=== PATIENT | male | born 1945 | race Caucasian/White ===

== ENCOUNTER → 2017-12-06 10:01 | Outpatient (CLI) | payer MEDICARE, OTHER, SELFPAY ==
[2017-12-06 12:25] LABS: Microalbumin,Random Urine 32.2 mg/L (NO RANGE EST.); Microalbumin:Creatinine Ratio 11.2 mg/g CRE (<30 mg/g CRE)
[2017-12-06 12:27] LABS: ALB/GLOB Ratio 0.8 RATIO (0.9-2.4); AST(SGOT) 49 U/L (15-37); Alanine Aminotransfer ALT/SGPT 61 U/L (16-61); Albumin, Serum 3.6 g/dL (3.2-5.0); Alkaline Phosphatase 72 U/L (45-117); Anion Gap 9 (5-15); BUN 18 mg/dL (7-18); BUN/Creat Ratio 15.9 RATIO (10-20); Calcium,Total 8.7 mg/dL (8.5-10.1); Chloride 103 mmol/L (98-107); Cholesterol 128 mg/dL (200); Creatinine, Serum 1.13 mg/dL (0.70-1.30); EST Glomerular Filtration Rate 68 mL/min (>60); Est Glom Filt Rate - Afr Amer 82 mL/min (>60); Globulin 4.3 g/dL (2.2-4.2); Glucose 126 mg/dL (74-106); High Density Lipoprotein 35 mg/dL; PSA,Total - Annual Screen 4.28 ng/mL (0.00-4.00); Potassium 3.1 mmol/L (3.5-5.1); Protein, Total 7.9 g/dL (6.4-8.2); Sodium Level 140 mmol/L (136-145); Triglycerides 198 mg/dL; Very Low Density Lipoprotein 40 mg/dL (5-40)
== END ==
PROVIDERS: Family Provider Preventive Medicine Occupational Medicine; PCP Preventive Medicine Occupational Medicine; Visit Provider Preventive Medicine Occupational Medicine
DX: I10 Essential (primary) hypertension (principal); E78.5 Hyperlipidemia, unspecified; Z12.5 Encounter for screening for malignant neoplasm of prostate
CPT/HCPCS: 36415; 80053; 80061; 82043; 82570; 84153; G0103

== ENCOUNTER → 2018-03-01 11:26 | Outpatient (CLI) | payer MEDICARE, OTHER, SELFPAY ==
--- NOTE | 2018-03-01 11:35 | RAD_ITS ---
STUDY: X-RAY - UNILATERAL RIBS ( LEFT ) WITH CHEST REASON FOR EXAM: Male, 72 years old. Left anterior rib pain after coughing. TECHNIQUE - RIBS: 4 view(s) of the ribs. TECHNIQUE - CHEST: Single frontal view of the chest. COMPARISON: None. FINDINGS - RIBS: There is a mildly displaced fracture of the lateral left ninth rib FINDINGS - CHEST: There is minor subsegmental atelectasis in the inferior left lung base. The right lung base is clear, but there is pleural thickening along the lateral right base extending into the pleural fissure Normal size heart. Normal mediastinum and kristy. Normal visualized pulmonary arteries. There is atherosclerotic calcification of the aortic arch. There are multilevel osteophytic degenerative changes of the visualized spine. 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 There is no demonstrated abnormality of the visualized soft tissue structures of the upper abdomen. RAD/Ribs Uni Min 3V w/PA Chest IMPRESSION: RIBS: Minimally displaced fracture of the lateral left ninth rib. CHEST: 1. No pneumothorax. Minor left base subsegmental atelectasis. 2. Pleural thickening in the lateral right base, tracking into the pleural fissure. Electronically Signed: Geovanny Ng MD at 19:39 EDT , Service support ,
== END ==
PROVIDERS: Family Provider Preventive Medicine Occupational Medicine; PCP Preventive Medicine Occupational Medicine; Visit Provider Preventive Medicine Occupational Medicine
DX: R07.81 Pleurodynia (principal)
CPT/HCPCS: 71101

== ENCOUNTER → 2018-06-14 12:27 | Outpatient (CLI) | payer MEDICARE, OTHER, SELFPAY ==
--- NOTE | 2018-06-14 12:31 | RAD_ITS ---
STUDY: X-RAY - THORACIC SPINE REASON FOR EXAM: Male, 72 years old. broken left 9th rib over the summer, sometimes feels numbness in that rib TECHNIQUE: 2 view(s) of the thoracic spine were obtained. COMPARISON: None. FINDINGS: Normal kyphosis of the thoracic spine. There is multi-level endplate spondylosis. There is multi-level degenerative disc disease with multilevel disc space narrowing. The soft tissue structures are unremarkable. RAD/Thoracic Spine 3 Views IMPRESSION: No demonstrated fractures. Moderate degenerative changes. Electronically Signed: Orlando Charels MD at 9:49 EDT Tel , Service support ,
== END ==
PROVIDERS: Family Provider Preventive Medicine Occupational Medicine; PCP Preventive Medicine Occupational Medicine; Referring Provider Preventive Medicine Occupational Medicine; Visit Provider Preventive Medicine Occupational Medicine
DX: M54.14 Radiculopathy, thoracic region (principal)
CPT/HCPCS: 72072

== ENCOUNTER → 2018-09-02 09:29 | Outpatient (CLI) | payer MEDICARE, OTHER, SELFPAY ==
[2018-06-07 14:08] VITALS: BMI 33.5
[2018-09-02 11:59] LABS: Absolute Lymphocyte Count 1.95 X10^3/ul (0.83-4.51); Absolute Neutrophil Count 4.2 X10^3/uL (2.0-7.7); Basophil# 0.02 X10^3/uL; Basophil% 0.3 % (0-1); Eosinophil# 0.16 X10^3/uL; Eosinophils% 2.3 % (0-5); Hematocrit 45.6 % (40-54); Hemoglobin 15.6 g/dl (13.0-16.5); Lymphocyte # 1.95 X10^3/ul (4.0); Lymphocyte % 28.2 % (19-41); Mean Corp Hgb Conc 34.2 g/gl (32-36); Mean Corpuscular Hgb 29.4 pg (27.0-32.0); Mean Corpuscular Volume 85.9 fL (80-94); Mean Platelet Vol. 10.6 fl (6.2-12.0); Monocyte# 0.58 X10^3/uL; Monocyte% 8.4 % (0-10); Neutrophil # 4.19 X10^3/uL (2.7-7.7); Neutrophil % 60.5 % (47-70); Platelet Count 162 K/mm3 (150-450); RBC Distribution Width SD 40.6 fl (35.1-43.9); Red Blood Count 5.31 M/mm3 (4.6-6.2); White Blood Count 6.9 K/mm3 (4.4-11.0)
[2018-09-02 12:02] LABS: POSITIVE COUNT NO; POSITIVE DIFFERENTIAL NO; POSITIVE MORPHOLOGY NO
[2018-09-02 12:17] LABS: Anion Gap 11 (5-15); BUN 17 mg/dL (7-18); BUN/Creat Ratio 14.4 RATIO (10-20); Calcium,Total 8.6 mg/dL (8.5-10.1); Chloride 104 mmol/L (98-107); Creatinine, Serum 1.18 mg/dL (0.70-1.30); EST Glomerular Filtration Rate 64 mL/min (>60); Est Glom Filt Rate - Afr Amer 78 mL/min (>60); Glucose 204 mg/dL (74-106); Sodium Level 141 mmol/L (136-145); T4 Total, Thyroxin 9.6 ug/dL (4.5-12.1); Thyroid Stim Hormone (TSH) 3.75 uIU/mL (0.358-3.74)
== END ==
PROVIDERS: Family Provider Preventive Medicine Occupational Medicine; PCP Preventive Medicine Occupational Medicine; Referring Provider Physician Assistant Medical; Visit Provider Physician Assistant Medical
DX: I10 Essential (primary) hypertension (principal); E78.5 Hyperlipidemia, unspecified; I42.0 Dilated cardiomyopathy; I48.92 Unspecified atrial flutter; R53.83 Other fatigue
CPT/HCPCS: 36415; 80048; 84436; 84443; 85025

== ENCOUNTER → 2018-09-15 11:35 | Outpatient (CLI) | payer MEDICARE, OTHER, SELFPAY ==
[2018-09-02 13:29] VITALS: BMI 33.7
--- NOTE | 2018-09-15 11:37 | US_ITS ---
STUDY: RENAL ULTRASOUND - COMPLETE REASON FOR EXAM: Male, 72 years old. Flank pain TECHNIQUE: Ultrasound evaluation of the kidneys was performed with real-time and static barnard-scale imaging. COMPARISON: None. FINDINGS: RIGHT KIDNEY: Normal location of the right kidney, which is normal in size. The right kidney measures 11.7 x 5.1 x 4.9 cm. There is a normal cortex of the right kidney. The renal cortex measures 1.4 cm. There is no right renal mass or cyst. There are no right renal calculi. There is dilatation of the renal pelvis and proximal ureter. There is NO dilatation of the calyxes. DISTAL RIGHT URETER: There is non-visualization of the distal right ureter. There is no demonstrated right ureterovesical junction calculus. There is a visualized right ureteral jet. LEFT KIDNEY: Normal location of the left kidney, which is normal in size. The left kidney measures 11.1 x 4.6 x 4.8 cm. There is a normal cortex of the left kidney. The renal cortex measures 1.7 cm. There are 2 cysts measuring 2.3 cm and 1 cm. There are no left renal calculi. There is no left hydronephrosis. DISTAL LEFT URETER: There is non-visualization of the distal left ureter. There is no demonstrated left ureterovesical junction calculus. There is a visualized left ureteral jet. BLADDER: The distended urinary bladder has a volume of 230 ml. The empty urinary bladder has a volume of 98 ml. There is a normal wall thickness of the distended urinary bladder. There is no demonstrated mass within the urinary bladder. There are no demonstrated bladder calculi. US/Kidney and Bladder IMPRESSION: There are LEFT kidney cysts. There are NO kidney stones. There is NO mass. RIGHT renal pelvis and ureter are dilated. Electronically Signed: Greg Dewitt MD at 3:26 EST , Service support ,
--- OUTSIDE RECORDS SUMMARY | 2018-11-20 03:10 | XMS RPT_ITS ---
:1945 Author Organization [place] Support Name Relationship Address Phone R Unavailable Unavailable Unavailable CHRISTA, ILYA Unavailable [phone] [place] [address] R Unavailable Unavailable Unavailable CHRISTA, ILYA Unavailable [phone] [place] [address] R Unavailable Unavailable Unavailable CHRISTA, ILYA Unavailable [phone] [place] [address] R Unavailable Unavailable Unavailable CHRISTA, ILYA Unavailable [phone] [place] [address] R Unavailable Unavailable Unavailable CHRISTA, ILYA Unavailable [phone] [place] [address] R Unavailable Unavailable Unavailable CHRISTA, ILYA Unavailable [phone] [place] [address] R Unavailable Unavailable Unavailable CHRISTA, ILYA Unavailable Samanta [phone] [place] [address] R Unavailable Unavailable Unavailable CHRISTA, ILYA Unavailable Samanta [phone] [place] [address] R Unavailable Unavailable Unavailable CHRISTA, ILYA Unavailable Samanta [phone] [place] [address] R Unavailable Unavailable Unavailable CHRISTA, ILYA Unavailable Samanta [phone] [place] [address] Care Team Providers Name Role Phone DEZ TELLO Attending Unavailable DEZ TELLO Primary Care Unavailable Libra Ruelas Attending Unavailable Libra Ruelas Referring Unavailable Dez Tello Primary Care Unavailable Libra Ruelas Attending Unavailable Dez Tello Referring Unavailable Libra Ruelas Attending Unavailable Dez Tello Referring Unavailable Dez Tello Primary Care Unavailable Dez Tello Attending Unavailable ElishaDez malone Referring Unavailable ElishaDez Primary Care Unavailable Dez Tello Attending Unavailable ElishaDez malone Referring Unavailable Elisha, Dez Primary Care Unavailable Libra Ruelas Attending Unavailable Libra Ruelas Steve Referring Unavailable Dez Tello Primary Care Unavailable Elisha, Dez Attending Unavailable Dez Tello Primary Care Unavailable Courtney Wright Attending Unavailable Gonzalez Haque Attending Unavailable Dez Tello Referring Unavailable Dez Tello Attending Unavailable Elisha, Dez Referring Unavailable ElishaDez Primary Care Unavailable PROBLEMS PROBLEMS DATE TYPE CONDITION / CODE ATTENDING STATUS SOURCE 09/05/2018 Unknown I10 - Essential Ruelas, Active [place] (primary) Libra Wilson [facility] hypertension / Hospital I10(ICD-10) Repository 09/05/2018 Unknown R53.83 - Other Ruelas, Active [place] fatigue / Libra [facility] R53.83(ICD-10) Hospital Repository 09/05/2018 Unknown I48.0 - Paroxysmal Ruelas, Active [place] atrial Libra [facility] fibrillation / Hospital I48.0(ICD-10) Repository 09/05/2018 Unknown E78.00 - Pure Ruelas, Active [place] hypercholesterolem Libra [facility] ia, unspecified / Hospital E78.00(ICD-10) Repository 06/14/2018 Unknown M54.14 - Dez Tello Active [place] Radiculopathy, [facility] thoracic region / Hospital M54.14(ICD-10) Repository 06/07/2018 Unknown E78.5 - Garland, Gonzalez Active [place] Hyperlipidemia, Community unspecified / Hospital E78.5(ICD-10) Repository 06/07/2018 Unknown I48.92 - Garland, Gonzalez Active [place] Unspecified atrial Community flutter / Hospital I48.92(ICD-10) Repository 03/01/2018 Unknown R07.81 - Dez Tello Active [place] Pleurodynia / Community R07.81(ICD-10) Hospital Repository 12/06/2017 Unknown Z12.5 - Encounter Dez Tello Active [place] for screening for [facility] malignant neoplasm [facility] prostate / Repository Z12.5(ICD-10) PROCEDURES PROCEDURES No Procedure Records FoundRESULTS RESULTS BASIC METABOLIC Collected: 09/22/2018 Status: F Source: [place] PROFILE (BMP) 3:[address] [facility] REPOSITORY TYPE CODE TESTS RESULT OUT OF RANGE REFERENCE UNITS LAB L501.0100 74-106 mg/dL High GLU 162 Result Comment: Fasting Glucose result greater than or equal to 126 mg/dL suggests DIABETES MELLITUS per A.D.A. criteria. Please note revised GLUCOSE reference range effective 2017. LAB L501.1000 7-18 mg/dL Normal BUN 12 LAB L501.1100 0.70-1.30 mg/dL Normal CREAT,SERUM 1.10 Result Comment: The validity of the calculated GFR AND GFRAA in patients over 70 years has not been determined. Clinical correlation is essential. LAB L501.1110 >60 mL/min Normal EST GFR 70 Result Comment: Non- GFR Calc LAB L501.1115 >60 mL/min Normal EST GFR - AA 85 Result Comment: GFR Calc LAB L501.1300 10-20 RATIO Normal BUN/CRE 10.9 LAB L501.2200 8.5-10.1 mg/dL CA Normal 8.5 LAB L501.5300 136-145 mmol/L NA Normal 144 LAB L501.5600 3.5-5.1 mmol/L K Normal 3.7 LAB L501.5900 98-107 mmol/L CL Normal 107 LAB L501.6100 21.0-32.0 mmol/L Normal CO2 25.0 LAB L501.6200 5-15 Normal GAP 12 Performed By: #### L500.2500 #### [facility] [address] [facility] [place], [address] KIDNEY AND BLADDER Observed: 09/15/2018 Status: F Source: [place] 11:[address] [facility] REPOSITORY [facility] Imaging Services [address] [place] [address] Kidney and Bladder MR#: [id number] Acct: [id number] Name: DENICE GOODWIN Rep #: [id number] : 1945 M 72 From: Greg Dewitt PCP: Dez Tello DO Status: REG CLI Study: Kidney and Bladder Date of Exam: 09/15/18 Exam# [id number] Ordering Dr: Dez Tello DO STUDY: RENAL ULTRASOUND - COMPLETE REASON FOR EXAM: Male, 72 years old. Flank pain TECHNIQUE: Ultrasound evaluation of the kidneys was performed with real-time and static barnard-scale imaging. COMPARISON: None. FINDINGS: RIGHT KIDNEY: Normal location of the right kidney, which is normal in size. The right kidney measures 11.7 x 5.1 x 4.9 cm. There is a normal cortex of the right kidney. The renal cortex measures 1.4 cm. There is no right renal mass or cyst. There are no right renal calculi. There is dilatation of the renal pelvis and proximal ureter. There is NO dilatation of the calyxes. DISTAL RIGHT URETER: There is non-visualization of the distal right ureter. There is no demonstrated right ureterovesical junction calculus. There is a visualized right ureteral jet. LEFT KIDNEY: Normal location of the left kidney, which is normal in size. The left kidney measures 11.1 x 4.6 x 4.8 cm. There is a normal cortex of the left kidney. The renal cortex measures 1.7 cm. There are 2 cysts measuring 2.3 cm and 1 cm. There are no left renal calculi. There is no left hydronephrosis. DISTAL LEFT URETER: There is non-visualization of the distal left ureter. There is no demonstrated left ureterovesical junction calculus. There is a visualized left ureteral jet. BLADDER: The distended urinary bladder has a volume of 230 ml. The empty urinary bladder has a volume of 98 ml. There is a normal wall thickness of the distended urinary bladder. There is no demonstrated mass within the urinary bladder. There are no demonstrated bladder calculi. US/Kidney and Bladder IMPRESSION: There are LEFT kidney cysts. There are NO kidney stones. There is NO mass. RIGHT renal pelvis and ureter are dilated. Electronically Signed: Greg Dewitt MD at 3:26 EST , Service support , CC: Dez Tello DO Steamfitter Supervisor: Signed CARDIOLOGY VISIT Observed: 09/05/2018 Status: F Source: [place] REPORT 6:[address] [facility] REPOSITORY [facility] [address] [place] [address] OFFICE VISIT Date of Service: 09/02/18 MR#: [id number] Acct: [id number] Name: DENICE GOODWIN Rep #: [id number] : 1945 Provider: Libra Ruelas Age/Sex: 72/M Location: [facility] Status: Signed HPI HPI Chief Complaint: Follow up vist Details: DENICE GOODWIN, is a 72 M who presents to the office today for an urgent appt for concerns over fatigue. He has a history of atrial fibrillation, hypertension, hyperlipidemia. is concerned about husbands fatigue. She sts that he can nap, sleeps greater than 10 hours and still complains of fatigue. Over the last year we have decreased his medications. Pt sts that he has been fatigued since prior to his last OV with us in May. He does not sleep well. He has never had a sleep study. He does not have any chest pain/heaviness. He does not have any worsening SOB. He does not have any palpitations. He does not have any lightheadedness/dizziness. He does have some edema but feels this improved since decreasing his norvasc. Intake Vital Signs09/02/18 Height 5 ft 10 in 09/02/18 Weight: 235 lb 09/02/18 Body Mass Index (BMI) 33.7 09/02/18 Blood Pressure 144/82 H Intake Visit Reasons: Fatigue, Top Ironer Required: No Accompanied by: Is patient in pain?: No Allergies No Known Allergies Allergy (Verified 09/02/18 13:28) Medications Cholecalciferol (VIT D3) [Vitamin D] 2,000 unit PO DAILY 10/16/15 [History Confirmed 09/02/18] Multivitamin [Daily Multiple Vitamin] 1 ea PO DAILY 10/16/15 [History Confirmed 09/02/18] Sidon-3 Fatty Acids/Fish Oil [Sidon 3 1,000 mg Softgel] 1 ea PO DAILY 10/16/15 [History Confirmed 09/02/18] Simvastatin [Zocor] 20 mg PO QHS 10/16/15 [History Confirmed 09/02/18] Ubidecarenone [Co Q-10] 200 mg PO DAILY 10/16/15 [History Confirmed 09/02/18] Vitamin B Complex/Folic Acid [Super B Maxi Complex Caplet] 0.4 mg PO DAILY 10/16/15 [History Confirmed 09/02/18] Warfarin [Coumadin (PBKC)] 4 mg PO DAILY 10/16/15 [History Confirmed 09/02/18] losartan 100 mg tablet 100 mg PO DAILY #90 tab 10/05/17 [Rx Confirmed 09/02/18] metoprolol tartrate 50 mg tablet 25 mg PO BID tab 11/15/17 [History Confirmed 09/02/18] amlodipine 5 mg tablet 5 mg PO DAILY #90 tab 06/07/18 [Rx Confirmed 09/02/18] potassium chloride ER 20 mEq tablet,extended release(part/cryst) 20 meq PO DAILY #30 tab 09/02/18 [Rx Confirmed 09/02/18] PFSH Medical History Essential (primary) hypertension (Chronic) Hyperlipidemia (Chronic) Dilated cardiomyopathy (Chronic) Atrial flutter (Chronic) Surgical History History of left heart catheterization (Resolved 10/17/15) Family History Other CVA (cerebral vascular accident) Hypertension Social History Smoking Status: Never smoker ROS Const Const: Positive for weakness, fatigue and daytime sleepiness; negative for fever(s) or headache(s) Eyes Eyes: Negative for blind spots, loss of peripheral vision or transient loss of vision ENT ENT: Negative for headache(s), dizziness, tinnitus or Nosebleed/epistaxis Cardio Chest Pain: No Palpitations: No Edema: None Muscle aches with walking: None Resp Respiratory: Negative for SOB with activity, SOB at rest, SOB orthopnea\SOB lying down or Cough GI GI: Negative nausea, vomiting, heartburn or vomiting blood/hematemesis : Negative for hematuria Musc Musc: Negative for muscle aches/ myalgia Neuro Neuro: Positive for weakness; negative for headache(s), dizziness, near syncope, syncope, lightheadedness or orthostatic symptoms Abbe Hematologic/Lymphatic: Negative for easy bleeding Endo Endo: Positive for fatigue Cardiology Exam Const Appearance: cooperative, healthy appearing, well developed, well groomed and no acute distress Nutritional Appearance: well nourished and average body habitus Orientation: alert, awake and oriented x3 Head Head: normal to inspection, normocephalic and atraumatic Ears: hearing grossly normal bilaterally and external ears normal Nose: external nose normal, nasal mucous membranes and turbinates normal, nares normal, septum normal, no nasal discharge Face and Sinus: face symmetric Mouth: oral mucosae normal, tongue normal, oropharynx normal and moist mucous membranes Teeth and gingiva: dentition normal Throat: posterior oropharynx normal, tonsils normal and uvula midline Eyes General: appearance normal, both eyes and all related structures Eyelids: eyelids normal Conjunctivae: conjunctivae normal Pupils: PERRL, normal by confrontation and accommodation normal EOM: EOM intact bilaterally Neck Neck: normal visual inspection, trachea midline and no JVD JVD: +5 Carotids: normal carotid upstroke and bounding pulses Chest Chest inspection: normal inspection of the chest, symmetric chest movement and normal respiratory effort Auscultation: Bilateral: Clear to Auscultation Cardio Palpation: normal PMI Rate: regular rate Rhythm: regular rhythm Heart sounds: S1 normal, S2 normal and normal, physiologic split S2; negative rub, gallop or murmur GI GI: normal to inspection, soft, no hepatosplenomegaly and bowel sounds present Neuro General: alert, awake, oriented x3, no focal sensory deficit, gait normal and moves all extremities Skin Skin: no rashes or lesions noted Extremities Pulses: Normal: Right Femoral Pulse, Left Femoral Pulse, Right Dorsalis Pedis Pulse, Left Dorsalis Pedis Pulse, Right Posterior Tibial Pulse, Left Posterior Tibial Pulse, Right Radial Pulse, Left Radial Pulse Lower Extremity Edema: None: Bilateral Musculoskel Musculoskeletal: No joint tenderness Psych Psychological: normal affect Assessment AND Plan 1. Fatigue, unspecified type R53.83 Plan - LUIS CARLOS Lamas Pt is hypokalemic. Will have him stop his HCTZ and start a K+ supplement for a few days. Will repeat his BMP in 2 weeks. Since we are stopping his HCTZ we will monitor his BP closely. Discussed obtaining a sleep study, pt declines at this time. 2. Essential hypertension I10 Plan - LUIS CARLOS Lam[place] Bp on higher side of normal today, with adjusting medications will continue to monitor closely. Will have f/u next month. Patient Instructions - LUIS CARLOS Lam[place] Stop your hydrochlorothiazide and start your potassium for 5 days, then repeat your blood work in 2 weeks. Orders Orders: 3. Paroxysmal atrial fibrillation I48.0 Plan - LUIS CARLOS [place] He will continue with his current low dose BB. Pt has not had any symptoms. They will continue with her anticoagulation with a therapeutic INR goal of 2-3. 4. Pure hypercholesterolemia E78.00 Plan - LUIS CARLOS Lam[place] Recent lipid profile has been reviewed. Patient will continue with his current dose of low intensity statin. Plan Detail Other Medications New: Discontinued: hydrochlorothiazide Discontinued Reason: Discontinued by PCP/other phy25 mg PO DAILY sicians Additional Comments - LUIS CARLOS Lamas The above patient was discussed with Dr. Haque, he agrees with plan of care. Thank you for allowing us to participate in patient's plan of care, if you have any questions please do not hesitate to call. This note was generated using a voice recognition system and there may be incorrect words, spelling or punctuation errors that were not noted when reviewing the office note prior to saving. Follow Up 1 Month (MMM) Coding Level of Care Code Off vis,est,level 4 Diagnoses Fatigue, unspecified type R53.83 Fatigue type: unspecified Essential hypertension I10 Paroxysmal atrial fibrillation I48.0 Atrial fibrillation type: paroxysmal Pure hypercholesterolemia E78.00 Hyperlipidemia type: pure hypercholesterolemia Coding Level of Care Code Off vis,est,level 4 Diagnoses Fatigue, unspecified type R53.83 Fatigue type: unspecified Essential hypertension I10 Paroxysmal atrial fibrillation I48.0 Atrial fibrillation type: paroxysmal Pure hypercholesterolemia E78.00 Hyperlipidemia type: pure hypercholesterolemia Supplemental Info Supplemental Information Echocardiogram in 2016 demonstrated: Hypermobile atrial septum. Normal LV size. Left ventricular systolic function is lower limits of normal. The estimated ejection fraction is 50 %. Mild (1+) tricuspid valve insufficiency. Contrast injection was performed. Stress test in 2016 demonstrated: Exercise myocardial perfusion stress test with no evidence of ischemia at a low workload. Marked reduced exercise capacity. Premature ventricular complexes noted. Preserved ejection fraction. Heart cath from 2016 demonstrated: LEFT MAIN: The left main coronary artery was noted to be angiographically normal. It bifurcated into left anterior descending artery and left circumflex artery. No significant stenosis was noted in this vessel. LEFT ANTERIOR DESCENDING ARTERY: The left anterior descending artery was a medium-sized vessel. Left anterior descending artery continued, gave off a large septal sprinkler tender, which had an ostial stenosis. A large diagonal branch was also noted with no significant disease. The left anterior descending artery continued, wrapped around the apex of the left ventricle. Minimal disease only was noted. LEFT CIRCUMFLEX ARTERY: The left circumflex artery was a nondominant vessel. It gave off a prominent first obtuse marginal branch with no high-grade stenosis. There was an eccentric 30% stenosis noted. The AV groove branch was also noted, which did not demonstrate any high-grade stenosis. RIGHT CORONARY ARTERY: The right coronary artery was a dominant vessel, but small vessel. It gave off a conus branch, an acute marginal branch, and sinoatrial branch. The vessel continued distally and gave off a posterior descending artery and a posterolateral bifurcating branch. No high-grade stenosis was noted in this vessel. Left ventriculogram was not performed. The previous echocardiogram had demonstrated ejection fraction of approximately 50%. Labs LDL Cholesterol 53 mg/dL (0-130) 12/06/17 HDL Cholesterol 35 mg/dL (40-) L 12/06/17 Triglycerides 198 mg/dL (-199) 12/06/17 VLDL Cholesterol 40 mg/dL (5-40) 12/06/17 Diagnostics Echocardiogram 10/07/15 Stress Test Nuclear Medicine 10/07/15 Cardiac Catheterization 10/17/15 Chest X-Ray 10/07/15 09/02/18 1627 <Electronically signed by Libra ALRDIDGE> Date Libra ALDRIDGE 09/05/18 0643<Electronically signed by Gonzalez Haque MD> Cosigner Signature: Date (if applicable) Gonzalez Haque MD CC: Dez GAMBLE W/DIFF, AUTOMATED Collected: 09/02/2018 Status: F Source: [place] 9:[address] [facility] REPOSITORY TYPE CODE TESTS RESULT OUT OF RANGE REFERENCE UNITS LAB L100.1000 4.4-11.0 K/mm3 Normal WBC 6.9 LAB L100.1200 4.6-6.2 M/mm3 Normal RBC 5.31 LAB L100.1300 13.0-16.5 g/dl Normal HGB 15.6 LAB L100.1400 40-54 % Normal HCT 45.6 LAB L100.1500 80-94 fL Normal MCV 85.9 LAB L100.1600 27.0-32.0 pg Normal MCH 29.4 LAB L100.1700 32-36 g/gl Normal MCHC 34.2 LAB L100.1810 11.6-14.6 % Normal RDW CV 13.0 LAB L100.1820 35.1-43.9 fl Normal RDW SD 40.6 LAB L100.1900 150-450 K/mm3 Normal PLT 162 LAB L100.2000 6.2-12.0 fl Normal MPV 10.6 LAB L100.2100 47-70 % Normal NEUT% 60.5 LAB L100.2200 19-41 % Normal LY% 28.2 LAB L100.2300 0-10 % Normal MONO% 8.4 LAB L100.2400 0-5 % Normal EO% 2.3 LAB L100.2500 0-1 % Normal BASO% 0.3 LAB L100.2550 0.0-0.9 % Normal IM GRAN % 0.300 Result Comment: IG% - Immature Granulocytes (promyelocytes, myelocytes and metamyelocytes) > 1% indicates that a LEFT SHIFT is Present. LAB L100.2620 2.0-7.7 X10 3/uL Normal Absolute Neut 4.2 LAB L100.2720 0.83-4.51 X10 3/ul Normal Absolute Lymph 1.95 Performed By: #### L100.0100 #### [facility] [address] [place], [place], [id number] BASIC METABOLIC Collected: 09/02/2018 Status: F Source: [place] PROFILE ([facility]) 9:[address] [facility] REPOSITORY TYPE CODE TESTS RESULT OUT OF RANGE REFERENCE UNITS LAB L501.0100 74-106 mg/dL High GLU 204 Result Comment: Glucose result greater than or equal to 200 mg/dL suggests DIABETES MELLITUS per A.D.A. criteria. Please note revised GLUCOSE reference range effective 2017. LAB L501.1000 7-18 mg/dL Normal BUN 17 LAB L501.1100 0.70-1.30 mg/dL Normal CREAT,SERUM 1.18 Result Comment: The validity of the calculated GFR AND GFRAA in patients over 70 years has not been determined. Clinical correlation is essential. LAB L501.1110 >60 mL/min Normal EST GFR 64 Result Comment: Non- GFR Calc LAB L501.1115 >60 mL/min Normal EST GFR - AA 78 Result Comment: GFR Calc LAB L501.1300 10-20 RATIO Normal BUN/CRE 14.4 LAB L501.2200 8.5-10.1 mg/dL CA Normal 8.6 LAB L501.5300 136-145 mmol/L NA Normal 141 LAB L501.5600 3.5-5.1 mmol/L Low K 3.0 LAB L501.5900 98-107 mmol/L CL Normal 104 LAB L501.6100 21.0-32.0 mmol/L Normal CO2 26.0 LAB L501.6200 5-15 Normal GAP 11 Performed By: #### L500.2500, L501.9310, L501.9520 #### [facility] [address] [facility] [place], [place], [id number] T4 TOTAL, THYROXIN Collected: 09/02/2018 Status: F Source: [place] 9:[address] [facility] REPOSITORY TYPE CODE TESTS RESULT OUT OF RANGE REFERENCE UNITS LAB L501.9310 4.5-12.1 ug/dL T4 Normal THYROXIN 9.6 Performed By: #### L500.2500, L501.9310, L501.9520 #### [facility] [address] [place], [place], [address] THYROID STIM HORMONE Collected: 09/02/2018 Status: F Source: [place] ([facility]) 9:[address] [facility] REPOSITORY TYPE CODE TESTS RESULT OUT OF RANGE REFERENCE UNITS LAB L501.9520 0.358-3.74 uIU/mL High TSH 3.75 Performed By: #### L500.2500, L501.9310, L501.9520 #### [facility] [address] [place], [address] THORACIC SPINE 3 Observed: 06/14/2018 Status: F Source: [place] VIEWS 12:31 PM [facility] REPOSITORY [facility] Imaging Services [address] [place] [address] Thoracic Spine 3 Views MR#: [id number] Acct: [id number] Name: DENICE GOODWIN Marcy Rep #: [id number] : 1945 M 72 From: Orlando Charles PCP: Dez Tello DO Status: REG CLI Study: Thoracic Spine 3 Views Date of Exam: 06/14/18 Exam# [id number] Ordering Dr: Dez Tello DO STUDY: X-RAY - THORACIC SPINE REASON FOR EXAM: Male, 72 years old. broken left 9th rib over the summer, sometimes feels numbness in that rib TECHNIQUE: 2 view(s) of the thoracic spine were obtained. COMPARISON: None. FINDINGS: Normal kyphosis of the thoracic spine. There is multi-level endplate spondylosis. There is multi-level degenerative disc disease with multilevel disc space narrowing. The soft tissue structures are unremarkable. RAD/Thoracic Spine 3 Views IMPRESSION: No demonstrated fractures. Moderate degenerative changes. Electronically Signed: Orlando Charles MD at 9:49 EDT Tel , Service support , CC: Dez Tello DO Steamfitter Supervisor: Signed CARDIOLOGY VISIT Observed: 06/07/2018 Status: F Source: [place] REPORT 2:[address] [facility] REPOSITORY [facility] [address] [place] [address] OFFICE VISIT Date of Service: 06/07/18 MR#: [id number] Acct: [id number] Name: DENICE GOODWIN Rep #: [id number] : 1945 Provider: Gonzalez Haque MD Age/Sex: 72/M [place] [facility] Status: Signed [facility] Chief Complaint: Follow up vist Details: DENICE GOODWIN, is a 72 M who presents to the office today for for follow-up visit. He is a gentleman with a history of previous atrial fibrillation hypertension hyperlipidemia. He returns for routine follow-up visit he denies any chest pain or shortness breath or paroxysmal nocturnal dyspnea, but mild pedal edema he has had no neck arm or jaw discomfort suggest angina. He has been compliant with all his medications. You do remember he underwent a cardiac catheterization in 2016 which demonstrated left main coronary artery with no significant stenosis left anterior descending artery with minimal disease circumflex artery with 30% stenosis in the right coronary artery with no significant stenosis. He has not had any neck arm or jaw discomfort suggest angina. Intake Vital Signs06/07/18 Height 5 ft 10 in 06/07/18 Weight: 234 lb 06/07/18 Body Mass Index (BMI) 33.5 06/07/18 Blood Pressure 110/72 Intake Visit Reasons: 6 M FU Top Ironer Required: No Is patient in pain?: No Allergies No Known Allergies Allergy (Verified 06/07/18 14:09) Medications Cholecalciferol (VIT D3) [Vitamin D] 2,000 unit PO DAILY 10/16/15 [History Confirmed 06/07/18] Hydrochlorothiazide [Hctz] 25 mg PO DAILY 10/16/15 [History Confirmed 06/07/18] Multivitamin [Daily Multiple Vitamin] 1 ea PO DAILY 10/16/15 [History Confirmed 06/07/18] Sidon-3 Fatty Acids/Fish Oil [Sidon 3 1,000 mg Softgel] 1 ea PO DAILY 10/16/15 [History Confirmed 06/07/18] Simvastatin [Zocor] 20 mg PO QHS 10/16/15 [History Confirmed 06/07/18] Ubidecarenone [Co Q-10] 200 mg PO DAILY 10/16/15 [History Confirmed 06/07/18] Vitamin B Complex/Folic Acid [Super B Maxi Complex Caplet] 0.4 mg PO DAILY 10/16/15 [History Confirmed 06/07/18] Warfarin [Coumadin (PBKC)] 4 mg PO DAILY 10/16/15 [History Confirmed 06/07/18] losartan 100 mg tablet 100 mg PO DAILY #90 tab 10/05/17 [Rx Confirmed 06/07/18] metoprolol tartrate 50 mg tablet 25 mg PO BID tab 11/15/17 [History Confirmed 06/07/18] amlodipine 5 mg tablet 5 mg PO DAILY #90 tab 06/07/18 [Rx Confirmed 06/07/18] [facility] Medical History Essential (primary) hypertension (Chronic) Hyperlipidemia (Chronic) Dilated cardiomyopathy (Chronic) Atrial flutter (Chronic) Surgical History History of left heart catheterization (Resolved 10/17/15) Family History Other CVA (cerebral vascular accident) Hypertension Social History Smoking Status: Never smoker ROS Const Const: Negative for fatigue, weakness, body ache, fever(s), chills, frequent falls, night sweats, daytime sleepiness, difficulty sleeping, excessive sweating, weight gain, weight loss, increased appetite, poor appetite, anorexia or other Cardio Chest Pain: No Edema: Left Resp Respiratory: Positive for SOB with activity Neuro Neuro: Negative for weakness or frequent falls Endo Endo: Negative for fatigue or excessive sweating Cardiology Exam Const Appearance: cooperative, healthy appearing, well developed, well groomed and no acute distress Nutritional Appearance: well nourished and average body habitus Orientation: alert, awake and oriented x3 Head Head: normal to inspection, normocephalic and atraumatic Ears: hearing grossly normal bilaterally and external ears normal Nose: external nose normal, nasal mucous membranes and turbinates normal, nares normal, septum normal, no nasal discharge Face and Sinus: face symmetric Mouth: oral mucosae normal, tongue normal, oropharynx normal and moist mucous membranes Teeth and gingiva: dentition normal Throat: posterior oropharynx normal, tonsils normal and uvula midline Eyes General: appearance normal, both eyes and all related structures Eyelids: eyelids normal Conjunctivae: conjunctivae normal Pupils: PERRL, normal by confrontation and accommodation normal EOM: EOM intact bilaterally Neck Neck: normal visual inspection, trachea midline and no JVD JVD: +5 Carotids: normal carotid upstroke and bounding pulses Chest Chest inspection: normal inspection of the chest, symmetric chest movement and normal respiratory effort Auscultation: Bilateral: Clear to Auscultation Cardio Palpation: normal PMI Rate: regular rate Rhythm: regular rhythm Heart sounds: S1 normal, S2 normal and normal, physiologic split S2; negative rub, gallop or murmur GI GI: normal to inspection, soft, no hepatosplenomegaly and bowel sounds present Neuro General: alert, awake, oriented x3, no focal sensory deficit, gait normal and moves all extremities Skin Skin: no rashes or lesions noted Extremities Pulses: Normal: Right Femoral Pulse, Left Femoral Pulse, Right Dorsalis Pedis Pulse, Left Dorsalis Pedis Pulse, Right Posterior Tibial Pulse, Left Posterior Tibial Pulse, Right Radial Pulse, Left Radial Pulse Lower Extremity Edema: None: Bilateral Musculoskel Musculoskeletal: No joint tenderness Psych Psychological: normal affect Assessment AND Plan 1. Essential (primary) hypertension I10 Plan He does have a history of hypertension which appears to well controlled at this time my recommendation is that because of his pedal edema I would recommend that we reduce his amlodipine to 5 mg a day and for him to keep records of his blood pressure. 2. Hyperlipidemia E78.5 Plan He does have a history of hyperlipidemia for which she remains on medium intensity statin with the simvastatin. His most recent lipid profile demonstrated total cholesterol 128, LDL of 53 and HDL of 35. No changes will be made with respect to the above. 3. Atrial flutter I48.92 Plan He does have a history of previous atrial fibrillation flutter for which he has been maintaining sinus rhythm. He remains anticoagulated and is on the metoprolol which has been keeping him in regular rhythm for now. No other changes will be made. He will remain anticoagulated with an INR goal of 2-3. Plan Detail Other Medications New: Discontinued: Follow Up 6 Months (mmm) Coding Level of Care Code Off vis,est,level 4 Diagnoses Essential (primary) hypertension I10 Hyperlipidemia E78.5 Atrial flutter I48.92 Coding Level of Care Code Off vis,est,level 4 Diagnoses Essential (primary) hypertension I10 Hyperlipidemia E78.5 Atrial flutter I48.92 06/07/18 1421 <Electronically signed by Gonzalez Haque MD> Date Gonzalez White Signature: Date (if applicable) CC: Dez Tello DO RIBS UNI MIN 3V Observed: 03/01/2018 Status: F Source: [facility]AB W/PA CHEST 11:[address] [facility] REPOSITORY [facility] Imaging Services [address] [place] [address] Ribs Uni Min 3V w/PA Chest MR#: [id number] Acct: [id number] Name: DENICE GOODWIN Rep #: [id number] : 1945 M 72 From: Allen Ng MD PCP: Dez Tello DO Status: REG CLI Study: Ribs Uni Min 3V w/PA Chest Date of Exam: 03/01/18 Exam# [id number] Ordering Dr: Dez Tello DO STUDY: X-RAY - UNILATERAL RIBS ( LEFT ) WITH CHEST REASON FOR EXAM: Male, 72 years old. Left anterior rib pain after coughing. TECHNIQUE - RIBS: 4 view(s) of the ribs. TECHNIQUE - CHEST: Single frontal view of the chest. COMPARISON: None. FINDINGS - RIBS: There is a mildly displaced fracture of the lateral left ninth rib FINDINGS - CHEST: There is minor subsegmental atelectasis in the inferior left lung base. The right lung base is clear, but there is pleural thickening along the lateral right base extending into the pleural fissure Normal size heart. Normal mediastinum and kristy. Normal visualized pulmonary arteries. There is atherosclerotic calcification of the aortic arch. There are multilevel osteophytic degenerative changes of the visualized spine. 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 There is no demonstrated abnormality of the visualized soft tissue structures of the upper abdomen. RAD/Ribs Uni Min 3V w/PA Chest IMPRESSION: RIBS: Minimally displaced fracture of the lateral left ninth rib. CHEST: 1. No pneumothorax. Minor left base subsegmental atelectasis. 2. Pleural thickening in the lateral right base, tracking into the pleural fissure. Electronically Signed: Geovanny Ng MD at 19:39 EDT , Service support , CC: Dez Tello DO Steamfitter Supervisor: Signed MICROALB:CREAT Collected: 12/06/2017 Status: F Source: [facility] 10:[address] [facility] REPOSITORY TYPE CODE TESTS RESULT OUT OF RANGE REFERENCE UNITS LAB L501.1200 NO RANGE EST. mg/dL Normal UR CREAT 287.00 LAB L502.0500 NO RANGE EST. mg/L Normal 32.2 MICROALBUMIN ,UR LAB L502.0600 <30 mg/g CRE mg/g CRE Normal 11.2 MALB:CREAT Performed By: #### L502.0250 #### [facility] [address] [place], [address] COMPREHENSIVE METABOLIC Collected: 12/06/2017 Status: F Source: [facility] 10:[address] [facility] REPOSITORY TYPE CODE TESTS RESULT OUT OF RANGE REFERENCE UNITS LAB L501.0100 74-106 mg/dL High GLU 126 Result Comment: Fasting Glucose result greater than or equal to 126 mg/dL suggests DIABETES MELLITUS per A.D.A. criteria. Please note revised GLUCOSE reference range effective 2017. LAB L501.1000 7-18 mg/dL Normal BUN 18 LAB L501.1100 0.70-1.30 mg/dL Normal CREAT,SERUM 1.13 Result Comment: The validity of the calculated GFR AND GFRAA in patients over 70 years has not been determined. Clinical correlation is essential. LAB L501.1110 >60 mL/min Normal EST GFR 68 Result Comment: Non- GFR Calc LAB L501.1115 >60 mL/min Normal EST GFR - AA 82 Result Comment: GFR Calc LAB L501.1300 10-20 RATIO Normal BUN/CRE 15.9 LAB L501.1500 6.4-8.2 g/dL T Normal PROT 7.9 LAB L501.1800 3.2-5.0 g/dL Normal ALB 3.6 LAB L501.1950 2.2-4.2 g/dL High GLOB 4.3 LAB L501.2000 0.9-2.4 RATIO Low A/G 0.8 LAB L501.2200 8.5-10.1 mg/dL CA Normal 8.7 LAB L501.4100 15-37 U/L High AST 49 LAB L501.4305 45-117 U/L Normal ALK P 72 LAB L501.4405 16-61 U/L Normal ALT 61 Result Comment: Please note revised ALT reference range effective 2017. LAB L501.4600 0.20-1.00 mg/dL High T BILI 1.20 LAB L501.5300 136-145 mmol/L Normal NA 140 LAB L501.5600 3.5-5.1 mmol/L Low K 3.1 LAB L501.5900 98-107 mmol/L Normal CL 103 LAB L501.6100 21.0-32.0 mmol/L Normal CO2 28.0 LAB L501.6200 5-15 Normal GAP 9 Performed By: #### L500.4050, L500.4100, L501.9910 #### [facility] [address] [place], [place], [id number] LIPID PROFILE Collected: 12/06/2017 Status: F Source: [place] 10:[address] [facility] REPOSITORY TYPE CODE TESTS RESULT OUT OF RANGE REFERENCE UNITS LAB L501.4900 200 mg/dL Normal CHOL 128 Result Comment: <200 mg/dL Desirable 200-240 mg/dL Borderline >240 mg/dL High Risk LAB L501.5000 mg/dL Normal TRIG 198 Result Comment: The drugs N-Acetylcysteine and Metamizole may falsely depress this assay. Serum Triglycerides Reference Interval Normal <150 mg/dL Borderline high 150 - 199 mg/dL High 200 - 499 mg/dL Very High > or = 500 mg/dL LAB L501.6400 mg/dL Low HDL 35 Result Comment: The drugs N-Acetylcysteine and Metamizole may falsely depress this assay. Reference Range HDL <40 mg/dL Low HDL Cholesterol HDL >or= 60 mg/dL High HDL Cholesterol LAB L501.6500 0-130 mg/dL Normal LDL 53 LAB L501.6600 5-40 mg/dL Normal VLDL 40 Performed By: #### L500.4050, L500.4100, L501.9910 #### [facility] [address] [place], [address] PSA,TOTAL - ANNUAL Collected: 12/06/2017 Status: F Source: [facility] SCREEN 10:[address] [facility] REPOSITORY TYPE CODE TESTS RESULT OUT OF REFERENCE UNITS RANGE LAB L501.9910 0.00-4.00 ng/mL High PSA,TOT 4.28 SCREEN Result Comment: This test was performed using the TPSA assay method for the Optoro chemistry system. Values obtained with different assay methods cannot be used interchangably. When changing PSA assays in the course of monitoring a patient, additional sequential testing should be carried out to confirm baseline values. Performed By: #### L500.4050, L500.4100, L501.9910 #### [facility] [address] [place], [address] CARDIOLOGY VISIT Observed: 11/20/2017 Status: F Source: FAB REPORT 12:[address] [facility] REPOSITORY [facility] [address] [place] [address] OFFICE VISIT Date of Service: 11/15/17 MR#: [id number] Acct: [id number] Name: DENICE GOODWIN Rep #: [id number] : 1945 Provider: Libra Ruelas Age/Sex: 71/M Location: [facility] Status: Signed HPI HPI Details: DENICE GOODWIN, is a 71 M who presents to the office today for cardiovascular follow-up. He has a history of atrial fibrillation, hypertension, hyperlipidemia. He is recovering from a viral illness. From a cardiac standpoint, patient is doing well. He is concerned about depression. He does not have any chest discomfort/heaviness/tightness. His exercise tolerance is stable for his age. He does not have any worsening symptoms of shortness of breath. He does have SOB with exertion but this is not new. He denies any PND. He does not have any orthopnea. He does not have any symptoms of congestive heart failure. He does not have any palpitations that he is aware of. He does not have any lightheadedness or dizziness. He does not have any near-syncope or syncope. He does not have any lower extremity edema. He does not have any symptoms of claudication. Intake Vital Signs11/15/17 Height 5 ft 10 in 11/15/17 Weight: 233 lb 11/15/17 Body Mass Index (BMI) 33.4 11/15/17 Blood Pressure 110/70 11/15/17 Pulse Rate 68 Intake Visit Reasons: 6 M FU Allergies No Known Allergies Allergy (Verified 11/15/17 14:19) Medications Cholecalciferol (VIT D3) [Vitamin D] 2,000 unit PO DAILY 10/16/15 [History Confirmed 11/15/17] Hydrochlorothiazide [Hctz] 25 mg PO DAILY 10/16/15 [History Confirmed 11/15/17] Multivitamin [Daily Multiple Vitamin] 1 ea PO DAILY 10/16/15 [History Confirmed 11/15/17] Sidon-3 Fatty Acids/Fish Oil [Sidon 3 1,000 mg Softgel] 1 ea PO DAILY 10/16/15 [History Confirmed 11/15/17] Simvastatin [Zocor] 20 mg PO QHS 10/16/15 [History Confirmed 11/15/17] Ubidecarenone [Co Q-10] 200 mg PO DAILY 10/16/15 [History Confirmed 11/15/17] Vitamin B Complex/Folic Acid [Super B Maxi Complex Caplet] 0.4 mg PO DAILY 10/16/15 [History Confirmed 11/15/17] Warfarin [Coumadin (PBKC)] 4 mg PO DAILY 10/16/15 [History Confirmed 11/15/17] amlodipine 10 mg tablet 10 mg PO DAILY #90 tab 09/09/17 [Rx Confirmed 11/15/17] losartan 100 mg tablet 100 mg PO DAILY #90 tab 10/05/17 [Rx Confirmed 11/15/17] metoprolol tartrate 50 mg tablet 25 mg PO BID tab 11/15/17 [History Confirmed 11/15/17] Ejection fraction %: 50 to 54 [facility] Medical History Hyperlipidemia (Chronic) Hypertension (Chronic) Dilated cardiomyopathy (Chronic) Atrial flutter (Chronic) Atherosclerotic heart disease of [place] coronary artery without angina pectoris (Chronic) Family History Other CVA (cerebral vascular accident) Hypertension Social History Smoking Status: Never smoker ROS Const Const: Negative for weakness, fatigue, fever(s) or headache(s) Eyes Eyes: Negative for blind spots, loss of peripheral vision or transient loss of vision ENT ENT: Negative for headache(s), dizziness, tinnitus or Nosebleed/epistaxis Cardio Chest Pain: No Palpitations: No Edema: None Muscle aches with walking: None Resp Respiratory: Negative for SOB with activity, SOB at rest, SOB orthopnea\SOB lying down or Cough GI GI: Negative nausea, vomiting, heartburn or vomiting blood/hematemesis : Negative for hematuria Musc Musc: Negative for muscle aches/ myalgia Neuro Neuro: Negative for weakness, headache(s), dizziness, near syncope, syncope, lightheadedness or orthostatic symptoms Abbe Hematologic/Lymphatic: Negative for easy bleeding Endo Endo: Negative for fatigue Cardiology Exam Const Appearance: cooperative, no acute distress and well developed Orientation: alert, awake and oriented x3 Head Head: normocephalic and atraumatic Mouth: moist mucous membranes Eyes General: appearance normal, both eyes and all related structures Conjunctivae: conjunctivae normal Pupils: PERRL EOM: EOM intact bilaterally Neck Neck: normal visual inspection, no lymphadenopathy and no JVD Carotids: Negative bruit Neck Mass: Negative Neck mass Chest Chest inspection: normal inspection of the chest and symmetric chest movement Auscultation: Bilateral: Clear to Auscultation Cardio Palpation: normal PMI Rate: regular rate Rhythm: regular rhythm Heart sounds: S1 normal and S2 normal; negative rub, gallop or murmur GI GI: normal to inspection, soft, no hepatosplenomegaly and bowel sounds present; negative tender Neuro General: alert, awake, oriented x3, CN's II-XI intact bilaterally and moves all extremities Extremities Pulses: Normal: Right Posterior Tibial Pulse, Left Posterior Tibial Pulse, Right Radial Pulse, Left Radial Pulse Lower Extremity Edema: None: Bilateral Psych Psychological: normal affect Supplemental Info Heart catheterization in 2016 demonstrated left main angiographically normal, LAD minimal disease noted. Circumflex 30% stenosis, RCA small vessel no high-grade stenosis, ejection fraction was 50%. Assessment AND Plan 1. Atherosclerosis of [place] coronary artery of [place] heart without angina pectoris I25.10 Plan - LUIS CARLOS Lamas Stable, from a cardiac standpoint patient does not have any symptoms of angina. We recommend that they continue with current aggressive medical management and risk factor modification. 2. Essential hypertension I10 Plan - LUIS CARLOS Lamas Patient's heart rate and blood pressure has been on the low side. Will decrease his metoprolol to 25 mg twice a day. 3. Pure hypercholesterolemia E78.00; E78.0 Plan - LUIS CARLOS Lamas Recent lipid profile demonstrates total cholesterol 125, HDL 37, LDL 50. Will not make any adjustments. 4. Typical atrial flutter I48.3 Plan - LUIS CARLOS Lamas Patient's heart rate is controlled. Is on the low side. We are decreasing his metoprolol to 25 mg daily. He is anticoagulated with a therapeutic INR goal of 2-3. Patient Instructions - LUIS CARLOS Lamas Decrease your metoprolol to 25 mg twice a day Plan Detail Other Medications Changed: Discontinued: hydrocodone-acetaminophen 5-325 mg Discontinued Reason:1 - 2 tabs PO Q4H PRN PRN Pain Pt no longer taking Additional Comments - LUIS CARLOS Lamas The above patient was discussed with Dr. Haque, he agrees with plan of care. Thank you for allowing us to participate in patient's plan of care, if you have any questions please do not hesitate to call. This note was generated using a voice recognition system and there may be incorrect words, spelling or punctuation errors that were not noted when reviewing the office note prior to saving. Follow Up 6 Months (PROGRAM HOST) Coding Level of Care Code Off vis,est,level 3 Diagnoses Atherosclerosis of [place] coronary artery of [place] heart without angina pectoris I25.10 [place] vs. transplanted heart: [place] heart Essential hypertension I10 Hypertension type: essential hypertension Pure hypercholesterolemia E78.00; E78.0 Hyperlipidemia type: pure hypercholesterolemia Typical atrial flutter I48.3 Atrial flutter type: typical Coding Level of Care Code Off vis,est,level 3 Diagnoses Atherosclerosis of [place] coronary artery of [place] heart without angina pectoris I25.10 [place] vs. transplanted heart: [place] heart Essential hypertension I10 Hypertension type: essential hypertension Pure hypercholesterolemia E78.00; E78.0 Hyperlipidemia type: pure hypercholesterolemia Typical atrial flutter I48.3 Atrial flutter type: typical 11/19/17 1719 <Electronically signed by Libra ALDRIDGE> Date Libra ALDRIDGE 11/20/17 1202<Electronically signed by Gonzalez Haque MD> Cosigner Signature: Date (if applicable) Gonzalez Haque MD CC: Dez Tello DO ALLERGIES ALLERGIES DATE TYPE / CODE NAME / CODE REACTION SEVERITY SOURCE 09/02/2018 Drug No Known Unknown [facility] Allergy/4160 Allergies/F00 Hospital 36814(SNOMED 7126743(RXNOR Repository CT) M) ENCOUNTERS ENCOUNTERS ADMIT/DISCHARGE ACCOUNT NUMBER ADMITTING ENCOUNTER LOCATION SOURCE CLASS 09/22/2018 [id number] Ambulatory [facility] ding:MTLAB Repository 09/15/2018 [id number] Ambulatory [facility] ding: Repository 09/02/2018/09/02/19 [id number] Ambulatory B[place]: [place] [facility] Repository 09/02/2018 [id number] Ambulatory [facility] ding:MTLAB Repository 06/14/2018 [id number] Ambulatory [facility] ding:MTRAD Repository 06/13/2018/06/13/20 [id number] Ambulatory [address] [facility] Repository 06/07/2018/06/07/20 [id number] Ambulatory BMSBuilding: [place] [facility] Repository 06/03/2018 [id number] Ambulatory BMSBuilding: [place] [facility] Repository 03/01/2018 [id number] Ambulatory [facility] ding:MTRAD Repository 12/06/2017 [id number] Ambulatory [place] [facility] ding:MTLAB Repository 11/15/2017/11/16/19 [id number] Ambulatory BMSBuilding: [place] [facility] Repository PAYERS PAYERS ENCOUNTER GUARANTOR PAYER SUBSCRIBER SOURCE 09/22/2018 EDWARD L Primary EDWARD L [place] [id number] Insurance:MEDICARE ROBISONDOB: [facility] KEARA CHAUDHRYSTER, PART A olic [id number] [address]Eav: Number: Repository [id number] () Date:2018-09-22 09/22/2018 Secondary EDWARD L Fab Insurance:AARPPolicy ROBISONDOB: Community Number: [id number] Hospital [id number] Repository Date:2301-62-24KC [facility] [id number], [place] [address]QN: 09/22/2018 Tertiary NOT GIVENUNK [place] Insurance:SELF PAY [facility] Number: Effective Repository Date:2018-09-22 09/15/2018 EDWARD L Primary EDWARD L Fab [id number] Insurance:MEDICARE ROBISONDOB: [facility] KEARA CHAUDHRYSTER, PART A olic [id number] Indian Medical Center [address]Bbd: Number: Repository [id number] () Date:2018-09-13 09/15/2018 Secondary EDWARD L [place] Insurance:AARPPolicy ROBISONDOB: Community Number: [id number] Hospital [id number] Repository Date:4636-15-94AC [address]F, [place] [address]TE: 09/15/2018 Tertiary NOT GIVENUNK [place] Insurance:SELF PAY [facility] Number: Effective Repository Date:2018-09-13 09/02/2018 EDWARD L Primary EDWARD L [place] [id number] Insurance:MEDICARE ROBISONDOB: [facility] KEARA CHAUDHRYSTER, PART A [facility] [id number] Indian Medical Center [address]Gtg: Number: Repository [id number] (HP) Date:2018-09-01 09/02/2018 Secondary EDWARD L Fab Insurance:AARPPolicy ROBISONDOB: Community Number: [id number] Hospital [id number] Repository Date:4060-48-58EI [address]WLDHS, [place] [address]GM: 09/02/2018 Tertiary NOT GIVENUNK [place] Insurance:SELF PAY [facility] Number: Effective Repository Date:2018-09-02 09/02/2018 EDWARD L Primary EDWARD L [place] [id number] Insurance:MEDICARE ROBISONDOB: [facility] KEARA DOLAN, PART A olic [id number] Indian Medical Center [address]Pcb: Number: Repository [id number] (HP) Date:2018-09-02 09/02/2018 Secondary EDWARD L [place] Insurance:AARPPolicy ROBISONDOB: Community Number: [id number] Hospital [id number] Repository Date:5436-40-59AB [address]QIVNXJM, [place] [address]YP: 09/02/2018 Tertiary NOT GIVENUNK Fab Insurance:SELF PAY [facility] Number: Effective Repository Date:2018-09-02 06/14/2018 EDWARD L Primary EDWARD L Fab [id number] Insurance:MEDICARE ROBISONDOB: [facility] KEARA DOLAN, PART A [facility] [id number] Indian Medical Center [address]Cmk: Number: Repository [id number] (HP) Date:2018-06-14 06/14/2018 Secondary EDWARD L [place] Insurance:AARPPolicy ROBISONDOB: Community Number: [id number] Hospital [id number] Repository Date:2259-95-23TT [address]BGBRFKQ, [place] [address]BE: 06/14/2018 Tertiary NOT GIVENUNK [place] Insurance:SELF PAY [facility] Number: Effective Repository Date:2018-06-14 06/13/2018 EDWARD L Primary DENICE [facility] ROBISONDOB: Insurance:MEDICARE ROBISONDOB: [facility] [id number] PART BPolicy Number: [id number] Repository KEARA DOLAN [id number] [address] [place] [address]Ilv: Date:2018-06-13 - AMARILYSSCOTT [place] [id number] 514[address]Yyl: ([phone] () Name:[facility] [id number] Administrators LLCPO ()Tel: 000) [address], 000-0000 () [place] [address]VG: 06/13/2018 Secondary OMAR [facility] Insurance:AARP AGUA DULCE ROBISONDOB: [facility] [id number] Repository ONLYPolicy Number: Miriam SARAH [id number] [place] Date:2018-06-13 01120Bvc: [id number] [phone] Name:RACE STEWARD Box ()Tel: (000) 244[address]Lmlghzs, [place] 000-0000 () [address]JM: 06/07/2018 EDWARD L Primary EDWARD L [place] [id number] Insurance:MEDICARE ROBISONDOB: Community KEARA ABREUDARRONSCOTT, PART A [facility] [id number] Indian Medical Center [address]Nbp: Number: Repository [id number] () Date:2017-11-15 06/07/2018 Secondary EDWARD L [place] Insurance:AARPPolicy ROBISONDOB: Community Number: [id number] Hospital [id number] Repository Date:2073-58-36JJ [address]UMN[address], [place] [address]RU: 06/07/2018 Tertiary NOT GIVENUNK [place] Insurance:SELF PAY [facility] Number: Effective Repository Date:2018-06-07 06/03/2018 EDWARD L Primary EDWARD L Fab [id number] Insurance:MEDICARE ROBISONDOB: [facility] MAGDALENO, PART A [place] [id number] [address]Msv: Number: Repository [id number] (HP) Date:2018-06-03 06/03/2018 Secondary EDWARD L Fab Insurance:AARPPolicy ROBISONDOB: Community Number: [id number] [facility] [id number] Repository Date:[id number], [place] [address]BE: 06/03/2018 Tertiary NOT GIVENUNK Fab Insurance:SELF PAY [facility] Number: Effective Repository Date:2018-06-03 03/01/2018 EDWARD L Primary EDWARD L Fab [id number] Insurance:MEDICARE ROBISONDOB: [facility] AMARILYS, PART A [facility] [id number] Indian Medical Center [address]Ntm: Number: Repository [id number] (HP) Date:2018-03-01 03/01/2018 Secondary EDWARD L Fab Insurance:AARPPolicy ROBISONDOB: Community Number: [id number] Hospital [id number] Repository Date:[id number], [place] [address]NB: 03/01/2018 Tertiary NOT GIVENUNK [place] Insurance:SELF PAY [facility] Number: Effective Repository Date:2018-03-01 12/06/2017 EDWARD L Primary EDWARD L Fab [id number] Insurance:MEDICARE ROBISONDOB: [facility] AMARILYS, PART A [facility] [id number] [facility] Medical Center [address]Ayq: Number: Repository [id number] (HP) Date:2017-12-06 12/06/2017 Secondary EDWARD L [place] Insurance:AARPPolicy ROBISONDOB: Community Number: [id number] Hospital [id number] Repository Date:5401-95-71[address], [place] [address]XR: 12/06/2017 Tertiary NOT GIVENUNK [place] Insurance:SELF PAY [facility] Number: Effective Repository Date:2017-12-06 11/15/2017 EDWARD L Primary EDWARD L Fab [id number] Insurance:MEDICARE ROBISONDOB: Community [facility]AN [facility] [id number] [address]Vnl: Number: Repository [id number] (HP) Date:2017-08-09 11/15/2017 Secondary EDWARD L Fab Insurance:AARPPolicy ROBISONDOB: [facility] Number: [id number] Hospital [id number] Repository Date:[id number] [facility] [place], [place] [address]VW: 11/15/2017 Tertiary NOT GIVENUNK Fab Insurance:SELF PAY [facility] Number: Effective Repository Date:2017-08-09
== END ==
PROVIDERS: Family Provider Preventive Medicine Occupational Medicine; PCP Preventive Medicine Occupational Medicine; Referring Provider Preventive Medicine Occupational Medicine; Visit Provider Preventive Medicine Occupational Medicine
DX: R10.9 Unspecified abdominal pain (principal)
CPT/HCPCS: 76770

== ENCOUNTER → 2018-09-22 15:45 | Outpatient (CLI) | payer MEDICARE, OTHER, SELFPAY ==
[2018-09-02 13:29] VITALS: BMI 33.7
[2018-09-22 17:47] LABS: Anion Gap 12 (5-15); BUN 12 mg/dL (7-18); BUN/Creat Ratio 10.9 RATIO (10-20); Calcium,Total 8.5 mg/dL (8.5-10.1); Chloride 107 mmol/L (98-107); EST Glomerular Filtration Rate 70 mL/min (>60); Est Glom Filt Rate - Afr Amer 85 mL/min (>60); Glucose 162 mg/dL (74-106); Potassium 3.7 mmol/L (3.5-5.1); Sodium Level 144 mmol/L (136-145)
== END ==
PROVIDERS: Family Provider Preventive Medicine Occupational Medicine; PCP Preventive Medicine Occupational Medicine; Referring Provider Physician Assistant Medical; Visit Provider Physician Assistant Medical
DX: I10 Essential (primary) hypertension (principal)
CPT/HCPCS: 36415; 80048

== ENCOUNTER → 2018-12-14 08:54 | Outpatient (CLI) | payer MEDICARE, OTHER, SELFPAY ==
[2018-12-06 13:01] VITALS: BMI 32.8
[2018-12-14 10:36] LABS: Hemoglobin A1c 7.2 % (4.2-6.3)
[2018-12-14 10:44] LABS: AST(SGOT) 35 U/L (15-37); Alanine Aminotransfer ALT/SGPT 47 U/L (16-61); Albumin, Serum 3.6 g/dL (3.2-5.0); Alkaline Phosphatase 90 U/L (45-117); Anion Gap 9 (5-15); BUN 11 mg/dL (7-18); BUN/Creat Ratio 9.8 RATIO (10-20); Calcium,Total 8.7 mg/dL (8.5-10.1); Chloride 106 mmol/L (98-107); Cholesterol 121 mg/dL (200); Creatinine, Serum 1.12 mg/dL (0.70-1.30); EST Glomerular Filtration Rate 68 mL/min (>60); Est Glom Filt Rate - Afr Amer 83 mL/min (>60); Globulin 3.6 g/dL (2.2-4.2); Glucose 152 mg/dL (74-106); High Density Lipoprotein 39 mg/dL; Potassium 3.6 mmol/L (3.5-5.1); Protein, Total 7.2 g/dL (6.4-8.2); Sodium Level 140 mmol/L (136-145); Triglycerides 151 mg/dL; Very Low Density Lipoprotein 30 mg/dL (5-40)
[2018-12-15 16:35] LABS: PSA, Free 0.66 ng/mL; PSA, Free % 22.8 % (.); PSA, Total Ultrasensitive 2.9 ng/mL (0.0-4.0)
== END ==
PROVIDERS: Family Provider Preventive Medicine Occupational Medicine; PCP Preventive Medicine Occupational Medicine; Referring Provider Preventive Medicine Occupational Medicine; Visit Provider Preventive Medicine Occupational Medicine
DX: R97.20 Elevated prostate specific antigen [PSA] (principal); R73.03 Prediabetes; E78.5 Hyperlipidemia, unspecified; I10 Essential (primary) hypertension
CPT/HCPCS: 36415; 80053; 80061; 83036; 84153; 84154

== ENCOUNTER → 2019-05-18 14:15 | Outpatient (CLI) | payer MEDICARE, OTHER, SELFPAY ==
[2018-12-06 13:01] VITALS: BMI 32.8
[2019-05-18 15:28] LABS: PSA,Total - Annual Screen 3.63 ng/mL (0.00-4.00)
== END ==
PROVIDERS: Family Provider Preventive Medicine Occupational Medicine; PCP Preventive Medicine Occupational Medicine; Referring Provider Urology; Visit Provider Urology
DX: Z12.5 Encounter for screening for malignant neoplasm of prostate (principal)
CPT/HCPCS: 36415; 84153; G0103

== ENCOUNTER → 2019-12-26 11:20 | Outpatient (CLI) | payer MEDICARE, OTHER, SELFPAY ==
[2019-08-15 10:42] VITALS: BMI 33.1
--- NOTE | 2019-12-26 11:24 | CT_ITS ---
STUDY: CT ABDOMEN AND PELVIS WITHOUT CONTRAST REASON FOR EXAM: Male, 73 years old. Right flank pain x 2 weeks, hematuria (takes coumadin). Prior hernia repair, appendectomy, lumbar discectomy, hypertension. RADIATION DOSAGE (If Supplied By Facility): CTDIvol = ( 20.60 ) mGy, DLP = ( 1147.95 ) mGycm TECHNIQUE: Transaxial images were obtained from the dome of the diaphragm to the symphysis pubis without oral contrast, and without intravenous contrast. Sagittal and coronal images were reconstructed. Individualized dose optimization techniques were used for this CT. COMPARISON: None. FINDINGS: The visualized lung bases are unremarkable. Coronary artery calcification. There is decreased attenuation of the liver consistent with steatosis. Low-level densities are seen in the gallbladder lumen suggestive of either small gallstones or sludge. Normal spleen. Normal pancreas. Normal bilateral adrenal glands. Normal right kidney. Normal left kidney. Normal visualized stomach. Normal small intestine. Normal colon. The patient is status post appendectomy. There is diffuse atherosclerotic calcification of the abdominal aorta, without a demonstrated aneurysm. Normal inferior vena cava. Normal retroperitoneum. The urinary bladder is empty. There is diffuse wall thickening of the urinary bladder. There are prostatic calcifications. The prostate measures 5.5 cm x 4.1 cm. Phleboliths are seen in the left hemipelvis. Small bilateral inguinal hernias containing fat. There are diffuse degenerative changes of the visualized lumbar spine. CT/Abdomen/Pelvis without Cont IMPRESSION: Prostatic enlargement with prostatic calcification. Diffuse thickening of the urinary bladder wall. Fatty infiltration of the liver. Electronically Signed: Benson Quinn, at 11:57 EDT , Service support ,
== END ==
PROVIDERS: PCP Preventive Medicine Occupational Medicine; Referring Provider Urology; Visit Provider Urology
DX: R10.84 Generalized abdominal pain (principal)
CPT/HCPCS: 74176

== ENCOUNTER → 2020-04-08 12:47 | Outpatient (CLI) | payer MEDICARE, OTHER, SELFPAY ==
[2020-03-26 13:48] VITALS: BMI 32.7
--- NOTE | 2020-04-08 12:47 | ECHOCS_ITS ---
Reason For Study: A. fib Procedure This was a 2D Doppler, Color Flow transthoracic echocardiogram. The study was technically difficult. Exam performed in department. Left Ventricle Normal LV size. The estimated ejection fraction is 40 %. There is mild to moderate global hypokinesis of the left ventricle. Right Ventricle Normal RV size. Normal systolic function. Atria The left atrium is moderately enlarged. Normal right atrium. Tricuspid Valve Normal tricuspid valve. Mild (1+) tricuspid valve insufficiency. Aortic Valve Trisinus/trileaflet aortic valve. Mild focal aortic valve calcification. Pulmonic Valve The pulmonic valve is not well visualized. Great Vessels Normal aortic root. The pulmonary artery is normal size. Normal inferior vena cava. Pericardium/Pleural No pericardial effusion. Medication 22 gauge I.V. with prn adaptor inserted into right arm. Diluted definity 3ml given slow IV push to enhance endocardial definition. MMode/2D Measurements & Calculations LVIDd: 4.8 cm IVSd: 1.2 cm Ao root diam: 3.5 cm LVIDs: 3.7 cm LVPWd: 0.92 cm RVDd: 3.4 cm FS: 22.0 % LAV(MOD-bp): 85.8 ml LA A4 area: 25.1 cm2 LA dimension(2D): 3.4 cm LAV(MOD-bp) Indexed: 40.7 ml/m2 LAV(MOD-sp2): 71.6 ml LAV(MOD-sp4): 96.7 ml RA A4 area: 14.1 cm2 Doppler Measurements & Calculations MV E max jaime: 60.9 cm/sec Lat Peak E' Jaime: 6.6 cm/sec Med Peak E' Jaime: 3.2 cm/sec MV A max jaime: 88.4 cm/sec E/E' lat: 9.2 E/E' med: 19.2 MV E/A: 0.69 Ao V2 max: 117.0 cm/sec LV V1 max: 88.5 cm/sec PA V2 max: 113.2 cm/sec Ao max P.5 mmHg LV V1 max P.1 mmHg TR max jaime: 235.5 cm/sec TR max P.2 mmHg Interpretation Summary Normal LV size. The estimated ejection fraction is 40 %. The left atrium is moderately enlarged. Contrast injection was performed. Compared to previous study, the left ventricular systolic function has worsened.. Ordering Physician: Gonzalez Haque Referring Physician: MD Elisha José Miguel Performed By: Genesis Mendoza RDCS
== END ==
PROVIDERS: PCP Preventive Medicine Occupational Medicine; Referring Provider Internal Medicine Cardiovascular Disease; Visit Provider Internal Medicine Cardiovascular Disease
DX: I48.19 Other persistent atrial fibrillation (principal)
CPT/HCPCS: 93306; Q9957; A4216; C8929

== ENCOUNTER → 2020-09-03 09:19 | Outpatient (CLI) | payer MEDICARE, OTHER, SELFPAY ==
[2020-03-26 13:48] VITALS: BMI 32.7
--- NOTE | 2020-09-03 09:30 | RAD_ITS ---
STUDY: X-RAY CHEST REASON FOR EXAM: Male, 74 years old. persistent cough, sob TECHNIQUE: PA and lateral views of the chest. COMPARISON: 03/01/2018 FINDINGS: The lungs are clear and expanded. No change in right-sided pleural thickening. There is moderate cardiac enlargement. Normal mediastinum and kristy. Normal visualized pulmonary arteries. Normal visualized aortic arch and descending thoracic aorta. Normal visualized thoracic spine. Normal visualized ribs, clavicles, and shoulders. There is no demonstrated abnormality of the visualized soft tissue structures of the upper abdomen. RAD/Chest PA and Lateral IMPRESSION: Normal x-ray examination of the chest. Electronically Signed: Ángel Reeves MD at 9:59 EST Tel , Service support ,
== END ==
PROVIDERS: PCP Preventive Medicine Occupational Medicine; Referring Provider Preventive Medicine Occupational Medicine; Visit Provider Preventive Medicine Occupational Medicine
DX: J20.9 Acute bronchitis, unspecified (principal); R05 Cough
CPT/HCPCS: 71046

== ENCOUNTER → 2020-09-10 13:51 | Outpatient (CLI) | payer MEDICARE, OTHER, SELFPAY ==
[2020-09-10 13:07] VITALS: BMI 32.8
[2020-09-10 14:45] LABS: Absolute Lymphocyte Count 2.07 X10^3/uL (0.83-4.51); Absolute Neutrophil Count 6.7 X10^3/uL (2.0-7.7); Basophil# 0.05 X10^3/uL; Basophil% 0.5 % (0-1); Eosinophil# 0.11 X10^3/uL; Eosinophils% 1.1 % (0-5); Hematocrit 52.9 % (40-54); Hemoglobin 17.4 g/dL (13.0-16.5); Lymphocyte # 2.07 X10^3/ul (4.0); Lymphocyte % 20.7 % (19-41); Mean Corp Hgb Conc 32.9 g/dL (32-36); Mean Corpuscular Hgb 28.5 pg (27.0-32.0); Mean Corpuscular Volume 86.7 fL (80-94); Mean Platelet Vol. 10.9 fl (6.2-12.0); Monocyte# 1.07 X10^3/uL; Monocyte% 10.7 % (0-10); NRBC Flagged by Analyzer 0 % (0-5); Neutrophil # 6.65 X10^3/uL (2.7-7.7); Neutrophil % 66.5 % (47-70); Platelet Count 180 K/mm3 (150-450); RBC Distribution Width CV 13.2 % (11.6-14.6); RBC Distribution Width SD 42.2 fl (35.1-43.9)
[2020-09-10 15:11] LABS: ALB/GLOB Ratio 0.9 RATIO (0.9-2.4); AST(SGOT) 24 U/L (15-37); Alanine Aminotransfer ALT/SGPT 35 U/L (16-61); Albumin, Serum 3.6 g/dL (3.2-5.0); Alkaline Phosphatase 79 U/L (45-117); Anion Gap 9 (5-15); BUN 16 mg/dL (7-18); Calcium,Total 9.1 mg/dL (8.5-10.1); Chloride 109 mmol/L (98-107); Creatinine, Serum 1.14 mg/dL (0.70-1.30); EST Glomerular Filtration Rate 67 mL/min (>60); Est Glom Filt Rate - Afr Amer 81 mL/min (>60); Globulin 3.9 g/dL (2.2-4.2); Glucose 128 mg/dL (74-106); Potassium 3.8 mmol/L (3.5-5.1); Protein, Total 7.5 g/dL (6.4-8.2); Sodium Level 140 mmol/L (136-145)
[2020-09-10 15:12] LABS: BNP,B-Type NATRIURETIC PEPTIDE 306.9 pg/mL (0-100)
== END ==
PROVIDERS: PCP Preventive Medicine Occupational Medicine; Referring Provider Nurse Practitioner Family; Visit Provider Nurse Practitioner Family
DX: I42.8 Other cardiomyopathies (principal); R06.00 Dyspnea, unspecified; I48.0 Paroxysmal atrial fibrillation; I10 Essential (primary) hypertension; E78.5 Hyperlipidemia, unspecified
CPT/HCPCS: 36415; 80053; 83880; 85025

== ENCOUNTER → 2020-10-10 06:36 | Outpatient (CLI) | payer MEDICARE, OTHER, SELFPAY ==
[2020-09-10 13:07] VITALS: BMI 32.8
--- NOTE | 2020-10-10 10:14 | STRESSREP ---
Stress Test Report Pharmacologic myocardial perfusion stress test. 74-year-old man with a history of hypertension and atrial fibrillation. Stress protocol: Resting KG demonstrates atrial fibrillation with a rate of 129 bpm and left bundle branch block pattern. Resting blood pressure is 148/90 mmHg. 0.4 mg of regadenoson was infused per usual protocol followed by rapid intravenous saline flush injection continuous EKG monitoring was performed. The maximum heart rate attained was 148 bpm which was 101% of max impacted heart rate the maximum workload was 1 metabolic equivalent. At rest there were no ST or T wave changes noted to suggest abnormal flow reserve the left bundle branch block pattern was noted throughout. At peak infusion nonspecific ST changes were noted. The final blood pressure was 148/90 mmHg. Myocardial perfusion protocol. 14.8 mCi of technetium 99m sestamibi was injected at rest. 0.4 mg of regadenoson was infused per usual protocol peak infusion 44.1 mCi of technetium 99m sestamibi was injected stress images were obtained stress and rest images were reconstructed and compared in the short axis vertical long horizontal long axis. Gated images were also obtained. Perfusion SPECT analysis: Review of the images demonstrate normal perfusion in all areas of the myocardium except for small portion of the apex. This is present on the stress and rest images to a similar extent. The rest of the mejia appear to be well perfused. No areas of reversibility are noted suggest ischemia. Previous apical infarct cannot be complete excluded. Gated SPECT analysis: The gated ejection fraction is 19%. Conclusion: Pharmacologic myocardial perfusion stress test with no evidence of ischemia. Global cardiomyopathy present. Atrial fibrillation with uncontrolled ventricular response rate present. Left bundle branch block.
== END ==
PROVIDERS: PCP Preventive Medicine Occupational Medicine; Visit Provider Nurse Practitioner Family
DX: R06.02 Shortness of breath (principal); R06.00 Dyspnea, unspecified; I48.0 Paroxysmal atrial fibrillation; I48.92 Unspecified atrial flutter; I44.7 Left bundle-branch block, unspecified; I42.8 Other cardiomyopathies; I10 Essential (primary) hypertension; E78.5 Hyperlipidemia, unspecified
CPT/HCPCS: 78452; 93017; A9500; A4216; J2785

== ENCOUNTER 2020-11-06 10:17 | Day surgery (SDC) | payer MEDICARE, OTHER, SELFPAY ==
[2020-10-30 14:09] VITALS: BMI 31.8
[2020-11-04 10:30] LABS: International Normalized Ratio 2.6; Prothrombin Time (Protime)PT. 27.7 SECONDS (11.7-14.9)
[2020-11-04 10:31] LABS: Anion Gap 11 (5-15); BUN 16 mg/dL (7-18); BUN/Creat Ratio 13.8 RATIO (10-20); Calcium,Total 8.9 mg/dL (8.5-10.1); Chloride 106 mmol/L (98-107); Creatinine, Serum 1.16 mg/dL (0.70-1.30); EST Glomerular Filtration Rate 65 mL/min (>60); Est Glom Filt Rate - Afr Amer 79 mL/min (>60); Glucose 160 mg/dL (74-106); Potassium 3.3 mmol/L (3.5-5.1); Sodium Level 141 mmol/L (136-145)
[2020-11-05 09:32] VITALS: BMI 31.8
--- NOTE | 2020-11-06 08:19 | HP_ITS ---
[facility] History of Present Illness Details: DENICE GOODWIN, is a 74 M who presents to the office today for a cardiovascular follow-up. He has a history of atrial fibrillation, hypertension, and hyperlipidemia. He has previously no documented atrial fibrillation. He says that he continues to be short of breath with activity and also at rest he has been quite fatigued. At his last visit he was noted to be in persistent atrial fibrillation and his EKG was noted to be tachycardic. He did have his metoprolol changed to carvedilol and he underwent a pharmacologic stress test for did not demonstrate any evidence of ischemia. His ejection fraction was however noted to be low and his [employer] was also noted to be elevated. He presents today for a follow-up visit. His physical exam demonstrates clear lung davidson irregular rate and rhythm and no pedal edema. Intake Vital Signs 10/30/20 Height 5 ft 10 in 10/30/20 Weight: 222 lb 10/30/20 BMI 31.8 10/30/20 BP 129/84 H 10/30/20 Respiration 18 10/30/20 Pulse 98 10/30/20 Pulse Oximetry (%) 94 Intake Visit Reasons: CHF per [employer] Allergies No Known Allergies Allergy (Verified 10/30/20 14:10) Medications Cholecalciferol (VIT D3) [Vitamin D] 2,000 unit PO DAILY 10/16/15 [History Confirmed 10/30/20] Multivitamin [Daily Multiple Vitamin] 1 ea PO DAILY 10/16/15 [History Confirmed 10/30/20] Waterford-3 Fatty Acids/Fish Oil [Waterford 3 1,000 mg Softgel] 1 ea PO DAILY 10/16/15 [History Confirmed 10/30/20] Simvastatin [Zocor] 20 mg PO QHS 10/16/15 [History Confirmed 10/30/20] Ubidecarenone [Co Q-10] 200 mg PO DAILY 10/16/15 [History Confirmed 10/30/20] Vitamin B Complex/Folic Acid [Super B Maxi Complex Caplet] 0.4 mg PO DAILY 10/16/15 [History Confirmed 10/30/20] warfarin 4 mg tablet 4 mg PO DAILY 12/06/18 [History Confirmed 10/30/20] carvedilol 25 mg tablet 25 mg PO BID #60 tab 10/30/20 [Rx Confirmed 10/30/20] furosemide 40 mg tablet 40 mg PO BID #90 tab 10/30/20 [Rx Confirmed 10/30/20] losartan 100 mg tablet 50 mg PO DAILY tab 10/30/20 [History Confirmed 10/30/20] Ejection fraction %: 40 to 44 [facility] Medical History Shortness of breath (Acute) Non-ischemic cardiomyopathy (Acute) Paroxysmal atrial flutter (Chronic) Paroxysmal atrial fibrillation (Chronic) Left bundle branch block (LBBB) (Chronic) Essential (primary) hypertension (Chronic) Hyperlipidemia (Chronic) Obesity (Chronic) Dilated cardiomyopathy (Resolved) Surgical History History of appendectomy (Resolved) History of back surgery (Resolved 1981) History of knee surgery (Resolved 1983) History of left heart catheterization (Resolved 10/17/15) History of umbilical hernia repair (Resolved) Family History Mother CVA (cerebral vascular accident) Father Cancer Sister Cancer breast Social History (Updated 10/30/20 @ 17:[address] Gonzalez Haque MD) Smoking Status: Never smoker alcohol intake: current alcohol intake frequency: holidays/special occasions only substance use type: does not use caffeine: Yes Type: carbonated beverages, coffee, tea ROS Const Const: Positive for fatigue; negative for weakness, headache(s), frequent falls, difficulty sleeping or excessive sweating Eyes Eyes: Negative for loss of peripheral vision, transient loss of vision, blurry vision, double vision or tunnel vision ENT ENT: Negative for headache(s), dizziness, Nosebleed/epistaxis or balance problems Cardio Chest Pain: No Palpitations: No Edema: Bilateral (BLE ankle edema L>R pitting w/ chronic vascular changes) Muscle aches with walking: None Resp Respiratory: Positive for SOB with activity; negative for SOB at rest, SOB orthopnea\SOB lying down, Cough or paroxysmal nocturnal dyspnea Additional Details: Increase SOB when out of rhythm GI GI: Negative nausea, vomiting, heartburn or black,tarry stools : Negative for hematuria Musc Musc: Negative for muscle aches/ myalgia, muscle weakness, joint pain or balance problems Skin Skin: Negative non-healing lesions, rash or unusual bruising Neuro Neuro: Negative for dizziness, lightheadedness, near syncope, syncope, orthostatic symptoms, frequent falls, headache(s), weakness, blurry vision, double vision or lack of coordination Abbe Hematologic/Lymphatic: Negative for easy bleeding or easy bruising Endo Endo: Positive for fatigue; negative for excessive sweating or increased thirst/drinking Psych Psych: Negative for anxiety or depression Allergy Allergy/Immunology: Negative for hives, Negative for rash Cardiology Exam Const Appearance: cooperative, healthy appearing, no acute distress, well developed and well groomed Nutritional Appearance: average body habitus and well nourished Orientation: alert, awake and oriented x3 Head Head: normal to inspection, normocephalic and atraumatic Ears: hearing grossly normal bilaterally and external ears normal Nose: external nose normal, nares normal, nasal mucous membranes and turbinates normal, septum normal, no nasal discharge Face and Sinus: face symmetric Mouth: oral mucosae normal, tongue normal, oropharynx normal and moist mucous membranes Teeth and gingiva: dentition normal Throat: posterior oropharynx normal, tonsils normal and uvula midline Eyes General: appearance normal, both eyes and all related structures Eyelids: eyelids normal Conjunctivae: conjunctivae normal Pupils: PERRL, normal by confrontation and accommodation normal EOM: EOM intact bilaterally Neck Neck: normal visual inspection, trachea midline and no JVD JVD: +5 Carotids: normal carotid upstroke and bounding pulses Chest Chest inspection: normal inspection of the chest, symmetric chest movement and normal respiratory effort Auscultation: Bilateral: Clear to Auscultation Cardio Palpation: normal PMI Rate: regular rate Rhythm: irregular rhythm Heart sounds: S1 normal, S2 normal and normal, physiologic split S2; negative rub, gallop or murmur GI GI: normal to inspection, soft, no hepatosplenomegaly and bowel sounds present Neuro General: alert, awake, oriented x3, gait normal, moves all extremities and no focal sensory deficit Skin Skin: no rashes or lesions noted Extremities Pulses: Normal: Right Femoral Pulse, Left Femoral Pulse, Right Dorsalis Pedis Pulse, Left Dorsalis Pedis Pulse, Right Posterior Tibial Pulse, Left Posterior Tibial Pulse, Right Radial Pulse, Left Radial Pulse Lower Extremity Edema: None: Bilateral Musculoskel Musculoskeletal: No joint tenderness Psych Psychological: normal affect Assessment & Plan 1. CHF (congestive heart failure), NYHA class III I50.9 Plan He does have evidence of congestive heart failure which is largely systolic. His ejection fraction was noted to be reduced by his last echocardiogram in March with an ejection fraction of 40% with global hypokinesis. He did have evidence of left atrial enlargement. My recommendation at this time will be to increase his Lasix to 40 mg twice a day, continue the carvedilol but increase that dose to 25 mg twice a day, continue the losartan at 50 mg a day. He may be a candidate for sacubitril/valsartan later. Orders Orders: Prothrombin Time w/INR 1 Week 2. Paroxysmal atrial fibrillation I48.0 Plan He is in persistent atrial fibrillation he has been anticoagulated and has had at least 3 weeks of therapeutic anticoagulation. His rate needs to be better controlled and we should give him an attempt at DC cardioversion. I have discussed the above with him he understands and agrees to proceed. We should consider after the cardioversion placing him on amiodarone to see whether he would maintain sinus rhythm. Orders Orders: Cardioversion Today Basic Metabolic Profile (BMP) 1 Week 3. Non-ischemic cardiomyopathy I42.8 Plan He does have evidence of nonischemic cardiomyopathy his last catheterization in 2015 did not demonstrate any evidence of coronary obstruction. His most recent stress test did not demonstrate any evidence of ischemia. 4. Essential (primary) hypertension I10 Plan He does have a history of hypertension his blood pressure is under good control we will make some optimization to his medications as noted above. His amlodipine will be discontinued and he will be continued on the ARB, beta- fermin, and diuretic. He may be a candidate for sacubitril/valsartan. 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) Coding Level of Care Code Off vis,est,level 4 Diagnoses CHF (congestive heart failure), NYHA class III I50.9 Paroxysmal atrial fibrillation I48.0 Non-ischemic cardiomyopathy I42.8 Essential (primary) hypertension I10 Coding Level of Care Code Off vis,est,level 4 Diagnoses CHF (congestive heart failure), NYHA class III I50.9 Paroxysmal atrial fibrillation I48.0 Non-ischemic cardiomyopathy I42.8 Essential (primary) hypertension I10 Supplemental Info Supplemental Information Labs LDL Cholesterol 52 mg/dL (0-130) 12/14/18 HDL Cholesterol 39 mg/dL (40-) L 12/14/18 Triglycerides 151 mg/dL (-199) 12/14/18 VLDL Cholesterol 30 mg/dL (5-40) 12/14/18 Diagnostics Electrocardiogram 10/11/20 Echocardiogram 04/08/20 Stress Test Nuclear Medicine 10/10/20 Stress Test 10/10/20 Chest X-Ray 09/03/20
[2020-11-06 10:35] LABS: Potassium 3.7 mmol/L (3.5-5.1)
[2020-11-06 10:37] LABS: International Normalized Ratio 2.5; Prothrombin Time (Protime)PT. 26.5 SECONDS (11.7-14.9)
--- NOTE | 2020-11-06 12:20 | PRO.PCM_ITS ---
Procedure Report Date of Procedure: 11/06/20 CONSCIOUS SEDATION REPORT DATE OF SERVICE: November 06, 2020 BRIEF HISTORY OF PRESENT ILLNESS: The patient is a 74-year-old male who presented to [facility] for an elective outpatient cardioversion due to underlying atrial fibrillation. The patient's last surface echocardiogram revealed an ejection fraction of approximately 40%. He is systemically anticoagulated on Coumadin with an INR of 2.5. He has never previously undergone a cardioversion. He denies any known prior anesthetic complications. He denies a history of obstructive sleep apnea, COPD or asthma. PHYSICAL EXAMINATION: VITAL SIGNS: Reviewed and were acceptable. GENERAL: The patient is a male, in no apparent distress, speaking in full sentences. HEENT: Normocephalic, atraumatic. Mucous membranes are moist and pink. Good mouth opening noted. Trachea is midline. Good neck mobility. CHEST: S1, S2 irregularly irregular. No murmurs, rubs or gallops were noted. LUNGS: Clear to auscultation bilaterally without appreciable wheezes, rales or rhonchi. ABDOMEN: Soft, nontender, nondistended. Positive bowel sounds. EXTREMITIES: There is no clubbing, cyanosis or edema. ASA Class: II DESCRIPTION OF PROCEDURE: After confirmation of informed consent, the patient's anesthesia plan was reviewed in detail. Etomidate was chosen. Risks and benefits were reviewed and the patient agreed to proceed. At 1206, the patient was given 6 mg of etomidate. The patient achieved an appropriate level of sedation and was given a 200 joule synchronized cardioversion by Dr. Haque at the bedside. This was successful in achieving normal sinus rhythm. The patient was monitored until 1217, at which time he reached his baseline mental status and function. The patient tolerated the procedure well. COMPLICATIONS: None ESTIMATED BLOOD LOSS: None RECOMMENDATIONS: Okay to recover in usual fashion. 9xxxx: Other Procedure See Report - [id number]
--- NOTE | 2020-11-06 13:24 | CARDIOVERS ---
Cardioversion Cardioversion: DC cardioversion. 74-year-old man with persistent symptomatic atrial fibrillation. The patient has been on anticoagulation for at least 3 weeks with therapeutic INRs. The patient was brought to cardiac catheterization lab in the postabsorptive nonsedated state. The patient was seen by Dr. Hooper of the critical care division. Informed consent was obtained. 1. Anterior posterior pads were applied. The patient was then administered 6 mg of intravenous etomidate. 200 J of biphasic DC cardioversion energy were applied with prompt reversal to sinus rhythm. Patient tolerated the procedure well. Conclusion: Successful DC cardioversion from atrial fibrillation to sinus rhythm. Continue current medications. Obtain echocardiogram in 3 months. Follow office protocol.
== END 2020-11-06 13:25 | disposition home or self-care (01) ==
LOC: CLSP 10:18
PROVIDERS: PCP Preventive Medicine Occupational Medicine; Referring Provider Internal Medicine Cardiovascular Disease; Visit Provider Internal Medicine Cardiovascular Disease
DX: I48.19 Other persistent atrial fibrillation (principal); I48.0 Paroxysmal atrial fibrillation; I11.0 Hypertensive heart disease with heart failure; I50.20 Unspecified systolic (congestive) heart failure; I42.8 Other cardiomyopathies; E78.5 Hyperlipidemia, unspecified; E66.9 Obesity, unspecified; Z79.01 Long term (current) use of anticoagulants; Z79.899 Other long term (current) drug therapy
CPT/HCPCS: 36415; 80048; 84132; 85610; 92960; 93005; J7040

== ENCOUNTER 2020-11-27 12:49 | Outpatient (RCR) | payer MEDICARE, OTHER, SELFPAY ==
[2020-11-05 09:32] VITALS: BMI 31.8
[2020-11-13 10:55] LABS: International Normalized Ratio 2.3; Prothrombin Time (Protime)PT. 25.2 SECONDS (11.7-14.9)
[2020-11-13 11:27] LABS: Anion Gap 7 (5-15); BUN 15 mg/dL (7-18); BUN/Creat Ratio 11.4 RATIO (10-20); Calcium,Total 9.3 mg/dL (8.5-10.1); Chloride 104 mmol/L (98-107); Creatinine, Serum 1.32 mg/dL (0.70-1.30); EST Glomerular Filtration Rate 56 mL/min (>60); Est Glom Filt Rate - Afr Amer 68 mL/min (>60); Glucose 214 mg/dL (74-106); Potassium 3.3 mmol/L (3.5-5.1); Sodium Level 141 mmol/L (136-145)
[2020-11-20 10:28] LABS: International Normalized Ratio 2.7; Prothrombin Time (Protime)PT. 28.3 SECONDS (11.7-14.9)
[2020-11-27 15:51] LABS: International Normalized Ratio 2.9; Prothrombin Time (Protime)PT. 29.7 SECONDS (11.7-14.9)
== END 2020-11-27 18:00 | disposition home or self-care (01) ==
LOC: MTLAB 12:49
PROVIDERS: PCP Preventive Medicine Occupational Medicine; Referring Provider Internal Medicine Cardiovascular Disease; Visit Provider Internal Medicine Cardiovascular Disease
DX: I48.0 Paroxysmal atrial fibrillation (principal); I48.92 Unspecified atrial flutter; I48.19 Other persistent atrial fibrillation; Z79.01 Long term (current) use of anticoagulants
CPT/HCPCS: 36415; 80048; 85610

== ENCOUNTER 2020-12-25 08:04 | Outpatient (RCR) | payer MEDICARE, OTHER, SELFPAY ==
[2020-12-11 10:37] LABS: International Normalized Ratio 3.6; Prothrombin Time (Protime)PT. 35.2 SECONDS (11.7-14.9)
[2020-12-18 10:15] LABS: International Normalized Ratio 3.4; Prothrombin Time (Protime)PT. 33.6 SECONDS (11.7-14.9)
[2020-12-18 10:45] LABS: Anion Gap 6 (5-15); BUN 15 mg/dL (7-18); Calcium,Total 8.6 mg/dL (8.5-10.1); Chloride 104 mmol/L (98-107); Creatinine, Serum 1.25 mg/dL (0.70-1.30); EST Glomerular Filtration Rate 60 mL/min (>60); Est Glom Filt Rate - Afr Amer 72 mL/min (>60); Glucose 191 mg/dL (74-106); Sodium Level 139 mmol/L (136-145)
[2020-12-25 10:34] LABS: Anion Gap 5 (5-15); BUN 17 mg/dL (7-18); BUN/Creat Ratio 14.5 RATIO (10-20); Calcium,Total 8.5 mg/dL (8.5-10.1); Chloride 109 mmol/L (98-107); Creatinine, Serum 1.17 mg/dL (0.70-1.30); EST Glomerular Filtration Rate 65 mL/min (>60); Est Glom Filt Rate - Afr Amer 78 mL/min (>60); Glucose 169 mg/dL (74-106); Potassium 3.3 mmol/L (3.5-5.1); Sodium Level 141 mmol/L (136-145)
[2020-12-25 10:34] LABS: International Normalized Ratio 2.7
== END 2020-12-25 18:00 | disposition home or self-care (01) ==
LOC: MTLAB 08:04
PROVIDERS: PCP Preventive Medicine Occupational Medicine; Referring Provider Internal Medicine Cardiovascular Disease; Visit Provider Internal Medicine Cardiovascular Disease
DX: I48.0 Paroxysmal atrial fibrillation (principal); I48.92 Unspecified atrial flutter; I48.19 Other persistent atrial fibrillation; Z79.01 Long term (current) use of anticoagulants
CPT/HCPCS: 36415; 80048; 85610

== ENCOUNTER 2020-12-30 10:23 | Day surgery (SDC) | payer MEDICARE, OTHER, SELFPAY ==
[2020-12-11 13:27] VITALS: BMI 32.0
[2020-12-27 12:08] VITALS: BMI 32.0
--- NOTE | 2020-12-30 12:14 | PCM.OP.PRO ---
Assessment & Plan Assessment/Plan (1) Persistent atrial fibrillation: Status: Chronic Code(s): I48.19 - Other persistent atrial fibrillation (2) Non-ischemic cardiomyopathy: Status: Chronic Code(s): I42.8 - Other cardiomyopathies Procedure Report Date of Procedure: 12/30/20 DC cardioversion. 75-year-old man with a history of nonischemic cardiomyopathy. Patient also has chronic persistent symptomatic atrial fibrillation with a left bundle branch block. The patient was seen by Dr. Hooper of the critical care division after the patient presented to the noninvasive lab. Informed consent was obtained. An EKG was done which confirmed that the patient was in atrial fibrillation with a rapid ventricular response rate and left bundle branch block. Anterior posterior pads were applied. The patient was then administered 6 mg of intravenous etomidate. 200 J of synchronized biphasic DC cardioversion energy were applied with prompt reversal to sinus rhythm. Patient tolerated the procedure well. Conclusion: Successful DC cardioversion from atrial fibrillation to sinus rhythm. Continue current medications with amiodarone and beta-fermin. Follow-up as per office protocol.
--- NOTE | 2020-12-30 12:59 | PRO.PCM_ITS ---
Procedure Report Date of Procedure: 12/30/20 CONSCIOUS SEDATION REPORT DATE OF SERVICE: December 30, 2020 BRIEF HISTORY OF PRESENT ILLNESS: The patient is a 75-year-old male who presented to [facility] for an elective outpatient cardioversion due to underlying atrial fibrillation. The patient did previously undergo a cardioversion in October 2020. The patient's last surface echocardiogram revealed an ejection fraction of approximately 40%. He is systemically anticoagulated on Coumadin with an INR of 2.6 today. He kaity es any history of obstructive sleep apnea COPD or asthma. PHYSICAL EXAMINATION: VITAL SIGNS: Reviewed and were acceptable. GENERAL: The patient is a male, in no apparent distress, speaking in full sentences. HEENT: Normocephalic, atraumatic. Mucous membranes are moist and pink. Good mouth opening noted. Trachea is midline. CHEST: S1, S2 irregularly irregular. No murmurs, rubs or gallops were noted. LUNGS: Clear to auscultation bilaterally without appreciable wheezes, rales or rhonchi. ABDOMEN: Soft, nontender, nondistended. Positive bowel sounds. EXTREMITIES: There is no clubbing, cyanosis or edema. ASA Class: II DESCRIPTION OF PROCEDURE: After confirmation of informed consent, the patient's anesthesia plan was reviewed in detail. Etomidate was chosen. Risks and benefits were reviewed and the patient agreed to proceed. At 1207, the patient was given 6 mg of etomidate. The patient achieved an appropriate level of sedation and was given a 200 joule synchronized cardioversion by Dr. Haque at the bedside. This was successful in achieving normal sinus rhythm. The patient was monitored until 1218, at which time he reached his baseline mental status and function. The patient tolerated the procedure well. COMPLICATIONS: None ESTIMATED BLOOD LOSS: None RECOMMENDATIONS: Okay to recover in usual fashion. Procedures Pulmonary CF Procedures [id number]: Other Procedure See Report ([id number])
[2020-12-31 11:15] LABS: INR Fingerstick 2.6; Prothrombin Time Fingerstick 29.2 SEC (11.9-14.4)
== END 2020-12-30 13:20 | disposition home or self-care (01) ==
LOC: CLSP 10:25
PROVIDERS: PCP Preventive Medicine Occupational Medicine; Referring Provider Internal Medicine Cardiovascular Disease; Visit Provider Internal Medicine Cardiovascular Disease
DX: I48.19 Other persistent atrial fibrillation (principal); I48.0 Paroxysmal atrial fibrillation; I42.8 Other cardiomyopathies; I44.7 Left bundle-branch block, unspecified; I10 Essential (primary) hypertension; E78.5 Hyperlipidemia, unspecified; E66.9 Obesity, unspecified; Z79.01 Long term (current) use of anticoagulants; Z79.899 Other long term (current) drug therapy
CPT/HCPCS: 36416; 85610; 92960; 93005; J7040

== ENCOUNTER → 2021-01-22 08:40 | Outpatient (CLI) | payer MEDICARE, OTHER, SELFPAY ==
[2021-01-06 11:11] VITALS: BMI 32.0
[2021-01-22 10:07] LABS: Potassium 3.3 mmol/L (3.5-5.1)
== END ==
PROVIDERS: PCP Preventive Medicine Occupational Medicine; Referring Provider Preventive Medicine Occupational Medicine; Visit Provider Preventive Medicine Occupational Medicine
DX: I48.91 Unspecified atrial fibrillation (principal)
CPT/HCPCS: 36415; 84132

== ENCOUNTER → 2021-01-29 12:50 | Outpatient (CLI) | payer MEDICARE, OTHER, SELFPAY ==
[2021-01-02 06:28] VITALS: BMI 32.0
[2021-01-24 13:29] VITALS: BMI 32.0
--- NOTE | 2021-01-30 07:07 | PFT ---
INTRODUCTION: The patient is a 75-year-old male that presents for pulmonary function studies secondary to a diagnosis of dyspnea. Respiratory therapy reports good patient effort. Bronchodilators were used during testing. INTERPRETATION: Forced expiration spirometry demonstrates no evidence of a large airways obstructive ventilatory defect. There was no significant response to aerosolized bronchodilators. Spirograms are of good quality and plateau normally. Body plethysmography was performed and reveals a decreased TLC to 4.99 L, 81% of predicted, indicative of a mild restrictive ventilatory impairment. Diffusing capacity by single breath CO is within normal limits. IMPRESSION: Isolated mild restrictive ventilatory impairment with preserved diffusing capacity.
== END ==
PROVIDERS: PCP Preventive Medicine Occupational Medicine; Referring Provider Internal Medicine Critical Care Medicine; Visit Provider Internal Medicine Critical Care Medicine
DX: R06.00 Dyspnea, unspecified (principal)
CPT/HCPCS: 94060; 94726; 94729

== ENCOUNTER → 2021-02-04 12:18 | Outpatient (CLI) | payer MEDICARE, OTHER, SELFPAY ==
[2021-01-02 06:28] VITALS: BMI 32.0
[2021-01-24 13:29] VITALS: BMI 32.0
[2021-02-04 12:46] VITALS: PULSE 104; PULSE 80; PULSE 84; PULSE 91; PULSE 94; PULSE 95; PULSE 96; O2SAT 95; O2SAT 96
--- NOTE | 2021-02-04 14:33 | PCM.PSN.6M ---
PSN 6 Minute Walk Test 6 Minute Walk Test 6 Minute Walk Test: 6 Minute Walk Test PSN:6-Minute Walk Test Start: 02/04/21 12:45 Freq: Status: Active Protocol: [id number].6MINW Document 02/04/21 12:46 ALBERTO (Rec: 02/04/21 12:48 ALBERTO [id number]) 6 Minute Walk Test Date Performed 02/04/21 Time Performed 12:30 Height 5 ft 9 in Weight: 97.522 kg Weight in Pounds 215.[address]: Pieter House Assistive device used: None Pre-test Oxygen Delivery Method Room Air Pulse Ox (%) 96 Pulse Rate (60-100 beats/min) 80 Dyspnea Nemesio Scale (0-10) 0 Exertion Nemesio Scale (6-20) 6 1st minute Oxygen Delivery Method Room Air Pulse Ox (%) 96 Pulse Rate (60-100 beats/min) 94 2nd minute Oxygen Delivery Method Room Air Pulse Ox (%) 96 Pulse Rate (60-100 beats/min) 91 3rd minute Oxygen Delivery Method Room Air Pulse Ox (%) 95 Pulse Rate (60-100 beats/min) 96 4th minute Oxygen Delivery Method Room Air Pulse Ox (%) 96 Pulse Rate (60-100 beats/min) 96 5th minute Oxygen Delivery Method Room Air Pulse Ox (%) 96 Pulse Rate (60-100 beats/min) 95 6th minute Oxygen Delivery Method Room Air Pulse Ox (%) 95 Pulse Rate (60-100 beats/min) 104 H Dyspnea Nemesio Scale (0-10) 2 Exertion Nemesio Scale (6-20) 12 Post-test Oxygen Delivery Method Room Air Pulse Ox (%) 95 Pulse Rate (60-100 beats/min) 84 Full Laps Walked 15 Partial Lap, Number of Tiles Walked 10 Total Distance Walked (ft) 895 Interpretation Interpretation: The patient was able to ambulate 895 feet over the course of 6 minutes on room air with no assistive devices or breaks. The patient experienced no significant desaturation, but did have an increase in heart rate to a peak of 104 bpm. These findings are consistent with deconditioning. Recommendations Recommendations: No supplemental oxygen is indicated at this time.
== END ==
PROVIDERS: PCP Preventive Medicine Occupational Medicine; Referring Provider Internal Medicine Critical Care Medicine; Visit Provider Internal Medicine Critical Care Medicine
DX: R06.00 Dyspnea, unspecified (principal)
CPT/HCPCS: 94618

== ENCOUNTER 2021-02-21 21:02 | Inpatient (IN) | payer MEDICARE, OTHER, SELFPAY ==
[2021-02-17 08:06] VITALS: BMI 31.8
[2021-02-21] VITALS (11 sets, daily range): BP systolic 127–152; BP diastolic 79–114; PULSE 56–94; RESP 16–26; TEMP 36–36.9; O2SAT 81–96; BMI 31.8; BMI 34.3
--- NOTE | 2021-02-21 21:21 | EKG12_ITS ---
Test Reason : NEURO Blood Pressure : / mmHG Vent. Rate : 085 BPM Atrial Rate : 075 BPM P-R Int : 000 ms QRS Dur : 158 ms QT Int : 462 ms P-R-T Axes : 000 010 105 degrees QTc Int : 549 ms Atrial fibrillation Left bundle branch block Abnormal ECG Confirmed by YOHANNES DAMIAN, MARICARMEN ([id number]), videotape editor TRELL SO ([id number]) on 02/25/2021 8:38:31 AM Referred By: [facility] Confirmed By:MARICARMEN SHEFFIELD MD
--- NOTE | 2021-02-21 21:21 | CT_ITS ---
We are attempting to reach an attending provider to discuss findings. An addendum with communication details will be sent when the communication is complete. STUDY: CT HEAD STROKE PROTOCOL W/O CONTRAST INJECTION REASON FOR EXAM: Male, 75 years old. Neuro deficit, acute, stroke suspected TECHNIQUE: Transaxial CT imaging of the brain was performed without administration of intravenous contrast material. Individualized dose optimization techniques were used for this CT. COMPARISON: No relevant priors. FINDINGS: Normal soft tissue structures. Normal calvarium. There is mild cerebral atrophy with widening of the extra-axial spaces and ventricular dilatation. There are areas of decreased attenuation within the white matter tracts of the supratentorial brain, consistent with microvascular disease changes. Normal basal ganglia and thalami. Normal brainstem. Normal cerebellum. There is no intracranial hemorrhage. There are no findings of an acute ischemic infarction. Normal visualized paranasal sinuses. CT/STROKE Brain/Head without Cont IMPRESSION: No acute intracranial findings. Negative for hemorrhage, hematoma or demarcation of a new nonhemorrhagic infarct zone. Mild involutional changes. Electronically Signed: Molly Mancuso MD at 21:33 EDT , Service support ,
--- NOTE | 2021-02-21 21:21 | RAD_ITS ---
STUDY: X-RAY CHEST REASON FOR EXAM: Male, 75 years old. Neuro deficit, acute, stroke suspected TECHNIQUE: 1 view COMPARISON: Prior chest radiograph of 09/03/2020 FINDINGS: Bibasilar atelectatic changes. Pleural thickening on the right is actually a subpleural fat as demonstrated on other examinations. Stable cardiac size. Normal mediastinum and kristy. Normal visualized pulmonary arteries. There is atherosclerotic calcification of the aortic arch with tortuosity. There are diffuse degenerative changes of the visualized thoracic spine. There is degenerative osteoarthritis of the bilateral shoulders. There is no demonstrated abnormality of the visualized soft tissue structures of the upper abdomen. RAD/Chest 1 View IMPRESSION: Mild bibasilar atelectatic changes. Stable cardiac size. Negative for pleural effusion. Electronically Signed: Molly Mancuso MD at 23:38 EDT , Service support ,
--- NOTE | 2021-02-21 21:22 | CT_ITS ---
We are attempting to reach an attending provider to discuss findings. An addendum with communication details will be sent when the communication is complete. EXAM: CT ANGIOGRAPHY HEAD AND NECK WITH INTRAVENOUS CONTRAST : 1945 CLINICAL INDICATION: Neuro deficit, acute, stroke suspected TECHNIQUE: [place]/head and neck CT angiography protocol performed with intravenous contrast. This CT exam was performed using one or more of the following dose reduction techniques: automated exposure control, adjustment of the mA and/or kV according to patient size, and/or use of iterative reconstruction technique. This report was created using [employer] report [email or web address] technology. MIP reconstructed images were created and reviewed. COMPARISON: None. FINDINGS: HEAD: RIGHT ANTERIOR CEREBRAL ARTERY: Unremarkable. No significant stenosis at the visualized segments. Anterior communicating artery is present. No aneurysm. RIGHT MIDDLE CEREBRAL ARTERY: Unremarkable. No significant stenosis at the visualized segments. No aneurysm. RIGHT POSTERIOR CEREBRAL ARTERY: Unremarkable. No occlusion or significant stenosis. No aneurysm. LEFT ANTERIOR CEREBRAL ARTERY: Unremarkable. No significant stenosis at the visualized segments. No aneurysm. LEFT MIDDLE CEREBRAL ARTERY: Unremarkable. No significant stenosis at the visualized segments. No aneurysm. LEFT POSTERIOR CEREBRAL ARTERY: Unremarkable. No occlusion or significant stenosis. No aneurysm. BASILAR ARTERY: Unremarkable. No significant stenosis. No aneurysm. GREAT VESSELS OF AORTIC ARCH: Unremarkable. Normal anatomy, patent. OTHER VASCULATURE: No vascular malformation. NECK: RIGHT COMMON CAROTID ARTERY: Unremarkable. No significant stenosis. No dissection or occlusion. RIGHT INTERNAL CAROTID ARTERY: Unremarkable. No significant stenosis. No dissection or occlusion. RIGHT EXTERNAL CAROTID ARTERY: Unremarkable. No occlusion. RIGHT VERTEBRAL ARTERY: Unremarkable. No significant stenosis. No dissection or occlusion. LEFT COMMON CAROTID ARTERY: Unremarkable. No significant stenosis. No dissection or occlusion. LEFT INTERNAL CAROTID ARTERY: Unremarkable. No significant stenosis. No dissection or occlusion. LEFT EXTERNAL CAROTID ARTERY: Unremarkable. No occlusion. LEFT VERTEBRAL ARTERY: Unremarkable. No significant stenosis. No dissection or occlusion. LUNG APICES: Unremarkable as visualized. SOFT TISSUES: Unremarkable. CAROTID STENOSIS REFERENCE USING NASCET CRITERIA: % ICA stenosis = (1 - narrowest ICA diameter/diameter of distal cervical ICA) x 100. Moderate - 50-69% stenosis. Severe - 70-94% stenosis. Near occlusion - 95-99% stenosis. Occluded - 100% stenosis. CT/STROKE CTA Head AND Neck W/Con IMPRESSION: Negative CTA carotid and CTA brain. Individualized dose optimization techniques were used for this CT. at 2149 Reported and signed by: Erwin Amaya MD Electronically Signed: Erwin Amaya MD at 21:48 EDT Tel , Service support ,
--- NOTE | 2021-02-21 21:23 | ED.VIS.STROK ---
HPI History of Present Illness Chief Complaint: Neuro S/Sx Narrative Narrative: 75-year-old male presents with intermittent inability to move his right hand. He describes it is weaker than usual. This started at 2039. It has been intermittent since then. He still states it feels weak. He denies sensation change. Patient is on Coumadin for atrial fibrillation. Patient denies any facial droop, slurred speech, weakness of any other extremity. He does not have any paresthesia currently. [facility] Medical History Dilated cardiomyopathy Essential (primary) hypertension Hyperlipidemia Left bundle branch block (LBBB) Non-ischemic cardiomyopathy Obesity Paroxysmal atrial fibrillation Paroxysmal atrial flutter Persistent atrial fibrillation Home Medications simvastatin 20 mg PO QHS 10/16/15 [History Last Taken Unknown] carvedilol 25 mg tablet 25 mg PO BID #60 tab 10/30/20 [Rx Last Taken 12/30/20] furosemide 40 mg tablet 40 mg PO BID #90 tab 10/30/20 [Rx Last Taken Unknown] losartan 100 mg tablet 50 mg PO DAILY tab 10/30/20 [History Last Taken 12/30/20] amiodarone 200 mg tablet 200 mg PO DAILY tablet 12/11/20 [History Last Taken 12/30/20] warfarin 3 mg tablet 3 mg PO DAILY #90 tab 01/08/21 [Rx Last Taken Unknown] potassium chloride 20 meq PO BID 02/21/21 [History Last Taken Unknown] Allergy/AdvReac Type Severity Reaction Status Date / Time baclofen Allergy Intermediate rash Verified 02/21/21 21:06 Family History Mother CVA (cerebral vascular accident) Father Cancer Sister Cancer breast Surgical History History of appendectomy History of back surgery (1981) History of cardioversion (12/30/20) History of knee surgery (1983) History of left heart catheterization (10/17/15) History of umbilical hernia repair Social History Smoking Status: Never smoker alcohol intake: current alcohol intake frequency: holidays/special occasions only substance use type: does not use caffeine: Yes Type: carbonated beverages, coffee and tea ROS ROS ED Constitutional Constitutional ED: Denies chills, fever(s) or subjective Eyes Eyes: Denies blurry vision or change in vision ENT ENT ED: Denies ear pain or rhinorrhea Cardiovascular Cardiovascular: Denies chest pain, palpitations or racing heartbeat Respiratory/Chest Respiratory/Chest: Denies cough or dyspnea Gastrointestinal Gastrointestinal: Denies abdominal pain, nausea or vomiting Genitourinary Genitourinary ED: Denies dysuria Musculoskeletal Musculoskeletal: Denies arthralgias or myalgias Integumentary Denies rash Neurologic Neurologic: Reports weakness and other Details: Weakness of right hand Psychiatric Psychiatric: Denies anxiety or depression EXAM Physical Exam Const Vital Signs: 02/21/21 21:04 02/21/21 21:21 02/21/21 21:39 Temperature 96.8 F L 97.8 F Temperature Source Temporal Temporal Pulse Rate 56 L 94 Respiratory Rate 16 26 H Blood Pressure 139/92 H 127/112 H Blood Pressure Mean 107 117 Pulse Ox 95 96 96 Oxygen Delivery Method Room Air Room Air Room Air Oxygen Flow Rate (L/min) 02/21/21 21:48 02/21/21 21:51 02/21/21 22:21 Temperature 98.1 F 98.4 F Temperature Source Temporal Temporal Pulse Rate 79 75 88 Respiratory Rate 16 17 Blood Pressure 144/98 H 138/114 H 145/90 H Blood Pressure Mean 113 122 108 Pulse Ox 93 92 Oxygen Delivery Method Room Air Room Air Oxygen Flow Rate (L/min) 02/21/21 22:30 02/21/21 22:32 02/21/21 22:48 Temperature 98.1 F Temperature Source Temporal Pulse Rate 86 80 Respiratory Rate 16 Blood Pressure 152/98 H Blood Pressure Mean 116 Pulse Ox 92 95 Oxygen Delivery Method Room Air Nasal Cannula Oxygen Flow Rate (L/min) 2 02/21/21 23:00 02/21/21 23:30 02/22/21 00:00 Temperature 97.7 F L 98.4 F 98.0 F Temperature Source Temporal Temporal Temporal Pulse Rate 80 84 82 Respiratory Rate 16 19 H 17 Blood Pressure 132/102 H 143/79 H 122/83 H Blood Pressure Mean 112 100 96 Pulse Ox 94 94 95 Oxygen Delivery Method Nasal Cannula Nasal Cannula Nasal Cannula Oxygen Flow Rate (L/min) 2 2 2 02/22/21 00:19 02/22/21 00:29 Temperature 98.2 F Temperature Source Temporal Pulse Rate 84 Respiratory Rate 19 H 19 H Blood Pressure 136/85 H Blood Pressure Mean 102 Pulse Ox 92 Oxygen Delivery Method Room Air Oxygen Flow Rate (L/min) 2 Positive obese General Appearance ED: NAD Nutritional Appearance: obese HEENT Reports moist mucous membranes atraumatic Eyes PERRL and EOMs intact bilaterally Chest Wall inspection of chest normal and palpation of chest normal Resp normal respiratory effort and clear to auscultation bilaterally Cardio Rate: regular rate Rhythm: abnormal rhythm irregularly irregular Neuro oriented x3 and CN's II-XII intact bilaterally Neuro Narrative: 4/5 handgrip right hand. Sensation is intact in the right hand. Sensorium / Orientation: alert Psych mental status grossly normal Skin Lesions: no lesions Rashes: no rashes STROKE Vital Signs/Narrative: Vital Signs Temp Pulse Resp BP Pulse Ox 02/22/21 00:29 98.2 F 84 19 H 136/85 H 92 02/22/21 00:19 19 H 02/22/21 00:00 98.0 F 82 17 122/83 H 95 02/21/21 23:30 98.4 F 84 19 H 143/79 H 94 02/21/21 23:00 97.7 F L 80 16 132/102 H 94 02/21/21 22:48 95 02/21/21 22:32 80 02/21/21 22:30 98.1 F 86 16 152/98 H 92 02/21/21 22:21 98.4 F 88 17 145/90 H 92 02/21/21 21:51 98.1 F 75 16 138/114 H 93 02/21/21 21:48 79 144/98 H 02/21/21 21:39 96 02/21/21 21:21 97.8 F 94 26 H 127/112 H 96 02/21/21 21:04 96.8 F L 56 L 16 139/92 H 95 MDM MDM MDM Narrative Medical decision making narrative: Patient presents with intermittent hand weakness. He did not initially say he was having any numbness. On my initial neurologic exam he had 4 or 5 strength in the right hand but stated that his sensation was the same as the contralateral hand. Patient had CT and CTA of the brain which showed no acute intracranial process. [facility] beamed in and on their exam he was complaining of numbness in the index finger of the right hand. He was given an NIH of 1. Patient CBC shows a white count of 9.4, hemoglobin 17.6, hematocrit 51.9, platelets 188. INR therapeutic at 2.1 for atrial fibrillation. Patient has a slight increase in his creatinine at 1.51 and is potassium is 3.2. I will hold off on giving him oral potassium for now given that he is now complaining of nausea and vomiting with mid abdominal pain. LFTs are normal with exception of his bilirubin at 1.10 which is actually lower than his previous bilirubin. Troponin is 12.5. Patient's EKG interpreted by myself as atrial fibrillation 85 bpm and he states he is usually in A. fib. He denies any chest pain. Patient had CT of the abdomen pelvis which shows some dependent groundglass opacities versus infiltrates in the lower lobes. After ambulating to the bathroom the nurse checked his pulse ox he was 89%. He was placed on O2 for comfort this was all discussed with the hospitalist on admission. Admitting physician wants to check a Covid swab. Patient is admitted to PCU. Impression: 1. TIA 2. Abdominal pain 3. Nausea/vomiting Lab Data Attestation: I reviewed the patient's lab results. Labs: Laboratory Results - last 24 hr 02/21/21 02/21/21 02/21/21 21:11 21:15 21:15 WBC 9.4 RBC 5.83 Hgb 17.6 H Hct 51.9 MCV 89.0 MCH 30.2 MCHC 33.9 RDW Std Deviation 44.1 H RDW Coeff of [place] 13.7 Plt Count 188 MPV 10.8 Immature Gran % (Auto) 0.500 Neut % (Auto) 54.4 Lymph % (Auto) 30.2 [place] % (Auto) 12.1 H Eos % (Auto) 2.3 Baso % (Auto) 0.5 Absolute Neuts (auto) 5.1 Absolute Lymphs (auto) 2.84 Nucleated RBC % 0 PT 22.9 H INR 2.1 APTT 32.6 Sodium Potassium Chloride Carbon Dioxide Anion Gap BUN Creatinine Estim Creat Clear Calc Est GFR (MDRD) Af Amer Est GFR (MDRD) Non-Af BUN/Creatinine Ratio Glucose Calcium Total Bilirubin Direct Bilirubin AST ALT Alkaline Phosphatase Troponin I High Sens Total Protein Albumin Globulin Lipase POC Glucose 111 H 02/21/21 02/21/21 02/21/21 21:15 21:48 21:48 WBC RBC Hgb Hct MCV MCH MCHC RDW Std Deviation RDW Coeff of [place] Plt Count MPV Immature Gran % (Auto) Neut % (Auto) Lymph % (Auto) [place] % (Auto) Eos % (Auto) Baso % (Auto) Absolute Neuts (auto) Absolute Lymphs (auto) Nucleated RBC % PT INR APTT Sodium 142 Potassium 3.2 L Chloride 107 Carbon Dioxide 29.0 Anion Gap 6 BUN 14 Creatinine 1.51 H Estim Creat Clear Calc 42.27 Est GFR (MDRD) Af Amer 58 L Est GFR (MDRD) Non-Af 48 L BUN/Creatinine Ratio 9.3 L Glucose 102 Calcium 8.6 Total Bilirubin 1.10 H Direct Bilirubin 0.25 AST 23 ALT 24 Alkaline Phosphatase 88 Troponin I High Sens 12.5 Total Protein 7.1 Albumin 3.4 Globulin 3.7 Lipase 98 POC Glucose Radiography Diagnostic Testing: Radiology Impression Brain CT 02/21/21 21:21 IMPRESSION: No acute intracranial findings. Negative for hemorrhage, hematoma or demarcation of a new nonhemorrhagic infarct zone. Mild involutional changes. Electronically Signed: Molly Mancuso MD at 21:33 EDT , Service support , ADDENDUM: 02/21/21 2140 IMPRESSION: No acute intracranial findings. Negative for hemorrhage, hematoma or demarcation of a new nonhemorrhagic infarct zone. Mild involutional changes. N.B. : The above Results were Read Back by Molly Mancuso MD to Jorge Ellis DO, DO, and understanding confirmed on 02/21/2021 21:33:23 (ET). Electronically Signed: Molly Mancuso MD at 21:33 EDT , Service support , Chest X-Ray 02/21/21 21:21 IMPRESSION: Mild bibasilar atelectatic changes. Stable cardiac size. Negative for pleural effusion. Electronically Signed: Molly Mancuso MD at 23:38 EDT , Service support , Head/Neck CTA 02/21/21 21:22 IMPRESSION: Negative CTA carotid and CTA brain. Individualized dose optimization techniques were used for this CT. at 2149 Reported and signed by: Erwin Amaya MD Electronically Signed: Erwin Amaya MD at 21:48 EDT Tel , Service support , ADDENDUM: 02/21/212157 IMPRESSION: Negative CTA carotid and CTA brain. Individualized dose optimization techniques were used for this CT. at 2149 Reported and signed by: Erwin Amaya MD N.B. : The above Results were Read Back by Erwin Amaya MD to Jorge Gramajo, , and understanding confirmed on 02/21/2021 21:51:40 (ET). Electronically Signed: Erwin Amaya MD at 21:48 EDT Tel , Service support , Abdomen/Pelvis CT 02/21/21 22:16 IMPRESSION: There are fairly substantial posterior dependent groundglass changes of the lower lobes, essential pneumonic infiltrates. Negative for cardiomegaly or pleural effusion. 2 subcentimeter hepatic cysts. No additional imaging recommendations. Otherwise unremarkable liver. Normal partly contracted gallbladder. Normal spleen. 3.4 x 1.2 cm mass of the distal pancreatic body stable from prior exam of 12/26/2019. ACR recommends every 6 months for 4 years. Yearly or every other year for 10 years. Simple renal cysts bilaterally. No additional imaging recommendations. Negative for hydronephrosis. Small volume thick walled urinary bladder elevated by prostate enlargement. Negative for acute bowel findings. Negative for obstruction, perforation or inflammatory bowel changes. Atherosclerotic changes of the aorta and iliac vessels without aneurysm. Minimal fatty umbilical hernia. Small fatty left inguinal hernia. Electronically Signed: Molly Mancuso MD at 23:58 EDT , Service support , Discharge Plan Triage Chief Complaint: Neuro S/Sx ED Provider: Jorge Ellis Dx/Rx/DC Orders Prescriptions: No Action losartan 100 mg tablet 50 mg PO DAILY RF: 0 carvedilol 25 mg tablet 25 mg PO BID Qty: 60 RF: 11 furosemide [Lasix] 40 mg tablet 40 mg PO BID Qty: 90 RF: 3 amiodarone 200 mg tablet 200 mg PO DAILY RF: 0 simvastatin 20 MG tablet 20 mg PO QHS RF: 0 potassium chloride 20 mEq tablet extended release 20 meq PO BID RF: 0 warfarin 3 mg tablet 3 mg PO DAILY Qty: 90 RF: 3 Primary Care Provider: José Miguel Tello
[2021-02-21 21:45] LABS: Absolute Lymphocyte Count 2.84 X10^3/uL (0.83-4.51); Absolute Neutrophil Count 5.1 X10^3/uL (2.0-7.7); Basophil# 0.05 X10^3/uL; Basophil% 0.5 % (0-1); Eosinophil# 0.22 X10^3/uL; Eosinophils% 2.3 % (0-5); Hematocrit 51.9 % (40-54); Hemoglobin 17.6 g/dL (13.0-16.5); Lymphocyte # 2.84 X10^3/ul (0.83-4.51); Lymphocyte % 30.2 % (19-41); Mean Corp Hgb Conc 33.9 g/dL (32-36); Mean Corpuscular Hgb 30.2 pg (27.0-32.0); Mean Platelet Vol. 10.8 fl (6.2-12.0); Monocyte# 1.14 X10^3/uL; Monocyte% 12.1 % (0-10); NRBC Flagged by Analyzer 0 % (0-5); Neutrophil % 54.4 % (47-70); Platelet Count 188 K/mm3 (150-450); RBC Distribution Width CV 13.7 % (11.6-14.6); RBC Distribution Width SD 44.1 fl (35.1-43.9); Red Blood Count 5.83 M/mm3 (4.6-6.2); White Blood Count 9.4 K/mm3 (4.4-11.0)
[2021-02-21 21:50] LABS: International Normalized Ratio 2.1; Partial Thromboplast Time 32.6 Seconds (24.1-36.2); Prothrombin Time (Protime)PT. 22.9 SECONDS (11.7-14.9)
[2021-02-21 22:13] LABS: Anion Gap 6 (5-15); BUN 14 mg/dL (7-18); BUN/Creat Ratio 9.3 RATIO (10-20); Calcium,Total 8.6 mg/dL (8.5-10.1); Chloride 107 mmol/L (98-107); Creatinine, Serum 1.51 mg/dL (0.70-1.30); EST Glomerular Filtration Rate 48 mL/min (>60); Est Glom Filt Rate - Afr Amer 58 mL/min (>60); Estimated Creatinine Clearance 42.27 ml/min; Glucose 102 mg/dL (74-106); Potassium 3.2 mmol/L (3.5-5.1); Sodium Level 142 mmol/L (136-145); Troponin-I HS 12.5 pg/mL (3.0-78.5)
[2021-02-21] MEDS: Ondansetron 4 MG/2 ML Vial IV (22:16)
--- NOTE | 2021-02-21 22:16 | CT_ITS ---
STUDY: CT ABDOMEN AND PELVIS WITHOUT CONTRAST REASON FOR EXAM: Male, 75 years old. abdominal pain RADIATION DOSAGE (If Supplied By Facility): CTDIvol = ( 21.83 ) mGy, DLP = ( 1287.39 ) mGycm TECHNIQUE: Transaxial images were obtained from the dome of the diaphragm to the symphysis pubis without oral contrast, and without intravenous contrast. Sagittal and coronal images were reconstructed. Individualized dose optimization techniques were used for this CT. COMPARISON: Prior abdomen and pelvic CT exam of 12/26/2019 FINDINGS: There are bilateral dependent lower lobe groundglass changes more substantial on the right than the left. Chronic increased subpleural fat on the right. 2 subcentimeter cysts of the left liver with an otherwise unremarkable liver. Normal partially contracted gallbladder. Normal spleen. There are small low density masses in the pancreatic tail that are juxtaposed or continuous. The abnormal region measures approximately 3.4 cm in length with a maximum width on axial imaging of 1.2 cm and does not appear to be substantially changed from the prior exam. Normal bilateral adrenal glands. Contrast is present in the collecting system secondary to prior CTA of head and neck which could obscure nonobstructing renal stones. Negative for hydronephrosis or ureteral tones. Multiple subcentimeter simple right renal cysts. 2 cm hypodensity of the left kidney consistent with simple cyst. Partly food filled stomach. Normal small intestine. Normal colon. There is non-visualization of the appendix. There is diffuse atherosclerotic calcification of the abdominal aorta, without a demonstrated aneurysm. Normal inferior vena cava. Normal retroperitoneum. Contrast filled urinary bladder. Small thick walled urinary bladder with elevation of the bladder base by prostate enlargement. Minimal fatty umbilical hernia. Small left fatty inguinal hernia. There are diffuse degenerative changes of the visualized lumbar spine. CT/Abdomen/Pelvis without Cont IMPRESSION: There are fairly substantial posterior dependent groundglass changes of the lower lobes, essential pneumonic infiltrates. Negative for cardiomegaly or pleural effusion. 2 subcentimeter hepatic cysts. No additional imaging recommendations. Otherwise unremarkable liver. Normal partly contracted gallbladder. Normal spleen. 3.4 x 1.2 cm mass of the distal pancreatic body stable from prior exam of 12/26/2019. ACR recommends every 6 months for 4 years. Yearly or every other year for 10 years. Simple renal cysts bilaterally. No additional imaging recommendations. Negative for hydronephrosis. Small volume thick walled urinary bladder elevated by prostate enlargement. Negative for acute bowel findings. Negative for obstruction, perforation or inflammatory bowel changes. Atherosclerotic changes of the aorta and iliac vessels without aneurysm. Minimal fatty umbilical hernia. Small fatty left inguinal hernia. Electronically Signed: Molly Mancuso MD at 23:58 EDT , Service support ,
[2021-02-21 22:23] LABS: Lipase 98 U/L (73-393)
[2021-02-21 22:28] LABS: AST(SGOT) 23 U/L (15-37); Alanine Aminotransfer ALT/SGPT 24 U/L (16-61); Albumin, Serum 3.4 g/dL (3.2-5.0); Alkaline Phosphatase 88 U/L (45-117); Bilirubin, Direct 0.25 mg/dL (0.00-0.30); Globulin 3.7 g/dL (2.2-4.2); Protein, Total 7.1 g/dL (6.4-8.2)
[2021-02-21 22:41] LABS: Bedside Glucose 111 mg/dL (70-110)
[2021-02-22] VITALS (19 sets, daily range): BP systolic 122–154; BP diastolic 64–137; PULSE 70–88; RESP 16–24; TEMP 36.4–36.8; O2SAT 90–95; BMI 32.5
[2021-02-22] MEDS: Morphine 4 MG/ML Syringe IV (00:40)
--- NOTE | 2021-02-22 00:55 | PCM.HP.STD ---
Documented by User: PRANEETH Chavarria 02/22/21 01:22 HPI - General General Date of Admission: 02/22/21 HPI Narrative DENICE GOODWIN, is a 75 M who presents with intermittent right hand weakness that started at approximately 2030. Patient currently states that his arm and hand do not feel weak. Patient denies facial droop, slurred speech, weakness of any other extremity, paresthesias, numbness and tingling. Patient is currently on Coumadin for atrial fibrillation and is following with Dr. Haque for this. Patient denies any previous instance of the symptoms. [facility] Medical History Dilated cardiomyopathy Essential (primary) hypertension Hyperlipidemia Left bundle branch block (LBBB) Non-ischemic cardiomyopathy Obesity Paroxysmal atrial fibrillation Paroxysmal atrial flutter Persistent atrial fibrillation Home Medications simvastatin 20 mg PO QHS 10/16/15 [History Last Taken Unknown] carvedilol 25 mg tablet 25 mg PO BID #60 tab 10/30/20 [Rx Last Taken 12/30/20] furosemide 40 mg tablet 40 mg PO BID #90 tab 10/30/20 [Rx Last Taken Unknown] losartan 100 mg tablet 50 mg PO DAILY tab 10/30/20 [History Last Taken 12/30/20] amiodarone 200 mg tablet 200 mg PO DAILY tablet 12/11/20 [History Last Taken 12/30/20] warfarin 3 mg tablet 3 mg PO DAILY #90 tab 01/08/21 [Rx Last Taken Unknown] potassium chloride 20 meq PO BID 02/21/21 [History Last Taken Unknown] Allergy/AdvReac Type Severity Reaction Status Date / Time baclofen Allergy Intermediate rash Verified 02/21/21 21:06 Family History Mother CVA (cerebral vascular accident) Father Cancer Sister Cancer breast Surgical History History of appendectomy History of back surgery (1981) History of cardioversion (12/30/20) History of knee surgery (1983) History of left heart catheterization (10/17/15) History of umbilical hernia repair Social History Smoking Status: Never smoker alcohol intake: current alcohol intake frequency: holidays/special occasions only substance use type: does not use caffeine: Yes Type: carbonated beverages, coffee and tea ROS Constitutional Constitutional: Denies anorexia, chills, fatigue, fever(s) or malaise Cardiovascular Cardiovascular: Denies chest pain, edema or palpitations Respiratory/Chest Respiratory/Chest: Denies cough, hemoptysis or wheezing Gastrointestinal Gastrointestinal: Reports abdominal pain; Denies constipation, diarrhea, nausea or vomiting Genitourinary Genitourinary: Denies dysuria Musculoskeletal Musculoskeletal: Denies back pain, extremity pain, joint pain or joint stiffness Integumentary Integumentary: Denies dry skin Neurologic Neurologic: Reports focal weakness; Denies abnormal gait, abnormal speech, numbness or sensory deficit Psychiatric Psychiatric: Denies anxiety or depression Endocrine Endocrinology: Denies change in body appearance Hematologic/Lymphatic Hematologic/Lymphatic: Denies easy bleeding or easy bruising Vital Signs Vital Signs Vital Signs: 02/21/21 21:04 02/21/21 21:21 02/21/21 21:39 Temperature 96.8 F L 97.8 F Temperature Source Temporal Temporal Pulse Rate 56 L 94 Respiratory Rate 16 26 H Blood Pressure 139/92 H 127/112 H Blood Pressure Mean 107 117 Pulse Ox 95 96 96 Oxygen Delivery Method Room Air Room Air Room Air Oxygen Flow Rate (L/min) 02/21/21 21:48 02/21/21 21:51 02/21/21 22:21 Temperature 98.1 F 98.4 F Temperature Source Temporal Temporal Pulse Rate 79 75 88 Respiratory Rate 16 17 Blood Pressure 144/98 H 138/114 H 145/90 H Blood Pressure Mean 113 122 108 Pulse Ox 93 92 Oxygen Delivery Method Room Air Room Air Oxygen Flow Rate (L/min) 02/21/21 22:30 02/21/21 22:32 02/21/21 22:48 Temperature 98.1 F Temperature Source Temporal Pulse Rate 86 80 Respiratory Rate 16 Blood Pressure 152/98 H Blood Pressure Mean 116 Pulse Ox 92 95 Oxygen Delivery Method Room Air Nasal Cannula Oxygen Flow Rate (L/min) 2 02/21/21 23:00 02/21/21 23:30 02/22/21 00:00 Temperature 97.7 F L 98.4 F 98.0 F Temperature Source Temporal Temporal Temporal Pulse Rate 80 84 82 Respiratory Rate 16 19 H 17 Blood Pressure 132/102 H 143/79 H 122/83 H Blood Pressure Mean 112 100 96 Pulse Ox 94 94 95 Oxygen Delivery Method Nasal Cannula Nasal Cannula Nasal Cannula Oxygen Flow Rate (L/min) 2 2 2 02/22/21 00:19 02/22/21 00:29 02/22/21 00:50 Temperature 98.2 F 97.7 F L Temperature Source Temporal Temporal Pulse Rate 84 84 Respiratory Rate 19 H 19 H 24 H Blood Pressure 136/85 H 141/102 H Blood Pressure Mean 102 115 Pulse Ox 92 93 Oxygen Delivery Method Room Air Nasal Cannula Oxygen Flow Rate (L/min) 2 2 Weight Weight: 232 lb 12.93 oz Body Mass Index (BMI) 34.3 Physical Exam Const alert and oriented x3 General Appearance: cooperative HEENT normocephalic and head/scalp atraumatic Eyes conjunctivae normal and no scleral icterus Neck supple and no JVD General: trachea midline Resp normal respiratory effort, normal air movement and clear to auscultation bilaterally Cardio regular rate, S1 normal heart sound and S2 normal heart sound Rhythm: abnormal rhythm irregularly irregular (Chronic A. fib) GI normal to inspection, nondistended, normoactive bowel sounds, soft to palpation and non-tender Extremity normal capillary refill and no clubbing, cyanosis or edema General Extremity: no tenderness to palpation of joints or extremities Skin General Skin Exam: no breakdown and turgor normal Lesions: no lesions Rashes: no rashes Neuro oriented x3, moves all extremities, no focal motor deficits and no sensory deficits noted Psych thought process normal, cooperative and affect normal Appearance: appropriate Results Lab / Micro Data Result Diagrams: 02/21/21 21:15 02/21/21 21:15 Labs: Laboratory Results - last 24 hr 02/21/21 02/21/21 02/21/21 21:11 21:15 21:15 WBC 9.4 RBC 5.83 Hgb 17.6 H Hct 51.9 MCV 89.0 MCH 30.2 MCHC 33.9 RDW Std Deviation 44.1 H RDW Coeff of [place] 13.7 Plt Count 188 MPV 10.8 Immature Gran % (Auto) 0.500 Neut % (Auto) 54.4 Lymph % (Auto) 30.2 [place] % (Auto) 12.1 H Eos % (Auto) 2.3 Baso % (Auto) 0.5 Absolute Neuts (auto) 5.1 Absolute Lymphs (auto) 2.84 Nucleated RBC % 0 PT 22.9 H INR 2.1 APTT 32.6 Sodium Potassium Chloride Carbon Dioxide Anion Gap BUN Creatinine Estim Creat Clear Calc Est GFR (MDRD) Af Amer Est GFR (MDRD) Non-Af BUN/Creatinine Ratio Glucose Calcium Total Bilirubin Direct Bilirubin AST ALT Alkaline Phosphatase Troponin I High Sens Total Protein Albumin Globulin Lipase POC Glucose 111 H 02/21/21 02/21/21 02/21/21 21:15 21:48 21:48 WBC RBC Hgb Hct MCV MCH MCHC RDW Std Deviation RDW Coeff of [place] Plt Count MPV Immature Gran % (Auto) Neut % (Auto) Lymph % (Auto) [place] % (Auto) Eos % (Auto) Baso % (Auto) Absolute Neuts (auto) Absolute Lymphs (auto) Nucleated RBC % PT INR APTT Sodium 142 Potassium 3.2 L Chloride 107 Carbon Dioxide 29.0 Anion Gap 6 BUN 14 Creatinine 1.51 H Estim Creat Clear Calc 42.27 Est GFR (MDRD) Af Amer 58 L Est GFR (MDRD) Non-Af 48 L BUN/Creatinine Ratio 9.3 L Glucose 102 Calcium 8.6 Total Bilirubin 1.10 H Direct Bilirubin 0.25 AST 23 ALT 24 Alkaline Phosphatase 88 Troponin I High Sens 12.5 Total Protein 7.1 Albumin 3.4 Globulin 3.7 Lipase 98 POC Glucose Radiology Impression Brain CT 02/21/21 21:21 IMPRESSION: No acute intracranial findings. Negative for hemorrhage, hematoma or demarcation of a new nonhemorrhagic infarct zone. Mild involutional changes. Electronically Signed: Molly Mancuso MD at 21:33 EDT , Service support , ADDENDUM: 02/21/212139 IMPRESSION: No acute intracranial findings. Negative for hemorrhage, hematoma or demarcation of a new nonhemorrhagic infarct zone. Mild involutional changes. N.B. : The above Results were Read Back by Molly Mancuso MD to Jorge Ellis DO, DO, and understanding confirmed on 02/21/2021 21:33:23 (ET). Electronically Signed: Molly Mancuso MD at 21:33 EDT , Service support , Chest X-Ray 02/21/21 21:21 IMPRESSION: Mild bibasilar atelectatic changes. Stable cardiac size. Negative for pleural effusion. Electronically Signed: Molly Mancuso MD at 23:38 EDT , Service support , Head/Neck CTA 02/21/21 21:22 IMPRESSION: Negative CTA carotid and CTA brain. Individualized dose optimization techniques were used for this CT. at 2149 Reported and signed by: Erwin Amaya MD Electronically Signed: Erwin Amaya MD at 21:48 EDT Tel , Service support , ADDENDUM: 02/21/21 2158 IMPRESSION: Negative CTA carotid and CTA brain. Individualized dose optimization techniques were used for this CT. at 2149 Reported and signed by: Erwin Amaya MD N.B. : The above Results were Read Back by Erwin Amaya MD to Jorge Gramajo, , and understanding confirmed on 02/21/2021 21:51:40 (ET). Electronically Signed: Erwin Amaya MD at 21:48 EDT Tel , Service support , Abdomen/Pelvis CT 02/21/21 22:16 IMPRESSION: There are fairly substantial posterior dependent groundglass changes of the lower lobes, essential pneumonic infiltrates. Negative for cardiomegaly or pleural effusion. 2 subcentimeter hepatic cysts. No additional imaging recommendations. Otherwise unremarkable liver. Normal partly contracted gallbladder. Normal spleen. 3.4 x 1.2 cm mass of the distal pancreatic body stable from prior exam of 12/26/2019. ACR recommends every 6 months for 4 years. Yearly or every other year for 10 years. Simple renal cysts bilaterally. No additional imaging recommendations. Negative for hydronephrosis. Small volume thick walled urinary bladder elevated by prostate enlargement. Negative for acute bowel findings. Negative for obstruction, perforation or inflammatory bowel changes. Atherosclerotic changes of the aorta and iliac vessels without aneurysm. Minimal fatty umbilical hernia. Small fatty left inguinal hernia. Electronically Signed: Molly Mancuso MD at 23:58 EDT , Service support , Assessment & Plan Assessment/Plan (1) TIA (transient ischemic attack): PLAN: 1. TIA -Admit to [facility] care for cardiac monitoring and NIHSS evaluation -Brain CT and head neck CTA negative for acute findings -PT and OT to eval and treat -MRI brain ordered for a.m. -Echo in a.m. -NIHSS every 4 hours per protocol with vital signs -BMP, lipid panel, magnesium, PT with INR ordered for a.m. -Initial troponin negative, second pending -Continue warfarin for anticoagulation. -We will continue daily losartan in addition as needed hydralazine and labetalol for blood pressure control -Bedside dysphagia screen ordered per protocol 2. Paroxysmal atrial fibrillation -Continue home regimen of amiodarone and warfarin -Continuous cardiac monitoring 3. Shortness of breath -Patient states this is has been ongoing and he has been undergoing outpatient evaluation by pulmonology and cardiology to determine cause. Per pulmonology note shortness of breath likely due to his atrial fibrillation and possible tachycardia as pulmonary etiology ruled out. -Oxygen ordered per protocol 4. Hypertension -Continue losartan, carvedilol, Lasix. -Vital signs per protocol, trend BP and heart rate 5. Hyperlipidemia -Will continue current dose of simvastatin pending completion of TIA work-up. DVT prophylaxis-not indicated, patient chronically anticoagulated with warfarin INR 2.1 This patient was seen by PRANEETH Chavarria under the supervision of Dr. Stanford. Documented by User: Dr. Pasquale Stanford DO 02/22/21 01:36 HPI - General General Date of Admission: 02/22/21 [facility] Medical History Dilated cardiomyopathy Essential (primary) hypertension Hyperlipidemia Left bundle branch block (LBBB) Non-ischemic cardiomyopathy Obesity Paroxysmal atrial fibrillation Paroxysmal atrial flutter Persistent atrial fibrillation Home Medications simvastatin 20 mg PO QHS 10/16/15 [History Last Taken Unknown] carvedilol 25 mg tablet 25 mg PO BID #60 tab 10/30/20 [Rx Last Taken 12/30/20] furosemide 40 mg tablet 40 mg PO BID #90 tab 10/30/20 [Rx Last Taken Unknown] losartan 100 mg tablet 50 mg PO DAILY tab 10/30/20 [History Last Taken 12/30/20] amiodarone 200 mg tablet 200 mg PO DAILY tablet 12/11/20 [History Last Taken 12/30/20] warfarin 3 mg tablet 3 mg PO DAILY #90 tab 01/08/21 [Rx Last Taken Unknown] potassium chloride 20 meq PO BID 02/21/21 [History Last Taken Unknown] Allergy/AdvReac Type Severity Reaction Status Date / Time baclofen Allergy Intermediate rash Verified 02/21/21 21:06 Family History Mother CVA (cerebral vascular accident) Father Cancer Sister Cancer breast Surgical History History of appendectomy History of back surgery (1981) History of cardioversion (12/30/20) History of knee surgery (1983) History of left heart catheterization (10/17/15) History of umbilical hernia repair Social History Smoking Status: Never smoker alcohol intake: current alcohol intake frequency: holidays/special occasions only substance use type: does not use caffeine: Yes Type: carbonated beverages, coffee and tea Results Lab / Micro Data Result Diagrams: 02/21/21 21:15 02/21/21 21:15
--- NOTE | 2021-02-22 01:27 | MRI_ITS ---
ACR Level 3 findings have been noted. An addendum which confirms receipt of the report will follow. STUDY: MRI BRAIN WITHOUT CONTRAST REASON FOR EXAM: Male, 75 years old. Right hand weakness currently resolved TECHNIQUE: Standardized multiplanar fat and water weighted pulse sequences were obtained. COMPARISON: 21 February 2021 FINDINGS: There is a small acute cortical infarct in the lateral aspect of the left prefrontal gyrus. This is below the resolution of CT and not clearly seen on prior imaging. There is no mass effect, midline shift, acute territorial infarction, hydrocephalus or herniation. There is moderate chronic multifocal deep and subcortical white matter ischemic change. MRI/Brain without Contrast IMPRESSION: 1. Small acute left posterior frontal lobe, precentral gyrus, cortical infarct. 2. Moderate chronic white matter ischemic disease. Electronically Signed: Vitor López MD at 16:14 EDT Tel , Service support ,
--- NOTE | 2021-02-22 01:27 | ECHOCS_ITS ---
Reason For Study: TIA/CVA Procedure This was a 2D Doppler, Color Flow transthoracic echocardiogram. Contrast injection was performed. Exam performed portable in patient room. Left Ventricle Severely dilated left ventricle. The estimated ejection fraction is EF 15-20 %. Right Ventricle Normal right ventricle. Normal systolic function. Atria The left atrium is moderately enlarged. Mitral Valve The mitral valve is structurally normal. No prolapse or stenosis seen. Trivial mitral valve insufficiency. Tricuspid Valve Normal tricuspid valve. Aortic Valve Normal aortic valve. Pulmonic Valve The pulmonic valve is not well visualized. Great Vessels Normal aortic root. Pericardium/Pleural No pericardial effusion. Medication Diluted definity 2ml given slow IV push to enhance endocardial definition. MMode/2D Measurements & Calculations LVIDd: 5.5 cm IVSd: 0.97 cm Ao root diam: 3.3 cm LVIDs: 4.6 cm LVPWd: 1.1 cm RVDd: 4.0 cm FS: 15.9 % LAV(MOD-bp): 68.2 ml LVAd ap4: 37.0 cm2 SV(MOD-sp4): 32.2 ml LAV(MOD-bp) Indexed: 30.9 ml/m2 LVLd ap4: 7.6 cm LAV(MOD-sp2): 74.8 ml EDV(MOD-sp4): 146.1 ml LAV(MOD-sp4): 55.7 ml EDV(sp4-el): 152.6 ml LVAs ap4: 32.7 cm2 LVLs ap4: 7.7 cm ESV(MOD-sp4): 113.9 ml ESV(sp4-el): 118.5 ml EF(MOD-sp4): 22.0 % EF(sp4-el): 22.3 % SV(sp4-el): 34.0 ml LA A4 area: 18.6 cm2 LA dimension(2D): 4.1 cm RA A4 area: 16.4 cm2 Doppler Measurements & Calculations MV E max jamarcus: 96.2 cm/sec Ao V2 max: 95.5 cm/sec LV V1 max: 84.5 cm/sec Ao max P.6 mmHg LV V1 max P.9 mmHg Ao V2 mean: 74.3 cm/sec Ao mean P.4 mmHg Ao V2 VTI: 16.9 cm PA V2 max: 77.6 cm/sec PI end-d jamarcus: 128.4 cm/sec TR max jamarcus: 231.5 cm/sec TR max P.4 mmHg ECHO/Echo Complete W/ Contrast Interpretation Summary The estimated ejection fraction is EF 15-20 %. Severe LV systolic Dysfunction Worsening LV systolic function in comparison with echo 03/2020 Ordering Physician: Pasquale Stanford Performed By: Erma Valdes, LEO, RVT
--- NOTE | 2021-02-22 01:28 | HP.PCM.HOS_ITS ---
HPI - General General Date of Admission: 02/22/21 Date of Service: 02/22/21 Chief Complaint: right hand numbness HPI Narrative DENICE GOODWIN, is a 75 M who presents presents with right hand numbness. This occurred around 2039. Patient also did have some abdominal pain. He presented to the emergency room. Patient underwent CAT scan of his abdomen pelvis and head. Also had a head CTA and neck CTA. Head CT and CTAs were negative. Abdominal CT was negative for any acute intra-abdominal process. Patient was noted to be hypoxic with ambulation and did have noted on the CAT scan reports some groundglass opacities in the lower lobes. [facility] Medical History Dilated cardiomyopathy Essential (primary) hypertension Hyperlipidemia Left bundle branch block (LBBB) Non-ischemic cardiomyopathy Obesity Paroxysmal atrial fibrillation Paroxysmal atrial flutter Persistent atrial fibrillation Home Medications simvastatin 20 mg PO QHS 10/16/15 [History Last Taken Unknown] carvedilol 25 mg tablet 25 mg PO BID #60 tab 10/30/20 [Rx Last Taken 12/30/20] furosemide 40 mg tablet 40 mg PO BID #90 tab 10/30/20 [Rx Last Taken Unknown] losartan 100 mg tablet 50 mg PO DAILY tab 10/30/20 [History Last Taken 12/30/20] amiodarone 200 mg tablet 200 mg PO DAILY tablet 12/11/20 [History Last Taken 12/30/20] warfarin 3 mg tablet 3 mg PO DAILY #90 tab 01/08/21 [Rx Last Taken Unknown] potassium chloride 20 meq PO BID 02/21/21 [History Last Taken Unknown] Allergy/AdvReac Type Severity Reaction Status Date / Time baclofen Allergy Intermediate rash Verified 02/21/21 21:06 Family History Mother CVA (cerebral vascular accident) Father Cancer Sister Cancer breast Surgical History History of appendectomy History of back surgery (1981) History of cardioversion (12/30/20) History of knee surgery (1983) History of left heart catheterization (10/17/15) History of umbilical hernia repair Social History Smoking Status: Never smoker alcohol intake: current alcohol intake frequency: holidays/special occasions only substance use type: does not use caffeine: Yes Type: carbonated beverages, coffee and tea ROS ROS Narrative No fever or chills. All review of systems were negative except as mentioned above in the history of present illness and the other review of systems. Vital Signs Vital Signs Vital Signs: 02/21/21 21:04 02/21/21 21:21 02/21/21 21:39 Temperature 36.0 C L 36.6 C Temperature Source Temporal Temporal Pulse Rate 56 L 94 Respiratory Rate 16 26 H Blood Pressure 139/92 H 127/112 H Blood Pressure Mean 107 117 Pulse Ox 95 96 96 Oxygen Delivery Method Room Air Room Air Room Air Oxygen Flow Rate (L/min) 02/21/21 21:48 02/21/21 21:51 02/21/21 22:21 Temperature 36.7 C 36.9 C Temperature Source Temporal Temporal Pulse Rate 79 75 88 Respiratory Rate 16 17 Blood Pressure 144/98 H 138/114 H 145/90 H Blood Pressure Mean 113 122 108 Pulse Ox 93 92 Oxygen Delivery Method Room Air Room Air Oxygen Flow Rate (L/min) 02/21/21 22:30 02/21/21 22:32 02/21/21 22:48 Temperature 36.7 C Temperature Source Temporal Pulse Rate 86 80 Respiratory Rate 16 Blood Pressure 152/98 H Blood Pressure Mean 116 Pulse Ox 92 95 Oxygen Delivery Method Room Air Nasal Cannula Oxygen Flow Rate (L/min) 2 02/21/21 23:00 02/21/21 23:30 02/22/21 00:00 Temperature 36.5 C L 36.9 C 36.7 C Temperature Source Temporal Temporal Temporal Pulse Rate 80 84 82 Respiratory Rate 16 19 H 17 Blood Pressure 132/102 H 143/79 H 122/83 H Blood Pressure Mean 112 100 96 Pulse Ox 94 94 95 Oxygen Delivery Method Nasal Cannula Nasal Cannula Nasal Cannula Oxygen Flow Rate (L/min) 2 2 2 02/22/21 00:19 02/22/21 00:29 02/22/21 00:50 Temperature 36.8 C 36.5 C L Temperature Source Temporal Temporal Pulse Rate 84 84 Respiratory Rate 19 H 19 H 24 H Blood Pressure 136/85 H 141/102 H Blood Pressure Mean 102 115 Pulse Ox 92 93 Oxygen Delivery Method Room Air Nasal Cannula Oxygen Flow Rate (L/min) 2 2 02/22/21 00:59 02/22/21 01:00 Temperature Temperature Source Pulse Rate 77 Respiratory Rate 16 Blood Pressure 154/137 H Blood Pressure Mean 142 Pulse Ox 94 94 Oxygen Delivery Method Room Air Room Air Oxygen Flow Rate (L/min) Weight Weight: 105.6 kg Body Mass Index (BMI) 34.3 Physical Exam Const alert, oriented x3 and no apparent distress General Appearance: cooperative HEENT normocephalic and moist oral mucous membranes Eyes PERRL and EOMs intact bilaterally Resp normal respiratory effort Resp Narrative: Bibasilar crackles Cardio regular rate, regular rhythm, S1 normal heart sound and S2 normal heart sound GI normal to inspection, nondistended, normoactive bowel sounds, non-tender and non-distended Extremity normal to inspection Neuro CN's II-XII intact bilaterally, moves all extremities and no focal motor deficits Sensorium / Orientation: awake and alert Motor Exam: strength 5/5 throughout Results Lab / Micro Data Result Diagrams: 02/21/21 21:15 02/21/21 21:15 Labs: Laboratory Results - last 24 hr 02/21/21 02/21/21 02/21/21 21:11 21:15 21:15 WBC 9.4 RBC 5.83 Hgb 17.6 H Hct 51.9 MCV 89.0 MCH 30.2 MCHC 33.9 RDW Std Deviation 44.1 H RDW Coeff of [place] 13.7 Plt Count 188 MPV 10.8 Immature Gran % (Auto) 0.500 Neut % (Auto) 54.4 Lymph % (Auto) 30.2 [place] % (Auto) 12.1 H Eos % (Auto) 2.3 Baso % (Auto) 0.5 Absolute Neuts (auto) 5.1 Absolute Lymphs (auto) 2.84 Nucleated RBC % 0 PT 22.9 H INR 2.1 APTT 32.6 Sodium Potassium Chloride Carbon Dioxide Anion Gap BUN Creatinine Estim Creat Clear Calc Est GFR (MDRD) Af Amer Est GFR (MDRD) Non-Af BUN/Creatinine Ratio Glucose Calcium Total Bilirubin Direct Bilirubin AST ALT Alkaline Phosphatase Troponin I High Sens Total Protein Albumin Globulin Lipase POC Glucose 111 H 02/21/21 02/21/21 02/21/21 21:15 21:48 21:48 WBC RBC Hgb Hct MCV MCH MCHC RDW Std Deviation RDW Coeff of [place] Plt Count MPV Immature Gran % (Auto) Neut % (Auto) Lymph % (Auto) [place] % (Auto) Eos % (Auto) Baso % (Auto) Absolute Neuts (auto) Absolute Lymphs (auto) Nucleated RBC % PT INR APTT Sodium 142 Potassium 3.2 L Chloride 107 Carbon Dioxide 29.0 Anion Gap 6 BUN 14 Creatinine 1.51 H Estim Creat Clear Calc 42.27 Est GFR (MDRD) Af Amer 58 L Est GFR (MDRD) Non-Af 48 L BUN/Creatinine Ratio 9.3 L Glucose 102 Calcium 8.6 Total Bilirubin 1.10 H Direct Bilirubin 0.25 AST 23 ALT 24 Alkaline Phosphatase 88 Troponin I High Sens 12.5 Total Protein 7.1 Albumin 3.4 Globulin 3.7 Lipase 98 POC Glucose Micro: Microbiology 02/22/21 00:53 SARS-CoV-2 Antigen (Rapid) - Final Mucosa - Nose Radiology Impression Brain CT 02/21/21 21:21 IMPRESSION: No acute intracranial findings. Negative for hemorrhage, hematoma or demarcation of a new nonhemorrhagic infarct zone. Mild involutional changes. Electronically Signed: Molly Mancuso MD at 21:33 EDT , Service support , ADDENDUM: 02/21/21 2140 IMPRESSION: No acute intracranial findings. Negative for hemorrhage, hematoma or demarcation of a new nonhemorrhagic infarct zone. Mild involutional changes. N.B. : The above Results were Read Back by Molly Mancuso MD to Jorge Ellis DO, DO, and understanding confirmed on 02/21/2021 21:33:23 (ET). Electronically Signed: Molly Mancuso MD at 21:33 EDT , Service support , Chest X-Ray 02/21/21 21:21 IMPRESSION: Mild bibasilar atelectatic changes. Stable cardiac size. Negative for pleural effusion. Electronically Signed: Molly Manucso MD at 23:38 EDT , Service support , Head/Neck CTA 02/21/21 21:22 IMPRESSION: Negative CTA carotid and CTA brain. Individualized dose optimization techniques were used for this CT. at 2149 Reported and signed by: Erwin Amaya MD Electronically Signed: Erwin Amaya MD at 21:48 EDT Tel , Service support , ADDENDUM: 02/21/218 IMPRESSION: Negative CTA carotid and CTA brain. Individualized dose optimization techniques were used for this CT. at 2149 Reported and signed by: Erwin Amaya MD N.B. : The above Results were Read Back by Erwin Amaya MD to Jorge Gramajo, , and understanding confirmed on 02/21/2021 21:51:40 (ET). Electronically Signed: Erwin Amaya MD at 21:48 EDT Tel , Service support , Abdomen/Pelvis CT 02/21/21 22:16 IMPRESSION: There are fairly substantial posterior dependent groundglass changes of the lower lobes, essential pneumonic infiltrates. Negative for cardiomegaly or pleural effusion. 2 subcentimeter hepatic cysts. No additional imaging recommendations. Otherwise unremarkable liver. Normal partly contracted gallbladder. Normal spleen. 3.4 x 1.2 cm mass of the distal pancreatic body stable from prior exam of 12/26/2019. ACR recommends every 6 months for 4 years. Yearly or every other year for 10 years. Simple renal cysts bilaterally. No additional imaging recommendations. Negative for hydronephrosis. Small volume thick walled urinary bladder elevated by prostate enlargement. Negative for acute bowel findings. Negative for obstruction, perforation or inflammatory bowel changes. Atherosclerotic changes of the aorta and iliac vessels without aneurysm. Minimal fatty umbilical hernia. Small fatty left inguinal hernia. Electronically Signed: Molly Manucso MD at 23:58 EDT , Service support , Assessment & Plan Assessment/Plan (1) TIA (transient ischemic attack): PLAN: 1. Possible TIA * Symptoms really is only the right hand weakness which is improving * Patient at risk given his known atrial fibrillation but is probably anticoagulated at this time. * Seen by [facility] teleneurology who recommend MRI of the brain. * Additionally, will have PT, OT evaluate. Check 2D echocardiogram. 2. Transient hypoxia * Patient has chronic dyspnea at which she has seen pulmonary in the past. * PFTs performed on 01/30/2021 showed isolated mild restrictive ventilatory impairment with preserved diffusion capacity * Pulmonary is favoring this being cardiac in nature. Patient will be following up with Dr. House in April. * Unclear what this is at this time. Possibilities may include pulmonary vascular congestion versus pulmonary fibrosis (patient is on amiodarone) versus other processes. Patient has been vaccinated against COVID-19 but will check a rapid COVID-19 test. * Check an amatory pulse ox 3. Atrial fibrillation * Continue with amiodarone, anticoagulation with warfarin, carvedilol 4. VTE prophylaxis not indicated as patient is already anticoagulated 5. Advanced directives: Patient wishes to be full CODE STATUS. Charges/Coding Visit Charges OBSV E&M: 22478 Initial observation care L3
[2021-02-22 01:38] LABS: Troponin-I HS 17.6 pg/mL (3.0-78.5)
[2021-02-22] MEDS: Acetaminophen 325 MG Tablet 650 MG PO (02:08)
[2021-02-22 06:28] LABS: International Normalized Ratio 2.1; Prothrombin Time (Protime)PT. 23.1 SECONDS (11.7-14.9)
[2021-02-22 07:01] LABS: Anion Gap 9 (5-15); BUN 15 mg/dL (7-18); BUN/Creat Ratio 10.6 RATIO (10-20); Calcium,Total 8.4 mg/dL (8.5-10.1); Chloride 104 mmol/L (98-107); Cholesterol 143 mg/dL (200); Creatinine, Serum 1.42 mg/dL (0.70-1.30); EST Glomerular Filtration Rate 52 mL/min (>60); Est Glom Filt Rate - Afr Amer 63 mL/min (>60); Estimated Creatinine Clearance 44.95 ml/min; Glucose 238 mg/dL (74-106); High Density Lipoprotein 40 mg/dL; Potassium 3.8 mmol/L (3.5-5.1); Sodium Level 140 mmol/L (136-145); Triglycerides 142 mg/dL; Very Low Density Lipoprotein 28 mg/dL (5-40)
[2021-02-22] MEDS: Carvedilol 25 MG Tablet PO ×2 (09:31→21:39)
[2021-02-22] MEDS: Potassium Chloride Oral Tablet 20 MEQ PO ×2 (09:31→17:34)
[2021-02-22] MEDS: Amiodarone 200 MG Tablet PO (09:32)
[2021-02-22] MEDS: LORazepam 0.5 MG Tablet PO (10:06)
[2021-02-22] MEDS: 0.9% Normal Saline 1,000 ML 75 ML IV (12:08)
--- NOTE | 2021-02-22 13:05 | PCM.HOSP.N ---
Documented by User: Sascha ALDRIDGE 02/22/21 13:10 Hospitalist Note Patient is a 75-year-old male who was admitted to [facility] on 02/22/2021 at 0100 for right upper extremity weakness. Patient reports subjective improvement of his right upper extremity weakness. MRI ordered/results pending, SOC consult pending, NIH stroke scale 0. Echocardiogram obtained today demonstrates worsening LV systolic function and ejection fraction of 15 to 20%. This is worsened compared to last echocardiogram obtained and March 2020 where ejection fraction was 40%. Cardiology consult ordered. Patient seen by Sascha Harry PA-C, under the supervision of Dr. Christian.
--- NOTE | 2021-02-22 14:03 | CON.PCM.CA_ITS ---
HPI Consult Data Date of Consult: 02/22/21 HPI Narrative Reason for Consultation: Worsening LV systolic function with ejection fraction/EF 15-20% HPI Narrative: DENICE GOODWIN, is a 75 M who presents [facility] Medical History (Updated 02/22/21 @ 01:53 by Deepika Flores) Atrial fibrillation Dilated cardiomyopathy Essential (primary) hypertension Hyperlipidemia Left bundle branch block (LBBB) Non-ischemic cardiomyopathy Non-smoker Obesity Paroxysmal atrial fibrillation Paroxysmal atrial flutter Persistent atrial fibrillation TIA (transient ischemic attack) (~2003) Home Medications simvastatin 20 mg PO QHS 10/16/15 [History Last Taken Unknown] carvedilol 25 mg tablet 25 mg PO BID #60 tab 10/30/20 [Rx Last Taken 12/30/20] furosemide 40 mg tablet 40 mg PO BID #90 tab 10/30/20 [Rx Last Taken Unknown] losartan 100 mg tablet 50 mg PO DAILY tab 10/30/20 [History Last Taken 12/30/20] amiodarone 200 mg tablet 200 mg PO DAILY tablet 12/11/20 [History Last Taken 12/30/20] warfarin 3 mg tablet 3 mg PO DAILY #90 tab 01/08/21 [Rx Last Taken Unknown] potassium chloride 20 meq PO BID 02/21/21 [History Last Taken Unknown] Allergy/AdvReac Type Severity Reaction Status Date / Time baclofen Allergy Intermediate rash Verified 02/22/21 01:41 Family History Mother CVA (cerebral vascular accident) Father Cancer Sister Cancer breast Surgical History History of appendectomy History of back surgery (1981) History of cardioversion (12/30/20) History of knee surgery (1983) History of left heart catheterization (10/17/15) History of umbilical hernia repair Social History Smoking Status: Never smoker alcohol intake: current alcohol intake frequency: holidays/special occasions only substance use type: does not use caffeine: Yes Type: carbonated beverages, coffee and tea Physical Exam Narrative Patient seen and evaluated at bedside Cardiac evaluation has been reviewed including the cardiac telemetry showed underlying A. fib with controlled ventricular rate Electrocardiogram revealed evidence of her bundle branch block A repeat echocardiogram showed severely reduced LV systolic function in comparison to prior His EF now is 15-20% This presentation is with right-sided weakness he does not have any symptoms of chest pain no symptoms shortness of breath. And patient has been on an ticoagulation using warfarin with a therapeutic INR Plan and recommendations; 1. To continue anticoagulation and to keep a target INR 2?3 2. To continue current cardiac medication/I reviewed the current medication and discussed with the medical team 3. Follow-up with the primary optical dispenser Dr. Haque for further cardiac care plan and recommendation. Objective Data Vital Signs: Vital Signs Temp Pulse Resp BP Pulse Ox 97.9 F 82 16 130/77 H 92 02/22/21 13:15 02/22/21 13:15 02/22/21 13:15 02/22/21 13:15 02/22/21 13:15 Oxygen Flow Rate (L/min) 2 Oxygen Delivery Method Room Air Weight: 220 lb 10.923 oz Body Mass Index (BMI) 32.5 Intake & Output: Intake and Output for Last 24 Hours 02/20/21 02/21/21 02/22/21 23:59 23:59 23:59 Intake Total 240 / 240 Balance 240 / 240 Lab / Micro Data Result Diagrams: 02/21/21 21:15 02/22/21 06:00 Labs: Laboratory Results - last 24 hr 02/21/21 02/21/21 02/21/21 21:11 21:15 21:15 WBC 9.4 RBC 5.83 Hgb 17.6 H Hct 51.9 MCV 89.0 MCH 30.2 MCHC 33.9 RDW Std Deviation 44.1 H RDW Coeff of [place] 13.7 Plt Count 188 MPV 10.8 Immature Gran % (Auto) 0.500 Neut % (Auto) 54.4 Lymph % (Auto) 30.2 [place] % (Auto) 12.1 H Eos % (Auto) 2.3 Baso % (Auto) 0.5 Absolute Neuts (auto) 5.1 Absolute Lymphs (auto) 2.84 Nucleated RBC % 0 PT 22.9 H INR 2.1 APTT 32.6 Sodium Potassium Chloride Carbon Dioxide Anion Gap BUN Creatinine Estim Creat Clear Calc Est GFR (MDRD) Af Amer Est GFR (MDRD) Non-Af BUN/Creatinine Ratio Glucose Calcium Magnesium Total Bilirubin Direct Bilirubin AST ALT Alkaline Phosphatase Troponin I High Sens Total Protein Albumin Globulin Triglycerides Cholesterol LDL Cholesterol VLDL Cholesterol HDL Cholesterol Lipase POC Glucose 111 H 02/21/21 02/21/21 02/21/21 21:15 21:48 21:48 WBC RBC Hgb Hct MCV MCH MCHC RDW Std Deviation RDW Coeff of [place] Plt Count MPV Immature Gran % (Auto) Neut % (Auto) Lymph % (Auto) [place] % (Auto) Eos % (Auto) Baso % (Auto) Absolute Neuts (auto) Absolute Lymphs (auto) Nucleated RBC % PT INR APTT Sodium 142 Potassium 3.2 L Chloride 107 Carbon Dioxide 29.0 Anion Gap 6 BUN 14 Creatinine 1.51 H Estim Creat Clear Calc 42.27 Est GFR (MDRD) Af Amer 58 L Est GFR (MDRD) Non-Af 48 L BUN/Creatinine Ratio 9.3 L Glucose 102 Calcium 8.6 Magnesium Total Bilirubin 1.10 H Direct Bilirubin 0.25 AST 23 ALT 24 Alkaline Phosphatase 88 Troponin I High Sens 12.5 Total Protein 7.1 Albumin 3.4 Globulin 3.7 Triglycerides Cholesterol LDL Cholesterol VLDL Cholesterol HDL Cholesterol Lipase 98 POC Glucose 02/22/21 02/22/21 02/22/21 00:54 06:00 06:00 WBC RBC Hgb Hct MCV MCH MCHC RDW Std Deviation RDW Coeff of [place] Plt Count MPV Immature Gran % (Auto) Neut % (Auto) Lymph % (Auto) [place] % (Auto) Eos % (Auto) Baso % (Auto) Absolute Neuts (auto) Absolute Lymphs (auto) Nucleated RBC % PT 23.1 H INR 2.1 APTT Sodium 140 Potassium 3.8 Chloride 104 Carbon Dioxide 27.0 Anion Gap 9 BUN 15 Creatinine 1.42 H Estim Creat Clear Calc 44.95 Est GFR (MDRD) Af Amer 63 Est GFR (MDRD) Non-Af 52 L BUN/Creatinine Ratio 10.6 Glucose 238 H Calcium 8.4 L Magnesium 2.0 Total Bilirubin Direct Bilirubin AST ALT Alkaline Phosphatase Troponin I High Sens 17.6 Total Protein Albumin Globulin Triglycerides 142 Cholesterol 143 LDL Cholesterol 75 VLDL Cholesterol 28 HDL Cholesterol 40 Lipase POC Glucose Micro: Microbiology 02/22/21 00:53 Mucosa - Nose SARS-CoV-2 Antigen (Rapid) - Final Cardiology Labs/Tests 02/21/21 21:15: WBC 9.4, RBC 5.83, Hgb 17.6 H, Hct 51.9, MCV 89.0, MCH 30.2, MCHC 33.9, Plt Count 188, MPV 10.8, Immature Gran % (Auto) 0.500, Neut % (Auto) 54.4, Lymph % (Auto) 30.2, [place] % (Auto) 12.1 H, Eos % (Auto) 2.3, Baso % (Auto) 0.5, Absolute Neuts (auto) 5.1, Nucleated RBC % 0 02/21/21 21:15: PT 22.9 H, INR 2.1, APTT 32.6 02/21/21 21:15: Sodium 142, Potassium 3.2 L, Chloride 107, Carbon Dioxide 29.0, Anion Gap 6, BUN 14, Creatinine 1.51 H, Est GFR (MDRD) Af Amer 58 L, Est GFR (MDRD) Non-Af 48 L, BUN/Creatinine Ratio 9.3 L, Glucose 102, Calcium 8.6 02/21/21 21:48: Total Bilirubin 1.10 H, Direct Bilirubin 0.25 02/22/21 06:00: PT 23.1 H, INR 2.1 02/22/21 06:00: Sodium 140, Potassium 3.8, Chloride 104, Carbon Dioxide 27.0, Anion Gap 9, BUN 15, Creatinine 1.42 H, Est GFR (MDRD) Af Amer 63, Est GFR (MDRD) Non-Af 52 L, BUN/Creatinine Ratio 10.6, Glucose 238 H, Calcium 8.4 L, Magnesium 2.0, Triglycerides 142, Cholesterol 143, LDL Cholesterol 75, VLDL Cholesterol 28, HDL Cholesterol 40 Rhythm: Left bundle branch block, A. fib with controlled RVR EKG atrial fibrillation with controlled ventricular rate ECHO: Severe LV systolic dysfunction with EF 15-20% Radiography Diagnostic Testing: Radiology Impression Brain CT 02/21/21 21:21 IMPRESSION: No acute intracranial findings. Negative for hemorrhage, hematoma or demarcation of a new nonhemorrhagic infarct zone. Mild involutional changes. Electronically Signed: Molly Mancuso MD at 21:33 EDT , Service support , ADDENDUM: 02/21/210 IMPRESSION: No acute intracranial findings. Negative for hemorrhage, hematoma or demarcation of a new nonhemorrhagic infarct zone. Mild involutional changes. N.B. : The above Results were Read Back by Molly Mancuso MD to Jorge Ellis DO, , and understanding confirmed on 02/21/2021 21:33:23 (ET). Electronically Signed: Molly Mancuso MD at 21:33 EDT , Service support , Chest X-Ray 02/21/21 21:21 IMPRESSION: Mild bibasilar atelectatic changes. Stable cardiac size. Negative for pleural effusion. Electronically Signed: Molly Mancuso MD at 23:38 EDT , Service support , Head/Neck CTA 02/21/21 21:22 IMPRESSION: Negative CTA carotid and CTA brain. Individualized dose optimization techniques were used for this CT. at 2149 Reported and signed by: Erwin Amaya MD Electronically Signed: Erwin Amaya MD at 21:48 EDT Tel , Service support , ADDENDUM: 02/21/218 IMPRESSION: Negative CTA carotid and CTA brain. Individualized dose optimization techniques were used for this CT. at 2149 Reported and signed by: Erwin Amaya MD N.B. : The above Results were Read Back by Erwin Amaya MD to Jorge Gramajo DO, and understanding confirmed on 02/21/2021 21:51:40 (ET). Electronically Signed: Erwin Amaya MD at 21:48 EDT Tel , Service support , Abdomen/Pelvis CT 02/21/21 22:16 IMPRESSION: There are fairly substantial posterior dependent groundglass changes of the lower lobes, essential pneumonic infiltrates. Negative for cardiomegaly or pleural effusion. 2 subcentimeter hepatic cysts. No additional imaging recommendations. Otherwise unremarkable liver. Normal partly contracted gallbladder. Normal spleen. 3.4 x 1.2 cm mass of the distal pancreatic body stable from prior exam of 12/26/2019. ACR recommends every 6 months for 4 years. Yearly or every other year for 10 years. Simple renal cysts bilaterally. No additional imaging recommendations. Negative for hydronephrosis. Small volume thick walled urinary bladder elevated by prostate enlargement. Negative for acute bowel findings. Negative for obstruction, perforation or inflammatory bowel changes. Atherosclerotic changes of the aorta and iliac vessels without aneurysm. Minimal fatty umbilical hernia. Small fatty left inguinal hernia. Electronically Signed: Molly Mancuso MD at 23:58 EDT , Service support , Echocardiogram 02/22/21 01:27 Interpretation Summary The estimated ejection fraction is EF 15-20 %. Severe LV systolic Dysfunction Worsening LV systolic function in comparison with echo 03/2020 Ordering Physician: Pasquale Stanford Performed By: Erma Valdes, RDCS, RVT
--- NOTE | 2021-02-22 16:38 | TELEMED_ITS ---
SOC Telemed has confirmed receipt of a request for visit. This document confirms receipt of the order initiating the consult. To find the results of the consultation, please view the patient's reports for the scanned Telemed Consult.
--- NOTE | 2021-02-22 16:39 | RAD_ITS ---
STUDY: X-RAY - ABDOMEN/PELVIS REASON FOR EXAM: Male, 75 years old. Abdominal pain TECHNIQUE: 1 view COMPARISON: Prior abdomen and pelvic CT exam of 02/21/2021 FINDINGS: Normal visualized lung bases. Mild nonspecific increase in nondependent colonic bowel gas mostly transverse colon and mild gas accumulation in the stomach. Negative for small bowel or colonic distention. Negative for a substantial amount of stool. There is no demonstrated free abdominal air. Negative for gross organomegaly. Normal soft tissue structures. Degenerative changes of the lumbar spine. RAD/Abdomen Single View IMPRESSION: Mild nonspecific increase in nondependent colonic bowel gas, mostly transverse colon and mild gas accumulation in the stomach. Negative for obstruction or perforation. Electronically Signed: Molly Mancuso MD at 18:52 EDT , Service support ,
--- NOTE | 2021-02-22 17:43 | NURSING ---
Stroke VS and NIH late d/t patient being off unit for KUB
[2021-02-22] MEDS: Atorvastatin Calcium 10 MG Tablet PO (21:39)
[2021-02-22] MEDS: Furosemide 40 MG Tablet PO (21:39)
[2021-02-23] VITALS (11 sets, daily range): BP systolic 114–148; BP diastolic 43–96; PULSE 73–90; RESP 16–18; TEMP 36.6–36.8; O2SAT 90–94
[2021-02-23] MEDS: 0.9% Normal Saline 1,000 ML 75 ML IV (01:33)
[2021-02-23] MEDS: 0.9% Saline Lock 10 ML Syringe IV (04:51)
[2021-02-23 05:51] LABS: Absolute Lymphocyte Count 1.02 X10^3/uL (0.83-4.51); Absolute Neutrophil Count 11.1 X10^3/uL (2.0-7.7); Basophil# 0.03 X10^3/uL; Basophil% 0.2 % (0-1); Eosinophil# 0.03 X10^3/uL; Eosinophils% 0.2 % (0-5); Lymphocyte # 1.02 X10^3/ul (0.83-4.51); Lymphocyte % 7.5 % (19-41); Mean Corp Hgb Conc 32.7 g/dL (32-36); Mean Corpuscular Hgb 29.5 pg (27.0-32.0); Mean Corpuscular Volume 90.2 fL (80-94); Mean Platelet Vol. 10.7 fl (6.2-12.0); Monocyte# 1.35 X10^3/uL; Monocyte% 9.9 % (0-10); NRBC Flagged by Analyzer 0 % (0-5); Neutrophil # 11.13 X10^3/uL (2.7-7.7); Neutrophil % 81.6 % (47-70); Platelet Count 139 K/mm3 (150-450); RBC Distribution Width CV 13.8 % (11.6-14.6); RBC Distribution Width SD 45.8 fl (35.1-43.9); Red Blood Count 5.43 M/mm3 (4.6-6.2); White Blood Count 13.6 K/mm3 (4.4-11.0)
[2021-02-23 06:19] LABS: Anion Gap 9 (5-15); BUN 13 mg/dL (7-18); BUN/Creat Ratio 10.1 RATIO (10-20); Chloride 106 mmol/L (98-107); Creatinine, Serum 1.29 mg/dL (0.70-1.30); EST Glomerular Filtration Rate 58 mL/min (>60); Est Glom Filt Rate - Afr Amer 70 mL/min (>60); Estimated Creatinine Clearance 49.48 ml/min; Glucose 157 mg/dL (74-106); Potassium 3.2 mmol/L (3.5-5.1); Sodium Level 142 mmol/L (136-145)
[2021-02-23] MEDS: Furosemide 40 MG Tablet PO ×2 (08:47→21:09)
[2021-02-23] MEDS: Carvedilol 25 MG Tablet PO ×2 (08:47→21:09)
[2021-02-23] MEDS: Losartan Potassium 50 MG Tablet PO (08:47)
[2021-02-23] MEDS: Amiodarone 200 MG Tablet PO (08:47)
[2021-02-23] MEDS: Potassium Chloride Oral Tablet 20 MEQ PO ×2 (08:47→16:46)
--- NOTE | 2021-02-23 11:43 | PCM.PN.CARD ---
Subjective Subjective Patient seen and evaluated today, at bedside and discussed with Molly Franklin Patient sitting out in a chair comfortable no symptoms reported. Weakness and numbness in the right upper extremity improving. Objective Data Vital Signs: Vital Signs Temp Pulse Resp BP Pulse Ox 98.3 F 76 18 127/83 H 93 02/23/21 08:45 02/23/21 08:45 02/23/21 08:45 02/23/21 08:45 02/23/21 08:45 Oxygen Flow Rate (L/min) 2 Oxygen Delivery Method Room Air Weight: 220 lb 10.923 oz Body Mass Index (BMI) 32.5 Intake & Output: Intake and Output for Last 24 Hours 02/21/21 02/22/21 02/23/21 23:59 23:59 23:59 Intake Total 1663.75 / 1663.75 712.5 / 712.5 Balance 1663.75 / 1663.75 712.5 / 712.5 Lab / Micro Data Result Diagrams: 02/23/21 05:06 02/23/21 05:06 Labs: Laboratory Results - last 24 hr 02/23/21 02/23/21 05:06 05:06 WBC 13.6 H RBC 5.43 Hgb 16.0 Hct 49.0 MCV 90.2 MCH 29.5 MCHC 32.7 RDW Std Deviation 45.8 H RDW Coeff of [place] 13.8 Plt Count 139 L MPV 10.7 Immature Gran % (Auto) 0.600 Neut % (Auto) 81.6 H Lymph % (Auto) 7.5 L [place] % (Auto) 9.9 Eos % (Auto) 0.2 Baso % (Auto) 0.2 Absolute Neuts (auto) 11.1 H Absolute Lymphs (auto) 1.02 Nucleated RBC % 0 Sodium 142 Potassium 3.2 L Chloride 106 Carbon Dioxide 27.0 Anion Gap 9 BUN 13 Creatinine 1.29 Estim Creat Clear Calc 49.48 Est GFR (MDRD) Af Amer 70 Est GFR (MDRD) Non-Af 58 L BUN/Creatinine Ratio 10.1 Glucose 157 H Calcium 8.0 L Micro: Microbiology 02/22/21 00:53 Mucosa - Nose SARS-CoV-2 Antigen (Rapid) - Final Cardiology Labs/Tests 02/23/21 05:06: WBC 13.6 H, RBC 5.43, Hgb 16.0, Hct 49.0, MCV 90.2, MCH 29.5, MCHC 32.7, Plt Count 139 L, MPV 10.7, Immature Gran % (Auto) 0.600, Neut % (Auto) 81.6 H, Lymph % (Auto) 7.5 L, [place] % (Auto) 9.9, Eos % (Auto) 0.2, Baso % (Auto) 0.2, Absolute Neuts (auto) 11.1 H, Nucleated RBC % 0 02/23/21 05:06: Sodium 142, Potassium 3.2 L, Chloride 106, Carbon Dioxide 27.0, Anion Gap 9, BUN 13, Creatinine 1.29, Est GFR (MDRD) Af Amer 70, Est GFR (MDRD) Non-Af 58 L, BUN/Creatinine Ratio 10.1, Glucose 157 H, Calcium 8.0 L Rhythm: A. fib with controlled ventricular rate ECHO: Severe LV systolic dysfunction with EF 15-20% : Radiography Diagnostic Testing: Radiology Impression Brain MRI 02/22/21 01:27 IMPRESSION: 1. Small acute left posterior frontal lobe, precentral gyrus, cortical infarct. 2. Moderate chronic white matter ischemic disease. Electronically Signed: Vitor López MD at 16:14 EDT Tel , Service support , ADDENDUM: 02/22/21 1642 IMPRESSION: 1. Small acute left posterior frontal lobe, precentral gyrus, cortical infarct. 2. Moderate chronic white matter ischemic disease. N.B. : FABRICE Bermeo, confirmed on 02/22/2021 16:35:17 (ET) that the healthcare facility has received the radiology report. Electronically Signed: Vitor López MD at 16:14 EDT Tel , Service support , Echocardiogram 02/22/21 01:27 Interpretation Summary The estimated ejection fraction is EF 15-20 %. Severe LV systolic Dysfunction Worsening LV systolic function in comparison with echo 03/2020 Ordering Physician: Pasquale Stanford Performed By: Erma Valdes, LEO, RVT X-Ray 02/22/21 16:39 IMPRESSION: Mild nonspecific increase in nondependent colonic bowel gas, mostly transverse colon and mild gas accumulation in the stomach. Negative for obstruction or perforation. Electronically Signed: Molly Mancuso MD at 18:52 EDT , Service support , Physical Exam Narrative Cardiac rhythm is A. fib with controlled ventricular rate Cardiac semination S1-S2 is regular, there is no murmur no systolic or diastolic murmur Chest examination is clear to auscultation bilateral. Assessment & Plan Assessment/Plan (1) care home current use of anticoagulant: (2) TIA (transient ischemic attack): (3) Persistent atrial fibrillation: PLAN: This 75-year-old patient with history of persistent atrial fibrillation, the bundle branch block Presented with weakness in the right upper extremity with MRI showed evidence of cerebral infarction. Patient was on anticoagulation with Coumadin with INR on this admission therapeutic Noted evaluation by neurologist who recommended to change to NOAC/Eliquis. Cardiac recommendation plan; 1. Discussed in detail further need of evaluation due to worsening of his LV systolic function with dilated cardiomyopathy/nonischemic cardiomyopathy. With EF worsening, 15-20% Will require LifeVest prior to discharge. I reviewed and discussed his current cardiac medication 2. I also discussed option of watchman/left atrial appendage closure to prevent further episode of stroke, very high risk patient 3. Would agree with the neurologist recommendation in regard to Eliquis/appear from patient history has been struggling with the monitoring of his anticoagulation with changing of the dose 4. Also patient will require further assessment with possible ICD/BiV pacer. 5. Primary carpenters helper Dr. Haque will resume care (4) Non-ischemic cardiomyopathy: (5) Paroxysmal atrial flutter: (6) Left bundle branch block (LBBB): (7) Essential (primary) hypertension: (8) Hyperlipidemia: QUALIFIERS: Hyperlipidemia type: pure hypercholesterolemia Qualified Code(s): E78.00 - Pure hypercholesterolemia, unspecified; E78.0 - Pure hypercholesterolemia
--- NOTE | 2021-02-23 11:50 | PCM.PN.HOSP ---
Documented by User: Sascha ALDRIDGE 02/23/21 12:10 Subjective Subjective Patient is a 75-year-old male who is comfortably resting in bed, alert and orient x3. Reports improvement in his right upper extremity weakness/numbness relative to yesterday. Denies headache, vision changes, new weakness/numbness/tingling, difficulty speaking, chest pain, shortness of breath, palpitations, fever, chills, N/V/D. Objective Data Objective Data Vital Signs: Vital Signs Temp Pulse Resp BP Pulse Ox 98.3 F 76 18 127/83 H 93 02/23/21 08:45 02/23/21 08:45 02/23/21 08:45 02/23/21 08:45 02/23/21 08:45 Oxygen Flow Rate (L/min) 2 Oxygen Delivery Method Room Air Weight: 220 lb 10.923 oz Body Mass Index (BMI) 32.5 Intake & Output: Intake and Output for Last 24 Hours 02/21/21 02/22/21 02/23/21 23:59 23:59 23:59 Intake Total 1663.75 / 1663.75 712.5 / 712.5 Balance 1663.75 / 1663.75 712.5 / 712.5 Lab / Micro Data Result Diagrams: 02/23/21 05:06 02/23/21 05:06 Labs: Laboratory Results - last 24 hr 02/23/21 02/23/21 05:06 05:06 WBC 13.6 H RBC 5.43 Hgb 16.0 Hct 49.0 MCV 90.2 MCH 29.5 MCHC 32.7 RDW Std Deviation 45.8 H RDW Coeff of [place] 13.8 Plt Count 139 L MPV 10.7 Immature Gran % (Auto) 0.600 Neut % (Auto) 81.6 H Lymph % (Auto) 7.5 L [place] % (Auto) 9.9 Eos % (Auto) 0.2 Baso % (Auto) 0.2 Absolute Neuts (auto) 11.1 H Absolute Lymphs (auto) 1.02 Nucleated RBC % 0 Sodium 142 Potassium 3.2 L Chloride 106 Carbon Dioxide 27.0 Anion Gap 9 BUN 13 Creatinine 1.29 Estim Creat Clear Calc 49.48 Est GFR (MDRD) Af Amer 70 Est GFR (MDRD) Non-Af 58 L BUN/Creatinine Ratio 10.1 Glucose 157 H Calcium 8.0 L Micro: Microbiology 02/22/21 00:53 Mucosa - Nose SARS-CoV-2 Antigen (Rapid) - Final Radiography Diagnostic Testing: Radiology Impression Brain MRI 02/22/21 01:27 IMPRESSION: 1. Small acute left posterior frontal lobe, precentral gyrus, cortical infarct. 2. Moderate chronic white matter ischemic disease. Electronically Signed: Vitor López MD at 16:14 EDT Tel , Service support , ADDENDUM: 02/22/21 1642 IMPRESSION: 1. Small acute left posterior frontal lobe, precentral gyrus, cortical infarct. 2. Moderate chronic white matter ischemic disease. N.B. : FABRICE Bermeo, confirmed on 02/22/2021 16:35:17 (ET) that the healthcare facility has received the radiology report. Electronically Signed: Vitor López MD at 16:14 EDT Tel , Service support , Echocardiogram 02/22/21 01:27 Interpretation Summary The estimated ejection fraction is EF 15-20 %. Severe LV systolic Dysfunction Worsening LV systolic function in comparison with echo 03/2020 Ordering Physician: Pasquale Stanford Performed By: Erma Valdes, LEO, RVT X-Ray 02/22/21 16:39 IMPRESSION: Mild nonspecific increase in nondependent colonic bowel gas, mostly transverse colon and mild gas accumulation in the stomach. Negative for obstruction or perforation. Electronically Signed: Molly Mancuso MD at 18:52 EDT , Service support , Physical Exam Const alert, oriented x3 and no apparent distress HEENT head/scalp atraumatic and moist oral mucous membranes Head and Scalp: normocephalic Eyes EOMs intact bilaterally and conjunctivae normal Neck no lymphadenopathy, supple and no JVD Resp normal respiratory effort, no retractions, no use of accessory muscles and clear to auscultation bilaterally Cardio regular rate, regular rhythm, no murmurs and no JVD GI normal to inspection, nondistended, normoactive bowel sounds, soft to palpation and non-tender Extremity normal to inspection, full ROM and no clubbing, cyanosis or edema Skin no rashes or lesions noted, no wounds, skin turgor normal and no jaundice Neuro CN's II-XII intact bilaterally Psych affect normal Assessment & Plan Assessment/Plan (1) Acute CVA (cerebrovascular accident): (2) Dyspnea: QUALIFIERS: Dyspnea type: dyspnea on exertion Qualified Code(s): R06.00 - Dyspnea, unspecified (3) Hypoxia: (4) Paroxysmal atrial fibrillation: (5) Essential (primary) hypertension: (6) Hyperlipidemia: QUALIFIERS: Hyperlipidemia type: pure hypercholesterolemia Qualified Code(s): E78.00 - Pure hypercholesterolemia, unspecified; E78.0 - Pure hypercholesterolemia PLAN: Day 2; see subjective for patient presentation. Discharge planning: Anticipate discharge tomorrow after LifeVest have been issued and patient consults with Dr. Haque for possible surgical intervention. 1) acute CVA Patient reports continued improvement of right upper extremity weakness. Brain MRI demonstrates small acute left posterior frontal lobe, precentral gyrus, cortical infarct. SOC telemetry neurology consulted: recommends discontinuation of Warfarin due to failure despite therapeutic INR and initiate NOAC, neurology does not recommend initiation of aspirin due to poor evidence and increased risk of bleed. No additional therapy needed, per physical therapy. Patient already on statin medication. Plan; discontinue warfarin, iniate eliquis, continue statin medication. 2) systolic CHF with reduced ejection fraction Echocardiogram obtained due to #1, demonstrates an estimated EF of 15 to 20% and worsening LV systolic function when compared to echo from 03/2020. Patient already follows with Dr. Haque; patient already on carvedilol, Lasix and losartan. Patient is not on oxygen at home. Cardiology consulted: recommends possible watchman procedure/left atrial appendage closure and LifeVest due to worsening LV systolic function. Plan; Dr. Haque will follow with patient on 02/24, issue patient LifeVest before discharge, cardiology concurs with neurologist in regards to initiation of Eliquis. 3) atrial fibrillation Patient already on rate control with beta-fermin and is anticoagulated on warfarin. Will be transition to Eliquis due to #1. Plan; continue beta-fermin: Initiate Eliquis. 4) HTN Stable, continue Lasix, carvedilol and losartan. 5) hyperlipidemia Continue statin. 6) transient hypoxia Hypoxia observed on admission. Vital signs are stable and patient is afebrile. Currently satting at 93% on room air. Possibly related to #2. Plan; continue to monitor. DVT prophylaxis - transition to Eliquis Patient seen by Sascha Harry PA-C, under the supervision of Dr. Christian. Documented by User: Dr. Molly Christian MD 02/23/21 15:24 Objective Data Lab / Micro Data Result Diagrams: 02/23/21 05:06 02/23/21 05:06 Charges/Coding Addendum Addendum: This patient was seen in conjunction with LUIS CARLOS Simms. I have independently interviewed and examined the patient and reviewed pertinent historical, laboratory, and other data. Please refer to LUIS CARLOS Simms's note for his patient's presentation, findings, and recommendations. I have reviewed and his note and concur with his documentation Patient was seen and examined. Complains of abdominal discomfort but has been passing gas. KUB showed gas in the stomach and ileus. The weakness in his arm has also improved. Discussed at the bedside in length with cardiology and patient and -patient's EF has dropped significantly from 40% to 15%. He needs to be evaluated by corporate quality manager. He will be reevaluated by cardiology Coumadin switched to Eliquis Physical Exam: Gen: Looks in some discomfort, not pale, not jaundiced CVS:HS I +II, regular, no murmurs RESP: Diminished at lung bases GI: BS present and normal, soft, nontender, no palpable organs EXT:No edema ASSESSMENT: 1. Acute stroke 2. Coumadin failure 3. Worsening cardiomyopathy, dropping EF of 40% to 15% 4. atrial fibrillation 5. Hypertension 6. Hyperlipidemia Plan: Continue on Eliquis, continue PT and OT evaluation Patient will be seen by cardiology tomorrow -possible EP referral Patient needs a LifeVest at discharge Continue to monitor bowel function Visit Charges Inpatient E&M: 54923 Subs Hosp L2
[2021-02-23] MEDS: Magnesium Citrate 300 ML PO (14:30)
[2021-02-23] MEDS: Atorvastatin Calcium 10 MG Tablet PO (21:08)
[2021-02-24] VITALS (9 sets, daily range): BP systolic 110–142; BP diastolic 62–86; PULSE 58–75; RESP 15–17; TEMP 36.5–37; O2SAT 92–96
[2021-02-24 06:33] LABS: Absolute Neutrophil Count 9.6 X10^3/uL (2.0-7.7); Basophil# 0.04 X10^3/uL; Basophil% 0.3 % (0-1); Eosinophil# 0.15 X10^3/uL; Eosinophils% 1.2 % (0-5); Hematocrit 48.1 % (40-54); Hemoglobin 15.7 g/dL (13.0-16.5); Lymphocyte % 9.9 % (19-41); Mean Corp Hgb Conc 32.6 g/dL (32-36); Mean Corpuscular Hgb 29.6 pg (27.0-32.0); Mean Corpuscular Volume 90.6 fL (80-94); Monocyte% 9.1 % (0-10); NRBC Flagged by Analyzer 0 % (0-5); Neutrophil # 9.59 X10^3/uL (2.7-7.7); Platelet Count 142 K/mm3 (150-450); RBC Distribution Width SD 46.8 fl (35.1-43.9); Red Blood Count 5.31 M/mm3 (4.6-6.2); White Blood Count 12.1 K/mm3 (4.4-11.0)
[2021-02-24 06:48] LABS: Anion Gap 7 (5-15); BUN 12 mg/dL (7-18); BUN/Creat Ratio 9.2 RATIO (10-20); Calcium,Total 8.4 mg/dL (8.5-10.1); Chloride 102 mmol/L (98-107); EST Glomerular Filtration Rate 57 mL/min (>60); Est Glom Filt Rate - Afr Amer 69 mL/min (>60); Glucose 184 mg/dL (74-106); Potassium 3.1 mmol/L (3.5-5.1); Sodium Level 139 mmol/L (136-145)
[2021-02-24] MEDS: Carvedilol 25 MG Tablet PO (08:00)
[2021-02-24] MEDS: Potassium Chloride Oral Tablet 20 MEQ PO (08:00)
[2021-02-24] MEDS: Losartan Potassium 50 MG Tablet PO (08:00)
[2021-02-24] MEDS: Amiodarone 200 MG Tablet PO (08:00)
[2021-02-24] MEDS: Furosemide 40 MG Tablet PO (08:01)
--- NOTE | 2021-02-24 08:35 | PCM.PN.CARD ---
Subjective Subjective Patient seen and evaluated. Appears to be doing better from the neurological standpoint. From the cardiology standpoint appears to be stable as well. Objective Data Vital Signs: Vital Signs Temp Pulse Resp BP Pulse Ox 97.7 F L 74 15 124/73 H 96 02/24/21 07:48 02/24/21 07:48 02/24/21 07:48 02/24/21 07:48 02/24/21 07:48 Oxygen Flow Rate (L/min) 2 Oxygen Delivery Method Room Air Weight: 220 lb 10.923 oz Body Mass Index (BMI) 32.5 Intake & Output: Intake and Output for Last 24 Hours 02/22/21 02/23/21 02/24/21 23:59 23:59 23:59 Intake Total 1663.75 / 1663.75 1752.5 / 1752.5 200 / 200 Balance 1663.75 / 1663.75 1752.5 / 1752.5 200 / 200 Lab / Micro Data Result Diagrams: 02/24/21 05:42 02/24/21 05:42 Labs: Laboratory Results - last 24 hr 02/24/21 02/24/21 05:42 05:42 WBC 12.1 H RBC 5.31 Hgb 15.7 Hct 48.1 MCV 90.6 MCH 29.6 MCHC 32.6 RDW Std Deviation 46.8 H RDW Coeff of [place] 14.0 Plt Count 142 L MPV 11.0 Immature Gran % (Auto) 0.500 Neut % (Auto) 79.0 H Lymph % (Auto) 9.9 L [place] % (Auto) 9.1 Eos % (Auto) 1.2 Baso % (Auto) 0.3 Absolute Neuts (auto) 9.6 H Absolute Lymphs (auto) 1.20 Nucleated RBC % 0 Sodium 139 Potassium 3.1 L Chloride 102 Carbon Dioxide 30.0 Anion Gap 7 BUN 12 Creatinine 1.30 Estim Creat Clear Calc 49.10 Est GFR (MDRD) Af Amer 69 Est GFR (MDRD) Non-Af 57 L BUN/Creatinine Ratio 9.2 L Glucose 184 H Calcium 8.4 L Micro: Microbiology 02/22/21 00:53 Mucosa - Nose SARS-CoV-2 Antigen (Rapid) - Final Cardiology Labs/Tests 02/24/21 05:42: WBC 12.1 H, RBC 5.31, Hgb 15.7, Hct 48.1, MCV 90.6, MCH 29.6, MCHC 32.6, Plt Count 142 L, MPV 11.0, Immature Gran % (Auto) 0.500, Neut % (Auto) 79.0 H, Lymph % (Auto) 9.9 L, [place] % (Auto) 9.1, Eos % (Auto) 1.2, Baso % (Auto) 0.3, Absolute Neuts (auto) 9.6 H, Nucleated RBC % 0 02/24/21 05:42: Sodium 139, Potassium 3.1 L, Chloride 102, Carbon Dioxide 30.0, Anion Gap 7, BUN 12, Creatinine 1.30, Est GFR (MDRD) Af Amer 69, Est GFR (MDRD) Non-Af 57 L, BUN/Creatinine Ratio 9.2 L, Glucose 184 H, Calcium 8.4 L Rhythm: EKG: ECHO: Stress Test: Cardiac Cath: PCI: CT Surgery: Holter monitor: EPS: PPM: CXR: Chest CT Scan: Physical Exam Const oriented x3 and healthy appearing Orientation / Consciousness: awake HEENT normocephalic Eyes PERRL and conjunctivae normal Neck supple, no JVD and no carotid bruits Chest inspection of chest normal Resp normal respiratory effort and clear to auscultation bilaterally Cardio Palpation: normal PMI Rate: regular rate Rhythm: regular rhythm and abnormal rhythm irregularly irregular Heart Sounds: S1 normal and S2 normal Peripheral Pulses: pulses 2+ throughout GI normal to inspection, nondistended, normoactive bowel sounds Extremity normal to inspection and no clubbing, cyanosis or edema Psych mental status grossly normal Assessment & Plan Assessment/Plan (1) Non-ischemic cardiomyopathy: PLAN: He does have evidence of nonischemic cardiomyopathy. He underwent a cardiac catheterization in 2016 with no obstructive coronary disease and stress test which have not demonstrated any evidence of ischemia. It appears that his left ventricular systolic function has declined further. I will review the above. He will more likely benefit from an implantable defibrillator. (2) Persistent atrial fibrillation: PLAN: He does have evidence of persistent atrial fibrillation despite at least 2 attempts at cardioversion. We had recommended that he undergo an A. fib ablation but he was not interested in that. At this time I would recommend that he is have a visit with the research/program director and depending on the findings further recommendations will be made. (3) Essential (primary) hypertension: PLAN: He does have a history of hypertension. He will continue with his current medical therapy. We will try and optimize his medications. (4) Left bundle branch block (LBBB): PLAN: He does have a left bundle branch block with a QRS duration of 158 ms. If we are proceeding with a route of an implantable defibrillator he may benefit from a HERB COUNSELOR device. (5) Acute CVA (cerebrovascular accident): PLAN: It would be helpful to know for sure whether he had a cerebrovascular accident or not. He had been on therapeutic anticoagulation with vitamin K antagonist. He has previously not been able to afford the factor X inhibitors. We may need to look into this again.
--- NOTE | 2021-02-24 09:48 | CASEMGMT ---
Addendum entered by Mildred Boswell 02/24/21 12:23: Eliquis e-scribed to [facility] previously. Call placed to pharmacy to check coverage/co-pay and per tech, pt's co-pay is $45. coating technician also asks about discontinuing warfarin and she is updated per d/c instructions that warfarin is discontinued, voices understanding. Pt/ updated, voices understanding. Pt/ voice no further questions/concerns/needs. Tova VUONG CM Addendum entered by Mildred Boswell 02/24/21 11:42: Dr. Molina spoke with Dr. Haque and Dr. Haque does not feel that pt needs Lifevest at this time. This RN CM placed call back to Dr. Haque's office and spoke with Courtney and she states the same regarding Lifevest at this time. Libra VUONG and pt/ updated, voice understanding. Pt/ provided with Eliquis 30 day free trial card and this RN CM will check coverage/co-pay once script e-scribed. CM to follow for any further discharge planning/needs. Tova VUONG CM Addendum entered by Mildred Boswell 02/24/21 10:18: Call back from Dr. Haque's nurse and states they do want Lifevest set up prior to discharge and she will speak to Bk Valdes NP about setting up lifevest/completing forms. CM to follow. Anton PCU charge, updated, voices understanding. Tova VUONG CM Original Note: Per Dr. Das's note, Lifevest to be obtained for pt. Call to Dr. Haque's nurse to check on plan for Lifevest and message left for her to call this RN CM back. CM to follow. Tova VUONG CM
--- NOTE | 2021-02-24 10:30 | CASEMGMT ---
CAROLANN VO Face to Face with patient for initial transition planning/care coordination assessment. RN CM introduced self and role at [facility]. Patient lying in bed, alert and oriented, and daughter at bedside. Patient willing to participate in assessment and is able to answer all questions appropriately. Care providers, pharmacy, and demographics verified. Patient wishes to discharge home, denies need for home health at this time. Patient states he has no further needs or concerns at this time. CM to follow for discharge planning needs that may arise. PCP: Elsiha Specialists: [place]land, fishing rod marker; Harsh kiosk sales representative [facility] Insurance: [employer], [employer] Prescription Benefit: yes Living Will/HPOA: yes, Katherine Argueta LNOK: , daughter Living Arrangements: Patient lives with in a 1 story home with 3 steps and grab bar to enter the home. Patient states he is independent at home. Transportation: self/ DME/HHC: patient states he has raised toilet, cane, and grab bars at home. Patient denies previous HHC or SNF. Disposition Plan: Patient to discharge home with family support and follow-up plans in place. Mildred SCHAEFFER, RN, CM
--- NOTE | 2021-02-24 11:43 | PCM.DC ---
Discharge Instructions Follow Up Care Test Results: Test results from this visit will be discussed in further detail at your follow-up appointment, if applicable. Discharge Plan Admission Admit Date/Time: 02/22/21 17:01 Attending Provider: Kal Thorne Primary Care Provider: José Miguel Tello Consulting Providers: Long Das Instructions Additional Instructions / Restrictions: Initiate Eliquis on the evening of discharge (02/24/2021) Discharge Orders/Prescriptions Prescriptions: New Eliquis 5 mg tablet 5 mg PO BID Qty: 60 RF: 0 Continued losartan 100 mg tablet 50 mg PO DAILY RF: 0 carvedilol 25 mg tablet 25 mg PO BID Qty: 60 RF: 11 furosemide [Lasix] 40 mg tablet 40 mg PO BID Qty: 90 RF: 3 amiodarone 200 mg tablet 200 mg PO DAILY RF: 0 simvastatin 20 MG tablet 20 mg PO QHS RF: 0 potassium chloride 20 mEq tablet extended release 20 meq PO BID RF: 0 Discontinued warfarin 3 mg tablet 3 mg PO DAILY Qty: 90 RF: 3 Referrals / Follow Up: Gonzalez Haque MD [STAFF PHYSICIAN] - Within 2 Weeks José Miguel Tello DO [Primary Care Provider] - 02/26/21 1:00 pm (Appointment is with Earline Serrato N.P.) Disposition Disposition (needs filled in before D/C Order can be placed): Home, Self Care
--- NOTE | 2021-02-24 12:00 | CASEMGMT ---
Palliative screening tool completed for [facility]. Patient meets criteria, hospitalist notified. Per hospitalist, no referral at this time.
--- NOTE | 2021-02-24 12:32 | CASEMGMT ---
SW completed a PHQ 9 with patient as he had a Stroke. He scored a 0 which indicates no depression. He was not interested in [facility] Stroke support group. Marla FALK
--- NOTE | 2021-02-24 12:48 | DS.PCM_ITS ---
Documented by User: Sascha ALDRIDGE 02/24/21 12:57 Providers Date of Admission: 02/22/21 Primary Care Physician: Dr. José Miguel Tello, DO Consultations 02/22/21 12:56 Consult: Cardiology Routine Consulting Provider: Long Das Reason for Consult: Worsening ejection fraction EMERGENT Consult: No MD Notified: Yes Date Notified: 02/22/21 Time Notified: 13:08 Method of Notification: Text Reason For Visit: RIGHT HAND WEAKNESS Diagnosis Discharge Diagnosis (1) Non-ischemic cardiomyopathy: Status: Chronic Code(s): I42.8 - Other cardiomyopathies (2) Persistent atrial fibrillation: Status: Chronic Code(s): I48.19 - Other persistent atrial fibrillation (3) Essential (primary) hypertension: Status: Chronic Code(s): I10 - Essential (primary) hypertension (4) Left bundle branch block (LBBB): Status: Chronic Code(s): I44.7 - Left bundle-branch block, unspecified (5) Acute CVA (cerebrovascular accident): Status: Acute Code(s): I63.9 - Cerebral infarction, unspecified Medications at Discharge Home Medications simvastatin 20 mg PO QHS 10/16/15 carvedilol 25 mg tablet 25 mg PO BID #60 tab 10/30/20 furosemide 40 mg tablet 40 mg PO BID #90 tab 10/30/20 losartan 100 mg tablet 50 mg PO DAILY tab 10/30/20 amiodarone 200 mg tablet 200 mg PO DAILY tablet 12/11/20 potassium chloride 20 meq PO BID 02/21/21 apixaban [Eliquis] 5 mg PO BID #60 tab 02/24/21 Hospital Course Summary of Care Provided Minutes Spent on Discharge: 35 Hospital Course: Discharge planning: Patient to be discharged home, no therapy indicated per PT/OT. 1) acute CVA Patient reports continued improvement of right upper extremity weakness. Brain MRI demonstrates small acute left posterior frontal lobe, precentral gyrus, cortical infarct. SOC telemetry neurology consulted: recommends discontinuation of Warfarin due to failure despite therapeutic INR and initiate NOAC, neurology does not recommend initiation of aspirin due to poor evidence and increased risk of bleed. No additional therapy needed, per physical therapy. Patient already on statin medication. Plan; discontinue warfarin, iniate eliquis, continue statin medication. 2) systolic CHF with reduced ejection fraction Echocardiogram obtained due to #1, demonstrates an estimated EF of 15 to 20% and worsening LV systolic function when compared to echo from 03/2020. Patient already follows with Dr. Haque; patient already on carvedilol, Lasix and losartan. Patient is not on oxygen at home. Cardiology consulted: recommends continuing current medication regimen, follow up with Dr. Haque as an outpateint for electrophysiology referral as well as possible implanted defibrillator, no life vest indicated at this time. Plan; follow-up with Dr. Haque within the next 2 weeks. 3) atrial fibrillation Patient already on rate control with beta-fermin and is anticoagulated on warfarin. Will be transition to Eliquis due to #1. Plan; continue beta- fermin: Initiate Eliquis, as above 4) HTN Stable, continue Lasix, carvedilol and losartan. 5) hyperlipidemia Continue statin. 6) transient hypoxia Resolved, currently satting 94% on room air. Patient seen by Sascha Harry PA-C, under the supervision of Dr. Thorne. Physical Exam Narrative Patient is a 75-year-old male comfortably resting in bed, alert and orient x3. Denies any new symptoms in the past 24 hours, reports continued improvement of his right upper extremity weakness, which he reports at about 90% of function. Denies chest pain, shortness of breath, palpitations, fever, chills, N/V/D. Const alert, oriented x3 and no apparent distress HEENT normocephalic, head/scalp atraumatic and hearing grossly normal bilaterally Eyes EOMs intact bilaterally and conjunctivae normal Neck no lymphadenopathy, supple and no JVD Resp normal respiratory effort, no retractions, no use of accessory muscles and clear to auscultation bilaterally Cardio regular rate, regular rhythm, no murmurs and no JVD GI normal to inspection, nondistended, normoactive bowel sounds, soft to palpation and non-tender Extremity normal to inspection, full ROM and no clubbing, cyanosis or edema Skin no rashes or lesions noted, no wounds and skin turgor normal Neuro CN's II-XII intact bilaterally Psych affect normal Weight / BMI Weight Weight: 220 lb 10.923 oz Body Mass Index (BMI) 32.5 ABG / Lab / Microbiology Data Result Diagrams: 02/24/21 05:42 02/24/21 05:42 Laboratory: Laboratory Results - last 24 hr 02/24/21 02/24/21 05:42 05:42 WBC 12.1 H RBC 5.31 Hgb 15.7 Hct 48.1 MCV 90.6 MCH 29.6 MCHC 32.6 RDW Std Deviation 46.8 H RDW Coeff of [place] 14.0 Plt Count 142 L MPV 11.0 Immature Gran % (Auto) 0.500 Neut % (Auto) 79.0 H Lymph % (Auto) 9.9 L [place] % (Auto) 9.1 Eos % (Auto) 1.2 Baso % (Auto) 0.3 Absolute Neuts (auto) 9.6 H Absolute Lymphs (auto) 1.20 Nucleated RBC % 0 Sodium 139 Potassium 3.1 L Chloride 102 Carbon Dioxide 30.0 Anion Gap 7 BUN 12 Creatinine 1.30 Estim Creat Clear Calc 49.10 Est GFR (MDRD) Af Amer 69 Est GFR (MDRD) Non-Af 57 L BUN/Creatinine Ratio 9.2 L Glucose 184 H Calcium 8.4 L Microbiology: Microbiology 02/22/21 00:53 Mucosa - Nose SARS-CoV-2 Antigen (Rapid) - Final Meaningful Use Info Meaningful Use Diagnoses (Choose all that apply): Ischemic CVA CVA Therapy Assessed for PT,OT and/or ST?: Yes Ischemic Stroke Antithrombotic order at d/c?: Yes Dx of Atrial fib/flutter?: Yes Anticoagulant at discharge?: Yes Statins at discharge?: Yes Primary Dx Acute Ischemic CVA?: Yes IV tPA ordered during stay?: No Reason IV t-PA not ordered: Treatment not Indicated Discharge Plan Admission Admit Date/Time: 02/22/21 17:01 Attending Provider: Kal Thorne Primary Care Provider: José Miguel Tello Consulting Providers: Long Das Instructions Additional Instructions / Restrictions: Patient Problems: Altered Health Status related to Hospitalization Patient Goals: *Optimal Level of Health *Keep Appointments *Medication Compliance *Remain SafeInitiate Eliquis on the evening of discharge (02/24/2021) Discharge Orders/Prescriptions Prescriptions: New Eliquis 5 mg tablet 5 mg PO BID Qty: 60 RF: 0 Continued losartan 100 mg tablet 50 mg PO DAILY RF: 0 carvedilol 25 mg tablet 25 mg PO BID Qty: 60 RF: 11 furosemide [Lasix] 40 mg tablet 40 mg PO BID Qty: 90 RF: 3 amiodarone 200 mg tablet 200 mg PO DAILY RF: 0 simvastatin 20 MG tablet 20 mg PO QHS RF: 0 potassium chloride 20 mEq tablet extended release 20 meq PO BID RF: 0 Discontinued warfarin 3 mg tablet 3 mg PO DAILY Qty: 90 RF: 3 Referrals / Follow Up: Gonzalez Haque MD [STAFF PHYSICIAN] - 03/11/21 8:30 am (appointment is with Geovani Arnold N.PLisa) José Miguel Tello DO [Primary Care Provider] - 02/26/21 1:00 pm (Appointment is with Earline Serrato N.P.) Disposition Disposition (needs filled in before D/C Order can be placed): Home, Self Care Documented by User: Dr. Kal Thorne DO 02/25/21 07:38 Providers Date of Admission: 02/22/21 Reason For Visit: RIGHT HAND WEAKNESS Medications at Discharge Home Medications simvastatin 20 mg PO QHS 10/16/15 carvedilol 25 mg tablet 25 mg PO BID #60 tab 10/30/20 furosemide 40 mg tablet 40 mg PO BID #90 tab 10/30/20 losartan 100 mg tablet 50 mg PO DAILY tab 10/30/20 amiodarone 200 mg tablet 200 mg PO DAILY tablet 12/11/20 potassium chloride 20 meq PO BID 02/21/21 apixaban [Eliquis] 5 mg PO BID #60 tab 02/24/21 ABG / Lab / Microbiology Data Result Diagrams: 02/24/21 05:42 02/24/21 05:42 Discharge Plan Admission Admit Date/Time: 02/22/21 17:01 Attending Provider: Kal Thorne Primary Care Provider: José Miguel Tello Consulting Providers: Long Das Instructions Additional Instructions / Restrictions: Patient Problems: Altered Health Status related to Hospitalization Patient Goals: *Optimal Level of Health *Keep Appointments *Medication Compliance *Remain SafeInitiate Eliquis on the evening of discharge (02/24/2021) Discharge Orders/Prescriptions Prescriptions: New Eliquis 5 mg tablet 5 mg PO BID Qty: 60 RF: 0 Continued losartan 100 mg tablet 50 mg PO DAILY RF: 0 carvedilol 25 mg tablet 25 mg PO BID Qty: 60 RF: 11 furosemide [Lasix] 40 mg tablet 40 mg PO BID Qty: 90 RF: 3 amiodarone 200 mg tablet 200 mg PO DAILY RF: 0 simvastatin 20 MG tablet 20 mg PO QHS RF: 0 potassium chloride 20 mEq tablet extended release 20 meq PO BID RF: 0 Discontinued warfarin 3 mg tablet 3 mg PO DAILY Qty: 90 RF: 3 Referrals / Follow Up: Gonzalez Haque MD [STAFF PHYSICIAN] - 03/11/21 8:30 am (appointment is with Geovani Arnold N.P.) José Miguel Tello DO [Primary Care Provider] - 02/26/21 1:00 pm (Appointment is with Earline Serrato N.Juan.) Disposition Disposition (needs filled in before D/C Order can be placed): Home, Self Care Charges/Coding Addendum Addendum: Patient was seen and examined on 02/24/2021 independently of Sascha Harry, I talked extensively with the patient and his who was in the room at the time of my examination. I also talked with cardiology who saw the patient earlier today, cardiology does not think there is any need for a LifeVest for the patient at this time, I explained the reasoning behind this to the patient and the patient's . Patient's also had questions about whether the patient could undergo an ablation if he so desired, I told her that this was a possibility but at this time the patient does not seem inclined to want to undergo an ablation. On examination he appeared in good health and spirits. Vital signs as documented. Skin warm and dry and without overt rashes. Neck without JVD, neck was supple, trachea midline, thyroid was normal. Lungs clear bilaterally, normal air movement was noted. Heart exam notable for irregular rhythm, normal sounds and absence of murmurs, rubs or gallops. Abdomen unremarkable and without evidence of organomegaly, masses, or abdominal aortic enlargement. Bowel sounds are present, abdomen is not distended. Extremities nonedematous, no cyanosis was noted, no clubbing was noted. Neuro: Cranial nerves II through XII are grossly intact, no focal motor deficits were noted, sensation to light touch and pinprick intact, motor exam 5/5 throughout. Psych: Patient is alert and oriented x3, he does not appear anxious or depressed, he does not appear agitated. At this time patient appears to be stable for discharge, I talked with cardiology and they will be seeing the patient in approximately 2 weeks in the office and will discuss options for the patient's further care. I have reviewed Sascha Harry's discharge summary including his medical assessment and plan of care and endorse it. Visit Charges Inpatient E&M: [id number] Disch Hosp
[2021-02-24] MEDS: Potassium Chloride Oral Tablet 20 MEQ 60 MEQ PO (13:35)
[2021-02-24] MEDS: APIXABAN 5 MG TABLET PO (13:35)
--- NOTE | 2021-02-24 14:06 | PHA.DC.MC ---
Pharmacy Service has performed discharge medication reconciliation and counseling for this patient. 1. APIXABAN 5MG PO BID The patient's discharge medication list was reviewed for discrepancies and discrepancies were resolved. Home Medications simvastatin 20 mg PO QHS 10/16/15 carvedilol 25 mg tablet 25 mg PO BID #60 tab 10/30/20 furosemide 40 mg tablet 40 mg PO BID #90 tab 10/30/20 losartan 100 mg tablet 50 mg PO DAILY tab 10/30/20 amiodarone 200 mg tablet 200 mg PO DAILY tablet 12/11/20 potassium chloride 20 meq PO BID 02/21/21 apixaban [Eliquis] 5 mg PO BID #60 tab 02/24/21 The patient was counseled on the following discharge medications and changes in medications for homegoing were reviewed. The Reason for Use, instructions for use, and potential side effects were reviewed for all new medications. The patient's questions regarding all of their medications were answered. The patient was able to verbally demonstrate an understanding of their discharge medications.
[2021-02-24] MEDS: Nystatin Powder 15gm Bottle 1 APPLIC TOPICAL (15:13)
--- NOTE | 2021-02-24 15:20 | NURSING ---
Discharge teaching complete. Questions answered. Patient and voice understanding of same.
--- NOTE | 2021-02-25 15:15 | CASEMGMT ---
CAROLANN CM Discharge Follow-up Phone Call: KAELA: Ivory Strata: 3 Call Date: 02/25/21 Discharge Date: 02/24/21 Time of Call: 1515 Duration: 1 min Admitting Diagnosis: Right hand weakness, stroke CAROLANN VO attempted to complete follow-up phone call after recent hospitalization. No answer, voice message left with return contact information.
== END 2021-02-24 15:23 | disposition home or self-care (01) | DRG 64 ==
LOC: ED 21:21 → PCU 02-22 00:51
PROVIDERS: Physician Assistant; Emergency Provider Student in an Organized Health Care Education/Training Program; PCP Preventive Medicine Occupational Medicine; Visit Provider Internal Medicine
DX: I63.9 Cerebral infarction, unspecified (principal); I50.23 Acute on chronic systolic (congestive) heart failure; I48.19 Other persistent atrial fibrillation; I48.92 Unspecified atrial flutter; I42.0 Dilated cardiomyopathy; G83.21 Monoplegia of upper limb affecting right dominant side; R29.701 NIHSS score 1; R09.02 Hypoxemia; I11.0 Hypertensive heart disease with heart failure; Z20.822 Contact with and (suspected) exposure to COVID-19; E78.5 Hyperlipidemia, unspecified; E66.9 Obesity, unspecified; Z68.32 Body mass index [BMI] 32.0-32.9, adult; Z79.01 Long term (current) use of anticoagulants; Z79.899 Other long term (current) drug therapy
CPT/HCPCS: 36415; 70450; 70496; 70498; 70551; 71045; 74018; 74176; 80048; 80061; 80076; 82962; 83690; 83735; 84484; 85025; 85610; 85730; 87426; 93005; 93306; 94762; 97110; 97802; 99285; J7030; Q9957; Q9967; A4216; C8929; J2405; J3490

== ENCOUNTER → 2021-03-26 09:35 | Outpatient (CLI) | payer MEDICARE, OTHER, SELFPAY ==
[2021-03-20 08:33] VITALS: BMI 32.6
== END ==
PROVIDERS: PCP Preventive Medicine Occupational Medicine; Referring Provider Internal Medicine Cardiovascular Disease; Visit Provider Internal Medicine Cardiovascular Disease
DX: I48.19 Other persistent atrial fibrillation (principal); I42.8 Other cardiomyopathies; I50.42 Chronic combined systolic (congestive) and diastolic (congestive) heart failure; I44.7 Left bundle-branch block, unspecified
CPT/HCPCS: 93225; 93226

== ENCOUNTER → 2021-07-14 13:03 | Outpatient (CLI) | payer MEDICARE, OTHER, SELFPAY ==
[2021-03-20 08:33] VITALS: BMI 32.6
--- NOTE | 2021-07-14 13:05 | ECHOCS_ITS ---
Reason For Study: CHF/Afib Procedure This was a 2D Doppler, Color Flow transthoracic echocardiogram. Contrast injection was performed. Exam performed in department. Left Ventricle Normal LV size. The estimated ejection fraction is 25 %. Moderately severe global left ventricular systolic dysfunction. Right Ventricle Normal RV size. Normal systolic function. Atria Normal left atrium. Normal right atrium. Mitral Valve Normal mitral valve. Tricuspid Valve Normal tricuspid valve. Mild (1+) tricuspid valve insufficiency. Pulmonic Valve Normal pulmonic valve. Great Vessels Normal aortic root. The pulmonary artery is normal size. Normal inferior vena cava. Pericardium/Pleural No pericardial effusion. Medication Diluted definity 3ml given slow IV push to enhance endocardial definition. MMode/2D Measurements & Calculations LVIDd: 4.8 cm IVSd: 1.1 cm Ao root diam: 3.2 cm LVIDs: 4.2 cm LVPWd: 1.2 cm RVDd: 3.8 cm FS: 11.9 % LAV(MOD-bp): 55.4 ml LA A4 area: 17.4 cm2 LA dimension(2D): 4.4 cm LAV(MOD-bp) Indexed: 26.2 ml/m2 LAV(MOD-sp2): 62.7 ml LAV(MOD-sp4): 47.0 ml RA A4 area: 17.2 cm2 Doppler Measurements & Calculations MV E max jamarcus: 62.1 cm/sec Ao V2 max: 92.5 cm/sec LV V1 max: 69.8 cm/sec Ao max P.4 mmHg LV V1 max P.0 mmHg Ao V2 mean: 67.9 cm/sec Ao mean P.0 mmHg Ao V2 VTI: 17.0 cm PA V2 max: 77.8 cm/sec TR max jamarcus: 229.8 cm/sec TR max P.1 mmHg ECHO/Echo Complete W/ Contrast Interpretation Summary Normal LV size. The estimated ejection fraction is 25 %. Moderately severe global left ventricular systolic dysfunction. Compared to previous study, the left ventricular systolic function has improved .. Ordering Physician: Gonzalez Haque Referring Physician: José Miguel Tello Performed By: Erma Valdes RDCS, RVT
== END ==
PROVIDERS: PCP Preventive Medicine Occupational Medicine; Referring Provider Internal Medicine Cardiovascular Disease; Visit Provider Internal Medicine Cardiovascular Disease
DX: R06.00 Dyspnea, unspecified (principal); I48.91 Unspecified atrial fibrillation; I50.9 Heart failure, unspecified
CPT/HCPCS: 93306; Q9957; A4216; C8929

== ENCOUNTER → 2021-08-25 10:40 | Outpatient (CLI) | payer MEDICARE, OTHER, SELFPAY ==
[2021-08-25 12:54] LABS: Anion Gap 8 (5-15); BUN 29 mg/dL (7-18); BUN/Creat Ratio 19.6 RATIO (10-20); Calcium,Total 9.4 mg/dL (8.5-10.1); Chloride 102 mmol/L (98-107); Creatinine, Serum 1.48 mg/dL (0.70-1.30); EST Glomerular Filtration Rate 49 mL/min (>60); Est Glom Filt Rate - Afr Amer 60 mL/min (>60); Glucose 155 mg/dL (74-106); Potassium 5.1 mmol/L (3.5-5.1); Sodium Level 134 mmol/L (136-145)
== END ==
PROVIDERS: PCP Preventive Medicine Occupational Medicine; Referring Provider Internal Medicine Cardiovascular Disease; Visit Provider Internal Medicine Cardiovascular Disease
DX: I50.42 Chronic combined systolic (congestive) and diastolic (congestive) heart failure (principal); I48.20 Chronic atrial fibrillation, unspecified
CPT/HCPCS: 36415; 80048

== ENCOUNTER 2021-10-16 09:56 | Outpatient (CLI) | payer MEDICARE, OTHER, SELFPAY ==
--- NOTE | 2021-10-16 09:58 | ECHOD_ITS ---
Reason For Study: AFIB/FLUTTER Procedure This was a 2D Doppler, Color Flow transthoracic echocardiogram. The study was technically difficult. Due to arrhythmia. Exam performed in department. Left Ventricle Normal LV size. Moderately severe global left ventricular systolic dysfunction. The estimated ejection fraction is 25 %. Unable to assess diastolic dysfunction due to arrhythmia. There is moderate to severe global hypokinesis of the left ventricle. Right Ventricle Normal RV size. Mild global right ventricular systolic dysfunction. Atria The left atrium is moderately enlarged. Normal right atrium. Mitral Valve Normal mitral valve. Tricuspid Valve Normal tricuspid valve. Aortic Valve Trisinus/trileaflet aortic valve. Pulmonic Valve The pulmonic valve is not well visualized. Great Vessels Normal aortic root. The pulmonary artery is normal size. The inferior vena cava is dilated. Pericardium/Pleural No pericardial effusion. MMode/2D Measurements & Calculations LVIDd: 4.8 cm IVSd: 1.1 cm Ao root diam: 2.9 cm LVIDs: 4.1 cm LVPWd: 1.1 cm RVDd: 3.7 cm FS: 12.8 % LAV(MOD-bp): 98.7 ml LA A4 area: 27.9 cm2 LA dimension(2D): 4.5 cm LAV(MOD-bp) Indexed: 46.8 ml/m2 LAV(MOD-sp2): 97.8 ml LAV(MOD-sp4): 97.8 ml RA A4 area: 18.6 cm2 Doppler Measurements & Calculations MV E max jamarcus: 105.3 cm/sec Ao V2 max: 83.0 cm/sec LV V1 max: 66.5 cm/sec Ao max P.8 mmHg LV V1 max P.8 mmHg PA V2 max: 74.0 cm/sec ECHO/Echo Complete Interpretation Summary Normal LV size. Moderately severe global left ventricular systolic dysfunction. The estimated ejection fraction is 25 %. Unable to assess diastolic dysfunction due to arrhythmia. There is moderate to severe global hypokinesis of the left ventricle. Compared to previous study, the left ventricular systolic function is the same. . Ordering Physician: Gonzalez Haque Referring Physician: José Miguel Tello Performed By: Kyra Shoemaker, RDCS, RVT
== END 2021-10-16 23:59 | disposition home or self-care (01) ==
LOC: CVS 09:57
PROVIDERS: PCP Preventive Medicine Occupational Medicine; Referring Provider Internal Medicine Cardiovascular Disease; Visit Provider Internal Medicine Cardiovascular Disease
DX: I44.7 Left bundle-branch block, unspecified (principal)
CPT/HCPCS: 93306

== ENCOUNTER → 2022-03-06 | Outpatient (CLI) | payer MEDICARE, OTHER, SELFPAY ==
[2022-03-06 17:08] LABS: Absolute Lymphocyte Count 1.72 X10^3/uL (0.83-4.51); Absolute Neutrophil Count 5.4 X10^3/uL (2.0-7.7); Basophil# 0.06 X10^3/uL; Basophil% 0.7 % (0-1); Eosinophil# 0.25 X10^3/uL; Eosinophils% 2.9 % (0-5); Hemoglobin 16.5 g/dL (13.0-16.5); Lymphocyte # 1.72 X10^3/ul (0.83-4.51); Lymphocyte % 20.3 % (19-41); Mean Corp Hgb Conc 33.7 g/dL (32-36); Mean Corpuscular Hgb 31.7 pg (27.0-32.0); Mean Platelet Vol. 11.4 fl (6.2-12.0); Monocyte# 0.95 X10^3/uL; Monocyte% 11.2 % (0-10); NRBC Flagged by Analyzer 0 % (0-5); Neutrophil # 5.44 X10^3/uL (2.7-7.7); Neutrophil % 64.1 % (47-70); Platelet Count 149 K/mm3 (150-450); RBC Distribution Width CV 12.4 % (11.6-14.6); RBC Distribution Width SD 42.9 fl (35.1-43.9); Red Blood Count 5.21 M/mm3 (4.6-6.2); White Blood Count 8.5 K/mm3 (4.4-11.0)
[2022-03-06 17:25] LABS: BNP,B-Type NATRIURETIC PEPTIDE 87.6 pg/mL (0-100)
[2022-03-06 17:49] LABS: Anion Gap 7 (5-15); BUN 31 mg/dL (7-18); BUN/Creat Ratio 17.2 RATIO (10-20); Calcium,Total 9.2 mg/dL (8.5-10.1); Chloride 101 mmol/L (98-107); EST Glomerular Filtration Rate 39 mL/min (>60); Est Glom Filt Rate - Afr Amer 47 mL/min (>60); Glucose 106 mg/dL (74-106); Sodium Level 136 mmol/L (136-145)
== END | disposition home or self-care (01) ==
LOC: LAB 14:15
PROVIDERS: PCP Preventive Medicine Occupational Medicine; Visit Provider Nurse Practitioner Gerontology
DX: R06.00 Dyspnea, unspecified (principal); R53.83 Other fatigue
CPT/HCPCS: 36415; 80048; 83880; 85025

== ENCOUNTER → 2022-09-14 | Outpatient (CLI) | payer MEDICARE, OTHER, SELFPAY ==
--- NOTE | 2022-09-14 12:52 | ECHOLC_ITS ---
Reason For Study: Non-Ischemic CM Procedure This was a limited 2D transthoracic echocardiogram. Contrast injection was performed. Exam performed in department. Left Ventricle Normal LV size. Left ventricular systolic function is lower limits of normal. The estimated ejection fraction is 50 %. No regional wall motion abnormalities noted. Right Ventricle Normal RV size. Normal systolic function. Atria Normal left atrium. Normal right atrium. Hypermobile atrial septum. Mitral Valve Normal mitral valve. Tricuspid Valve Normal tricuspid valve. Mild (1+) tricuspid valve insufficiency. Pulmonary artery systolic pressure is 30 mmHg. Aortic Valve Trisinus/trileaflet aortic valve. Mild focal aortic valve calcification. Pulmonic Valve The pulmonic valve is not well visualized. Great Vessels Normal aortic root. The pulmonary artery is normal size. Normal inferior vena cava. Pericardium/Pleural No pericardial effusion. Medication Diluted definity 5ml given slow IV push to enhance endocardial definition. MMode/2D Measurements & Calculations LVIDd: 4.1 cm IVSd: 1.1 cm LVIDs: 3.4 cm LVPWd: 0.97 cm LVAd ap4: 29.9 cm2 RVDd: 3.8 cm FS: 16.5 % LVLd ap4: 7.5 cm EDV(MOD-sp4): 96.2 ml EDV(sp4-el): 101.0 ml LVAs ap4: 18.8 cm2 LVLs ap4: 5.6 cm ESV(MOD-sp4): 50.2 ml ESV(sp4-el): 53.4 ml EF(MOD-sp4): 47.7 % EF(sp4-el): 47.1 % SV(MOD-sp4): 45.9 ml SV(sp4-el): 47.5 ml Doppler Measurements & Calculations TR max jamarcus: 255.7 cm/sec TR max P.2 mmHg ECHO/Echo Limited w/Contrast Interpretation Summary Hypermobile atrial septum. Normal LV size. Left ventricular systolic function is lower limits of normal. The estimated ejection fraction is 50 %. Contrast injection was performed. Compared to previous study, the left ventricu lar systolic function has improved.. Ordering Physician: Amber Loja Referring Physician: José Miguel Tello Performed By: Erma Valdes, LEO, RVT
== END | disposition home or self-care (01) ==
LOC: CVS 12:51
PROVIDERS: PCP Preventive Medicine Occupational Medicine; Referring Provider Nurse Practitioner Gerontology; Visit Provider Nurse Practitioner Gerontology
DX: I42.8 Other cardiomyopathies (principal)
CPT/HCPCS: 93308; Q9957; A4216; C8924

== ENCOUNTER → 2022-11-11 | Outpatient (CLI) | payer MEDICARE, OTHER, SELFPAY ==
[2022-11-11 12:04] LABS: Hematocrit 46.8 % (40-54); Hemoglobin 15.3 g/dL (13.0-16.5); Mean Corp Hgb Conc 32.7 g/dL (32-36); Mean Corpuscular Hgb 30.4 pg (27.0-32.0); Mean Platelet Vol. 10.4 fl (6.2-12.0); Platelet Count 150 K/mm3 (150-450); RBC Distribution Width CV 12.8 % (11.6-14.6); RBC Distribution Width SD 43.6 fl (35.1-43.9); Red Blood Count 5.03 M/mm3 (4.6-6.2); White Blood Count 7.1 K/mm3 (4.4-11.0)
[2022-11-11 12:50] LABS: Vitamin B12 516 pg/mL (211-911); Vitamin D,25 Hydroxy 29.9 ng/mL
[2022-11-11 13:01] LABS: ALB/GLOB Ratio 0.9 RATIO (0.9-2.4); AST(SGOT) 18 U/L (15-37); Alanine Aminotransfer ALT/SGPT 31 U/L (16-61); Albumin, Serum 3.3 g/dL (3.2-5.0); Alkaline Phosphatase 80 U/L (45-117); Anion Gap 7 (5-15); BUN 17 mg/dL (7-18); BUN/Creat Ratio 14.5 RATIO (10-20); Calcium,Total 8.8 mg/dL (8.5-10.1); Chloride 106 mmol/L (98-107); Creatinine, Serum 1.17 mg/dL (0.70-1.30); EST Glomerular Filtration Rate 64 mL/min (>60); Est Glom Filt Rate - Afr Amer 78 mL/min (>60); Globulin 3.7 g/dL (2.2-4.2); Glucose 141 mg/dL (74-106); Potassium 4.8 mmol/L (3.5-5.1); Sodium Level 138 mmol/L (136-145); Thyroid Stim Hormone (TSH) 8.78 uIU/mL (0.358-3.74)
== END | disposition home or self-care (01) ==
LOC: MTLAB 09:41
PROVIDERS: PCP Preventive Medicine Occupational Medicine; Referring Provider Preventive Medicine Occupational Medicine; Visit Provider Preventive Medicine Occupational Medicine
DX: R53.83 Other fatigue (principal)
CPT/HCPCS: 36415; 80053; 82306; 82607; 84443; 85027

== ENCOUNTER → 2023-05-17 | Outpatient (CLI) | payer MEDICARE, OTHER, SELFPAY ==
--- NOTE | 2023-05-17 11:20 | RAD_ITS ---
EXAM: XR CHEST, 2 VIEWS CLINICAL INDICATION: short of breath, crackles right base, a flutter TECHNIQUE: Frontal and lateral views of the chest. COMPARISON: Single view chest 02/21/2021 FINDINGS: LUNGS AND PLEURAL SPACES: Unremarkable. No consolidation or edema. No pneumothorax. No effusion. HEART: Unremarkable. Cardiac silhouette not enlarged. MEDIASTINUM: Central airways and mediastinal contour are unremarkable. BONES/JOINTS: Degenerative changes of the spine. SOFT TISSUES: Unremarkable. RAD/Chest PA and Lateral IMPRESSION: No acute findings in the chest. Electronically Signed: Vamsi Marie MD at 23:54 EDT ,
[2023-05-17 12:36] LABS: Hematocrit 50.5 % (40-54); Hemoglobin 16.8 g/dL (13.0-16.5); Mean Corp Hgb Conc 33.3 g/dL (32-36); Mean Corpuscular Hgb 30.8 pg (27.0-32.0); Mean Corpuscular Volume 92.7 fL (80-94); Mean Platelet Vol. 10.3 fl (6.2-12.0); Platelet Count 177 K/mm3 (150-450); RBC Distribution Width CV 13.2 % (11.6-14.6); RBC Distribution Width SD 44.6 fl (35.1-43.9); Red Blood Count 5.45 M/mm3 (4.6-6.2); White Blood Count 9.3 K/mm3 (4.4-11.0)
[2023-05-17 13:03] LABS: Anion Gap 5 (5-15); BUN 19 mg/dL (7-18); BUN/Creat Ratio 14.6 RATIO (10-20); Calcium,Total 9.2 mg/dL (8.5-10.1); Chloride 105 mmol/L (98-107); EST Glomerular Filtration Rate 57 mL/min (>60); Est Glom Filt Rate - Afr Amer 69 mL/min (>60); Glucose 167 mg/dL (74-106); Potassium 4.8 mmol/L (3.5-5.1); Sodium Level 137 mmol/L (136-145)
== END | disposition home or self-care (01) ==
LOC: RAD 10:58
PROVIDERS: PCP Preventive Medicine Occupational Medicine; Referring Provider Internal Medicine Cardiovascular Disease; Visit Provider Internal Medicine Cardiovascular Disease
DX: I48.3 Typical atrial flutter (principal); Z51.81 Encounter for therapeutic drug level monitoring; Z79.899 Other long term (current) drug therapy; R09.89 Other specified symptoms and signs involving the circulatory and respiratory systems; R06.02 Shortness of breath; R05.8 Other specified cough
CPT/HCPCS: 36415; 71046; 80048; 85027

== ENCOUNTER → 2023-05-24 | Outpatient (CLI) | payer MEDICARE, OTHER, SELFPAY ==
[2023-05-24 15:26] LABS: PSA,Total - Annual Screen 0.52 ng/mL (0.00-4.00)
== END | disposition home or self-care (01) ==
LOC: LAB 13:17
PROVIDERS: PCP Preventive Medicine Occupational Medicine; Referring Provider Urology; Visit Provider Urology
DX: Z12.5 Encounter for screening for malignant neoplasm of prostate (principal)
CPT/HCPCS: 36415; 84153; G0103

== ENCOUNTER 2023-06-07 10:37 | Day surgery (SDC) | payer MEDICARE, OTHER, SELFPAY ==
[2023-06-04 08:47] VITALS: BMI 32.9
--- NOTE | 2023-06-07 11:52 | PRO.PCM_ITS ---
Procedure Report Date of Procedure: 06/07/23 DC cardioversion. 77-year-old male with a history of chronic persistent atrial fibrillation. Status post A-fib ablation in May 2022. Patient presents with recurrence of the atrial fibrillation. Patient has been on uninterrupted anticoagulation. The patient was brought to cardiac catheterization lab and was seen by Dr. Hooper of the critical care division. Informed consent was obtained. Anterior- posterior pads were applied. 4 mg of intravenous etomidate was administered due to the low ejection fraction. 200 J of synchronized DC cardioversion energy were applied which was unsuccessful in restoring sinus rhythm. This was followed by 300 J of DC cardioversion energy and then a further 300 J of DC cardioversion energy. All these were unsuccessful in restoring sinus rhythm. Patient tolerated procedure well. Conclusion: Unsuccessful DC cardioversion from atrial fibrillation to sinus rhythm. We will reinstitute low-dose amiodarone at 200 mg. Patient had previously had severe headaches from 400 mg. Refer back to electrophysiology for further consideration.
--- NOTE | 2023-06-07 11:59 | PCM.OP.PRO ---
Procedure Report Date of Procedure: 06/07/23 CONSCIOUS SEDATION REPORT DATE OF SERVICE: June 07, 2023 BRIEF HISTORY OF PRESENT ILLNESS: The patient is a 77-year-old male who presented to [facility] for elective outpatient cardioversion due to underlying atrial fibrillation. The patient denied any prior anesthetic complications. He has never been diagnosed with COPD, asthma or obstructive sleep apnea. The patient is systemically anticoagulated on Eliquis. His last surface echocardiogram demonstrated an ejection fraction of approximately 35%. PHYSICAL EXAMINATION: VITAL SIGNS: Reviewed and were acceptable. GENERAL: The patient is a male, in no apparent distress, speaking in full sentences. Pale in appearance. HEENT: Normocephalic, atraumatic. Mucous membranes are moist and pink. Good mouth opening noted. Trachea is midline. CHEST: S1, S2 irregularly irregular. No murmurs, rubs or gallops were noted. LUNGS: Clear to auscultation bilaterally without appreciable wheezes, rales or rhonchi. ABDOMEN: Soft, nontender, nondistended. Positive bowel sounds. EXTREMITIES: There is no clubbing, cyanosis or edema. ASA Class: II DESCRIPTION OF PROCEDURE: After confirmation of informed consent, the patient's anesthesia plan was reviewed in detail. Etomidate was chosen. Risks and benefits were reviewed and the patient agreed to proceed. At 1141, the patient was given 4 mg of etomidate. A total of 3 separate attempts at cardioversion were then undertaken, the first of 200 J, the second at 300 J and the third at 300 J. Unfortunately none of the aforementioned interventions was successful in restoring normal sinus rhythm. The patient was monitored until 1155, at which time he reached his baseline mental status and function. The patient tolerated the procedure well. COMPLICATIONS: None ESTIMATED BLOOD LOSS: None RECOMMENDATIONS: Okay to recover in usual fashion. Procedures Pulmonary 9xxxx: [id number] Con Sedation
== END 2023-06-07 12:38 | disposition home or self-care (01) ==
LOC: CLSP 10:40
PROVIDERS: PCP Preventive Medicine Occupational Medicine; Referring Provider Internal Medicine Cardiovascular Disease; Visit Provider Internal Medicine Cardiovascular Disease
DX: I48.20 Chronic atrial fibrillation, unspecified (principal); I50.42 Chronic combined systolic (congestive) and diastolic (congestive) heart failure; I11.0 Hypertensive heart disease with heart failure; I42.8 Other cardiomyopathies; E78.00 Pure hypercholesterolemia, unspecified; Z79.01 Long term (current) use of anticoagulants; Z95.810 Presence of automatic (implantable) cardiac defibrillator; Z79.899 Other long term (current) drug therapy; Z98.890 Other specified postprocedural states
CPT/HCPCS: 92960; 93005; J7040

== ENCOUNTER → 2023-11-05 | Outpatient (CLI) | payer MEDICARE, OTHER, SELFPAY ==
[2023-11-05 16:49] LABS: Absolute Neutrophil Count 6.3 X10^3/uL (2.0-7.7); Basophil# 0.06 X10^3/uL; Basophil% 0.6 % (0-1); Eosinophil# 0.19 X10^3/uL; Eosinophils% 1.9 % (0-5); Hematocrit 46.4 % (40-54); Hemoglobin 15.9 g/dL (13.0-16.5); Mean Corp Hgb Conc 34.3 g/dL (32-36); Mean Corpuscular Hgb 31.3 pg (27.0-32.0); Mean Corpuscular Volume 91.3 fL (80-94); Mean Platelet Vol. 9.9 fl (6.2-12.0); Monocyte# 1.15 X10^3/uL; Monocyte% 11.5 % (0-10); NRBC Flagged by Analyzer 0 % (0-5); Neutrophil # 6.26 X10^3/uL (2.7-7.7); Neutrophil % 62.4 % (47-70); Platelet Count 162 K/mm3 (150-450); RBC Distribution Width CV 12.5 % (11.6-14.6); RBC Distribution Width SD 41.7 fl (35.1-43.9); Red Blood Count 5.08 M/mm3 (4.6-6.2)
[2023-11-05 17:24] LABS: BNP,B-Type NATRIURETIC PEPTIDE 42.7 pg/mL (0-100)
[2023-11-05 17:41] LABS: ALB/GLOB Ratio 0.9 RATIO (0.9-2.4); AST(SGOT) 24 U/L (15-37); Alanine Aminotransfer ALT/SGPT 32 U/L (16-61); Albumin, Serum 3.6 g/dL (3.2-5.0); Alkaline Phosphatase 95 U/L (45-117); Anion Gap 4 (5-15); BUN 17 mg/dL (7-18); BUN/Creat Ratio 13.3 RATIO (10-20); Calcium,Total 9.1 mg/dL (8.5-10.1); Chloride 107 mmol/L (98-107); Creatinine, Serum 1.28 mg/dL (0.70-1.30); EST Glomerular Filtration Rate 58 mL/min (>60); Est Glom Filt Rate - Afr Amer 70 mL/min (>60); Globulin 3.9 g/dL (2.2-4.2); Glucose 105 mg/dL (74-106); Potassium 4.7 mmol/L (3.5-5.1); Protein, Total 7.5 g/dL (6.4-8.2); Sodium Level 139 mmol/L (136-145); T4 Free Direct 0.99 ng/dL (0.76-1.46); Thyroid Stim Hormone (TSH) 4.69 uIU/mL (0.358-3.74)
--- OUTSIDE RECORDS SUMMARY | 2023-11-05 17:56 | XMS RPT_ITS | CCD ---
Author Name Unknown Address [address] [place] [address] Organization [facility] Care Team Providers Care Acoustic Intelligence Specialist Name Role Phone Andrés Padilla Y Unavailable Unavailable Andrés Padilla Unavailable Unavailable DEZ TELLO DO Primary Care Physician Dez Tello DO Primary Care Provider Gonzalez Greenberg MD S Unavailable DEZ TELLO Primary Care Unavailable GARLAND, GONZALEZ S Referring Unavailable EBER MARTINS Attending Unavailable DEZ TELLO Primary Care Unavailable GARLAND, GONZALEZ S Referring Unavailable EBER MARTINS Attending Unavailable DEZ TELLO Primary Care Unavailable [place], [place] S Unavailable Dez Tello Primary Care Provider Huber Campos Unavailable [place], [place] S Unavailable Dez Tello Primary Care Provider Huber Campos Unavailable [place], Gonzalez S Unavailable eDz Tello DO Primary Care Provider Huber Campos Unavailable Huber Campos MD Unavailable DEZ TELLO DO Primary Care Physician MARJORIE BULLARD MD Attending Unavailable DEZ TELLO DO Primary Care Unavailable DEZ TELLO DO Attending Unavailable DEZ TELLO DO Primary Care Unavailable LESIA PERSON Attending Unavailable DEZ TELLO DO Primary Care Unavailable [place], [place] S Unavailable Dez Tello DO Primary Care Provider Huber Campos MD Unavailable [place] DAMIAN, [place] S Unavailable Huber Campos MD Unavailable [phone] ARDEN, DEZ F Primary Care Unavailable ARDEN, DEZ F Primary Care Unavailable ARDEN, DEZ F Primary Care Unavailable SCHWEIKERT, DEZ A Referring Unavailable ARDEN, DEZ F Primary Care Unavailable SCHWEIKERT, DEZ Schulte Referring Unavailable ARDEN, DEZ F Primary Care Unavailable ARDEN, DEZ F Primary Care Unavailable SCHWEIKERT, DEZ Schulte Referring Unavailable NAYLA ALLEN Attending Unavailable ARDEN, DEZ F Primary Care Unavailable SCHWEIKERT, DEZ Eris Referring Unavailable GARLAND, GONZALEZ S Referring Unavailable ARDEN, DEZ F Primary Care Unavailable SCHWEIDESTINIT, DEZ Schulte Attending Unavailable ARDEN, DEZ F Primary Care Unavailable ARDEN, DEZ F Primary Care Unavailable GARLAND, GONZALEZ S Referring Unavailable ARDEN, DEZ F Primary Care Unavailable SCHWEIKERT, DEZ Schulte Attending Unavailable ARDEN, DEZ F Primary Care Unavailable ARDEN, DEZ F Primary Care Unavailable ARDEN, DEZ F Primary Care Unavailable ARDEN, DEZ F Primary Care Unavailable ARDEN, DEZ F Primary Care Unavailable Allergies Allergy Classification Reported Allergen(s) Allergy Type Date of Onset Reaction(s) Facility (20 sources) Baclofen; Translations: [baclofen] Drug Allergy 04-22-2022 Eruption of skin (disorder), Rash [facility] Work Phone: Medications Current Medications Medication Drug Class(es) Dates Sig (Normalized) Sig (Original) Centrum Cardio oral tablet (2 sources) Start: 10-20-2022 take 1 tablet by mouth once daily Centrum Cardio oral tablet Dose = 1 tab(s), Oral, qDay, # 30 tab(s), 0 Refill(s) Start Date: 10/20/22 Status: Ordered furosemide 40 mg oral tablet (20 sources) Loop Diuretic Start: 01-15-2021 furosemide 40 mg oral tablet Dose : 40 mg = 1 tab(s), Oral, qDay, # 90 tab(s), 0 Refill(s) Start Date: 01/15/21 Status: Ordered Completed/Discontinued Medications Medication Drug Class(es) Dates Sig (Normalized) Sig (Original) Acidophilus Probiotic Blend oral capsule (2 sources) Start: 02-26-2021 End: 03-28-2021 take 1 capsule by mouth once daily Acidophilus Probiotic Blend oral capsule Dose = 1 cap(s), Oral, qDay, # 30 cap(s), 0 Refill(s), Pharmacy: [id number], 175, cm, 02/26/21 13:10:00 EDT, Height, kg, 02/26/21 13:10:00 EDT, Dosing Weight Start Date: 02/26/21 Stop Date: 03/28/21 Status: Ordered [id number] 200 actuat albuterol 0.09 mg/actuat metered dose inhaler (1 source) beta2-Adrenergic Agonist Start: 01-02-2021 End: 04-29-2022 albuterol HFA (PROVENTIL HFA, VENTOLIN HFA) 90 mcg/actuation inhaler Inhale as instructed. 0 01/02/2021 04/29/2022 Discontinued (Other) Problems Active Problems Problem Classification Problem Date Documented Da te Episodic/Chronic Acute cerebrovascular disease (1 source) Cerebrovascular accident 02-26-2021 Chronic Cardiac dysrhythmias (20 sources) Atrial flutter; Translations: [Atrial fibrillation] Onset: 1 12-01-2010 Chronic Cardiac dysrhythmias (1 source) Palpitations; Translations: [Palpitations] Episodic Conduction disorders (20 sources) Left bundle branch block; Translations: [Left bundle-branch block, unspecified] Chronic Congestive heart failure; nonhypertensive (20 sources) Heart failure with reduced ejection fraction; Translations: [Chronic combined systolic and diastolic heart failure] Onset: 2 03-25-2021 Chronic Coronary atherosclerosis and other heart disease (2 sources) Atherosclerotic heart disease of [place] coronary artery without angina pectoris; Translations: [Atherosclerotic heart disease of [place] coronary artery without angina pectoris] Onset: 7 10-02-2016 Chronic Diabetes mellitus without complication (3 sources) Prediabetes 09-22-2019 Episodic Disorders of lipid metabolism (20 sources) Hyperlipidemia; Translations: [Hyperlipidemia, unspecified] Onset: 1 12-01-2010 Chronic Essential hypertension (5 sources) Hypertensive disorder; Translations: [Essential hypertension] Onset: 1 12-01-2010 Chronic Fluid and electrolyte disorders (3 sources) Hypokalemia 01-23-2021 Episodic Hyperplasia of prostate (3 sources) Benign prostatic hypertrophy with outflow obstruction 09-22-2019 Chronic Other aftercare (1 source) Taking high risk medication; Translations: [Other retirement (current) drug therapy] Episodic Other circulatory disease (2 sources) H/O: atrial fibrillation 10-20-2022 Episodic Other gastrointestinal disorders (3 sources) Mass of pancreas 02-26-2021 Episodic Other lower respiratory disease (4 sources) Dyspnea; Translations: [Dyspnea, unspecified] Episodic Other nutritional; endocrine; and metabolic disorders (4 sources) Body mass index (BMI) 32.0-32.9, adult; Translations: [Body mass index (BMI) 33.0-33.9, adult] Onset: 3 02-23-2014 Chronic Other nutritional; endocrine; and metabolic disorders (1 source) Body mass index (BMI) 33.0-33.9, adult; Translations: [Body mass index (BMI) 33.0-33.9, adult] Onset: 3 06-23-2013 Chronic Other nutritional; endocrine; and metabolic disorders (1 source) Body mass index (BMI) 35.0-35.9, adult; Translations: [Body mass index (BMI) 35.0-35.9, adult] Onset: 3 03-31-2016 Chronic Other nutritional; endocrine; and metabolic disorders (20 sources) Obese class I; Translations: [Obesity, unspecified] Onset: 2 Chronic Other screening for suspected conditions (not mental disorders or infectious disease) (5 sources) Electrocardiogram abnormal; Translations: [Raised prostate specific antigen] Onset: 1 12-01-2010 Episodic Sandra-; endo-; and myocarditis; cardiomyopathy (20 sources) Dilated cardiomyopathy; Translations: [Dilated cardiomyopathy] Onset: 1 12-01-2010 Chronic Spondylosis; intervertebral disc disorders; other back problems (3 sources) Degeneration of lumbar intervertebral disc 12-11-2019 Chronic Spondylosis; intervertebral disc disorders; other back problems (6 sources) Low back pain; Translations: [Spasm of back muscles] 12-11-2019 Episodic Unclassified (2 sources) Other persistent atrial fibrillation; Translations: [Persistent atrial fibrillation (HCC)] Onset: 2 Past or Other Problems Problem Classification Problem Date Documented Date Episodic/Chronic Genitourinary symptoms and ill-defined conditions (2 sources) Unspecified symptoms and signs involving the genitourinary system; Translations: [Unspecified symptoms and signs involving the genitourinary system] Onset: 12-10-2021 Episodic Malaise and fatigue (20 sources) Fatigue; Translations: [Other fatigue] Onset: 06-23-2013 Resolved: 10-02-2016 06-23-2013 Episodic Other aftercare (20 sources) Long-term current use of drug therapy; Translations: [Other retirement (current) drug therapy] Onset: 04-29-2022 Episodic Other aftercare (20 sources) Drug therapy finding; Translations: [Other buttermaker (current) drug therapy] Onset: 04-29-2022 Episodic Other aftercare (20 sources) Long-term current use of anticoagulant; Translations: [medical terminologist (current) use of anticoagulants] Onset: 04-27-2022 Episodic Other aftercare (1 source) FPC (current) use of anticoagulants; Translations: [Anticoagulant long-term use] Onset: 06-29-2022 Episodic Other circulatory disease (5 sources) Cardiovascular stress test abnormal; Translations: [Electrocardiogram abnormal] Onset: 12-01-2010 Resolved: 10-02-2016 10-02-2016 Episodic Other circulatory disease (20 sources) History of cerebrovascular accident; Translations: [Personal history of transient ischemic attack (TIA), and cerebral infarction without residual deficits] Onset: 02-22-2021 04-27-2022 Episodic Other lower respiratory disease (20 sources) Dyspnea on exertion; Translations: [Shortness of breath] Onset: 04-29-2022 Episodic Other lower respiratory disease (1 source) Shortness of breath; Translations: [Exertional shortness of breath] Onset: 04-30-2022 Episodic Other lower respiratory disease (1 source) Dyspnea, unspecified; Translations: [Dyspnea, unspecified type] Onset: 03-31-2023 Episodic Residual codes; unclassified (1 source) Family history of stroke; Translations: [Family history of stroke] 02-23-2014 Episodic Residual codes; unclassified (20 sources) Other specified personal risk factors, not elsewhere classified; Translations: [Other specified personal history presenting hazards to health] Onset: 04-27-2022 Episodic Residual codes; unclassified (20 sources) H/O cardiac surgery; Translations: [Other specified postprocedural states] Onset: 06-29-2022 06-29-2022 Episodic Residual codes; unclassified (2 sources) Other specified postprocedural states; Translations: [Status post catheter ablation of atrial fibrillation] Onset: 06-29-2022 Episodic Unclassified (3 sources) FH: Hypertension; Translations: [Family history of stroke] 08-10-2014 Episodic Results Test Name Value Interpretation Reference Range Facil ity Vital Signs Date Time Vital Sign Value Performing Clinician Facility 11-27-2022 13:32-0400 Body height 175.3 cm Nayla Allen APRN.GIS ANALYST Work Phone: [facility] 11-27-2022 13:32-0400 Body weight 102.51 kg Nayla Allen CONDUIT WORKER.GIS ANALYST Work Phone: [facility] 11-27-2022 13:32-0400 Diastolic blood pressure 66 mm[Hg] Nayla Allen CONDUIT WORKER.GIS ANALYST Work Phone: [facility] 11-27-2022 13:32-0400 Heart rate 66 /min Nayla Allen APRN.GIS ANALYST Work Phone: [facility] 11-27-2022 13:32-0400 SaO2% (BldA) [Mass fraction] 96 % Nayla Allen CONDUIT WORKER.GIS ANALYST Work Phone: [facility] 11-27-2022 13:32-0400 Systolic blood pressure 129 mm[Hg] Nayla Allen CONDUIT WORKER.GIS ANALYST Work Phone: [facility] 04-29-2022 14:30-0400 Body height 175.3 cm Dez Smith MD Work Phone: [facility] 04-29-2022 14:30-0400 Body weight 100.7 kg Dez Smith MD Work Phone: [facility] 04-29-2022 14:30-0400 Diastolic blood pressure 63 mm[Hg] Dez Smith MD Work Phone: [facility] 04-29-2022 14:30-0400 Heart rate 59 /min Dez Smith MD Work Phone: [facility] 04-29-2022 14:30-0400 Respiratory rate 18 /min Dez Smith MD Work Phone: [facility] 04-29-2022 14:30-0400 SaO2% (BldA) [Mass fraction] 92 % Dez Smith MD Work Phone: [facility] 04-29-2022 14:30-0400 Systolic blood pressure 108 mm[Hg] Dez Smith MD Work Phone: [facility] 03-31-2022 09:23-0400 Body height 175.3 cm Eber Martins MD Work Phone: [facility] 03-31-2022 09:23-0400 Body mass index (BMI) [Ratio] 32.4 kg/m2 Eber Martins MD Work Phone: [facility] 03-31-2022 09:23-0400 Body weight 99.52 kg Eber Martins MD Work Phone: [facility] 03-31-2022 09:23-0400 Diastolic blood pressure 62 mm[Hg] Eber Martins MD Work Phone: [facility] 03-31-2022 09:23-0400 Respiratory rate 18 /min Eber Martins MD Work Phone: [facility] 03-31-2022 09:23-0400 SaO2% (BldA) [Mass fraction] 97 % Eber Martins MD Work Phone: [facility] 03-31-2022 09:23-0400 Systolic blood pressure 118 mm[Hg] Eber Martins MD Work Phone: [facility] 05-18-2017 13:40-0400 BMI (Body Mass Index) 34.43 kg/m2 Harumi DeFinlan [facility] Work Phone: 05-18-2017 13:40-0400 BP Diastolic 60 mm[Hg] Harumi DeFinis [facility] Work Phone: 05-18-2017 13:40-0400 BP Systolic 130 mm[Hg] Harumi DeFinis [facility] Work Phone: 05-18-2017 13:40-0400 Height 175.26 cm Harumi DeFinis [facility] Work Phone: 05-18-2017 13:40-0400 Pulse (Heart Rate) 64 /min Harumi DeFinis [facility] Work Phone: 05-18-2017 13:40-0400 Respiratory Rate 20 /min Harumi DeFinis [facility] Work Phone: 05-18-2017 13:40-0400 Weight 105.78 kg Harumi DeFinis [facility] Work Phone: 03-31-2016 13:45-0400 BSA (Body Surface Area) 2.21 m2 Harumi DeFinis [facility] Work Phone: 10-17-2015 08:20-0500 Body surface area Derived from formula 65.77 mL/min Harumi DeFinis [facility] Work Phone: 10-07-2015 10:39-0500 Heart rate 84 /min Harumi DeFinis [facility] Work Phone: 11-24-2011 10:03-0400 Heart rate 467 ms Harmatthew DeFinis [facility] Work Phone: Encounters Encounter Date Encounter Type Care Provider Facility Start: 07-07-2023 End: 07-07-2023 ambulatory GONZALEZMarcy GREENBERG Facility:[facility] Start: 05-20-2023 Telephone encounter Dez espinoza MD Work Phone: [facility] Procedures Date Procedure Procedure Detail Performing Clinician Start: 11-27-2022 Ecg routine ecg w/le ast 12 lds w/i&r Nayla Allen PRASHANTH Work Phone: Start: 11-27-2022 Echo tthrc r-t 2d w/ wom-mode compl spec&colr d Dez Smith MD Work Phone: Start: 09-22-2022 ARRHYTHMIA TRANS TELE MEASURE Dez Smith MD Work Phone: Start: 09-15-2022 ARRHYTHMIA TRANS TELE MEASURE Dez Smith MD Work Phone: Start: 09-01-2022 ARRHYTHMIA TRANS TELE MEASURE Dez Smith MD Work Phone: Start: 08-25-2022 ARRHYTHMIA TRANS TELE MEASURE Dez Smith MD Work Phone: Start: 08-18-2022 ARRHYTHMIA TRANS TELE MEASURE Dez Smith MD Work Phone: Start: 08-12-2022 ARRHYTHMIA TRANS TELE MEASURE Dez Smith MD Work Phone: Start: 08-04-2022 ARRHYTHMIA TRANS TELE MEASURE Dez Smith MD Work Phone: Start: 07-28-2022 ARRHYTHMIA TRANS TELE MEASURE Dez Smith MD Work Phone: Start: 07-21-2022 ARRHYTHMIA TRANS TELE MEASURE Dez Smith MD Work Phone: Start: 07-14-2022 ARRHYTHMIA TRANS TELE MEASURE Dez Smith MD Work Phone: Start: 06-29-2022 Cardiac radiofrequen cy ablation using ultrasound guidance DEZ TELLO DO Start: 04-29-2022 Ecg routine ecg w/le ast 12 lds w/i&r Dez Smith MD Work Phone: Start: 03-31-2022 Assay of free thyroxine Eber Martins MD Work Phone: Start: 05-18-2017 End: 05-18-2017 Follow Up Appt 6 months Steve French Start: 05-18-2017 End: 05-18-2017 MELIA Greenberg MD Start: 05-18-2017 End: 05-18-2017 Follow Up Appt 6 months Steve French Start: 05-18-2017 End: 05-18-2017 MELIA Greenberg MD Start: 11-13-2016 End: 11-13-2016 GEORGE Greenberg MD Start: 11-13-2016 End: 11-13-2016 Follow Up Appt 6 months Steve French Start: 11-13-2016 End: 11-13-2016 Dietary management education, guidance, and counseling Andrés Valerie Start: 11-13-2016 End: 11-13-2016 GEORGE Greenberg MD Start: 11-13-2016 End: 11-13-2016 Follow Up Appt 6 months Steve French Start: 03-31-2016 End: 03-31-2016 Follow Up Appt 6 months Steve French Start: 03-31-2016 End: 03-31-2016 MELIA Greenberg MD Start: 03-31-2016 End: 03-31-2016 Follow Up Appt 6 months Steve French Start: 03-31-2016 End: 03-31-2016 MELIA Greenberg MD Start: 10-07-2015 End: 10-07-2015 Chest x-ray Gonzalez Greenberg MD Start: 10-07-2015 End: 10-07-2015 Ecg routine ecg w/least 12 lds w/i&r Gonzalez Greenberg MD Start: 10-07-2015 End: 10-18-2015 Left Heart Cath Gonzalez Greenberg MD Start: 10-07-2015 End: 10-07-2015 Nurse, Teaching, Wound Check (no charge) Gonzalez Greenberg MD Start: 10-07-2015 End: 10-07-2015 Chest x-ray Gonzalez Greenberg MD Start: 10-07-2015 End: 10-07-2015 Electrocardiogram, complete Gonzalez Goldsmith i, MD Start: 10-07-2015 End: 10-18-2015 Left Heart Cath Gonzalez Greenberg MD Start: 10-07-2015 End: 10-07-2015 Nurse, Teaching, Wound Check (no charge) Gonzalez Greenberg MD Start: 09-24-2015 End: 09-25-2015 *BMP Gonzalez Greenberg MD Start: 09-24-2015 End: 09-25-2015 *CBC with Differential Gonzalez Greenberg MD Start: 09-24-2015 End: 09-25-2015 *Hepatic Function Panel Steve French Start: 09-24-2015 End: 09-24-2015 EXERCISE INSTRUCTOR Gonzalez Greenberg MD Start: 09-24-2015 End: 10-07-2015 Echocardiography Gonzalez Greenberg MD Start: 09-24-2015 End: 09-24-2015 Follow Up Appt 6 months Steve French Start: 09-24-2015 End: 09-25-2015 Lipid 1996 panel - Serum or Plasma Gonzalez Greenberg MD Start: 09-24-2015 End: 10-07-2015 Nuclear stress test -exercise Gonzalez Ward MD Start: 09-24-2015 End: 09-25-2015 Thyrotropin [Units/volume] in Serum or Plasma Gonzalez Greenberg MD Start: 09-24-2015 End: 09-25-2015 *BMP Gonzalez Greenberg MD Start: 09-24-2015 End: 09-25-2015 *CBC with Differential Gonzalez Greenberg MD Start: 09-24-2015 End: 09-25-2015 *Hepatic Function Panel Steve French Start: 09-24-2015 End: 09-24-2015 EXERCISE INSTRUCTOR Gonzalez Greenberg MD Start: 09-24-2015 End: 10-07-2015 Echocardiography Gonzalez Greenberg MD Start: 09-24-2015 End: 09-24-2015 Follow Up Appt 6 months Steve French Start: 09-24-2015 End: 09-25-2015 Lipid panel [AGGREGATE] Steve French Start: 09-24-2015 End: 10-07-2015 Nuclear stress test -exercise Gonzalez Ward MD Start: 09-24-2015 End: 09-25-2015 Thyroid stimulating hormone (TSH) Gonzalez Greenberg MD Start: 03-19-2015 End: 03-19-2015 GEORGE Greenberg MD Start: 03-19-2015 End: 03-20-2015 Documentation of current medications Gonzalez Greenberg MD Start: 03-19-2015 End: 03-19-2015 Follow Up Appt 6 months Steve French Start: 03-19-2015 End: 03-19-2015 GEORGE Greenberg MD Start: 03-19-2015 End: 03-20-2015 Documentation of current medications Gonzalez Greenberg MD Start: 03-19-2015 End: 03-19-2015 Follow Up Appt 6 months Steve French Start: 08-10-2014 End: 08-10-2014 GEORGE Greenberg MD Start: 08-10-2014 End: 08-10-2014 Follow Up Appt 6 months Steve French Start: 08-10-2014 End: 08-10-2014 GEORGE Greenberg MD Start: 08-10-2014 End: 08-10-2014 Follow Up Appt 6 months Steve Frecnh Start: 02-23-2014 End: 02-23-2014 Follow Up Appt 6 months Steve French Start: 02-23-2014 End: 02-23-2014 MELIA Greenberg MD Start: 02-23-2014 End: 02-23-2014 Follow Up Appt 6 months Steve French Start: 02-23-2014 End: 02-23-2014 MELIA Greenberg MD Start: 06-23-2013 End: 06-23-2013 GEORGE Greenberg MD Start: 06-23-2013 End: 06-23-2013 Follow Up Appt 6 months Steve French Start: 06-23-2013 End: 06-23-2013 GEORGE Greenberg MD Start: 06-23-2013 End: 06-23-2013 Follow Up Appt 6 months Steve French Start: 03-17-2013 End: 03-17-2013 GEORGE Greenberg MD Start: 03-17-2013 End: 03-17-2013 Follow Up Appt 3 months Steve French Start: 03-17-2013 End: 03-17-2013 GEORGE Greenberg MD Start: 03-17-2013 End: 03-17-2013 Follow Up Appt 3 months Steve French Start: 08-10-2012 End: 08-10-2012 Follow Up Appt 6 months Steve French Start: 08-10-2012 End: 08-10-2012 Follow Up Appt 6 months Steve French Start: 11-24-2011 End: 11-24-2011 Ecg routine ecg w/least 12 lds w/i&r Gonzalez Greenberg MD Start: 11-24-2011 End: 12-15-2011 Echocardiography Gonzalez Greenberg MD Start: 11-24-2011 End: 11-24-2011 Follow Up Appt 6 months Steve French Start: 11-24-2011 End: 12-15-2011 Echocardiography Gonzalez Greenberg MD Start: 11-24-2011 End: 11-24-2011 Electrocardiogram, complete Gonzalez Goldsmith i, MD Start: 11-24-2011 End: 11-24-2011 Follow Up Appt 6 months Steve French Plan of Treatment Date Care Activity Detail Author Start: 06-30-2025 DIABETES SCREEN DIABETES SCREEN [facility] Start: 06-30-2025 Diabetes Screening Diabetes Screenin g [facility] Start: 04-30-2023 Influenza vaccination C [facility] Start: 09-29-2022 End: 10-15-2023 Ct angiography chest w/contrast/noncontrast CTA CHEST (NONGATED) W IVCON Radiology Routine Dyspnea, unspecified type Atrial fibrillation, persistent (HCC) Expected: 09/29/2022, Expires: 10/15/2023 [facility] Work Phone: Immunizations Immunization Date Immunization Notes Care Provider Fa cili 06-18-2022 [id number] bival elizabeth 1 DEZ TELLO DO [facility] Payers Date Payer Category Payer Medicare [id number] 2021 Private Health Insurance [facility] AARP SUPPLEMENT [id number] 2021-Present [phone] [address] [place] [address] Indemnity [id number] 2020 Unknown AARP AARP [id number] 2020-Present [address] [place] [address] [id number] 2020 Unknown [id number] 2010 Medicare [id number] 2010 Medicare [id number] 1945 Unknown [id number] 1945 Unknown [id number] 1945 Unknown [id number] 1945 Unknown [id number] 1945 Unknown [id number] 1945 Unknown [id number] Social History Date Type Detail Facility Start: 12-11-2019 End: 04-22-2022 Never smoked tobacco (finding) [facility] Sex Assigned At Male [facility] Tobacco smoking status [facility] Start: 1945 Sex Assigned At Not on file [facility] Start: 04-22-2022 Tobacco use and exposure Smokeless tobacco non-user [facility] Start: 04-29-2022 End: 03-29-2023 Alcohol intake Current drinker of alcohol (finding) [facility] Start: 04-22-2022 History SDOH Alcohol Comment OCCASIONAL [facility] Start: 04-19-2022 End: 06-29-2022 Exposure to SARS-CoV-2 (event) Not sure [facility] Start: 03-29-2023 History of Social function [facility] Start: 03-29-2023 Tobacco use panel [facility] National Score (1-100), lower number is lower risk 72 [facility] Clinical Notes 12-13-2021 to 07-07-2023 Telephone Encounter - Lauryn Bond RN - 05/21/2023 3:51 PM EDTTelephone Encounter - Eugenia العلي RN - 05/21/2023 2:13 PM EDTTelephone Encounter - Eugenia العلي RN - 05/20/2023 11:37 AM EDT Note Date & Type Note Facility 07-07-2023 Note HNO ID: [id number] Author: Dez Smith MD Service: ? Author Type: Physician Type: Progress Notes Filed: 07/07/2023 12:11 PM Note Text: PRIMARY CARE PHYSICIAN: Dez Tello [address] [place] [address] Patient Care Team: Dez Tello DO as PCP - General (Family Medicine) Gonzalez Greenberg MD as Specialty Health Administrator (Cardiology) Huber Campos MD as Specialty Health Administrator (Urology) Dez Smith MD as Specialty Health Administrator (Cardiology) CHIEF COMPLAINT: Follow-up for arrhythmia, atrial fibrillation HISTORY OF PRESENT ILLNESS: Mr. Goodwin is a 77 year old male who presents today for a cardiovascular medicine follow-up visit. History copied from previous notes, edited as needed: Dr. Smith office note 04/29/2022: Mr. Goodwin is a 76 year old male who presents today with his for evaluation of atrial fibrillation. The atrial fibrillation was diagnosed in about 2003, at that time he had evidently presented with TIA. Apparently over the years he had paroxysmal episodes, fairly infrequently but then increasing in frequency and duration over time. In September 2020 he experienced a stroke with therapeutic anticoagulation on warfarin. The warfarin was discontinued and he was switched to Eliquis. Sometime in early 2020 he was found to have persistent atrial fibrillation. He underwent electrical cardioversion in December 2020, but the atrial fibrillation recurred after about 1 week. He did undergo another electrical cardioversion shortly thereafter, but the atrial fibrillation again recurred fairly quickly. He does not recall anything done differently between the two cardioversions, such as antiarrhythmic drug therapy. He has been noted in 2020 to have dilated cardiomyopathy, LVEF 15 to 20%, and most recently in September 2021 a repeat echocardiogram revealed LVEF 25%. He has been treated with heart failure medication regimen. He was treated with amiodarone recently, had been evaluated by Dr. Martins at [facility] 03/31/2022. Dr. Matrins was concerned about the possibility that the atrial fibrillation, particularly rapid ventricular response rates, might have contributed to the cardiomyopathy. So he did recommend an aggressive approach to advent and maintenance of sinus rhythm, including antiarrhythmic drug therapy and catheter ablation for the atrial fibrillation and also atrial flutter. He recommended amiodarone, Mr. Goodwin states he took 400 mg for about a week 04/06/2022 - 04/15/2022 when he reduced the dose to 200 mg daily due to headaches. Dr. Martins's office contacted Mr. Goodwin to schedule the catheter ablation procedure, but Mr. Goodwin wanted to get my opinion before proceeding. He experiences exertional shortness of breath and extreme fatigue --- his states that he cannot walk very far without becoming very short of breath and tired. He does not experience palpitations. H/P update Deb Allen, JHONNY 06/29/2022: The patient continues to experience exertional dyspnea and fatigue which he attributes to the atrial arrhythmia. He otherwise feels in his usual state of health. He is currently getting an echo at the bedside. He is accompanied by his spouse and daughter today. He was unsure if he was supposed to stop the Eliquis, states I do not want my blood too thin, he believes he missed his dose last night, and did not take the Eliquis this morning, will order stat dose to be given prior to procedure, he denies any bleeding issues. We will also inform the EP lab and Dr. Smith. Amiodarone has been on hold, as instructed by Dr. Smith, patient's last dose was 06/23/2022. He denies chest discomfort, palpitations, lightheadedness, dizziness, near-syncope or syncope. He denies any issues with anesthesia or sedation medications. He is nervous, but is ready to proceed today with scheduled radiofrequency catheter ablation of atrial fibrillation and atrial flutter with Dr. Smith. All questions answered to their apparent satisfaction. Interval History Deb Allen CNP 11/27/2022: The patient underwent radiofrequency catheter ablation for atrial fibrillation with Dr. Smith 06/29/2022, he was discharged the next day, amiodarone was not restarted. Weekly transtelephonic monitoring performed 07/07/2022 - 09/15/2022 appears to be sinus bradycardia with rates in the 50s. Echocardiogram performed 09/14/2022 at [facility] indicates LVEF 50%. He underwent 3-month post ablation testing prior to today's appointment which includes a CT of the chest, echocardiogram and 24-hour Holter monitor was applied. Mr. Goodwin reports he has been well since the ablation procedure, has not had symptomatic or documented recurrence. He is very pleased with his results, he reports increased energy and decreased exertional dyspnea. He remains anticoagulated with Eliquis, (more content not included)... [facility] 05-21-2023 Miscellaneous Notes Spoke with CAROLANN Salamanca at [facility] she will give Dr. Greenberg's the message to schedule the cardioversion if he is still available. Will give us a call back if there is a problem scheduling. Lauryn Bond RN Spoke with pt. Notified of Deb's message. He reports he will reach out to Dr greenberg who was willing to do DCC. Eugenia العلي RN EKG has not yet been received, if Dr. Greenberg is willing to do cardioversion, would probably be the best option, as Dr. Smith is unavailable for procedures for at least the next 1.5 weeks, though cardioversion could be performed by one of Dr. Smith's partners if needed. Nayla Allen APRN.CNP Received a call from Jadyn VUONG at Dr. Greenberg who wanted to inform Dr. Smith that patient arrived to office for EKG since he wasn't feeling well. EKG indicated atrial fibrillation with heart rate in the 100's. Remains on Eliquis, Dr. Greenberg increased carvedilol. Jadyn will be faxing over the EKG for Dr. Smith to review. Dr. Greenberg willing to perform cardioversion if ok with Dr. Smith. Lauryn Bond RN Pt calls to report Dr Greenberg's office was to send recent EKG and labs. He reports he is back in afib with HRs 110s bpm. He reports Dr Greenberg increased his coreg from 12.5 mg BID to 25 mg BID. He reports his HR remains 110s bpm. Euegnia العلي RN documented in this encounter [facility] 03-29-2023 Note HNO ID: [id number] Author: Dez Smith MD Service: ? Author Type: Physician Type: Progress Notes Filed: 03/29/2023 7:34 PM Note Text: PRIMARY CARE PHYSICIAN: Dez Tello [address] [place] [address] Patient Care Team: eDz Tello DO as PCP - General (Family Medicine) Gonzalez Greenberg as Specialty Health Administrator (Cardiology) Huber Campos MD as Specialty Health Administrator (Urology) CHIEF COMPLAINT: Follow-up for arrhythmia HISTORY OF PRESENT ILLNESS: Mr. Goodwin is a 77 year old male who presents today for a cardiovascular medicine follow-up visit. History copied from previous notes, edited as needed: Dr. Smith office note 04/29/2022: Mr. Goodwin is a 76 year old male who presents today with his for evaluation of atrial fibrillation. The atrial fibrillation was diagnosed in about 2003, at that time he had evidently presented with TIA. Apparently over the years he had paroxysmal episodes, fairly infrequently but then increasing in frequency and duration over time. In September 2020 he experienced a stroke with therapeutic anticoagulation on warfarin. The warfarin was discontinued and he was switched to Eliquis. Sometime in early 2020 he was found to have persistent atrial fibrillation. He underwent electrical cardioversion in December 2020, but the atrial fibrillation recurred after about 1 week. He did undergo another electrical cardioversion shortly thereafter, but the atrial fibrillation again recurred fairly quickly. He does not recall anything done differently between the two cardioversions, such as antiarrhythmic drug therapy. He has been noted in 2020 to have dilated cardiomyopathy, LVEF 15 to 20%, and most recently in September 2021 a repeat echocardiogram revealed LVEF 25%. He has been treated with heart failure medication regimen. He was treated with amiodarone recently, had been evaluated by Dr. Martins at [facility] 03/31/2022. Dr. Martins was concerned about the possibility that the atrial fibrillation, particularly rapid ventricular response rates, might have contributed to the cardiomyopathy. So he did recommend an aggressive approach to advent and maintenance of sinus rhythm, including antiarrhythmic drug therapy and catheter ablation for the atrial fibrillation and also atrial flutter. He recommended amiodarone, Mr. Goodwin states he took 400 mg for about a week 04/06/2022 - 04/15/2022 when he reduced the dose to 200 mg daily due to headaches. Dr. Martins's office contacted Mr. Goodwin to schedule the catheter ablation procedure, but Mr. Goodwin wanted to get my opinion before proceeding. He experiences exertional shortness of breath and extreme fatigue --- his states that he cannot walk very far without becoming very short of breath and tired. He does not experience palpitations. H/P update Deb Allen, JHONNY 06/29/2022: The patient continues to experience exertional dyspnea and fatigue which he attributes to the atrial arrhythmia. He otherwise feels in his usual state of health. He is currently getting an echo at the bedside. He is accompanied by his spouse and daughter today. He was unsure if he was supposed to stop the Eliquis, states I do not want my blood too thin, he believes he missed his dose last night, and did not take the Eliquis this morning, will order stat dose to be given prior to procedure, he denies any bleeding issues. We will also inform the EP lab and Dr. Smith. Amiodarone has been on hold, as instructed by Dr. Smith, patient's last dose was 06/23/2022. He denies chest discomfort, palpitations, lightheadedness, dizziness, near-syncope or syncope. He denies any issues with anesthesia or sedation medications. He is nervous, but is ready to proceed today with scheduled radiofrequency catheter ablation of atrial fibrillation and atrial flutter with Dr. Smith. All questions answered to their apparent satisfaction. Interval History Deb Allen GIS ANALYST 11/27/2022: The patient underwent radiofrequency catheter ablation for atrial fibrillation with Dr. Smith 06/29/2022, he was discharged the next day, amiodarone was not restarted. Weekly transtelephonic monitoring performed 07/07/2022 - 09/15/2022 appears to be sinus bradycardia with rates in the 50s. Echocardiogram performed 09/14/2022 at [facility] indicates LVEF 50%. He underwent 3-month post ablation testing prior to today's appointment which includes a CT of the chest, echocardiogram and 24-hour Holter monitor was applied. Mr. Goodwin reports he has been well since the ablation procedure, has not had symptomatic or documented recurrence. He is very pleased with his results, he reports increased energy and decreased exertional dyspnea. He remains anticoagulated with Eliquis, denies any bleeding issues. He denies chest discomfort, palpitations, lightheadedness (more content not included)... [facility] 12-18-2022 Miscellaneous Notes I spoke to Ilya and informed her of 's response to monitor results. She voiced understanding and will relay message to patient when he wakes up. Radha Gooden LPN Please let Mr. Goodwin know that the heart monitoring testing showed no significant atrial fibrillation. Looked good overall. Dez Smith MD December 17, 2022 8:47 PM documented in this encounter [facility] 12-07-2022 Miscellaneous Notes called in and wanted to be aware he completed Chest CTA on 11/27/2022. Results are in Epic for review. Radha Gooden LPN documented in this encounter [facility] 11-27-2022 Note HNO ID: [id number] Author: Nayla Allen APRN.GIS ANALYST Service: ? Author Type: Nurse Practitioner Type: Progress Notes Filed: 11/27/2022 2:12 PM Note Text: [facility] General Cardiology Electrophysiology PRIMARY CARE PHYSICIAN: Dez Tello [address] [place] [address] CHIEF COMPLAINT: Cardiovascular medicine follow-up for arrhythmia. HISTORY OF PRESENT ILLNESS: Mr. Goodwin is a 76 year old male who presents today for follow-up regarding arrhythmia. History copied from previous notes, edited as needed: Dr. Smith office note 04/29/2022: Mr. Goodwin is a 76 year old male who presents today with his for evaluation of atrial fibrillation. The atrial fibrillation was diagnosed in about 2003, at that time he had evidently presented with TIA. Apparently over the years he had paroxysmal episodes, fairly infrequently but then increasing in frequency and duration over time. In September 2020 he experienced a stroke with therapeutic anticoagulation on warfarin. The warfarin was discontinued and he was switched to Eliquis. Sometime in early 2020 he was found to have persistent atrial fibrillation. He underwent electrical cardioversion in December 2020, but the atrial fibrillation recurred after about 1 week. He did undergo another electrical cardioversion shortly thereafter, but the atrial fibrillation again recurred fairly quickly. He does not recall anything done differently between the two cardioversions, such as antiarrhythmic drug therapy. He has been noted in 2020 to have dilated cardiomyopathy, LVEF 15 to 20%, and most recently in September 2021 a repeat echocardiogram revealed LVEF 25%. He has been treated with heart failure medication regimen. He was treated with amiodarone recently, had been evaluated by Dr. Martins at [facility] 03/31/2022. Dr. Martins was concerned about the possibility that the atrial fibrillation, particularly rapid ventricular response rates, might have contributed to the cardiomyopathy. So he did recommend an aggressive approach to advent and maintenance of sinus rhythm, including antiarrhythmic drug therapy and catheter ablation for the atrial fibrillation and also atrial flutter. He recommended amiodarone, Mr. Goodwin states he took 400 mg for about a week 04/06/2022 - 04/15/2022 when he reduced the dose to 200 mg daily due to headaches. Dr. Martins's office contacted Mr. Goodwin to schedule the catheter ablation procedure, but Mr. Goodwin wanted to get my opinion before proceeding. He experiences exertional shortness of breath and extreme fatigue --- his states that he cannot walk very far without becoming very short of breath and tired. He does not experience palpitations. H/P update Deb Allen, GIS ANALYST 06/29/2022: The patient continues to experience exertional dyspnea and fatigue which he attributes to the atrial arrhythmia. He otherwise feels in his usual state of health. He is currently getting an echo at the bedside. He is accompanied by his spouse and daughter today. He was unsure if he was supposed to stop the Eliquis, states I do not want my blood too thin, he believes he missed his dose last night, and did not take the Eliquis this morning, will order stat dose to be given prior to procedure, he denies any bleeding issues. We will also inform the EP lab and Dr. Smith. Amiodarone has been on hold, as instructed by Dr. Smith, patient's last dose was 06/23/2022. He denies chest discomfort, palpitations, lightheadedness, dizziness, near-syncope or syncope. He denies any issues with anesthesia or sedation medications. He is nervous, but is ready to proceed today with scheduled radiofrequency catheter ablation of atrial fibrillation and atrial flutter with Dr. Smith. All questions answered to their apparent satisfaction. Interval History: The patient underwent radiofrequency catheter ablation for atrial fibrillation with Dr. Smith 06/29/2022, he was discharged the next day, amiodarone was not restarted. Weekly transtelephonic monitoring performed 07/07/2022 - 09/15/2022 appears to be sinus bradycardia with rates in the 50s. Echocardiogram performed 09/14/2022 at [facility] indicates LVEF 50%. He underwent 3-month post ablation testing prior to today's appointment which includes a CT of the chest, echocardiogram and 24-hour Holter monitor was applied. Mr. Goodwin reports he has been well since the ablation procedure, has not had symptomatic or documented recurrence. He is very pleased with his results, he reports increased energy and decreased exertional dyspnea. He remains anticoagulated with Eliquis, denies any bleeding issues. He denies chest discomfort, palpitations, lightheadedness, dizziness, near-syncope or syncope. PAST MEDICAL HISTORY Diagnosis Date Acute CVA (cerebrovascular accident) (HCC) (more content not included)... [facility] 11-27-2022 Instructions Nayla Allen APRN.GIS ANALYST - 11/27/2022 2:02 PM EDT Atrial Fibrillation What is atrial fibrillation? Atrial fibrillation (also called A-fib) is a fast or irregular heartbeat that starts in the upper chambers of the heart. The abnormal heartbeat affects the ability of the heart to pump blood to the rest of the body. What is the cause? An electrical signal in your heart starts each heartbeat, causing the heart muscle to squeeze (contract). Normally, this signal starts in the upper right chamber of the heart (the right atrium) at a place called the sinus node. The signal then follows normal pathways to the upper left atrium and to the lower chambers of the heart (the ventricles). When you have atrial fibrillation, electrical signals don t start in the normal place in the right atrium and don t travel normally. This can cause the upper chambers of the heart (atria) to beat very fast and not in a normal pattern. Common causes of heart rhythm problems are conditions that damage the heart, like coronary artery disease, heart attack, or heart failure. Problems with the heart valves are another common cause. The heart has 4 valves that open and close with each heartbeat to help blood flow in the right direction through the heart. Other causes of atrial fibrillation include: Health problems, such as a stroke, lung disease, diabetes, overactive thyroid gland, or high blood pressure Abuse of alcohol or drugs, such as cocaine Sometimes no cause can be found. What are the symptoms? Some people don t have any symptoms. When atrial fibrillation does cause symptoms, the most common ones are: Feeling like your heart is beating too fast or too hard or skipping beats or fluttering Feeling tired or weak all the time Symptoms that are more serious include: Chest pain Trouble breathing Lightheadedness or dizziness confusion How is it diagnosed? Your healthcare provider will ask about your symptoms and medical history and examine you. Tests may include: An ECG (also called an EKG), which measures and records your heartbeat. You may have an ECG while you are resting or while you exercise on a treadmill. You may also be asked to wear a small portable ECG monitor for a few days or sometimes a couple weeks. Blood tests An echocardiogram, which uses sound waves (ultrasound) to show the structures of the heart, like the valves How is it treated? The goal of treatment is to help the heart keep a normal rhythm. Your treatment depends on the cause of the atrial fibrillation, how often you have symptoms, and the severity of your symptoms. If you have no symptoms, or your symptoms are fairly mild, you may not need treatment. For some people atrial fibrillation lasts just a short time and the heart goes back to a normal rhythm on its own. If you keep having spells of atrial fibrillation, treatment may help keep you from having so many spells. If a health problem like a leaky heart valve is causing the atrial fibrillation, treating the health problem may also treat the fast or irregular heartbeat. Other possible treatments are: Medicine: Your provider may prescribe medicine to slow or restore a normal heart rate and rhythm. You may also need medicine to prevent blood clots because when the heart beats irregularly, some of the blood can stay in the upper chambers too long. This makes it easier for blood clots to form, increasing your risk of having a stroke or heart attack. Electrical cardioversion: First, you will be given medicine called anesthesia to keep you from feeling pain during the procedure. Then your chest will be given an electrical shock. The electrical shock should make your heart start beating normally again. You may need medicine to keep your heart rhythm normal after this procedure. Ablation: Ablation is a procedure that uses a small tube called a catheter to deliver energy to the inside of the heart. The energy (usually radio waves) scars small areas of heart tissue. The scars block abnormal electrical pathways and help you have a normal heart rhythm. With some types of ablation treatment, you will also need a pacemaker. A pacemaker is an electronic device put under the skin of your chest to help control the heartbeat. How can I take care of myself? Take your medicines as prescribed. Keep your appointments for follow-up blood tests. Make sure your healthcare provider knows about changes in your diet or medical condition. Your provider also needs to know about all prescription and nonprescription medicines, herbs, or supplements that you are taking. Some medicines may interact with your heart medicine or increase your risk for atrial fibrillation. If you want to drink alcohol, ask your provider how much is safe for you to drink. Follow your healthcare provider's instructions. Ask your provider: ?How and when you will hear your test results ?How long it will take to recover ?What activities you should avoid and when you can return to your normal activities ?How to take care of yourself at home ?What symptoms or problems you should watch for and what to do if you have them Make sure you know when you should come back for a checkup. How can I help prevent atrial fibrillation? The best prevention is to have a heart-healthy lifestyle. Keep a healthy weight. Eat a healthy diet that is low in sodium and saturated and trans fat. Stay fit with the right kind of exercise for you. Decrease stress. Don t smoke. Limit your use of alcohol. If you have heart disease or high blood pressure, follow your healthcare provider's instructions for treatment. Copyright 2014 [employer] and/or one of its subsidiaries. All rights reserved. documented in this encounter [facility] 11-27-2022 History of Presen t illness Narrative Images from the original note were not included. [facility] General Cardiology Electrophysiology PRIMARY CARE PHYSICIAN: Dez Tello [address] [place] [id number] CHIEF COMPLAINT: Cardiovascular medicine follow-up for arrhythmia. HISTORY OF PRESENT ILLNESS: Mr. Goodwin is a 76 year old male who presents today for follow-up regarding arrhythmia. History copied from previous notes, edited as needed: Dr. Smith office note 04/29/2022: Mr. Goodwin is a 76 year old male who presents today with his for evaluation of atrial fibrillation. The atrial fibrillation was diagnosed in about 2003, at that time he had evidently presented with TIA. Apparently over the years he had paroxysmal episodes, fairly infrequently but then increasing in frequency and duration over time. In September 2020 he experienced a stroke with therapeutic anticoagulation on warfarin. The warfarin was discontinued and he was switched to Eliquis. Sometime in early 2020 he was found to have persistent atrial fibrillation. He underwent electrical cardioversion in December 2020, but the atrial fibrillation recurred after about 1 week. He did undergo another electrical cardioversion shortly thereafter, but the atrial fibrillation again recurred fairly quickly. He does not recall anything done differently between the two cardioversions, such as antiarrhythmic drug therapy. He has been noted in 2020 to have dilated cardiomyopathy, LVEF 15 to 20%, and most recently in September 2021 a repeat echocardiogram revealed LVEF 25%. He has been treated with heart failure medication regimen. He was treated with amiodarone recently, had been evaluated by Dr. Martins at [facility] 03/31/2022. Dr. Martins was concerned about the possibility that the atrial fibrillation, particularly rapid ventricular response rates, might have contributed to the cardiomyopathy. So he did recommend an aggressive approach to advent and maintenance of sinus rhythm, including antiarrhythmic drug therapy and catheter ablation for the atrial fibrillation and also atrial flutter. He recommended amiodarone, Mr. Goodwin states he took 400 mg for about a week 04/06/2022 - 04/15/2022 when he reduced the dose to 200 mg daily due to headaches. Dr. Martins's office contacted Mr. Goodwin to schedule the catheter ablation procedure, but Mr. Goodwin wanted to get my opinion before proceeding. He experiences exertional shortness of breath and extreme fatigue --- his states that he cannot walk very far without becoming very short of breath and tired. He does not experience palpitations. H/P update Deb Allen, GIS ANALYST 06/29/2022: The patient continues to experience exertional dyspnea and fatigue which he attributes to the atrial arrhythmia. He otherwise feels in his usual state of health. He is currently getting an echo at the bedside. He is accompanied by his spouse and daughter today. He was unsure if he was supposed to stop the Eliquis, states I do not want my blood too thin, he believes he missed his dose last night, and did not take the Eliquis this morning, will order stat dose to be given prior to procedure, he denies any bleeding issues. We will also inform the EP lab and Dr. Smith. Amiodarone has been on hold, as instructed by Dr. Smith, patient's last dose was 06/23/2022. He denies chest discomfort, palpitations, lightheadedness, dizziness, near-syncope or syncope. He denies any issues with anesthesia or sedation medications. He is nervous, but is ready to proceed today with scheduled radiofrequency catheter ablation of atrial fibrillation and atrial flutter with Dr. Smith. All questions answered to their apparent satisfaction. Interval History: The patient underwent radiofrequency catheter ablation for atrial fibrillation with Dr. Smith 06/29/2022, he was discharged the next day, amiodarone was not restarted. Weekly transtelephonic monitoring performed 07/07/2022 - 09/15/2022 appears to be sinus bradycardia with rates in the 50s. Echocardiogram performed 09/14/2022 at [facility] indicates LVEF 50%. He underwent 3-month post ablation testing prior to today's appointment which includes a CT of the chest, echocardiogram and 24-hour Holter monitor was applied. Mr. Goodwin reports he has been well since the ablation procedure, has not had symptomatic or documented recurrence. He is very pleased with his results, he reports increased energy and decreased exertional dyspnea. He remains anticoagulated with Eliquis, denies any bleeding issues. He denies chest discomfort, palpitations, lightheadedness, dizziness, near-syncope or syncope. PAST MEDICAL HISTORY Diagnosis Date Acute CVA (cerebrovascular accident) (HCC) 10/25/2020 MRI demonstrated small acute left posterior frontal lobe, precentral gyrus and cortical infarct Anticoagulant long-term use indication: stroke prevention atrial fibrillation/flutter At risk for stroke [id number] = 6 (CHF, HTN, age2, TIA/stroke) CHF (congestive heart failure) ([facility]) Chronic combined systolic and diastolic CHF (congestive heart failure) (HCC) Dilated cardiomyopathy ([facility]) Essential hypertension Exertional shortness of breath Fatigue Left bundle-branch block, unspecified FPC current use of amiodarone FPC current use of antiarrhythmic drug Mixed hyperlipidemia Paroxysmal atrial flutter (HCC) Persistent atrial fibrillation ([facility]) symptomatic; refractory to medical therapy including antiarrhythmic drug; s/p catheter ablation 06/29/2022 Status post catheter ablation of atrial fibrillation 06/29/2022 RF catheter ablation/PVAI 06/29/2022 Status post catheter ablation of atrial flutter 06/29/2022 typical right atrial flutter RF catheter ablation 06/29/2022 TIA (transient ischemic attack) Typical atrial flutter (HCC) PAST SURGICAL HISTORY Procedure Laterality Date AFIB ABLATION/PULM VEIN ISOLATION 06/29/2022 RF catheter ablation/PVAI; ST/SF, [place]; [facility] Dr. Smith APPENDECTOMY BACK SURGERY HX 1981 CARDIOVERSION 12/30/2020 ECHOCARDIOGRAM 09/14/2022 [facility]; see scanned documents EPS: SVT ABLATION Right 06/29/2022 typical right atrial flutter (cavotricuspid isthmus) RF catheter ablation; [facility] Dr. Smith KNEE SURGERY HX 1983 LEFT HEART CATH,PERCUTANEOUS 10/17/2015 REPAIR UMBILICAL HERNIA history of Social History Tobacco Use Smoking status: Never Smokeless tobacco: Never Substance Use Topics Alcohol use: Yes Comment: OCCASIONAL Drug use: Never Family History Problem Relation Age of Onset Hypertension Mother Stroke Mother Lung Cancer Father other (tobacco use) Father Breast Cancer Sister Arrhythmia Sister atrial fibrillation Arrhythmia Sister atrial fibrillation ALLERGIES Allergen Reactions Baclofen Rash MEDICATIONS: multivit-min/FA/lycopen/lutein (CENTRUM SILVER MEN ORAL)^Take 1 tablet by mouth once daily.^Disp: ^Rfl: cholecalciferol (VITAMIN D) 1,000 unit tab tablet^Take 1,000 Units by mouth once daily.^Disp: ^Rfl: finasteride (PROSCAR) 5 mg tablet^Take 5 mg by mouth once daily.^Disp: ^Rfl: potassium chloride ER (K-DUR, KLOR-CON) 20 mEq tablet^Take 20 mEq by mouth once daily.^Disp: ^Rfl: simvastatin (ZOCOR) 20 mg tablet^Take 20 mg by mouth daily at bedtime.^Disp: ^Rfl: tamsulosin (FLOMAX) 0.4 mg^Take 0.4 mg by mouth daily at bedtime.^Disp: ^Rfl: losartan (COZAAR) 50 mg tablet^Take 50 mg by mouth once daily.^Disp: ^Rfl: furosemide (LASIX) 40 mg tablet^Take 40 mg by mouth once daily.^Disp: ^Rfl: spironolactone (ALDACTONE) 25 mg tablet^Take 25 mg by mouth once daily.^Disp: ^Rfl: apixaban (ELIQUIS) 5 mg tab(s)^Take 5 mg by mouth twice daily.^Disp: ^Rfl: carvedilol (COREG) 25 mg tablet^Take 12.5 mg by mouth twice daily with meals.^Disp: ^Rfl: REVIEW OF SYSTEMS: Review of Systems Constitutional: Positive for malaise/fatigue. Negative for chills, diaphoresis and fever. HENT: Negative for nosebleeds. Respiratory: Positive for shortness of breath (exertional, improved since ablation). Negative for cough, hemoptysis, sputum production and wheezing. Cardiovascular: Negative for chest pain, palpitations, orthopnea, leg swelling and PND. Gastrointestinal: Negative for blood in stool. Genitourinary: Negative for hematuria. Musculoskeletal: Negative for falls and myalgias. Neurological: Negative for dizziness, loss of consciousness and headaches. Endo/Heme/Allergies: Does not bruise/bleed easily. PHYSICAL EXAMINATION: BP 129/66 Pulse 66 Ht 5' 9 (1.75m) Wt 226 lb (102.5kg) SpO2 96% BMI 33.36 kg/(m^2). Physical Exam Vitals and nursing note reviewed. Constitutional: General: He is not in acute distress. Appearance: He is not diaphoretic. HENT: Head: Normocephalic and atraumatic. Neck: Vascular: No JVD. Cardiovascular: Rate and Rhythm: Normal rate and regular rhythm. Pulses: Radial pulses are 2+ on the right side and 2+ on the left side. Posterior tibial pulses are 2+ on the right side and 2+ on the left side. Heart sounds: S1 normal and S2 normal. No murmur heard. No gallop. Pulmonary: Effort: Pulmonary effort is normal. No respiratory distress. Breath sounds: Normal breath sounds. No wheezing or rales. Chest: Chest wall: No tenderness. Musculoskeletal: General: Normal range of motion. Cervical back: Neck supple. Right lower leg: No edema. Left lower leg: No edema. Skin: General: Skin is warm and dry. Nails: There is no clubbing. Neurological: Mental Status: He is alert and oriented to person, place, and time. Psychiatric: Mood and Affect: Mood and affect normal. Behavior: Behavior normal. CARDIOVASCULAR MEDICINE TESTING: Echocardiogram: 06/29/2022 CONCLUSIONS: - Technically difficult exam due to body habitus. - Exam indication: Evaluation of known cardiomyopathy with a change in clinical status - The left ventricle is normal in size. There is no left ventricular hypertrophy. Left ventricular systolic function is severely decreased. Regional wall motion abnormalities as per above with EF = 25 5% (2D biplane). Definity contrast used for endocardial border detection. Left ventricular diastolic function was not evaluated due to AF. - No evidence of LV apical thrombus noted by Definity contrast evaluation. - The right ventricle is normal in size. Right ventricular systolic function is normal. - No significant valve disease. - Exam was compared with the prior OUTSIDE echocardiographic exam performed on 10/16/2021. No significant change noted when compared to report of prior study. Weekly transtelephonic monitoring (TTM) reviewed: 07/07/2022 - 09/15/2022: Challenging to discern atrial activity, ventricular intervals regular, appears to be sinus bradycardia with rates in the 50s. Echocardiogram: 09/14/2022 ([facility]) - Hypermobile atrial septum. - Normal LV size. - Left ventricular systolic function is lower limits of normal. - The estimated ejection fraction is 50%. - Contrast injection was performed. Compared to previous study, the left ventricular systolic function has improved. Echocardiogram: 11/27/2022, results pending. Holter Monitor: Applied 11/27/2022. CT Chest Scan: 11/27/2022, results pending. I have personally reviewed the Electrocardiogram: 11/27/2022 -normal sinus rhythm with sinus arrhythmia, LBBB, 64 bpm, PA 172 ms, QRS 140 ms, QT/QTc 456/470 ms. PLAN AND RECOMMENDATIONS: ASSESSMENT/PLAN: 1. Persistent atrial fibrillation (HCC) - ICD9: 427.31, ICD10: I48.19 (primary diagnosis) 2. Typical atrial flutter (HCC) - ICD9: 427.32, ICD10: I48.3 3. Status post catheter ablation of atrial fibrillation - ICD9: V45.89, ICD10: Z98.890 4. Status post catheter ablation of atrial flutter - ICD9: V45.89, ICD10: Z98.890 -symptomatic; recurrent despite multiple cardioversions and antiarrhythmic drug therapy with amiodarone, subsequently underwent radiofrequency catheter ablation of atrial fibrillation and typical atrial flutter (CTI line) with Dr. Smith 06/29/2022. Amiodarone was discontinued prior to procedure. He was discharged the next day. Weekly transtelephonic monitoring demonstrated likely sinus bradycardia with rates in the 50s. He underwent 3-month postprocedure testing prior to today's appointment which includes a CT of the chest, echocardiogram and 24-hour Holter monitor was applied. He seems to be doing well from a heart rhythm perspective, he will continue Eliquis 5 mg twice daily and carvedilol 12.5 mg twice daily. He will follow-up in [address] Smith or TON, or call sooner should any issues arise, patient verbalizes understanding. 5. Dilated cardiomyopathy (HCC) - ICD9: 425.4, ICD10: I42.0 6. Chronic combined systolic and diastolic CHF (congestive heart failure) (HCC) - ICD9: 428.42, 428.0, ICD10: I50.42 -possibly tachycardia mediated, presently compensated on exam, on medical therapy, echo obtained 09/14/2022 indicates LVEF 50%, improved from 25%. He currently follows with local cable television access coordinator, Dr. Greenberg in [place]. 7. Anticoagulant long-term use - ICD9: V58.61, ICD10: Z79.01 8. At risk for stroke - ICD9: V15.89, ICD10: Z91.89 -persistent atrial fibrillation/flutter, continue Eliquis 5 mg twice daily, no signs of bleeding. CHADS2-Vasc Score Breakdown 6 Total Score 2 Age >= 75 years old 1 History of CHF 1 History of hypertension 2 History of stroke, TIA, or thromboemolism Return in about 3 months (around 02/26/2023) for Dr. Smith or TON. Nayla Allen APRN.JHONNY Medical Decision Making: Problems: Moderate: 2+ stable chronic illnesses Data: Unique source(s) for external note(s) reviewed: 2 Unique test result(s) reviewed: 3+ Unique test(s) ordered: 1 Risk: Moderate: Moderate risk from testing/treatment and Drug management Medical Decision Making Level: 4 - Moderate The above note was partially created using a dictation recognition software. A reasonable attempt has been made to correct any errors. documented in this encounter [facility] 11-27-2022 Note HNO ID: [id number] Author: Jeanne Holloway Sealing And Canceling Machine Operator Service: ? Author Type: Sealing And Canceling Machine Operator Type: Nursing Progress Note Filed: 11/27/2022 11:51 AM Note Text: Holter monitor applied. Pt verbalized understanding of monitor use / diary. [facility] 11-27-2022 Nurse Note Holter monitor applied. Pt verbalized understanding of monitor use / diary. documented in this encounter [facility] 09-15-2022 Miscellaneous Notes Post PVAI orders pended for signature - office will call to schedule documented in this encounter [facility] 07-04-2022 Miscellaneous Notes S/p pvai 06/29/22 Patient called to say that since yesterday is feeling dizzy, more in the morning than evening No trouble breathing. No syncope, chest pain, edema Has been taking his medications regularly No bleeding in groin Appetite good, No dysphagia, No fever No unilateral weakness numbness This morning BP 07/03/22 BP 109/55mmhg 54b[pm 10 AM 64bpm 93/69mmHg 10 35 55 bpm 106/68 Recommend reducing Carvedilol from 25mg twice a day to 12.5mg twice a day Cut the existing pill in half Keep a record of BP - Record before taking AM medications and 2 hours after. If you have persistent symptoms or get worse, or new symptoms, come to hospital. Patient instructed to inform Dr Greenberg as well and about change in medications. Jose J Romano MD documented in this encounter [facility] 06-23-2022 Miscellaneous Notes Pt is lion for ablation on 06/29. Previous office note says that you want an echo prior to ablation. Do you still want this echo done before, we could do it the morning of the procedure? Also pt is stopping amio as of today. Rosa Wharton RN Pt's name has been added to [facility] procedure board. Lauryn Bond RN Patient is scheduled for EPS/Ablation on 06/29/[address] Smith. The hospital will call the day before between 2-5pm with your arrival time. Patient should not eat or drink after midnight the day before the procedure. Patient will need a driver license reviewing officer when released from the hospital. You will stay overnight for observation. Patient should continue to take medications as prescribed the morning of the procedure with just a sip of water unless otherwise instructed. Pt verbalized understanding. Pt will stop taking amiodarone as instructed. Rosa Wharton RN documented in this encounter [facility] 04-29-2022 Nurse Note Patient denies any cardiac issues or symptoms, but does c/o sob, and fatigue and mild chest discomfort at times. documented in this encounter [facility] 04-29-2022 History of Presen t illness Narrative PRIMARY CARE PHYSICIAN: Dez Tello DO [address] [place] [address] REFERRING PHYSICIAN: Gonzalez Greenberg MD ([facility]) [address] [place] [id number] Patient Care Team: Dez Tello as PCP - General (Family Practice) Gonzalez Greenberg as Specialty Health Administrator (Cardiology) Huber Campos as Specialty Health Administrator (Urology) CHIEF COMPLAINT: Evaluation of arrhythmia HISTORY OF PRESENT ILLNESS: Mr. Goodwin is a 76 year old male who presents today with his for evaluation of atrial fibrillation. The atrial fibrillation was diagnosed in about 2003, at that time he had evidently presented with TIA. Apparently over the years he had paroxysmal episodes, fairly infrequently but then increasing in frequency and duration over time. In September 2020 he experienced a stroke with therapeutic anticoagulation on warfarin. The warfarin was discontinued and he was switched to Eliquis. Sometime in early 2020 he was found to have persistent atrial fibrillation. He underwent electrical cardioversion in December 2020, but the atrial fibrillation recurred after about 1 week. He did undergo another electrical cardioversion shortly thereafter, but the atrial fibrillation again recurred fairly quickly. He does not recall anything done differently between the two cardioversions, such as antiarrhythmic drug therapy. He has been noted in 2020 to have dilated cardiomyopathy, LVEF 15 to 20%, and most recently in September 2021 a repeat echocardiogram revealed LVEF 25%. He has been treated with heart failure medication regimen. He was treated with amiodarone recently, had been evaluated by Dr. Martins at [facility] 03/31/2022. Dr. Martins was concerned about the possibility that the atrial fibrillation, particularly rapid ventricular response rates, might have contributed to the cardiomyopathy. So he did recommend an aggressive approach to advent and maintenance of sinus rhythm, including antiarrhythmic drug therapy and catheter ablation for the atrial fibrillation and also atrial flutter. He recommended amiodarone, Mr. Goodwin states he took 400 mg for about a week 04/06/2022 - 04/15/2022 when he reduced the dose to 200 mg daily due to headaches. Dr. Martins's office contacted Mr. Goodwin to schedule the catheter ablation procedure, but Mr. Goodwin wanted to get my opinion before proceeding. He experiences exertional shortness of breath and extreme fatigue --- his states that he cannot walk very far without becoming very short of breath and tired. He does not experience palpitations. I have confirmed and edited as necessary, the PFSH and ROS obtained by others. PAST MEDICAL HISTORY Diagnosis Date Acute CVA (cerebrovascular accident) (HCC) 10/25/2020 MRI demonstrated small acute left posterior frontal lobe, precentral gyrus and cortical infarct Anticoagulant long-term use At risk for stroke CHF (congestive heart failure) (HCC) Chronic combined systolic and diastolic CHF (congestive heart failure) (HCC) Dilated cardiomyopathy (HCC) Essential hypertension Exertional shortness of breath Fatigue Left bundle-branch block, unspecified FPC current use of amiodarone FPC current use of antiarrhythmic drug Mixed hyperlipidemia Paroxysmal atrial flutter (HCC) Persistent atrial fibrillation (HCC) TIA (transient ischemic attack) TIA (transient ischemic attack) Typical atrial flutter (HCC) PAST SURGICAL HISTORY Procedure Laterality Date APPENDECTOMY BACK SURGERY HX 1981 CARDIOVERSION 12/30/2020 KNEE SURGERY HX 1983 LEFT HEART CATH,PERCUTANEOUS 10/17/2015 REPAIR UMBILICAL HERNIA history of SOCIAL HISTORY Social History Tobacco Use Smoking status: Never Smokeless tobacco: Never Substance Use Topics Alcohol use: Yes Comment: OCCASIONAL Drug use: Never FAMILY HISTORY Problem Relation Age of Onset Hypertension Mother Stroke Mother Lung Cancer Father other (tobacco use) Father Breast Cancer Sister Arrhythmia Sister atrial fibrillation Arrhythmia Sister atrial fibrillation ALLERGIES: ALLERGIES Allergen Reactions Baclofen Rash MEDICATIONS: simvastatin (ZOCOR) 20 mg tablet Take 20 mg by mouth daily at bedtime. amiodarone (PACERONE) 200 mg tablet Take 1 tablet by mouth once daily. tamsulosin (FLOMAX) 0.4 mg Take 0.4 mg by mouth daily at bedtime. losartan (COZAAR) 50 mg tablet Take 50 mg by mouth once daily. furosemide (LASIX) 40 mg tablet Take 40 mg by mouth twice daily. potassium chloride 20 mEq TbER Take 20 mEq by mouth once daily. spironolactone (ALDACTONE) 25 mg tablet Take 25 mg by mouth once daily. apixaban (ELIQUIS) 5 mg tab(s) Take by mouth twice daily. carvedilol (COREG) 25 mg tablet Take 25 mg by mouth twice daily with meals. REVIEW OF SYSTEMS: Review of Systems Constitutional: Positive for malaise/fatigue ( extreme fatigue ). Negative for chills, fever and weight loss. Respiratory: Positive for shortness of breath (exertional). Negative for cough, hemoptysis and sputum production. Cardiovascular: Positive for chest pain (occasional brief aching pain). Negative for palpitations, orthopnea and PND. Gastrointestinal: Negative for abdominal pain, blood in stool, melena, nausea and vomiting. Genitourinary: Negative for hematuria. Neurological: Negative for loss of consciousness. PHYSICAL EXAMINATION: BP 108/63 Pulse 59 Resp 18 Ht 5' 9 (1.75m) Wt 222 lb (100.7kg) SpO2 92[room air]% BMI 32.77 kg/(m^2). Physical Exam Vitals reviewed. Constitutional: General: He is not in acute distress. HENT: Head: Normocephalic and atraumatic. Cardiovascular: Rate and Rhythm: Normal rate. Rhythm irregularly irregular. Heart sounds: Normal heart sounds, S1 normal and S2 normal. No murmur heard. No friction rub. Pulmonary: Effort: Pulmonary effort is normal. No respiratory distress. Breath sounds: Normal breath sounds. No wheezing, rhonchi or rales. Musculoskeletal: Cervical back: Neck supple. Skin: General: Skin is warm and dry. Neurological: General: No focal deficit present. Mental Status: He is alert and oriented to person, place, and time. Psychiatric: Mood and Affect: Mood normal. Behavior: Behavior normal. Thought Content: Thought content normal. CARDIOVASCULAR MEDICINE TESTING: Electrocardiogram: Atrial flutter (possibly typical form) with variable AV conduction, ventricular rate 75 bpm; LBBB (QRS 146 ms); QTc 489 ms, appropriate on amiodarone I have personally reviewed the Electrocardiogram. ASSESSMENT/PLAN: 1. Persistent atrial fibrillation (HCC) - ICD9: 427.31, ICD10: I48.19 (primary diagnosis) Symptomatic and potentially contributing to the dilated cardiomyopathy; recurrent despite multiple electrical cardioversions; advanced treatment options to restore/maintain sinus rhythm are indicated --- options being antiarrhythmic drug therapy vs catheter ablation (atrial fibrillation and flutter). Another option would be AV node catheter ablation with CORE CLEANER-D (or CORE CLEANER-P) implant --- not as desirable an option right now. Favor catheter ablation for buttermaker treatment but here short term it would not be unreasonable to have him undergo electrical cardioversion now that he has been on the amiodarone for several weeks. This would provide some time to then get repeat echocardiogram to re-evaluate LV systolic function, and also see how he feels in sinus rhythm, establish whether his symptoms improve or resolve. But I do agree that catheter ablation might be the best buttermaker treatment strategy and it would allow for him to potentially come off the amiodarone at some point - ECG B/O W INTERP (MED OFFICE) 2. Typical atrial flutter (HCC) - ICD9: 427.32, ICD10: I48.3 See above, probably typical right atrial flutter 3. FPC current use of antiarrhythmic drug - ICD9: V58.69, ICD10: Z79.899 4. FPC current use of amiodarone - ICD9: V58.69, ICD10: Z79.899 Amiodarone; indication: symptomatic atrial fibrillation/flutter While being treated with amiodarone, he should have screening for the potential toxic organ side effects, particularly the liver and thyroid. Typically this involves blood testing for thyroid function (TSH) and liver function (AST, ALT) about every 6 months. Evaluation of pulmonary function, as with chest x-ray or primary function tests, are typically reserved for patients with relevant symptoms. A yearly complete eye exam is also recommended. 5. Dilated cardiomyopathy (HCC) - ICD9: 425.4, ICD10: I42.0 6. Chronic combined systolic and diastolic CHF (congestive heart failure) (HCC) - ICD9: 428.42, 428.0, ICD10: I50.42 Potentially contribution to this issue from atrial fibrillation/flutter particularly if rapid response rates; will need to reassess after sinus rhythm restored and maintained; if persistent LVEF < 36% despite arrhythmia control and appropriate optimal heart failure medication regimen, might need to consider ICD for primary prevention --- probably CORE CLEANER-D system given ventricular dyssynchrony from IVCD or LBBB 7. Left bundle-branch block, unspecified - ICD9: 426.3, ICD10: I44.7 8. At risk for stroke - ICD9: V15.89, ICD10: Z91.89 9. Anticoagulant long-term use - ICD9: V58.61, ICD10: Z79.01 [id number] = 6 (CHF, HTN, age2, TIA/stroke); he is on oral anticoagulation therapy (Eliquis) with seemingly favorable risk:benefit 10. Obesity, Class I, BMI 30-34.9 - ICD9: 278.00, ICD10: E66.9 Weight loss would help reduce the chance for recurrent atrial arrhythmias 11. Exertional shortness of breath - ICD9: 786.05, ICD10: R06.02 Multifactorial, including the atrial arrhythmias and dilated cardiomyopathy/CHF 12. Fatigue, unspecified type - ICD9: 780.79, ICD10: R53.83 Also likely multifactorial but potentially attributable to atrial fibrillation/flutter IMPRESSION: Mr. Goodwin has symptomatic persistent atrial arrhythmia, including atrial fibrillation and what appears to be typical atrial flutter. See my commentary above in the problem list. I think the recommendations from [facility] are sound, I agree that an aggressive approach to advent and maintenance of sinus rhythm would be potentially beneficial from both a symptom standpoint and also possibly to improve the cardiomyopathy and heart failure. He has been treated with amiodarone with the goal of short-term use prior to catheter ablation. I think this is very reasonable, although at this point after several weeks of amiodarone we should consider electrical cardioversion to restore sinus rhythm. But I do think that overall long-term the results from catheter ablation would be more definitive and also allow for him to potentially come off of the amiodarone. I would like to see the results of a repeat echocardiogram prior to proceeding with catheter ablation, as it would be important to see where the left ventricular systolic function has become, and what are the left atrial dimensions and such. I had a detailed discussion with Mr. Goodwin and his regarding my evaluation and recommendations. After our discussion, Mr. Goodwin and his expressed understanding and I answered all questions to their apparent satisfaction. He agreed to proceed as outlined. They came to me here at [facility] for second opinion, but most likely will want to have any ablation procedures performed here due to being closer to where they live. PLAN AND RECOMMENDATIONS: Continue with current plan of care from EP standpoint. See my recommendations above. Dez Smith MD 04/29/2022 Medical Decision Making: Problems: Moderate: 1+ chronic illnesses with change Data: Unique source(s) for external note(s) reviewed: 3+ Unique test result(s) reviewed: 3+ Unique test(s) ordered: 1 Risk: Moderate: Moderate risk from testing/treatment, Drug management and Decision on minor surgery w/ risk factors Medical Decision Making Level: 4 - Moderate documented in this encounter [facility] documented as of this encounter (statuses as of 03/31/2023) [facility]08-31-2022 History of Past illness Narrative* Problem Noted Date Diagnosed Date Resolved Date medical terminologist current use of antiarrhythmic drug 03/26/2023 medical terminologist current use of amiodarone 04/29/2022 03/26/2023 documented as of this encounter (statuses as of 05/22/2023) [facility]08-02-2022 Instructions* Patient Instructions* Cris Page RN - 03/31/2022 11:31 AM EDT Begin amiodarone 400 mg daily. (Take 2 tabs daily) CT and afib ablation to be arranged. Oscar will call you. Hold eliquis night before and am of procedure Call Cris for amiodarone refill when needed. [phone] opt 6 opt 3 Follow-up appointment may be scheduled/determined after procedure Thank you for choosing [facility] for your Heart Care. [employer] is an available tool to securely access your online medical information. Please ask to enroll during any [facility] appointment. Once enrolled, your MD reviewed test results will be available for you to review at your convenience. [facility] messaging is reserved for non urgent messages and responses may take a few days. Call the [facility] at [phone] for urgent questions/concerns M-F 8 to 4:00 Call Scheduling for any appointment/procedure verification or changes [phone] If we are sending you an Event monitor and you have not received it when expected, please call the office. For any questions/problems with your monitor please call Marilynn at [phone]. [facility] testing and procedure patient Instructions may be obtained at: [email or web address] Insurance Concerns: [email or web address] Amiodarone (Cordarone, Pacerone) 100 mg, 200 mg, 400 mg What is Amiodarone used for? Amiodarone is used to treat adults with abnormal heart rhythms. Follow-up Testing: Patents on amiodarone have to follow a regular schedule of follow-up testing. All follow-up testing will be completed during antiarrhythmic medications clinic visits at the [facility]. Follow-up testing for amiodarone will include the following: Blood tests: liver functions tests and thyroid function tests every 6 months Electrocardiogram: every 6 months Pulmonary Function Tests: every 12 months Chest x-ray: every 12 months Ophthamologic Exam: every 12 months (at your local eye doctor) Possible side effects: Lung problems: Pulmonary function tests and Chest X-rays are used to monitor your lungs. If you develop new or worsening shortness of breath, contact your health care provider. Liver problems: Blood tests will be done to check for liver problems. Vision changes: You may notice blurred vision, halos, or your eyes may become light sensitive. If you notice a sudden change in your vision, contact an varnish cooker right away. Muscle problems: You may have numbness or pins and needles in your arms or legs, muscle weakness, reduced coordination, or difficulty with balance. Thyroid problems: Tell your health care director rn if you have weight loss or gain, restlessness,body weakness, increased sensitivity to heat or cold, hair thinning, sweating, menstrual changes, or neck swelling (goiter). Skin problems: You may be more sensitive to the sun and burn more easily.. If you have too much sunexposure, the exposed skin may develop a blue-saravia color. Use a broad spectrum (UVA and UVB) sunscreen of SPF 30 or higher or protective clothing when out in the sun. Check with your pharmacist if you need help finding the right sunscreen Digestion changes: You may have nausea, vomiting, constipation, and loss of appetite. Who should not take Amiodarone? Do not take Amiodarone if you have: A serious condition called heart block that can make your heart beat too slow Very slow heart rate Slow heart rate with dizziness or light-headedness Tell your doctor if you are or . Are there any interactions with drugs or foods? Amiodarone may interact with other medicines, causing serious side effects. Tell your healthcare professional about the other medicines you take or plan to take, especially: Antibiotics called fluoroquinolones, azoles, and macrolide antibiotics. (Levaquin, Tequin) Digoxin (Lanoxin) used to treat irregular heartbeat or heart failure. Other drugs to control heartbeat, such as quinidine, procainamide (also called Procan or Procanbid), disopyramide (also called Norpace) and phenytoin (also called Dilantin). Warfarin/Coumadin (a drug used to prevent blood clots) Simvastatin (also called Zocor, a drug used to treat high cholesterol) Drugs used to treat high blood pressure, called beta blockers and calcium channel blockers. Do not drink grapefruit juice while you are being treated with Amiodarone because it affects how the stomach absorbs amiodarone. documented in this [facility]08-02-2022 History of Present illness Narrative* Lee Miguel MD - 03/31/2022 9:30 AM EDT Bartolo Goodwin is a 76 y.o. male who presented to our cardiac electrophysiology clinic as a referral from Dr. Greenberg in order to establish care regarding atrial fibrillation/flutter. As you know, Bartolo Goodwin is a 76 y.o. male with a past medical history of HFrEF LVEF 25-30%, HTN, HLD, AF. He presents today for consultations regarding atrial fibrillation. First diagnosed with AF in 2003,on coumadin and rate control. Admitted in October 2020 when he presented with AF RVR and decompensated HF. Underwent DCCV with advent of NSR. Unfortunately, had recurrence of AF and has been managed with a rate control strategy. Had an additional DCCV with early recurrence of AF and appears to have been in AF/AFL persistently for roughly the past year. Following DCCV does report that he felt better with regards to symptoms and dyspnea. Cardiac Data EKG: AFL 3:1 ECHO: LVEF 20%, severe global dysfunction, moderately dilated LA Assessment and Plan: Bartolo Goodwin is a 76 y.o. male who presented to our cardiac electrophysiology clinic for further evaluation regarding the followin. Atrial fibrillation/flutter: EKG today with what appears to be CTI dependent flutter, Holter monitor with AF from OSH. No trial of AAD in the past. Given long-standing history and concomitant HF Ihave a low level of confidence that he will be able to maintain NSR with drug therapy, and perhaps not even with PVI. Patient is apprehensive about undergoing device implantation. It would not be unreasonable to pursue short course of amiodarone and DCCV to restore NSR in preparation for PVI/CTI RFA. If patient demonstrates recovery of LV function with maintenance of NSR then may be able to avoidCRT, although given his long- standing disease I am suspicious that he will ultimately require with CORE CLEANER implantation. This plan was discussed with Dr. Martins. Please contact me with any further questions or concerns. Lee Miguel MD Fellow, Cardiac Electrophysiology Past Medical History: HFrEF HTN HLD AF/AFL Past Social History: Not pertinent Past Family History: No pertinent family history Current Outpatient Medications Medication Sig Dispense Refill carveDILOL 25 MG tablet Take 25 mg by mouth 2 times daily with meals. Eliquis 5 MG tablet Take by mouth every 12 hours. furOSEmide 40 MG tablet Take 40 mg by mouth 2 times daily. losartan 50 MG tablet Take 50 mg by mouth daily. potassium chloride 20 MEQ Tab CR tablet Take 20 mEq by mouth daily. simvastatin 20 MG tablet Take 20 mg by mouth every evening at 6 PM. spironolactone 25 MG tablet Take 25 mg by mouth daily. Tamsulosin HCl 0.4 MG capsule Take 0.4 mg by mouth daily. No current facility-administered medications for this visit. Review of Systems: Please see scanned document of patient's 12 point ROS in which I have reviewed. Physical Exam: Vitals: 03/31/22 0923 BP: 118/62 Resp: 18 Gen - well nourished; alert and orientated x 3, mood normal Head & Neck- normocephalic; no JVD Lungs- clear to auscultation bilateral without rales, rhonchi, wheezing; good air movement bilateral; no use of accessory muscles CV- RRR without murmurs, gallops, rubs Abd- non-tender; non-distended; soft; +BS; no rebound/guarding Neuro- CN II-XII intact, no gross deficits; gait normal Extr- no edema bilateral; warm distal extremities Skin- no facial rashes * Eber Martins MD - 03/31/2022 9:30 AM EDT Attending Physician Note (GC) I saw and personally examined this patient with the Fellow/CONDITIONING MACHINE OPERATOR/Resident. I have discussed the findings and therapeutic plan with the Fellow/CONDITIONING MACHINE OPERATOR/Resident. I agree with the history, physical examination and medical decisions as outlined. Further comments are added below Subjective & Physical BP 118/62 (BP Location: Left arm, BP Position: Sitting) Resp 18 Ht 1.753 m (5' 9 ) Wt 99.5 kg(219 lb 6.4 oz) SpO2 97% BMI 32.40 kg/m Assessment & Plan There is no problem list on file for this patient. &^ Garland HF reduced EF = EF now AF - 04 rate control Stroke /TIA Sep 2020 - subtherapeutic coumadin; [facility] AF RVR with HF - CV'ed occurring afterwards Repeat ECHO during AF EF 25% - not AAD ; rate control; EF 20% HTN Nonischemic CM Flutter and past Dx of fib EF 40% chronic L eft bundle without AF in the past Alert & Oriented Eber Martins MD 03/31/2022 11:05 AM Cell Crew Person, [facility] Card[facility]iology [facility]. MICRO - Microbiology PROCEDURE: Urine Culture [*1] SOURCE: Urine, Clean Catch BODY SITE: COLLECTED DATE/TIME: 12/10/2021 16:26 EDT RECEIVED DATE/TIME: 12/11/2021 14:03 EDT START DATE/TIME: 12/11/2021 14:04 EDT FREE TEXT SOURCE: FINAL REPORTS Final Report [] Verified Date/Time/Personnel: 12/13/2021 07:41 EDT No growth at 48 hours. PRELIMINARY REPORTS Preliminary Report [] Verified Date/Time/Personnel: 12/12/2021 09:58 EDT No growth to date Performing Locations *1: This test was performed at: [facility], [address] [place] [address], [phone] , Critical access hospital ([place])Evaluation + Plan note Future Appointments Appointment Date:09/26/2021 02:00:00 PM Scheduled Provider:DEZ TELLO DO Location:[facility] Appointment Type:PC OV Future Scheduled Tests Laboratory* Potassium Level 01/31/21 [facility] Evaluation + Plan note Future Appointments Appointment Date:01/19/2023 02:00:00 PM Scheduled Provider:DEZ TELLO DO Location:[facility] Appointment Type:PC OV Future Scheduled Tests Laboratory* Thyroid Stimulating Hormone 10/20/22 * Vitamin B12 Level 10/20/22 * Complete Blood Count 10/20/22 * Vitamin D Level 10/20/22 * Complete Metabolic Panel 10/20/22 [facility] Evaluation note* Diagnosis Palpitations- Primary Atrial fibrillation, unspecified type High risk medication use Encounter for long-term (current) use of other medications [facility] Persistent atrial fibrillation (HCC)- Primary Atrial fibrillation Typical atrial flutter (HCC) Atrial flutter FPC current use of antiarrhythmic drug medical terminologist current use of amiodarone Dilated cardiomyopathy (HCC) Other primary cardiomyopathies Chronic combined systolic and diastolic CHF (congestive heart failure) (HCC) Chronic combined systolic and diastolic heart failure Left bundle-branch block, unspecified At risk for stroke Other specified personal history presenting hazards to health Anticoagulant long-term use Long-term (current) use of anticoagulants Obesity, Class I, BMI 30-34.9 Obesity, unspecified Exertional shortness of breath Shortness of breath Fatigue, unspecified type [facility] Diagnosis Atrial fibrillation, unspecified type (HCC)- Primary [facility]* Diagnosis Atrial fibrillation, unspecified type (HCC)- Primary [facility]* Diagnosis Atrial fibrillation, unspecified type (HCC)- Primary [facility]* Diagnosis Dyspnea, unspecified type- Primary Atrial fibrillation, persistent (HCC) Atrial fibrillation documented in this encounter [facility] note* Diagnosis Atrial fibrillation, unspecified type (HCC)- Primary [facility] Persistent atrial fibrillation (HCC)- Primary Atrial fibrillation Typical atrial flutter (HCC) Atrial flutter Status post catheter ablation of atrial fibrillation Status post catheter ablation of atrial flutter Dilated cardiomyopathy (HCC) Other primary cardiomyopathies Chronic combined systolic and diastolic CHF (congestive heart failure) (HCC) Chronic combined systolic and diastolic heart failure Anticoagulant long-term use Long-term (current) use of anticoagulants At risk for stroke Other specified personal history presenting hazards to health documented in this encounter [facility] note* Diagnosis Dyspnea, unspecified type Atrial fibrillation, persistent (HCC) Atrial fibrillation documented in this encounter [facility] note* Diagnosis Abnormal EKG [R94.31 (ICD-10-CM)]- Primary Nonspecific abnormal electrocardiogram (ECG) (EKG) Dyspnea, unspecified type Atrial fibrillation, persistent (HCC) Atrial fibrillation documented in this encounter [facility] note* Diagnosis Dyspnea, unspecified type Atrial fibrillation, persistent (HCC) Atrial fibrillation documented in this encounter [facility] course Narrative No data available for this section [facility] Hospital Discharge instructions No data available for this section [facility] Progress note No data available for this section [facility] Reason for referral (narrative)* Outpatient Procedure (Routine) - Closed Specialty Diagnoses / Procedures Referred By Contac t Referred To [facility] Diagnoses Dyspnea, unspecified type Atrial fibrillation, persistent (HCC) Procedures ECHO ECHO TTHRC R-T 2D W/WOM-MODE COMPL SPEC&COLR D Dez Smith MD [address] [place] [address] [facility] [place] [address] Referral ID Status Reason Start Date Expiration Date V isits Requested Visits Authorized [id number] Closed Auto-Generate d Referral 09/29/2022 09/15/2023 1 1 [facility] Outpatient Procedure (Routine) - Closed Specialty Diagnoses / Procedures Referred By Contac t Referred To Contact [facility] [place] Diagnoses Dyspnea, unspecified type Atrial fibrillation, persistent (HCC) Procedures ECHO ECHO TTHRC R-T 2D W/WOM-MODE COMPL SPEC&COLR D Dez Smith MD [address] [place] [address] [facility] [place] [address] [place] [address] Referral ID Status Reason Start Date Expiration Date V isits Requested Visits Authorized [id number] Closed Auto-Generate d Referral 09/29/2022 09/15/2023 1 1 [facility] Reason for Referral Specialty Diagnoses / Procedures Referred By Contac t Referred To Contact CT IMAGING Diagnoses Dyspnea, unspecified type Atrial fibrillation, persistent (HCC) Procedures CTA CHEST (NONGATED) W IVCON CT ANGIOGRAPHY CHEST W/CONTRAST/NONCONTRAST Dez Smith MD [address] [place] [address] Fax: Ct Imaging Referral ID Status Reason Start Date Expiration Date Visits Requested Visits Authorized [id number] Pending Review Auto-Generat ed Referral 09/29/2022 10/15/2023 1 1 Specialty Diagnoses / Procedures Referred By Contac t Referred To Contact [facility] Diagnoses Dyspnea, unspecified type Atrial fibrillation, persistent (HCC) Procedures ECHO ECHO TTHRC R-T 2D W/WOM-MODE COMPL SPEC&COLR D Dez Smith MD [address] [place] [address] [facility] [address] [place] [address] Referral ID Status Reason Start Date Expiration Date Visits Requested Visits Authorized [id number] Pending Review Auto-Generat ed Referral 09/29/2022 09/15/2023 1 1 Specialty Diagnoses / Procedures Referred By Contac t Referred To Contact Diagnoses Atrial fibrillation, unspecified type Procedures CT CARDIAC PULMONARY VENOGRAM PA CHG CT HEART CONTRAST EVAL CARDIAC STRUCT/MORPH Eber Martins MD [address] [place] [phone] Referral ID Status Reason Start Date Expiration Date V isits Requested Visits Authorized [id number] New Request 03/31/2022 04/25/2023 1 1 Specialty Diagnoses / Procedures Referred By Cheri campa Referred To Contact Diagnoses Atrial fibrillation, unspecified type Procedures CASE REQUEST - EP PROC (EPS, ABLATION, DEVICE) Eber Martins MD [address] [place] [phone] Referral ID Status Reason Start Date Expiration Date V isits Requested Visits Authorized [id number] New Request 03/31/2022 04/25/2023 1 1 Specialty Diagnoses / Procedures Referred By Cheri campa Referred To Contact Diagnoses Palpitations Procedures ECG Eber Martins MD [address] [place] [phone] Referral ID Status Reason Start Date Expiration Date V isits Requested Visits Authorized [id number] New Request 03/30/2022 04/24/2023 1 1 Summary Purpose Family History No Family History Records FoundNo Family History Records FoundNo Family History Records FoundNo Family History Records Found Advance Directives No Advanced Directives Records FoundNo Advanced Directives Records FoundNo Advanced Directives Records FoundNo Advanced Directives Records Found Medications Administered Section Inactive Administered Medications - up to 3 most recent administrations Medication Order MAR Action Action Date Dose Rate Site perflutren lipid microspheres 1.3 mL in NaCl (PF) 0.9% 10 mL injection (DEFINITY) INTRAVENOUS, DIRECTED NEEDED, 1 dose, Starting on Wed09/15/22 at 1728, Until Wed11/27/22 at 1040, Per Protocol - for use during ECHO procedure only, If no IV access, insert saline lock prior to administering contrast. Discontinue saline lock post exam. If patient has central line or IVAD, may access for administration according to line specific nursing protocol. Once exam is complete, flush line and de-access per line specific nursing protocol.Dilute 1.3 ml of Definity with 8.7 ml of preservative-free saline. Given 11/27/2022 10:40 AM EDT 1.3 mL Arm, Left Additional Source Comments Reason for Visit (unrecogniz ed section and content) Specialty Diagnoses / Procedures Referred By Cheri campa Referred To Contact Electrophysiology Diagnoses Chronic atrial fibrillation Chronic combined systolic and diastolic CHF (congestive heart failure) Left bundle branch block Other cardiomyopathies Personal history of transient ischemic attack (TIA), and cerebral infarction without residual deficits Essential hypertension Pure hypercholesterolemia FPC current use of anticoagulant therapy Hypersomnia Dyspnea, unspecified type Orthopnea Other fatigue Gonzalez Greenberg MD [address] [place] [address] Eber Martins MD [address] [place] [address] Referral ID Status Reason Start Date Expiration Date V isits Requested Visits Authorized [id number] New Request 11/10/2021 12/05/2022 1 1 Reason Comments CARD New Patient Consult CONDITIONING MACHINE OPERATOR REF FOR A-FI B Reason Comments Preparations For Procedures Reason Onset Date Comments Returning Patient's Call 07/04/2022 Reason Comments Remote Pacemaker Follow Up Reason Comments Arrhythmia Reason Comments Orders Reason Comments Cardiology Follow Up Post PVI ablation p ersistent a-fib Specialty Diagnoses / Procedures Referred By Cheri campa Referred To Contact CT IMAGING Diagnoses Dyspnea, unspecified type Atrial fibrillation, persistent (HCC) Procedures CTA CHEST (NONGATED) W IVCON CT ANGIOGRAPHY CHEST W/CONTRAST/NONCONTRAST Dez Smith MD [address] [facility] [address] [place] [address] Ct Imaging Referral ID Status Reason Start Date Expiration Date V isits Requested Visits Authorized [id number] Closed Auto-Generate d Referral 09/29/2022 10/15/2023 1 1 Reason Comments Results Reason Onset Date Comments Results 12/17/2022 Reason Comments Patient Update Care Teams (unrecognized sec tion and content) Acoustic Intelligence Specialist Relationship Specialty Start Date End Date Dez Tello [address] [place] [address] PCP - General Family Practice 04/27/22 Garland, Gonzalez S [address] [place] [address] Specialty Health Administrator Cardiology 04/27/22 Huber Campos [address] [address] Specialty Health Administrator Urology 04/29/22 Acoustic Intelligence Specialist Relationship Specialty Start Date End Date Dez Tello [address] [place] [address] PCP - General Family Medicine 04/27/22 Garland, Gonzalez S [address] [place] [address] Specialty Health Administrator Cardiology 04/27/22 Huber Campos [address] [address] Specialty Health Administrator Urology 04/29/22 Acoustic Intelligence Specialist Relationship Specialty Start Date End Date Dez Tello [address] [place] [address] PCP - General Family Medicine 04/27/22 Garland, Gonzalez S [address] [place] [address] Specialty Health Administrator Cardiology 04/27/22 Huber Campos [address] [place] [address] Specialty Health Administrator Urology 04/29/22 Acoustic Intelligence Specialist Relationship Specialty Start Date End Date Dez Tello [address] [place] [address] PCP - General Family Medicine 04/27/22 Garland, [place] S [address] [place] [address] Specialty Health Administrator Cardiology 04/27/22 Huber Campos [address] [address] Specialty Health Administrator Urology 04/29/22 Acoustic Intelligence Specialist Relationship Specialty Start Date End Date Dez Tello [address] [place] [address] PCP - General Family Medicine 04/27/22 Garland, Gonzalez S [address] [place] [address] Specialty Health Administrator Cardiology 04/27/[address] [phone] Specialty Health Administrator Urology 04/29/22 Acoustic Intelligence Specialist Relationship Specialty Start Date End Date Dez Tello [address] [place] [address] PCP - General Family Medicine 04/27/22 Garland, [place] S [address] [place] [address] Specialty Health Administrator Cardiology 04/27/22 Huber Campos [address] [address] Specialty Health Administrator Urology 04/29/22 Acoustic Intelligence Specialist Relationship Specialty Start Date End Date Dez Tello [address] [place] [address] PCP - General Family Medicine 04/27/22 Garland, Gonzalez S [address] [place] [address] Specialty Health Administrator Cardiology 04/27/[address] [address] Specialty Health Administrator Urology 04/29/22 Acoustic Intelligence Specialist Relationship Specialty Start Date End Date Dez Tello, [address] [place] [address] PCP - General Family Medicine 04/27/22 Garland, [place] S [address] [place] [address] Specialty Health Administrator Cardiology 04/27/22 Huber Campos MD [address] [address] Specialty Health Administrator Urology 04/29/22 Acoustic Intelligence Specialist Relationship Specialty Start Date End Date Dez Tello, [address] [place] [address] (Work) PCP - General Family Medicine 04/27/22 [place], [place] S [address] [place] [address] Specialty Health Administrator Cardiology 04/27/22 Huber Campos MD [address] [address] Specialty Health Administrator Urology 04/29/22 Acoustic Intelligence Specialist Relationship Specialty Start Date End Date Dez Tello, [address] [place] [address] PCP - General Family Medicine 04/27/22 [place], [place] S [address] [place] [address] Specialty Health Administrator Cardiology 04/27/22 Huber Campos MD [address] [address] Specialty Health Administrator Urology 04/29/22 Acoustic Intelligence Specialist Relationship Specialty Start Date End Date Dez Tello, [address] [place] [address] PCP - General Family Medicine 04/27/22 Garland, [place] S [address] [place] [address] Specialty Health Administrator Cardiology 04/27/22 Huber Campos MD [address] [address] Specialty Health Administrator Urology 04/29/22 Acoustic Intelligence Specialist Relationship Specialty Start Date End Date Dez Tello, [address] [place] [address] (Work) PCP - General Family Medicine 04/27/22 Garland, [place] S [address] [place] [address] Specialty Health Administrator Cardiology 04/27/22 Huber Campos MD [address] [address] Specialty Health Administrator Urology 04/29/22 Acoustic Intelligence Specialist Relationship Specialty Start Date End Date Dez Tello, [address] [place] [address] (Work) PCP - General Family Medicine 04/27/22 Garland, [place] S [address] [place] [address] Specialty Health Administrator Cardiology 04/27/22 Huber Campos MD [address] [address] Specialty Health Administrator Urology 04/29/22 Acoustic Intelligence Specialist Relationship Specialty Start Date End Date Dez Tello [address] [place] [address] (Work) PCP - General Family Medicine 04/27/22 Garland, [place] S [address] [place] [address] Specialty Health Administrator Cardiology 04/27/22 Huber Campos MD [address] [address] Specialty Health Administrator Urology 04/29/22 Acoustic Intelligence Specialist Relationship Specialty Start Date End Date Dez Tello, [address] [place] [address] PCP - General Family Medicine 04/27/22 [place], [place] S [address] [place] [address] Specialty Health Administrator Cardiology 04/27/22 Huber Campos MD [address] [address] Specialty Health Administrator Urology 04/29/22 Acoustic Intelligence Specialist Relationship Specialty Start Date End Date Dez Tello, [address] [place] [address] PCP - General Family Medicine 04/27/22 [place], [place] S [address] [place] [address] Specialty Health Administrator Cardiology 04/27/22 Huber Campos MD [address] [address] Specialty Health Administrator Urology 04/29/22 Acoustic Intelligence Specialist Relationship Specialty Start Date End Date Dez Tello, [address] [place] [address] PCP - General Family Medicine 04/27/22 [place], [place] S [address] [place] [address] Specialty Health Administrator Cardiology 04/27/22 Huber Campos MD [address] [address] Specialty Health Administrator Urology 04/29/22 Acoustic Intelligence Specialist Relationship Specialty Start Date End Date Dez Tello, [address] [place] [address] PCP - General Family Medicine 04/27/22 Garland, [place] S [address] [place] [address] Specialty Health Administrator Cardiology 04/27/22 Huber Campos MD [address] [address] Specialty Health Administrator Urology 04/29/22 Acoustic Intelligence Specialist Relationship Specialty Start Date End Date Dez Tello, [address] [place] [address] (Work) PCP - General Family Medicine 04/27/22 [place], [place] S [address] [place] [address] Specialty Health Administrator Cardiology 04/27/22 Huber Campos MD [address] [address] Specialty Health Administrator Urology 04/29/22 Acoustic Intelligence Specialist Relationship Specialty Start Date End Date Dez Tello, [address] [place] [address] (Work) PCP - General Family Medicine 04/27/22 [place], [place] S [address] [place] [address] Specialty Health Administrator Cardiology 04/27/22 Huber Campos MD [address] [id number] Specialty Health Administrator Urology 04/29/22 Acoustic Intelligence Specialist Relationship Specialty Start Date End Date Dez Tello DO [address] [place] [address] PCP - General Family Medicine 04/27/22 Gonzalez Greenberg [address] [place] [id number] Specialty Health Administrator Cardiology 04/27/22 Huber Campos MD [address] [address] Specialty Health Administrator Urology 04/29/22 Acoustic Intelligence Specialist Relationship Specialty Start Date End Date Dez Tello DO [address] [place] [address] PCP - General Family Medicine 04/27/22 Gonzalez Greenberg MD [address] [place] [address] Specialty Health Administrator Cardiology 04/27/22 Huber Campos MD [address] [phone] Specialty Health Administrator Urology 04/29/22 (unrecognized sect ion and content) No Status Records FoundNo Status Records FoundNo Status Records FoundNo Status Records Found INFORMATION SOURCE (unrecogn ized section and content) DATE CREATED AUTHOR AUTHOR'S ORGANIZ ATION 11/06/2022 [facility] ([place]) DATE CREATED AUTHOR AUTHOR'S ORGANIZ ATION 12/04/2022 [facility] DATE CREATED AUTHOR AUTHOR'S LOUISA NOGUEIRA 07/08/2023 [facility] Source Comments (unrecognize d section and content) In the event this informatio n is protected by the Federal Confidentiality of Alcohol and Drug Abuse Patient Records regulations: The Federal rules restrict any use of the information to criminally investigate or prosecute any alcohol or drug abuse patient.[facility] HealthIn the event this information is protected by the Federal Confidentiality of Alcohol and Drug Abuse Patient Records regulations: The Federal rules restrict any use of the information to criminally investigate or prosecute any alcohol or drug abuse patient.[facility] HealthIn the event this information is protected by the Federal Confidentiality of Alcohol and Drug Abuse Patient Records regulations: The Federal rules restrict any use of the information to criminally investigate or prosecute any alcohol or drug abuse patient.[facility] HealthIn the event this information is protected by the Federal Confidentiality of Alcohol and Drug Abuse Patient Records regulations: The Federal rules restrict any use of the information to criminally investigate or prosecute any alcohol or drug abuse patient.[facility] HealthIn the event this information is protected by the Federal Confidentiality of Alcohol and Drug Abuse Patient Records regulations: The Federal rules restrict any use of the information to criminally investigate or prosecute any alcohol or drug abuse patient.[facility] HealthIn the event this information is protected by the Federal Confidentiality of Alcohol and Drug Abuse Patient Records regulations: The Federal rules restrict any use of the information to criminally investigate or prosecute any alcohol or drug abuse patient.[facility] HealthIn the event this information is protected by the Federal Confidentiality of Alcohol and Drug Abuse Patient Records regulations: The Federal rules restrict any use of the information to criminally investigate or prosecute any alcohol or drug abuse patient.[facility] HealthIn the event this information is protected by the Federal Confidentiality of Alcohol and Drug Abuse Patient Records regulations: The Federal rules restrict any use of the information to criminally investigate or prosecute any alcohol or drug abuse patient.[facility] HealthIn the event this information is protected by the Federal Confidentiality of Alcohol and Drug Abuse Patient Records regulations: The Federal rules restrict any use of the information to criminally investigate or prosecute any alcohol or drug abuse patient.[facility] HealthIn the event this information is protected by the Federal Confidentiality of Alcohol and Drug Abuse Patient Records regulations: The Federal rules restrict any use of the information to criminally investigate or prosecute any alcohol or drug abuse patient.[facility] HealthIn the event this information is protected by the Federal Confidentiality of Alcohol and Drug Abuse Patient Records regulations: The Federal rules restrict any use of the information to criminally investigate or prosecute any alcohol or drug abuse patient.[facility] HealthIn the event this information is protected by the Federal Confidentiality of Alcohol and Drug Abuse Patient Records regulations: The Federal rules restrict any use of the information to criminally investigate or prosecute any alcohol or drug abuse patient.[facility] HealthIn the event this information is protected by the Federal Confidentiality of Alcohol and Drug Abuse Patient Records regulations: The Federal rules restrict any use of the information to criminally investigate or prosecute any alcohol or drug abuse patient.[facility] HealthIn the event this information is protected by the Federal Confidentiality of Alcohol and Drug Abuse Patient Records regulations: The Federal rules restrict any use of the information to criminally investigate or prosecute any alcohol or drug abuse patient.[facility] HealthIn the event this information is protected by the Federal Confidentiality of Alcohol and Drug Abuse Patient Records regulations: The Federal rules restrict any use of the information to criminally investigate or prosecute any alcohol or drug abuse patient.[facility] HealthIn the event this information is protected by the Federal Confidentiality of Alcohol and Drug Abuse Patient Records regulations: The Federal rules restrict any use of the information to criminally investigate or prosecute any alcohol or drug abuse patient.[facility] HealthIn the event this information is protected by the Federal Confidentiality of Alcohol and Drug Abuse Patient Records regulations: The Federal rules restrict any use of the information to criminally investigate or prosecute any alcohol or drug abuse patient.[facility] HealthIn the event this information is protected by the Federal Confidentiality of Alcohol and Drug Abuse Patient Records regulations: The Federal rules restrict any use of the information to criminally investigate or prosecute any alcohol or drug abuse patient.[facility] HealthIn the event this information is protected by the Federal Confidentiality of Alcohol and Drug Abuse Patient Records regulations: The Federal rules restrict any use of the information to criminally investigate or prosecute any alcohol or drug abuse patient.[facility] HealthIn the event this information is protected by the Federal Confidentiality of Alcohol and Drug Abuse Patient Records regulations: The Federal rules restrict any use of the information to criminally investigate or prosecute any alcohol or drug abuse patient.[facility] HealthIn the event this information is protected by the Federal Confidentiality of Alcohol and Drug Abuse Patient Records regulations: The Federal rules restrict any use of the information to criminally investigate or prosecute any alcohol or drug abuse patient.[facility] HealthIn the event this information is protected by the Federal Confidentiality of Alcohol and Drug Abuse Patient Records regulations: The Federal rules restrict any use of the information to criminally investigate or prosecute any alcohol or drug abuse patient.[facility] HealthIn the event this information is protected by the Federal Confidentiality of Alcohol and Drug Abuse Patient Records regulations: The Federal rules restrict any use of the information to criminally investigate or prosecute any alcohol or drug abuse patient.[facility] HealthIn the event this information is protected by the Federal Confidentiality of Alcohol and Drug Abuse Patient Records regulations: The Federal rules restrict any use of the information to criminally investigate or prosecute any alcohol or drug abuse patient.[facility] HealthIn the event this information is protected by the Federal Confidentiality of Alcohol and Drug Abuse Patient Records regulations: The Federal rules restrict any use of the information to criminally investigate or prosecute any alcohol or drug abuse patient.[facility] HealthIn the event this information is protected by the Federal Confidentiality of Alcohol and Drug Abuse Patient Records regulations: The Federal rules restrict any use of the information to criminally investigate or prosecute any alcohol or drug abuse patient.[facility] HealthIn the event this information is protected by the Federal Confidentiality of Alcohol and Drug Abuse Patient Records regulations: The Federal rules restrict any use of the information to criminally investigate or prosecute any alcohol or drug abuse patient.[facility] HealthIn the event this information is protected by the Federal Confidentiality of Alcohol and Drug Abuse Patient Records regulations: The Federal rules restrict any use of the information to criminally investigate or prosecute any alcohol or drug abuse patient.[facility] HealthIn the event this information is protected by the Federal Confidentiality of Alcohol and Drug Abuse Patient Records regulations: The Federal rules restrict any use of the information to criminally investigate or prosecute any alcohol or drug abuse patient.[facility] HealthIn the event this information is protected by the Federal Confidentiality of Alcohol and Drug Abuse Patient Records regulations: The Federal rules restrict any use of the information to criminally investigate or prosecute any alcohol or drug abuse patient.[facility] HealthIn the event this information is protected by the Federal Confidentiality of Alcohol and Drug Abuse Patient Records regulations: The Federal rules restrict any use of the information to criminally investigate or prosecute any alcohol or drug abuse patient.[facility] Care Team (unrecognized sect ion and content) Care Team Personnel Name: DEZ TELLO DO Position: P4 Physician - Primary Care Member Role: Primary Care Physician Address: Address: [address] [place] [address] Care Team Related Persons Name: ILYA GOODWIN Care Team Personnel Name: DEZ TELLO DO Position: P4 Physician - Primary Care Member Role: Primary Care Physician Address: Address: [address] [place] [address] Care Team Related Persons Name: ILYA GOOWDIN FOR RECORDS PERTAINING TO PATIENTS WHO ARE OR HAVE BEEN ENROLLED IN A CHEMICAL DEPENDENCY/SUBSTANCEABUSE PROGRAM, SOME INFORMATION MAY BE OMITTED. This clinical summary was aggregated from multiple sources. Caution should be exercised in using it in the provision of clinical care. This summary normalizes information from multiple sources, and as a consequence, information in this document may materially change the coding, format and clinical context of patient data. In addition, data may be omitted in some cases. CLINICAL DECISIONS SHOULD BE BASED ON THE PRIMARY CLINICAL RECORDS. [employer] [facility]. provides no warranty or guarantee of the accuracy or completeness of information in this document.
== END | disposition home or self-care (01) ==
LOC: LAB 16:20
PROVIDERS: PCP Preventive Medicine Occupational Medicine; Referring Provider Nurse Practitioner Family; Visit Provider Nurse Practitioner Family
DX: I42.8 Other cardiomyopathies (principal); I48.20 Chronic atrial fibrillation, unspecified; R53.83 Other fatigue
CPT/HCPCS: 36415; 80053; 83735; 83880; 84439; 84443; 85025

== ENCOUNTER 2023-12-31 09:24 | Outpatient (CLI) | payer MEDICARE, OTHER, SELFPAY ==
[2023-12-31 13:15] LABS: Free T3 2.5 pg/mL (2.18-3.98); T4 Free Direct 1.17 ng/dL (0.76-1.46); Thyroid Stim Hormone (TSH) 5.32 uIU/mL (0.358-3.74)
[2024-01-03 15:08] LABS: Thyroglobulin Antibody < 1.0 IU/mL (0.0-0.9); Thyroid Peroxidase AB < 9 IU/mL (0-34)
== END 2023-12-31 23:59 | disposition home or self-care (01) ==
PROVIDERS: PCP Preventive Medicine Occupational Medicine; Referring Provider Preventive Medicine Occupational Medicine; Visit Provider Preventive Medicine Occupational Medicine
DX: R79.89 Other specified abnormal findings of blood chemistry (principal); I10 Essential (primary) hypertension
CPT/HCPCS: 36415; 84439; 84443; 84481; 86376; 86800

== ENCOUNTER → 2024-05-25 | Outpatient (CLI) | payer MEDICARE, OTHER, SELFPAY ==
[2024-05-25 14:20] LABS: PSA,Total - Annual Screen 0.31 ng/mL (0.00-4.00)
== END | disposition home or self-care (01) ==
PROVIDERS: PCP Preventive Medicine Occupational Medicine; Referring Provider Nurse Practitioner; Visit Provider Nurse Practitioner
DX: Z12.5 Encounter for screening for malignant neoplasm of prostate (principal)
CPT/HCPCS: 36415; 84153; G0103

== ENCOUNTER → 2024-12-21 | Outpatient (CLI) | payer MEDICARE, OTHER, SELFPAY ==
[2024-12-21 12:54] LABS: Hematocrit 44.6 % (40-54); Hemoglobin 15.2 g/dL (13.0-16.5); Mean Corp Hgb Conc 34.1 g/dL (32-36); Mean Corpuscular Hgb 30.2 pg (27.0-32.0); Mean Corpuscular Volume 88.5 fL (80-94); Mean Platelet Vol. 11.1 fl (6.2-12.0); Platelet Count 128 K/mm3 (150-450); RBC Distribution Width CV 12.7 % (11.6-14.6); RBC Distribution Width SD 41.3 fl (35.1-43.9); Red Blood Count 5.04 M/mm3 (4.6-6.2); White Blood Count 7.5 K/mm3 (4.4-11.0)
[2024-12-21 13:16] LABS: Microalbumin,Random Urine < 12.0 mg/L (NO RANGE EST.); Microalbumin:Creatinine Ratio UNABLE TO CALCULATE mg/g CRE
[2024-12-21 13:41] LABS: Hemoglobin A1c 7.5 % (<=5.6)
[2024-12-21 13:43] LABS: AST(SGOT) 22 U/L (<=37); Alanine Aminotransfer ALT/SGPT 24 U/L (<=46); Albumin, Serum 3.1 g/dL (3.4-4.8); Alkaline Phosphatase 68 U/L (40-129); Anion Gap 11 (5-15); BUN 14 mg/dL (4-19); BUN/Creat Ratio 14.1 RATIO (10-20); Calcium,Total 8.8 mg/dL (7.6-11.0); Carbon Dioxide 20.7 mmol/L (21.0-32.0); Chloride 104 mmol/L (98-108); Cholesterol 126 mg/dL (<=200); Creatinine, Serum 0.97 mg/dL (0.70-1.20); EST Glomerular Filtration Rate 80 (>60); Globulin 3.2 g/dL (2.2-4.2); Glucose 172 mg/dL (70-99); High Density Lipoprotein 37 mg/dL; Low Density Lipoprotein Calc. 62 mg/dL; Potassium 4.4 mmol/L (3.3-5.1); Protein, Total 6.3 g/dL (5.9-8.4); Sodium Level 136 mmol/L (133-145); Total Bilirubin 0.75 mg/dL (0.00-1.30); Triglycerides 136 mg/dL; Very Low Density Lipoprotein 27 mg/dL (5-40); cholesterol:hdl ratio screen 3.42
[2024-12-21 13:49] LABS: PSA,Total- Diagnostic 0.29 ng/mL (0.00-4.00); Vitamin D,25 Hydroxy 34.2 ng/mL (30-100)
== END | disposition home or self-care (01) ==
LOC: MTLAB 09:14
PROVIDERS: PCP Preventive Medicine Occupational Medicine; Referring Provider Preventive Medicine Occupational Medicine; Visit Provider Preventive Medicine Occupational Medicine
DX: I11.0 Hypertensive heart disease with heart failure (principal); I50.20 Unspecified systolic (congestive) heart failure; E78.5 Hyperlipidemia, unspecified; E55.9 Vitamin D deficiency, unspecified; R97.20 Elevated prostate specific antigen [PSA]; R73.03 Prediabetes; E03.8 Other specified hypothyroidism
CPT/HCPCS: 36415; 80053; 80061; 82043; 82306; 82570; 83036; 84153; 84443; 85027

== ENCOUNTER → 2025-03-16 | Outpatient (CLI) | payer MEDICARE, OTHER, SELFPAY ==
--- NOTE | 2025-03-16 12:52 | ECHOCS_ITS ---
Reason For Study Reason For Study: CHF Procedure This was a 2D Doppler, Color Flow transthoracic echocardiogram. The study was technically difficult. Exam performed in department. Left Ventricle Normal left ventricle. The left ventricular ejection fraction is 45 %. Stage 1 diastolic dysfunction. There is mild to moderate global hypokinesis of the left ventricle. Right Ventricle Normal RV size. Normal systolic function. Atria Normal left atrium. Normal right atrium. Mitral Valve Normal mitral valve. Tricuspid Valve Normal tricuspid valve. Mild (1+) tricuspid valve insufficiency. Pulmonary artery systolic pressure is 25 mmHg. Aortic Valve Trisinus/trileaflet aortic valve. Mild focal aortic valve calcification. Pulmonic Valve Normal pulmonic valve. Great Vessels Normal aortic root. The pulmonary artery is normal size. Inferior vena cava collapse with respiration. Pericardium/Pleural No pericardial effusion. Medication 22 gauge I.V. with prn adaptor inserted into left arm. Diluted definity 1.5ml given slow IV push to enhance endocardial definition. MMode/2D Measurements & Calculations LVIDd: 3.9 cm IVSd: 0.98 cm Ao root diam: 3.4 cm LVIDs: 2.8 cm LVPWd: 0.92 cm RVDd: 3.6 cm FS: 28.9 % LAV(MOD-bp): 51.5 ml LVAd ap4: 34.8 cm2 SV(MOD-sp4): 56.0 ml LAV(MOD-bp) Indexed: 23.9 ml/m2 LVLd ap4: 8.1 cm SI(MOD-sp4): 26.0 ml/m2 LAV(MOD-sp2): 49.2 ml EDV(MOD-sp4): 120.9 ml LAV(MOD-sp4): 52.1 ml EDV(sp4-el): 127.0 ml LVAs ap4: 23.3 cm2 LVLs ap4: 6.8 cm ESV(MOD-sp4): 65.0 ml ESV(sp4-el): 67.8 ml EF(MOD-sp4): 46.3 % EF(sp4-el): 46.6 % SV(sp4-el): 59.2 ml LA A4 area: 18.8 cm2 LA dimension(2D): 3.5 cm RA A4 area: 16.4 cm2 TAPSE: 2.1 cm Time Measurements MV dec time: 0.24 sec Doppler Measurements & Calculations MV E max jaime: 64.7 cm/sec Lat Peak E' Jaiem: 7.6 cm/sec Med Peak E' Jaime: 7.5 cm/sec MV A max jaime: 82.9 cm/sec E/E' lat: 8.5 E/E' med: 8.6 MV E/A: 0.78 Ao V2 max: 120.2 cm/sec LV V1 max: 90.7 cm/sec PA V2 max: 110.3 cm/sec Ao max P.8 mmHg LV V1 max P.3 mmHg TR max jaime: 236.2 cm/sec TR max P.3 mmHg ECHO/Echo Complete W/ Contrast Interpretation Summary The left ventricular ejection fraction is 45 %. Normal left ventricle. Stage 1 diastolic dysfunction. Pulmonary artery systolic pressure is 25 mmHg. Contrast injection was performed. Ordering Physician: Sascha Valdes Referring Physician: PAT DOWNING Performed By: Linh Shirley RDCS
== END | disposition home or self-care (01) ==
LOC: CVS 12:51
PROVIDERS: Referring Provider Nurse Practitioner Family; Visit Provider Nurse Practitioner Family
DX: I50.42 Chronic combined systolic (congestive) and diastolic (congestive) heart failure (principal)
CPT/HCPCS: 93306; Q9957; A4216; C8929

== ENCOUNTER → 2025-06-04 | Outpatient (CLI) | payer MEDICARE, OTHER, SELFPAY ==
[2025-06-04 10:34] LABS: Hematocrit 46.0 % (40-54); Hemoglobin 15.7 g/dL (13.0-16.5); Immature Granulocytes Count 0.050 X10^3/uL (0.0-0.0); Mean Corp Hgb Conc 34.1 g/dL (32-36); Mean Corpuscular Volume 88.5 fL (80-94); Mean Platelet Vol. 10.7 fl (6.2-12.0); NRBC Flagged by Analyzer 0 % (0-5); Platelet Count 143 K/mm3 (150-450); RBC Distribution Width CV 12.8 % (11.6-14.6); RBC Distribution Width SD 41.5 fl (35.1-43.9); Red Blood Count 5.20 M/mm3 (4.6-6.2); White Blood Count 8.3 K/mm3 (4.4-11.0)
[2025-06-04 10:38] LABS: Anion Gap 13 (5-15); BUN 16 mg/dL (4-19); BUN/Creat Ratio 15.2 RATIO (10-20); Calcium,Total 9.3 mg/dL (7.6-11.0); Carbon Dioxide 22.3 mmol/L (21.0-32.0); Chloride 103 mmol/L (98-108); Glucose 170 mg/dL (70-99); Magnesium 2.0 mg/dL (1.5-2.2); Potassium 4.8 mmol/L (3.3-5.1)
== END | disposition home or self-care (01) ==
LOC: MTLAB 08:47
PROVIDERS: Referring Provider Nurse Practitioner Family; Visit Provider Nurse Practitioner Family
DX: R42 Dizziness and giddiness (principal); I48.20 Chronic atrial fibrillation, unspecified; I42.8 Other cardiomyopathies; R53.82 Chronic fatigue, unspecified
CPT/HCPCS: 36415; 80048; 83735; 84443; 85025

== ENCOUNTER → 2025-07-12 | Outpatient (CLI) | payer MEDICARE, OTHER, SELFPAY ==
[2025-07-12 11:10] LABS: Free T3 3.2 pg/mL (2.18-3.98)
== END | disposition home or self-care (01) ==
LOC: MTLAB 08:14
PROVIDERS: PCP Nurse Practitioner Family; Referring Provider Nurse Practitioner Family; Visit Provider Nurse Practitioner Family
DX: E03.8 Other specified hypothyroidism (principal)
CPT/HCPCS: 36415; 84439; 84443; 84481; 86376; 86800

== ENCOUNTER 2025-07-14 16:01 | Emergency (ER) | payer MEDICARE, OTHER, SELFPAY ==
[2025-07-14 16:03] VITALS: BP 105/78; PULSE 102; RESP 16; TEMP 36.7; O2SAT 98; BMI 33.3
--- NOTE | 2025-07-14 16:28 | ED.VIS.BACK ---
HPI History of Present Illness Chief Complaint: Back Narrative Narrative: Patient is a 79-year-old male presenting to the emergency department for back pain. Patient has a past medical history of hypertension, hyperlipidemia, CAD, CHF, A-fib on Eliquis. Patient states that he has had issues with his low back on and off but has not had any issues recently. He states 2 weeks ago he noticed that his "back was pulling". Reports that anytime he twists and stands up he has the back pain. He followed up with his PCP who prescribed him 5 days of a "muscle relaxer". States he has also been taking Tylenol with little to no relief of his symptoms. He denies any fall or trauma to his back. Denies bowel or bladder incontinence or retention, saddle anesthesia, weakness or numbness in his legs, fevers, immunocompromise status including use of daily steroids, diabetes or cancer history. [facility] Medical History Lightheadedness Typical atrial flutter Fatigue History of CVA (cerebrovascular accident) (02/22/21) Chronic atrial fibrillation Chronic combined systolic and diastolic CHF (congestive heart failure) Non-smoker TIA (transient ischemic attack) (2003) Hypersomnia Dyspnea senior living current use of anticoagulant Non-ischemic cardiomyopathy Left bundle branch block (LBBB) Paroxysmal atrial flutter Obesity Essential (primary) hypertension Hyperlipidemia Home Medications Medication Instructions Recorded Last Taken Type finasteride 5 mg tablet 5 mg PO DAILY 06/30/22 Unknown History tamsulosin 0.4 mg capsule 0.4 mg PO DAILY 06/30/22 Unknown History mjvnscuu-qud-vnoiu acid 0.4 1 tab PO DAILY 10/09/22 Unknown History mg-lycopene 300 mcg-lutein 250 mcg tablet (Centrum Silver) cholecalciferol (vitamin D3) 25 25 mcg PO QDAY 05/19/24 Unknown History mcg (1,000 unit) capsule spironolactone 25 mg tablet 25 mg PO DAILY #90 tabs 11/08/24 Unknown Rx ebrktblu-evnvonyay-respgikk 3.5 drp ophthalmic (eye) PRN 02/07/25 Unknown History mg/mL-10,000 unit/mL-0.1% eye drops losartan 50 mg tablet 50 mg PO DAILY #90 TABLETS 04/20/25 Unknown Rx carvedilol 12.5 mg tablet 12.5 mg PO BID #180 tabs 04/29/25 Unknown Rx apixaban 5 mg tablet (Eliquis) 5 mg PO BID #180 tabs 05/07/25 Unknown Rx lidocaine 5 % topical patch 1 patch topical DAILY #15 ea 07/14/25 Unknown Rx (Lidoderm) oxycodone 5 mg tablet 5 mg PO Q8H PRN pain 3 days #10 07/14/25 Unknown Rx tabs Allergy/AdvReac Type Severity Reaction Status Date / Time baclofen Allergy Intermediate rash Verified 02/07/25 13:38 amiodarone AdvReac Severe Severe h/a Verified 02/07/25 13:38 and agitation Family History Mother CVA (cerebral vascular accident) Father Cancer Sister Cancer breast Surgical History History of radiofrequency ablation procedure for cardiac arrhythmia (06/29/22) History of cardioversion (12/30/20) History of umbilical hernia repair History of appendectomy History of knee surgery (1983) History of back surgery (1981) History of left heart catheterization (10/17/15) Social History Smoking Status: Never smoker alcohol intake: current alcohol intake frequency: holidays/special occasions only substance use type: does not use caffeine: Yes Type: carbonated beverages, coffee and tea ROS ROS ED ROS Narrative see HPI EXAM Physical Exam Narrative Exam Narrative: Vital signs: Reviewed General: Alert and orientedx3. No acute distress HEENT: Head is normocephalic and atraumatic, sinuses nontender, pupils equal round and reactive. Nares are patent. Oropharynx and throat exams normal. Neck: Supple without lymphadenopathy nontender Cardiovascular: Regular rate and rhythm, no murmurs. No rubs or gallops. Normal S1 and S2 Respiratory: Clear to auscultation bilaterally. No wheezes, rales, rhonchi Abdominal: Soft and nontender. Normal bowel sounds. No guarding or rebound. Nonsurgical abdomen Extremities: No tenderness. No bruising. Normal range of motion. Normal sensation. Back: No midline cervical or thoracic tenderness to palpation. There is mild midline lower lumbar tenderness to palpation. There is no step-offs or deformities. There is also paraspinal lower lumbar tenderness to palpation. No erythema or rashes on the back. Skin: No rash or redness. Neurological: Cranial nerves II through XII are grossly intact. Normal strength and sensation in bilateral lower extremities. Normal cerebellar function The rest of the physical exam is unremarkable Const Vital Signs: 07/14/25 16:03 07/14/25 18:02 07/14/25 19:37 Temperature 98.1 F Temperature Source Oral Pulse Rate 102 H 84 102 H Respiratory Rate 16 16 16 Blood Pressure 105/78 122/84 H 154/91 H Blood Pressure Mean 87 96 112 Pulse Ox 98 98 97 Oxygen Delivery Method Room Air Room Air 07/14/25 21:50 Temperature 98.1 F Temperature Source Pulse Rate 77 Respiratory Rate 16 Blood Pressure 125/77 H Blood Pressure Mean 93 Pulse Ox 98 Oxygen Delivery Method MDM MDM MDM Narrative Medical decision making narrative: Patient is a 79-year-old male presenting to the emergency department for back pain. Patient was seen and examined. Vitals are stable. Patient resting in bed comfortably no acute distress. No red leg back pain signs. No immunocompromise status. Normal sensation and strength in bilateral lower extremities. Has very mild midline lower lumbar spinal tenderness to palpation and therefore will obtain x-ray imaging to rule out any lesions in the spine. He had no trauma to his back or any falls, I do not suspect any fractures that could be causing his pain. He describes it very musculoskeletal including twisting movements that exacerbate the pain. He has been taking Tylenol and a muscle relaxer at home and is on a blood thinner and cannot take NSAIDs. Will give him narcotics here. X-ray of the lumbar spine was significantly delayed being read by radiologist. X-ray was done at 5 PM and was not read until 11:32 PM. Before the read was back, patient and at bedside did express that they wanted to leave. I recommended that they stay for the radiology read however did instruct them that I will call with the results. 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 No acute fractures. Called both and and left a message for her with the negative results. Prior to the patient being discharged I did prescribe him lidocaine patches for home as well as oxycodone. Has been taking Tylenol for pain control at home. He is unable to take NSAIDs due to his blood thinner use. After an Oxy here, he noted improvement in his symptoms and was able to ambulate without difficulty. He was given instructions about the Oxy that it can cause constipation, nausea, vomiting, lightheadedness and dizziness and was instructed to start a bowel regimen and be mindful while taking this medication. Patient discharged from the Emergency Department. I do not feel that the patient's evaluation reveals any acute reason for admission at this time. I instructed them to either follow-up with their primary care physician or promptly return to the Emergency Department for reevaluation should symptoms worsen or new symptoms develop. I explained what symptoms would indicate the need to return to the emergency department. Shared decision making was used. The patient voiced understanding of the treatment plan and is agreeable with it. 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 No acute fractures. Reading Location: [facility] Discharge Plan Triage Chief Complaint: Back ED Provider: Marla Victor Dx/Rx/DC Orders Clinical Impression: Back pain without radiation Instructions: ED Back Exercises, Lumbar, ED Back Pain (Acute or Chronic), ED Back Sprain/Strain Prescriptions: New oxycodone 5 mg tablet 5 mg PO Q8H PRN (Reason: pain) 3 Days Qty: 10 0RF lidocaine [Lidoderm] 5 % adhesive patch,medicated 1 patch topical DAILY Qty: 15 0RF Rx Instructions: leave on most painful area for up to 12 hrs No Action finasteride 5 mg tablet 5 mg PO DAILY tamsulosin 0.4 mg capsule 0.4 mg PO DAILY Centrum Silver 0.4 mg-300 mcg- 250 mcg tablet 1 tab PO DAILY neomycin-polymyxin B-dexameth 3.5mg/mL-10,000 unit/mL-0.1 % drops,suspension ophthalmic (eye) PRN Patient Comments: INSTILL 1 DROP INTO EACH EYE THREE TIMES DAILY FOR 1 WEEK cholecalciferol (vitamin D3) 25 mcg (1,000 unit) capsule 25 mcg PO QDAY spironolactone 25 mg tablet 25 mg PO DAILY Qty: 90 4RF losartan 50 mg tablet 50 mg PO DAILY Qty: 90 3RF carvedilol 12.5 mg tablet 12.5 mg PO BID Qty: 180 3RF Rx Instructions: must administer with a meal/food Eliquis 5 mg tablet 5 mg PO BID Qty: 180 4RF Primary Care Provider: Ángel Sarmiento NP Referrals: Ángel Sarmiento [facility], [facility] [Primary Care Provider, Family Practice] - As soon as possible Activity Restrictions/Additional Instructions: Try taking Tylenol every 8 hours for pain control. If this does not control your pain you can then take the Oxy every 8 hours as needed. This can make you have an upset stomach with nausea, vomiting or you can develop lightheadedness and dizziness and this can lead to falls. Do not drive while on this medication. It can also cause constipation, make sure you are taking a bowel regimen like MiraLAX when you are on it. Your evaluation in the Emergency Department did not reveal any acute reason for admission. However, I want to emphasize that you may be early in the course of a disease process or illness even if it is not present. For this reason you should follow-up within 24 hours for reevaluation with either your primary care physician or if necessary back here in the Emergency Department. You should return to the Emergency Department immediately if your symptoms worsen or new symptoms develop. Print Language: Com[place] Disposition Disposition: Home, Self Care Discharge Date/Time: 07/14/25 21:59
--- OUTSIDE RECORDS SUMMARY | 2025-07-14 16:43 | XMS RPT_ITS | CCD ---
Author Organization [facility] Care Team Providers Care Inner Tube Inserter Name Role Phone DeFinis, Harumi Y Unavailable Unavailable DeFinis, Harumi Y Unavailable Unavailable DEZ HER DO Primary Care Physician Dr. Dez Her Primary Care Provider Dr. Dez Her Referring Provider [phone] Freedom FOLEY, PRANEETH Clark Attending Provider Dez Her DO Primary Care Provider [phone] Gonzalez Greenberg MD S Unavailable DEZ HER Primary Care Unavailable GARLAND, GONZALEZ S Referring Unavailable EBER MARTINS Attending Unavailable DEZ HER Primary Care Unavailable GARLAND, GONZALEZ S Referring Unavailable EBER MARTINS Attending Unavailable DEZ HER Primary Care Unavailable Garland, Jupiter S Unavailable Dez Her Primary Care Provider Huber Campos Miguel Unavailable Garland, Jupiter S Unavailable Dez Her Primary Care Provider Beth Braulio Unavailable Garland, Jupiter S Unavailable Dez Her DO Primary Care Provider [phone] Huber Campos Unavailable Huber Campos MD Unavailable Dr. Dez Her Primary Care Provider Courtney Wright Attending Provider Unavailable Dr. Dez Her Referring Provider [phone] Freedom FOLEY MANUELC Amber Attending Provider Dr. Gonzalez Greenberg Attending Provider [phone] DEZ HER DO Primary Care Physician [phone] Dr. Dez Her Primary Care Provider Dr. Gonzalez Greenberg Attending Provider [phone] Dr. Dez Her Referring Provider [phone] Garland Gonzalez S Unavailable Dez Her DO Primary Care Provider [phone] Huber Campos MD Unavailable Dr. Dez Her Primary Care Provider Dr. Dez Her Referring Provider [phone] Dr. Gonzalez Greenberg Attending Provider [phone] Gonzalez Greenberg MD Unavailable Huber Campos MD Unavailable [phone] ARDEN, DEZ F Primary Care Unavailable ARDEN, DEZ F Primary Care Unavailable ARDEN, DEZ F Primary Care Unavailable SCHWEIKERT, DEZ Eris Referring Unavailable ARDEN, DEZ F Primary Care Unavailable SCHWEIKERT, DEZ Eris Referring Unavailable ARDEN, DEZ F Primary Care Unavailable ARDEN, DEZ F Primary Care Unavailable SCHWEIKERT, DEZ Eris Referring Unavailable SAMIA ALLEN Attending Unavailable ARDEN, DEZ F Primary Care Unavailable SCHWEIKERT, DEZ Eris Referring Unavailable GARLAND, GONZALEZ S Referring Unavailable ARDEN, DEZ F Primary Care Unavailable SCHWEIKERT, DEZ A Attending Unavailable ARDEN, DEZ F Primary Care Unavailable ARDEN, DEZ F Primary Care Unavailable GARLAND, GONZALEZ S Referring Unavailable ARDEN, DEZ F Primary Care Unavailable SCHWEIKERT, DEZ Eris Attending Unavailable ARDEN, DEZ F Primary Care Unavailable ARDEN, DEZ F Primary Care Unavailable ARDEN, DEZ F Primary Care Unavailable ARDEN, DEZ F Primary Care Unavailable ARDEN, DEZ Head Primary Care Unavailable Dr. Dez Her Primary Care Provider Dr. Dez Her Referring Provider Roof OPHTHALMIC SURGICAL ASSISTANT, OPHTHALMIC SURGICAL ASSISTANT-C Sascha Rodas Attending Provider DEZ HER Attending Unavailable DEZ HER Primary Care Unavailable Arden HUNT, Dr. Valdez Primary Care Provider [phone] Dr. Dez Her DO Attending Provider Dr. Dez Her DO Referring Provider Keisha OPHTHALMIC SURGICAL ASSISTANT-C, Sascha Rodas Attending Provider [phone] Dr. Skip Bermudez DO Primary Care Provider [phone] Roof OPHTHALMIC SURGICAL ASSISTANT-C, Sascha Rodas Referring Provider [phone] Garland DAMIAN, Dr. Roth Attending Provider [phone] SHERRY CAMILO-JHONNY, MARIELLA Primary Care Physician SHERRY CAMILO-JHONNY, MARIELLA Attending Mery POWELL APRN-JHONNY, MARIELLA Primary Care Dez Patton Primary Care Unavailable Dez Her Attending Unavailable Dez Her Referring Unavailable Martin OPHTHALMIC SURGICAL ASSISTANT, Donna Mejia Primary Care Unav ailable Guillermina OPHTHALMIC SURGICAL ASSISTANT, Donna Mejia Attending Unav ailable Martin OPHTHALMIC SURGICAL ASSISTANT, Donna Mejia Referring Unav ailable Dez Her Referring Unavailable Keisha OPHTHALMIC SURGICAL ASSISTANT, Sascha Rodas Attending Unavailable Skip Bermudez Primary Care Unavailable Gonzalez Greenberg Attending Unavailable Skip Bermudez Primary Care Unavailable Keisha OPHTHALMIC SURGICAL ASSISTANT, Sascha Rodas Attending Unavailable Keisha OPHTHALMIC SURGICAL ASSISTANT, Sascha Rodas Referring Unavailable Skip Bermudez Primary Care Unavailable Roof OPHTHALMIC SURGICAL ASSISTANT, Sascha Rodas Attending Unavailable Roof OPHTHALMIC SURGICAL ASSISTANT, Sascha Rodas Referring Unavailable Skip Bermudez Primary Care Unavailable Allergies Allergy Classification Reported Allergen(s) Allergy Type Date of Onset Reaction(s) Facility (20 sources) Baclofen; Translations: [baclofen] Drug Allergy 2 Eruption of skin (disorder), Rash [facility] (6 sources) Amiodarone; Translations: [amiodarone] Drug Allergy 4 Headache (finding), Feeling agitated (finding), Dizziness (finding) [facility] (1 source) Amiodarone Drug Allergy 5 [facility] (1 source) Baclofen Drug Allergy [facility] Medications Current Medications Medication Drug Class(es) Dates Sig (Normalized) Sig (Original) albuterol MDI (90 mcg/inh) [facility] free inhalation aerosol (1 source) Start: 06-15-2025 take 2 doses by inhalation every six hours as needed for wheezing albuterol MDI (90 mcg/inh) CFC free inhalation aerosol Dose : 180 mcg = 2 inh, Inhalation, q6hr, PRN as needed for wheezing, # 18 gram(s), 0 Refill(s), Pharmacy: [id number], Acute bronchitis, 174, cm, 06/15/25 15:35:00 EDT, Height, kg, 06/15/25 15:35:00 EDT, Dosing Weight Start Date: 06/15/25 Status: Ordered Medication Dispense Status: Completed Quantity: 18.0 Unit: g Total Allowed Fills: 1 Fills Dispensed: 0 Indications: Acute bronchitis, unspecified; apixaban 5 mg oral tablet (20 sources) Factor Xa Inhibitor Start: 02-24-2021 End: 07-21-2024 Eliquis 5 mg oral tablet Dose : 5 mg = 1 tab(s), Oral, BID, 0 Refill(s), 106.3 Start Date: 02/26/21 Status: Ordered Medication Dispense Status: Completed Total Allowed Fills: 1 Fills Dispensed: 0 Eliquis 5 MG tab let Take by mouth every 12 hours. 0 Active Comment on above: Take by mouth twice daily. Take 5 mg by mouth t wice daily. carvedilol 25 mg oral tablet (20 sources) alpha-Adrenergic Damari, beta-Adrenergic Damari Start: 12-17-2023 carvedilol 25 mg oral tablet Dose : 12.5 mg = 0.5 tab(s), BID, 0 Refill(s) Start Date: 12/17/23 Status: Ordered Medication Dispense Status: Completed Total Allowed Fills: 1 Fills Dispensed: 0 Start: 12-07-2023 Carvedilol 25 mg tablet Active 12.5 mg PO TWICE A DAY 180 3 December 07, 2023 1:54pm must administer with a meal/food Start: 12-07-2023 take 12.5 mg by mout h twice daily at mealtime Carvedilol Active 12.5 MG PO TWICE A DAY 180 December 07, 2023 1:54pm must administer with a meal/food Start: 05-17-2023 End: 12-07-2023 take 1 tablet by mouth twice daily at mealtime Carvedilol 25 mg tablet Discontinued 25 mg PO TWICE A DAY 180 May 17, 2023 10:39am December 07, 2023 1:56pm must administer with a meal/food Start: 02-01-2023 carvedilol (CO REG) 12.5 mg tablet Start: 07-06-2022 End: 05-17-2023 Carvedilol 25 mg tablet Discontinued 12.5 mg PO TWICE A DAY 180 July 06, 2022 4:09pm May 17, 2023 10:40am Decreased by Dr. Ortega must administer with a meal/food Start: 07-06-2022 End: 05-17-2023 take 12.5 mg by mouth twice daily at mealtime Carvedilol Discontinued 12.5 MG PO TWICE A DAY 180 July 06, 2022 4:09pm May 17, 2023 10:40am must administer with a meal/food Start: 11-04-2021 End: 03-06-2022 take 1 tablet by mouth twice daily at mealtime Carvedilol (Coreg) 12.5 mg tablet Discontinued 12.5 mg PO TWICE A DAY 180 February 27, 2022 6:46pm March 06, 2022 1:58pm must administer with a meal/food Start: 10-30-2020 End: 07-06-2022 take 1 tablet by mouth twice daily at mealtime Carvedilol 25 mg tablet Discontinued 25 mg PO TWICE A DAY 180 May 21, 2022 9:35am July 06, 2022 4:09pm must administer with a meal/food Start: 10-11-2020 End: 10-30-2020 take 1 tablet by mouth twice daily at mealtime Carvedilol (Coreg) 12.5 mg tablet Discontinued 12.5 mg PO TWICE A DAY 60 October 11, 2020 1:00am October 30, 2020 5:58pm must administer with a meal/food Comment on above: Take 25 mg by mouth twice daily with meals. Take 12.5 mg by mout h twice daily with meals. Centrum Cardio oral tablet (3 sources) Start: 10-20-2022 take 1 tablet by mouth once daily Centrum Cardio oral tablet Dose = 1 tab(s), Oral, qDay, # 30 tab(s), 0 Refill(s) Start Date: 10/20/22 Status: Ordered Medication Dispense Status: Completed Quantity: 30.0 Unit: tab(s) Total Allowed Fills: 1 Fills Dispensed: 0 Start: 10-20-2022 take 1 tablet by denny th once daily Centrum Cardio oral tablet Dose = 1 tab(s), Oral, qDay, # 30 tab(s), 0 Refill(s) Start Date: 10/20/22 Status: Ordered cholecalciferol 0.025 mg oral capsule (20 sources) Vitamin D Start: 06-01-2023 End: 05-19-2024 take 1 capsule by mouth once daily Cholecalciferol (Vitamin D3) 25 mcg (1,000 unit) capsule Active 25 ug PO daily May 19, 2024 12:00am Start: 10-16-2015 End: 12-27-2020 take 2 tablets by mouth once daily Cholecalciferol (Vitamin D3) 1,000 UNIT tablet Discontinued 2000 U PO DAILY October 16, 2015 1:00am December 27, 2020 10:32am Start: 10-16-2015 End: 12-27-2020 take 2000 [IU] by mouth once daily Cholecalciferol (Vitamin D3) Discontinued 2000 UNIT PO DAILY October 16, 2015 1:00am December 27, 2020 10:32am Start: 11-24-2011 take 1 tablet by denny th once daily VITAMIN D 2000 UNIT TABS One tablet by mouth daily CHOLECALCIFEROL [id number] Jadyn Bright RN take 1 tablet by denny th once daily cholecalciferol (VITAMIN D) 1,000 unit tab tablet Take 1,000 Units by mouth once daily. 0 Active Comment on above: Take 1,000 Units by mouth once daily. dexamethasone 1 mg/ml / neomycin 3.5 mg/ml / polymyxin b [id number] unt/ml ophthalmic suspension (2 sources) Aminoglycoside Antibacterial, Polymyxin-class Antibacterial, Corticosteroid Start: 2024 Neomycin-Polymyxin B-Dexameth 3.5mg/mL-10,000 unit/mL-0.1 % drops,suspension Active NMA OPHTHALMIC as needed February 07, 2025 12:00am finasteride 5 mg oral tablet (20 sources) 5-alpha Reductase Inhibitor Start: 2021 take 1 tablet by mouth once daily finasteride 5 mg oral tablet TAKE 1 TABLET BY MOUTH ONCE DAILY Start Date: 08/26/22 Status: Ordered Medication Dispense Status: Completed Total Allowed Fills: 1 Fills Dispensed: 0 Comment on above: Take 5 mg by mouth o nce daily. fluconazole 150 mg oral tablet (1 source) Azole Antifungal Start: 2024 fluconazole 150 mg oral tablet 0 Refill(s), 103.2 Start Date: 06/15/25 Status: Ordered Medication Dispense Status: Completed Total Allowed Fills: 1 Fills Dispensed: 0 iv contrast (will be provided with radiology test) (1 source) Start: 2022 End: 2022 inject 1 dose intravenously once iv contrast (will be provided with radiology test) Indications: Dyspnea, unspecified type , Atrial fibrillation, persistent (HCC) CTA CHEST - No IV access, insert saline lock prior to the sedation, infusion, injection for imaging exam. Discontinue saline lock post exam. If Pt. has a central line or IVAD, may access for administration according to line specific nursing protocol. Once exam is complete flush line and de-access according to line specific nursing protocol in the CT contrast administration guidelines link. 1 Each 0 09/15/2022 09/16/2022 Active Comment on above: CTA CHEST - No IV ac cess, insert saline lock prior to the sedation, infusion, injection for imaging exam. Discontinue saline lock post exam. If Pt. has a central line or IVAD, may access for administration according to line specific nursing protocol. Once exam is complete flush line and de-access according to line specific nursing protocol in the CT contrast administration guidelines link. losartan potassium 50 mg oral tablet (20 sources) Angiotensin 2 Receptor Damari Start: 2020 End: 2023 losartan 50 mg oral tablet Dose : 50 mg = 1 tab(s), Oral, qDay, # 90 tab(s), 0 Refill(s) Start Date: 10/20/22 Status: Ordered Medication Dispense Status: Completed Quantity: 90.0 Unit: tab(s) Total Allowed Fills: 1 Fills Dispensed: 0 Start: 10-30-2020 End: 04-08-2021 Losartan 100 mg tablet Disco ntinued 50 mg PO DAILY October 30, 2020 5:28pm April 08, 2021 3:34pm Start: 10-30-2020 End: 04-08-2021 take 50 mg by mouth once daily Losartan Discontinued 5 0 MG PO DAILY October 30, 2020 5:28pm April 08, 2021 3:34pm Start: 10-11-2020 End: 10-11-2020 Losartan 100 mg tablet Disco ntinued 50 mg PO DAILY 90 October 11, 2020 4:15pm October 11, 2020 4:16pm Start: 10-11-2020 End: 10-11-2020 take 50 mg by mouth once daily Losartan Discontinued 5 0 MG PO DAILY October 11, 2020 4:15pm October 11, 2020 4:16pm Start: 08-10-2012 End: 10-30-2020 take 1 tablet by mouth once daily Losartan 100 mg tablet Discontinued 100 mg PO DAILY October 07, 2020 9:43am October 11, 2020 4:16pm Comment on above: Take 50 mg by mouth once daily. Ysnmjqpi-Xnf-Yc-Lyc open-Lutein (Centrum Silver) 0.4 mg-300 mcg- 250 mcg tablet (7 sources) Start: 10-09-2022 take 1 tablet by mouth once daily Unfjphbu-Ktz-Pk-Lyc open-Lutein (Centrum Silver) 0.4 mg-300 mcg- 250 mcg tablet Active 1 {tbl} PO DAILY October 09, 2022 1:00am Start: 10-09-2022 take 1 tablet by denny th once daily Gxoceyii-Itp-Br-Lycopen-Lutein (Centrum Silver) 0.4 mg-300 mcg- 250 mcg tablet Active 1 TABLET PO DAILY October 09, 2022 1:00am perflutren lipid microspheres 1.3 mL in NaCl (PF) 0.9% 10 mL injection (DEFINITY) (3 sources) Start: 09-15-2022 End: 12-16-2023 perflutren lipid microspheres 1.3 mL in NaCl (PF) 0.9% 10 mL injection (DEFINITY) predniSONE 20 mg oral tablet (1 source) Start: 06-15-2025 End: 06-20-2025 predniSONE 20 mg oral tablet Dose : 40 mg = 2 tab(s), Oral, qDay, Take with food, X 5 day(s), # 10 tab(s), 0 Refill(s), 06/20/25 4:14:00 PM EDT, Pharmacy: [facility], Acute bronchitis, 174, cm, 06/15/25 15:35:00 EDT, Height, kg, 06/15/25 15:35:00 EDT, Dosing Weight Start Date: 06/15/25 Stop Date: 06/20/25 Status: Ordered Medication Dispense Status: Completed Quantity: 10.0 Unit: tab(s) Total Allowed Fills: 1 Fills Dispensed: 0 Indications: Acute bronchitis, unspecified; simvastatin 10 mg oral tablet (20 sources) HMG-CoA Reductase Inhibitor Start: 11-24-2024 simvastatin 10 mg or al tablet Dose : 10 mg = 1 tab(s), Oral, qHS, # 90 tab(s), 3 Refill(s), Pharmacy: [facility], 173, cm, 09/25/24 9:43:00 EST, Height, kg, 09/25/24 9:43:00 EST, Dosing Weight Start Date: 11/24/24 Status: Ordered Medication Dispense Status: Completed Quantity: 90.0 Unit: tab(s) Total Allowed Fills: 4 Fills Dispensed: 0 Start: 05-19-2024 End: 02-07-2025 take 10 mg by mouth at bedtime Simvastatin 20 mg table t Discontinued 10 mg PO AT BEDTIME May 19, 2024 11:14am February 07, 2025 1:44pm Start: 06-10-2022 take 0.5 tablet by m outh at bedtime simvastatin 20 mg oral tablet See Instructions, TAKE 0.5 TABLET BY MOUTH AT BEDTIME, # 90 tab(s), 3 Refill(s), Pharmacy: [facility], 174, cm, 04/28/22 14:58:00 EDT, Height, kg, 04/28/22 14:58:00 EDT, Dosing Weight Start Date: 06/10/22 Status: Ordered Start: 02-07-2022 take 10 mg by mouth once daily at bedtime simvastatin (ZOCOR) 20 mg tablet Take 10 mg by mouth daily at bedtime. 0 02/07/2022 Active Start: 12-01-2010 End: 05-19-2024 take 1 tablet by mouth at bedtime Simvastatin 20 MG tablet Discontinued 20 mg PO AT BEDTIME October 16, 2015 1:00am May 19, 2024 11:14am End: 04-29-2022 take 0.5 tablet by mouth once daily at bedtime simvastatin 20 mg/5 mL (4 mg/mL) susp Take 20 mg by mouth daily at bedtime. Now taking 1/2 tab daily 0 04/29/2022 Discontinued (Other) Comment on above: Take 20 mg by mouth daily at bedtime. Take 20 mg by mouth daily at bedtime. Now taking 1/2 tab daily Take 10 mg by mouth daily at bedtime. 125 ml sodium chloride 9 mg/ml prefilled syringe (9 sources) Start: 09-15-2022 End: 12-16-2023 sodium chloride 0.9 % (flush) 10 mL (BD POSIFLUSH) tamsulosin hydrochloride 0.4 mg oral capsule (20 sources) alpha-Adrenergic Damari Start: 04-28-2022 tamsulosin 0.4 mg oral capsule Dose : 0.4 mg = 1 cap(s), Oral, qDayPC, 0 Refill(s) Start Date: 04/28/22 Status: Ordered Medication Dispense Status: Completed Total Allowed Fills: 1 Fills Dispensed: 0 Start: 03-26-2020 End: 03-26-2020 take 1 capsule by mouth once daily Tamsulosin 0.4 mg capsule Discontinued 0.4 mg PO DAILY March 26, 2020 12:00am March 26, 2020 2:07pm Comment on above: Take 0.4 mg by mouth daily at bedtime. Vitamin D3 25 mcg (1000 intl units) oral capsule (2 sources) Start: 12-28-2024 Vitamin D3 25 mcg (1000 intl units) oral capsule Dose : 25 mcg = 1 cap(s), Oral, Daily, # 30 cap(s), 0 Refill(s) Start Date: 12/28/24 Status: Ordered Medication Dispense Status: Completed Quantity: 30.0 Unit: cap(s) Total Allowed Fills: 1 Fills Dispensed: 0 Start: 12-07-2024 Vitamin D3 25 mcg (1000 intl units) oral capsule Dose : 25 mcg = 1 cap(s), Oral, Daily, OTC, 0 Refill(s) Start Date: 12/07/24 Status: Ordered Medication Dispense Status: Completed Total Allowed Fills: 1 Fills Dispensed: 0 Completed/Discontinued Medications Medication Drug Class(es) Dates Sig (Normalized) Sig (Original) acetaminophen 325 mg / HYDROcodone bitartrate 5 mg oral tablet (9 sources) Opioid Agonist Start: 10-04-2016 End: 11-15-2017 Hydrocodone-Acetami nophen 1 TABLET tablet Discontinued 1 - 2 {tbl} PO EVERY 4 HOURS NEEDED as needed for Pain October 04, 2016 1:00am November 15, 2017 2:21pm Start: 10-04-2016 End: 11-15-2017 take 1 tablet by mouth every four hours as needed Hydrocodone-Acetaminophen Discontinued 1 - 2 TABLET PO EVERY 4 HOURS NEEDED October 04, 2016 1:00am November 15, 2017 2:21pm Acidophilus Probiotic Blend oral capsule (2 sources) Start: 02-26-2021 End: 03-28-2021 take 1 capsule by mouth once daily Acidophilus Probiotic Blend oral capsule Dose = 1 cap(s), Oral, qDay, # 30 cap(s), 0 Refill(s), Pharmacy: [facility], 175, cm, 02/26/21 13:10:00 EDT, Height, kg, 02/26/21 13:10:00 EDT, Dosing Weight Start Date: 02/26/21 Stop Date: 03/28/21 Status: Ordered [id number] 200 actuat albuterol 0.09 mg/actuat metered dose inhaler (1 source) beta2-Adrenergic Agonist Start: 01-02-2021 End: 04-29-2022 albuterol HFA (PROVENTIL HFA, VENTOLIN HFA) 90 mcg/actuation inhaler Inhale as instructed. 0 01/02/2021 04/29/2022 Discontinued (Other) Comment on above: Inhale as instructed . amiodarone hydrochloride 200 mg oral tablet (20 sources) Antiarrhythmic Start: 06-07-2023 End: 06-09-2023 take 1 tablet by mouth every twenty-four hours Amiodarone 200 mg tablet Discontinued 200 mg PO Q24H 60 June 07, 2023 12:00am June 09, 2023 11:51am Start: 05-21-2022 take 1 tablet by denny th once daily amiodarone (PACERONE) 200 mg tablet Take 1 tablet by mouth once daily. 60 tablet 5 05/21/2022 Active Start: 03-31-2022 take 1 tablet by denny th once daily amiodarone (PACERONE) 200 mg tablet Take 1 tablet by mouth once daily. 0 03/31/2022 Active Start: 03-31-2022 take 2 tablets by mo kyh once daily AMIOdarone 200 MG tablet Take 2 tablets by mouth daily. 60 tablet 0 03/31/2022 Active Start: 12-11-2020 End: 03-11-2021 take 1 tablet by mouth once daily Amiodarone 200 mg tablet Discontinued 200 mg PO DAILY December 11, 2020 1:30pm March 11, 2021 9:31am Start: 11-13-2020 End: 12-11-2020 Amiodarone 200 mg tablet Discontinued 200 mg PO .COMPLEX 108 3 November 13, 2020 12:00am December 11, 2020 1:32pm 200 mg PO twice daily for 1 week, then once daily; Comment on above: Take 1 tablet by denny once daily. amLODIPine 5 mg oral tablet (20 sources) Dihydropyridine Calcium Channel Damari Start: End: take 2.5 mg by mouth twice daily Amlodipine 5 mg tablet Discontinued 2.5 mg PO TWICE A DAY October 30, 2020 5:29pm October 30, 2020 5:57pm Start: 10-30-2020 End: 10-30-2020 take 2.5 mg by mouth twice daily Amlodipine Discontinued 2.5 MG PO TWICE A DAY October 30, 2020 5:29pm October 30, 2020 5:57pm Start: 10-11-2020 End: 10-30-2020 take 2.5 mg by mouth once daily Amlodipine 5 mg tablet Discontinued 2.5 mg PO DAILY October 11, 2020 4:16pm October 30, 2020 5:30pm Start: 09-23-2020 End: 10-30-2020 take 2.5 mg by mouth once daily Amlodipine Discontinue d 2.5 MG PO DAILY 90 October 11, 2020 4:16pm October 30, 2020 5:30pm Start: 06-07-2018 End: 10-11-2020 take 1 tablet by mouth once daily Amlodipine 5 mg tablet Discontinued 0 .ROUTE .COMPLEX 90 0 September 23, 2020 12:12pm October 11, 2020 4:16pm Take 1 tablet by mouth once daily Start: 08-10-2012 End: 06-07-2018 take 1 tablet by mouth once daily Amlodipine 10 MG tablet Discontinued 10 mg PO DAILY 90 3 September 09, 2017 2:14pm June 07, 2018 2:16pm Start: 03-07-2012 take 1 tablet by denny th once daily AMLODIPINE BESYLATE 5 MG TABS One tablet by mouth daily AMLODIPINE BESYLATE [id number] Gonzalez Greenberg MD B [id number] (1 source) Start: 08-10-2014 take 1 tablet by mouth once daily SUPER B-COMPLEX CAPS One tablet by mouth daily B [id number] Gonzalez Greenberg MD B [id number] (1 source) Start: 08-10-2014 take 1 tablet by mouth once daily SUPER B-COMPLEX CAPS One tablet by mouth daily B [id number] Gonzalez Greenberg MD calcium carbonate 1500 mg oral tablet (4 sources) Start: 12-01-2010 End: 06-23-2013 take 1 tablet by mouth once daily CALCIUM 600 600 MG TABS One tablet by mouth daily CALCIUM CARBONATE [id number] Nida Alacron Start: 12-01-2010 take 1 tablet by denny th once daily CALCIUM 600 600 MG TABS One tablet by mouth daily CALCIUM CARBONATE [id number] Nida Alarcon Start: 12-01-2010 End: 06-23-2013 take 1 tablet by mouth once daily CALCIUM 600 600 MG TABS One tablet by mouth daily CALCIUM CARBONATE [id number] Gonzalez Greenberg MD cholecalciferol 2000 unt / soy protein isolate 64 mg oral tablet (9 sources) Vitamin D Start: 12-27-2020 End: 01-02-2021 Cholecalciferol-Soy Isoflavone 2,000-64 unit-mg Tablet Discontinued 2000 {tbl} PO DAILY December 27, 2020 12:00am January 02, 2021 11:14am Start: 12-27-2020 End: 01-02-2021 take 1 tablet by mouth once daily Cholecalciferol-Soy Isoflavone Discontinued 2000 TABLET PO DAILY December 27, 2020 12:00am January 02, 2021 11:14am GLUCOSAMINE-CHONDROITIN CAPS (4 sources) Start: 11-24-2011 End: 08-10-2012 take 1 tablet by mouth two times weekly GLUCOSAMINE-CHONDROITIN CAPS 1 tablet by mouth twice a week GLUCOSAMINE-CHONDROITIN CAPS [id number] Gonzalez Greenberg MD Start: 11-24-2011 take 1 tablet by denny two times weekly GLUCOSAMINE-CHONDROITIN CAPS 1 tablet by mouth twice a week GLUCOSAMINE-CHONDROITIN CAPS [id number] Jadyn Bright RN Start: 11-24-2011 End: 08-10-2012 take 1 tablet by mouth two times weekly GLUCOSAMINE-CHONDROITIN CAPS 1 tablet by mouth twice a week GLUCOSAMINE-CHONDROITIN CAPS [id number] Gonzalez Greenberg MD Start: 11-24-2011 take 1 tablet by denny two times weekly GLUCOSAMINE-CHONDROITIN CAPS 1 tablet by mouth twice a week GLUCOSAMINE-CHONDROITIN CAPS [id number] Jadyn Bright RN ubidecarenone 200 mg oral capsule (11 sources) Start: 11-24-2011 End: 12-27-2020 take 10 capsules by mouth once daily Coenzyme Q10 200 MG capsule Discontinued 200 mg PO DAILY October 16, 2015 1:00am December 27, 2020 10:32am docusate sodium 100 mg oral tablet (6 sources) Start: 05-08-2011 End: 08-10-2014 take 1 tablet by mouth once daily COLACE 100 MG CAPS One tablet by mouth daily DOCUSATE SODIUM [id number] Nida Alarcon Start: 05-08-2011 End: 08-10-2014 take 1 tablet by mouth once daily STOOL SOFTENER 100 MG TABS One tablet by mouth daily DOCUSATE SODIUM [id number] Gonzalez Greenberg MD furosemide 40 mg oral tablet (20 sources) Loop Diuretic Start: 06-01-2023 End: 03-09-2024 Furosemide (Lasix) 40 mg tablet Discontinued 40 mg PO .PRN as needed December 07, 2023 1:55pm March 09, 2024 3:04pm Start: 01-15-2021 End: 06-01-2023 take 1 tablet by mouth once daily Furosemide (Lasix) 40 mg tablet Discontinued 40 mg PO DAILY 180 3 July 14, 2022 3:01pm June 01, 2023 2:40pm Start: 10-30-2020 End: 07-14-2022 take 1 tablet by mouth twice daily Furosemide (Lasix) 40 mg tablet Discontinued 40 mg PO TWICE A DAY 180 3 May 21, 2022 9:37am July 14, 2022 3:03pm Start: 10-11-2020 End: 10-30-2020 take 1 tablet by mouth once daily Furosemide (Lasix) 40 mg tablet Discontinued 40 mg PO DAILY October 11, 2020 3:45pm October 30, 2020 5:58pm Start: 10-02-2020 End: 10-11-2020 take 1 tablet by mouth every other day Furosemide (Lasix) 40 mg tablet Discontinued 40 mg PO every other day 30 October 02, 2020 5:12pm October 11, 2020 3:45pm Start: 09-10-2020 End: 10-02-2020 take 1 tablet by mouth once daily Furosemide (Lasix) 40 mg tablet Discontinued 40 mg PO DAILY 30 September 10, 2020 1:00am October 02, 2020 5:12pm Comment on above: Take 40 mg by mouth twice daily. Take 40 mg by mouth once daily. Take 40 mg by mouth as directed. Takes 40 mg PO four (4) days a week hydroCHLOROthiazide 25 mg oral tablet (11 sources) Thiazide Diuretic Start: 2012 End: 2018 take 1 tablet by mouth once daily Hydrochlorothiazide 25 MG tablet Discontinued 25 mg PO DAILY October 16, 2015 1:00am September 02, 2018 3:03pm hydroCHLOROthiazide 25 mg / losartan potassium 100 mg oral tablet (2 sources) Thiazide Diuretic, Angiotensin 2 Receptor Damari Start: 2011 take 1 tablet by mouth once daily LOSARTAN POTASSIUM-HCTZ 100-25 MG TABS One tablet by mouth daily LOSARTAN POTASSIUM-HCTZ [id number] Yajaira Roberts RN hydroCHLOROthiazide 25 mg / triamterene 37.5 mg oral tablet (1 source) Potassium-sparing Diuretic, Thiazide Diuretic Start: 2024 End: 2024 take 1 tablet by mouth once daily in the morning hydrochlorothiazide-tria mterene 25 mg-37.5 mg oral tablet Dose = 0.5 tab(s), Oral, qAM, # 4 tab(s), 0 Refill(s), Pharmacy: [id number], 174.5, cm, 12/07/24 14:16:00 EDT, Height, kg, 12/07/24 14:16:00 EDT, Dosing Weight Start Date: 12/07/24 Stop Date: 12/14/24 Status: Ordered Medication Dispense Status: Completed Quantity: 4.0 Unit: tab(s) Total Allowed Fills: 1 Fills Dispensed: 0 hydroCHLOROthiazide 25 mg / valsartan 320 mg oral tablet (4 sources) Thiazide Diuretic, Angiotensin 2 Receptor Damari Start: 2010 End: 2011 take 1 tablet by mouth once daily DIOVAN HCT 320-25 MG TABS One tablet by mouth daily VALSARTAN-HYDROCHLOROTHI AZIDE [id number] [facility] Start: 12-01-2010 take 1 tablet by denny th once daily DIOVAN HCT 320-25 MG TABS One tablet by mouth daily VALSARTAN-HYDROCHLOROTHIAZIDE [id number] [facility] Start: 12-01-2010 End: 12-02-2011 take 1 tablet by mouth once daily DIOVAN HCT 320-25 MG TABS One tablet by mouth daily VALSARTAN-HYDROCHLOROTHIAZIDE [id number] Yajaira Roberts RN lactobacillus acidophilus [id number] unt oral capsule (1 source) Start: 02-26-2021 End: 03-28-2021 take 1 capsule by mouth once daily Acidophilus Probiotic Blend oral capsule Dose = 1 cap(s), Oral, qDay, # 30 cap(s), 0 Refill(s), Pharmacy: [id number], 175, cm, 02/26/21 13:10:00 EDT, Height, kg, 02/26/21 13:10:00 EDT, Dosing Weight Start Date: 02/26/21 Stop Date: 03/28/21 Status: Ordered lactobacillus rhamnosus gg [id number] unt oral capsule (4 sources) Start: 05-08-2011 End: 11-24-2011 take 1 capsule by mouth once daily CULTURELLE CAPS 1 capsule, One tablet by mouth daily LACTOBACILLUS RHAMNOSUS (GG) CAPS [id number] [facility] Start: 05-08-2011 take [address] [facility] once daily CULTURELLE CAPS 1 capsule, One tablet by mouth daily LACTOBACILLUS RHAMNOSUS (GG) CAPS [id number] [facility] Start: 05-08-2011 End: 11-24-2011 take 1 capsule by mouth once daily CULTURELLE CAPS 1 capsule, One tablet by mouth daily LACTOBACILLUS RHAMNOSUS (GG) CAPS [id number] Jadyn Bright RN lutein 20 mg oral tablet (4 sources) Start: 08-10-2012 End: 06-23-2013 take 1 tablet by mouth once daily LUTEIN 20 MG TABS One tablet by mouth daily LUTEIN [id number] Gonzalez Greenberg MD metoprolol tartrate 25 mg oral tablet (20 sources) beta-Adrenergic Damari Start: 09-27-2018 End: 10-11-2020 take 1 tablet by mouth twice daily Metoprolol Tartrate 25 mg tablet Discontinued 0 .ROUTE .COMPLEX 180 3 September 23, 2020 12:13pm October 11, 2020 4:13pm Take 1 tablet by mouth twice daily Start: 11-15-2017 End: 09-27-2018 Metoprolol Tartrate 50 MG ta blet Discontinued 25 mg PO TWICE A DAY November 15, 2017 2:30pm September 27, 2018 12:33pm Start: 11-15-2017 End: 09-27-2018 take 25 mg by mouth twice daily Metoprolol Tartrate Di scontinued 25 MG PO TWICE A DAY November 15, 2017 2:30pm September 27, 2018 12:33pm Start: 03-17-2013 End: 11-15-2017 take 1 tablet by mouth twice daily Metoprolol Tartrate 50 MG tablet Discontinued 50 mg PO TWICE A DAY October 16, 2015 1:00am November 15, 2017 2:30pm MULTIPLE VITAMIN (1 source) Start: 12-01-2010 take 1 tablet by mouth once daily MULTIVITAMINS TABS One tablet by mouth daily MULTIPLE VITAMIN [id number] Nida Alarcon MULTIPLE VITAMIN (1 source) Start: 12-01-2010 take 1 tablet by mouth once daily MULTIVITAMINS TABS One tablet by mouth daily MULTIPLE VITAMIN [id number] Nida Alarcon multivit-min/FA/lyco pen/lutein (CENTRUM SILVER MEN ORAL) (7 sources) take 1 tablet by mouth once daily multivit-min/FA/lyco pen/lutein (CENTRUM SILVER MEN ORAL) Take 1 tablet by mouth once daily. 0 Active Comment on above: Take 1 tablet by denny th once daily. Multivitamin 1 EACH tablet (3 sources) Start: 10-16-2015 End: 12-27-2020 Multivitamin 1 EACH tablet Discontinued 1 NMA PO DAILY October 16, 2015 1:00am December 27, 2020 10:32am Multivitamin preparation (6 sources) Start: 10-16-2015 End: 12-27-2020 Multivitamin Discontinued 1 EACH PO DAILY October 16, 2015 12:00am December 27, 2020 9:32am Start: 10-16-2015 End: 12-27-2020 Multivitamin Discontinued 1 EACH PO DAILY October 16, 2015 1:00am December 27, 2020 10:32am multivitamin tablet (1 source) Start: 12-01-2010 End: 04-29-2022 multivitamin tablet Take by mouth. 0 12/01/2010 04/29/2022 Discontinued (Other) Comment on above: Take by mouth. nitrofurantoin, macrocrystals 100 mg oral capsule (9 sources) Nitrofuran Antibacterial Start: 12-06-2018 End: 08-15-2019 take 1 capsule by mouth twice daily Nitrofurantoin Macrocrystal 100 mg capsule Discontinued 100 mg PO TWICE A DAY December 06, 2018 12:00am August 15, 2019 2:02pm nystatin 131000 unt/ml topical cream (1 source) Polyene Antifungal Start: 05-24-2025 End: 06-07-2025 apply 1 dose topically twice daily nystatin 100,000 units/g topical cream Apply 1 serene, Topical, BID, # 30 gram(s), 0 Refill(s), Pharmacy: [id number], Cream, 178, cm, 12/28/24 8:24:00 EDT, Height, 102.9, kg, 12/28/24 8:24:00 EDT, Dosing Weight Start Date: 05/24/25 Stop Date: 06/07/25 Status: Ordered Medication Dispense Status: Completed Quantity: 30.0 Unit: g Total Allowed Fills: 1 Fills Dispensed: 0 OMEGA-3 FATTY ACIDS CPDR (1 source) Start: 12-01-2010 take 1 tablet by mouth once daily OMEGA 3 CPDR One tablet by mouth daily OMEGA-3 FATTY ACIDS CPDR [id number] Nida [facility] OMEGA-3 FATTY ACIDS CPDR (1 source) Start: 12-01-2010 take 1 tablet by mouth once daily OMEGA 3 CPDR One tablet by mouth daily OMEGA-3 FATTY ACIDS CPDR [id number] Nida [facility] Pelham-3 Fatty Acids-Fish Oil (6 sources) Start: 10-16-2015 End: 12-27-2020 Pelham-3 Fatty Acids-Fish Oil Discontinued 1 EACH PO DAILY October 16, 2015 12:00am December 27, 2020 9:32am Start: 10-16-2015 End: 12-27-2020 Pelham-3 Fatty Acids-Fish Oil Discontinued 1 EACH PO DAILY October 16, 2015 1:00am December 27, 2020 10:32am Pelham-3 Fatty Acids-Fish Oil 1 EACH capsule (3 sources) Start: 10-16-2015 End: 12-27-2020 Pelham-3 Fatty Acids-Fish Oil 1 EACH capsule Discontinued 1 NMA PO DAILY October 16, 2015 1:00am December 27, 2020 10:32am Pelham-3 Fatty Acids-Vitamin E (P[place]ham-3 Fish Oil) 1,000-5 mg-unit Capsule (9 sources) Start: 12-27-2020 End: 01-24-2021 Pelham-3 Fatty Acids-Vitamin E (Pelham-3 Fish Oil) 1,000-5 mg-unit Capsule Discontinued 1 NMA PO DAILY December 27, 2020 12:00am January 24, 2021 1:29pm Start: 12-27-2020 End: 01-24-2021 take 1 capsule by mouth once daily Pelham-3 Fatty Acids-Vitamin E (Pelham-3 Fish Oil) 1,000-5 mg-unit Capsule Discontinued 1 CAP PO DAILY December 26, 2020 11:00pm January 24, 2021 12:29pm Start: 12-27-2020 End: 01-24-2021 take 1 capsule by mouth once daily Pelham-3 Fatty Acids-Vitamin E (Pelham-3 Fish Oil) 1,000-5 mg-unit Capsule Discontinued 1 CAP PO DAILY December 27, 2020 12:00am January 24, 2021 1:29pm potassium chloride 20 meq extended release oral tablet (20 sources) Start: 06-17-2022 potassium chlo ride ER (K-DUR, KLOR-CON) 20 mEq tablet Take 20 mEq by mouth once daily. 0 06/17/2022 Active Start: 07-16-2021 End: 03-09-2024 take 1 tablet by mouth once daily Potassium Chloride 20 mEq tablet extended release Discontinued 20 meq PO DAILY 90 June 18, 2023 4:51pm December 07, 2023 1:56pm Start: 02-21-2021 End: 07-16-2021 take 1 tablet by mouth twice daily Potassium Chloride 20 mEq tablet extended release Discontinued 20 meq PO TWICE A DAY February 21, 2021 9:27pm July 16, 2021 4:51pm Start: 01-24-2021 End: 02-21-2021 take 1 tablet by mouth three times daily Potassium Chloride 20 mEq tablet extended release Discontinued 20 meq PO THREE TIMES A DAY 540 January 24, 2021 2:06pm February 21, 2021 9:27pm Start: 01-24-2021 Potassium Chlo ride (Tnh-Epep-Jci M20) 20 mEq oral tablet, extended release 0 Refill(s) Start Date: 01/24/21 Status: Ordered Start: 12-18-2020 End: 01-24-2021 take 1 tablet by mouth twice daily Potassium Chloride 20 mEq tablet extended release Discontinued 20 meq PO TWICE A DAY 180 December 18, 2020 1:58pm January 24, 2021 2:06pm This is a dose increase Start: 12-11-2020 End: 12-18-2020 take 1 tablet by mouth once daily Potassium Chloride 20 mEq tablet extended release Discontinued 20 meq PO DAILY December 11, 2020 1:31pm December 18, 2020 1:57pm Start: 11-13-2020 End: 12-11-2020 take 1 tablet by mouth twice daily Potassium Chloride 20 mEq tablet extended release Discontinued 20 meq PO TWICE A DAY 60 November 13, 2020 4:37pm December 11, 2020 1:32pm Start: 11-04-2020 End: 11-13-2020 take 1 tablet by mouth once daily Potassium Chloride 20 mEq tablet extended release Discontinued 20 meq PO DAILY 30 November 04, 2020 1:00am November 13, 2020 4:38pm Start: 09-02-2018 End: 12-06-2018 Potassium Chloride (Klor-Con M20) 20 mEq tablet,ER particles/crystals Discontinued 20 meq PO DAILY 30 September 02, 2018 1:00am December 06, 2018 1:07pm Comment on above: Take 20 mEq by mouth once daily. 12 hr propafenone hydrochloride 225 mg extended release oral capsule (4 sources) Antiarrhythmic Start: 12-02-19 11 End: 03-17-20 13 take 1 tablet by mouth twice daily RYTHMOL SR 225 MG [id number] One tablet by mouth twice daily PROPAFENONE HCL [id number] Gonzalez Greenberg MD Start: 12-01-2010 take 1 tablet by denny twice daily RYTHMOL SR 225 MG [id number] One tablet by mouth twice daily PROPAFENONE HCL [id number] Gonzalez Greenberg MD Start: 12-01-2010 End: 03-17-2013 take 1 tablet by mouth twice daily RYTHMOL SR 225 MG [id number] One tablet by mouth twice daily PROPAFENONE HCL [id number] Gonzalez Greenberg MD senokot-s (2 sources) Start: 11-24-2011 End: 06-23-2013 take 1 tablet by mouth once daily STOOL SOFTENER 100 MG TABS One tablet by mouth daily DOCUSATE SODIUM [id number] Gonzalez Greenberg MD Start: 11-24-2011 take 1 tablet by denny th once daily STOOL SOFTENER 100 MG TABS One tablet by mouth daily DOCUSATE SODIUM [id number] Jadyn Bright RN spironolactone 25 mg oral tablet (20 sources) Aldosterone Antagonist Start: 07-16-2021 End: 11-08-2024 take 1 tablet by mouth once daily Spironolactone 25 mg tablet Discontinued 25 mg PO DAILY 90 4 October 29, 2023 8:49am November 08, 2024 10:23am Comment on above: Take 25 mg by mouth once daily. Ubidecarenone-Pelham 3-Vit E (6 sources) Start: 12-27-2020 End: 01-24-2021 take 2 capsules by mouth once daily Ubidecarenone-Pelham 3-Vit E Discontinued 2 CAP PO DAILY December 26, 2020 11:00pm January 24, 2021 12:29pm Start: 12-27-2020 End: 01-24-2021 take 2 capsules by mouth once daily Ubidecarenone-P[place]ham 3-Vit E Discontinued 2 CAP PO DAILY December 27, 2020 12:00am January 24, 2021 1:29pm Ubidecarenone-P[place]ham 3-Vit E 25-150-200 mg-mg-unit Capsule (3 sources) Start: 12-27-2020 End: 01-24-2021 Ubidecarenone-Pelham 3-Vit E 25-150-200 mg-mg-unit Capsule Discontinued 2 NMA PO DAILY December 27, 2020 12:00am January 24, 2021 1:29pm valsartan 320 mg oral tablet (4 sources) Angiotensin 2 Receptor Damari Start: 08-10-2012 take 1 tablet by mouth once daily DIOVAN 320 MG TABS One tablet by mouth daily VALSARTAN [id number] Gonzalez Greenberg MD B COMPLEX VITAMINS (4 sources) Start: 12-01-2010 take 1 tablet by mouth once daily VITAMIN B COMPLEX TABS One tablet by mouth daily B COMPLEX VITAMINS [id number] Nida Alarcon Start: 12-01-2010 End: 03-19-2015 take 1 tablet by mouth once daily VITAMIN B COMPLEX TABS One tablet by mouth daily B COMPLEX VITAMINS [id number] Gonzalez Greenberg MD Start: 12-01-2010 take 1 tablet by denny once daily VITAMIN B COMPLEX TABS One tablet by mouth daily B COMPLEX VITAMINS [id number] Nida Alarcon Start: 12-01-2010 End: 03-19-2015 take 1 tablet by mouth once daily VITAMIN B COMPLEX TABS One tablet by mouth daily B COMPLEX VITAMINS [id number] Gonzalez Greenberg MD Vitamin B Complex-Folic Acid (12 sources) Start: 12-27-2020 End: 01-24-2021 take 1 tablet by mouth once daily Vitamin B Complex-Folic Acid Discontinued 1 TABLET PO DAILY December 26, 2020 11:00pm January 24, 2021 12:29pm Start: 12-27-2020 End: 01-24-2021 take 1 tablet by mouth once daily Vitamin B Complex-Folic Acid Discontinued 1 TABLET PO DAILY December 27, 2020 12:00am January 24, 2021 1:29pm Start: 10-16-2015 End: 12-27-2020 take 0.4 mg by mouth once daily Vitamin B Complex-Folic Acid Discontinued 0.4 MG PO DAILY October 16, 2015 12:00am December 27, 2020 9:32am Start: 10-16-2015 End: 12-27-2020 take 0.4 mg by mouth once daily Vitamin B Complex-Folic Acid Discontinued 0.4 MG PO DAILY October 16, 2015 1:00am December 27, 2020 10:32am Vitamin B Complex-Folic Acid 0.4 MG tablet (3 sources) Start: 10-16-2015 End: 12-27-2020 take 1 tablet by mouth once daily Vitamin B Complex-Folic Acid 0.4 MG tablet Discontinued 0.4 mg PO DAILY October 16, 2015 1:00am December 27, 2020 10:32am Vitamin B Complex-Folic Acid 0.4 mg Tablet (3 sources) Start: 12-27-2020 End: 01-24-2021 Vitamin B Complex-Folic Acid 0.4 mg Tablet Discontinued 1 {tbl} PO DAILY December 27, 2020 12:00am January 24, 2021 1:29pm warfarin sodium 3 mg oral tablet (20 sources) Vitamin K Antagonist Start: 01-08-2021 End: 02-24-2021 Warfarin 3 mg tablet Discontinued 3 mg PO DAILY 90 3 January 08, 2021 9:58am February 24, 2021 11:43am 3 MG DAILY X 5 DAYS AND 1.5MG WED AND THUR Please contact the information source for Protocol details. Start: 11-13-2020 End: 01-08-2021 Warfarin 3 mg tablet Discont inued 3 mg PO .COMPLEX November 13, 2020 12:00am January 08, 2021 9:58am 3 mg PO 1 tablet by mouth daily Wednesday through Wednesday, 1/2 tablet (1.5 mg) on Sat and Sun; Please contact the information source for Protocol details. Start: 12-06-2018 End: 11-13-2020 take 1 tablet by mouth once daily Warfarin 4 mg tablet Discontinued 4 mg PO DAILY December 06, 2018 12:00am November 13, 2020 4:47pm Start: 10-16-2015 End: 12-06-2018 take 4 mg by mouth once daily Warfarin 3 MG tablet Dis continued 4 mg PO DAILY October 16, 2015 1:00am December 06, 2018 1:08pm Start: 10-16-2015 End: 12-06-2018 take 4 mg by mouth once daily Warfarin Discontinued 4 MG PO DAILY October 16, 2015 1:00am December 06, 2018 1:08pm Start: 08-10-2012 COUMADIN 3 MG TABS managed by Dr. Her, 3 alt with 4 WARFARIN SODIUM [id number] Gonzalez Greenberg MD Start: 08-10-2012 COUMADIN 4 MG TABS managed by Dr. Her WARFARIN SODIUM [id number] Gonzalez Greenberg MD Start: 12-01-2010 COUMADIN 5 MG TABS Managed by Dr. Rome WARFARIN SODIUM [id number] Nida Alarcon Problems Active Problems Problem Classification Problem Date Documented Da te Episodic/Chronic Acute bronchitis (1 source) Acute bronchitis 06-15-2025 Episodic Acute cerebrovascular disease (10 sources) Cerebrovascular accident; Translations: [Cerebral infarction, unspecified] Onset: 1 02-26-2021 Chronic Comment on above: Small acute left pos terior frontal lobe, precentral gyrus, cortical infarct. MRI 02/22/21 Cardiac dysrhythmias (20 sources) Atrial flutter; Translations: [Atrial fibrillation] Onset: 1 12-01-2010 Chronic Comment on above: DCCV 11/06/20; 12/30/20 RFA 06/29/22 DCCV 11/06/20; 12/30/20 , RFA 06/29/2022 Cardiac dysrhythmias (1 source) Palpitations; Translations: [Palpitations] Episodic Chronic kidney disease (1 source) Chronic kidney disease stage 3A 01-18-2025 Chronic Coagulation and hemorrhagic disorders (1 source) Thrombocytopenic disorder 12-28-2024 Chronic Conditions associated with dizziness or vertigo (10 sources) Lightheadedness; Translations: [Dizziness and giddiness] Onset: 5 07-22-2022 Episodic Conduction disorders (20 sources) Left bundle branch block; Translations: [Left bundle-branch block, unspecified] Chronic Congestive heart failure; nonhypertensive (20 sources) Heart failure with reduced ejection fraction; Translations: [Chronic combined systolic and diastolic heart failure] Onset: 2 03-25-2021 Chronic Coronary atherosclerosis and other heart disease (2 sources) Atherosclerotic heart disease of [place] coronary artery without angina pectoris; Translations: [Atherosclerotic heart disease of [place] coronary artery without angina pectoris] Onset: 7 10-02-2016 Chronic Diabetes mellitus without complication (4 sources) Prediabetes 09-22-2019 Episodic Disorders of lipid metabolism (20 sources) Hyperlipidemia; Translations: [Hyperlipidemia, unspecified] Onset: 1 12-01-2010 Chronic Essential hypertension (20 sources) Hypertensive disorder; Translations: [Essential hypertension] Onset: 1 12-01-2010 Chronic Fluid and electrolyte disorders (4 sources) Hypokalemia 01-23-2021 Episodic Hyperplasia of prostate (4 sources) Benign prostatic hypertrophy with outflow obstruction 09-22-2019 Chronic Hypertension with complications and secondary hypertension (1 source) Hypertensive heart disease with heart failure; Translations: [Hypertensive heart disease with heart failure] Onset: Chronic Malaise and fatigue (20 sources) Fatigue; Translations: [Other fatigue] Onset: 3 Resolved: 7 06-23-2013 Episodic Mycoses (1 source) Tinea cruris 07-11-2024 Episodic Nutritional deficiencies (1 source) Vitamin D deficiency 11-11-2022 Chronic Other aftercare (20 sources) Long-term current use of anticoagulant; Translations: [ragman (current) use of anticoagulants] Onset: 2 Episodic Other aftercare (1 source) Taking high risk medication; Translations: [Other residential (current) drug therapy] Episodic Other aftercare (3 sources) Patient encounter status; Translations: [Encounter for therapeutic drug level monitoring] 05-17-2023 Episodic Other aftercare (3 sources) Long-term current use of diuretic; Translations: [Encounter for therapeutic drug level monitoring] 05-17-2023 Episodic Other circulatory disease (20 sources) History of cerebrovascular accident; Translations: [Personal history of transient ischemic attack (TIA), and cerebral infarction without residual deficits] Onset: 1 04-27-2022 Episodic Comment on above: Small acute left pos terior frontal lobe, precentral gyrus, cortical infarct. MRI 02/22/21 Other circulatory disease (3 sources) H/O: atrial fibrillation 10-20-2022 Episodic Other circulatory disease (6 sources) Respiratory crackles; Translations: [Other specified symptoms and signs involving the circulatory and respiratory systems] 05-17-2023 Episodic Other gastrointestinal disorders (4 sources) Mass of pancreas 02-26-2021 Episodic Other lower respiratory disease (20 sources) Dyspnea; Translations: [Shortness of breath] Episodic Other lower respiratory disease (9 sources) Orthopnea; Translations: [Orthopnea] 06-30-2022 Episodic Other lower respiratory disease (9 sources) Hypoxia; Translations: [Hypoxemia] 03-08-2021 Episodic Other lower respiratory disease (20 sources) Dyspnea on exertion; Translations: [Shortness of breath] Onset: 2 Episodic Other lower respiratory disease (6 sources) Productive cough ; Translations: [Productive cough] 05-17-2023 Episodic Other nervous system disorders (1 source) 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 Other nutritional; endocrine; and metabolic disorders (4 [...] conditions (not mental disorders or infectious disease) (15 sources) Electrocardiogram abnormal; Translations: [Raised prostate specific antigen] Onset: 1 12-01-2010 Episodic Sandra-; endo-; and myocarditis; cardiomyopathy (20 sources) Dilated cardiomyopathy; Translations: [Cardiomyopathy] Onset: 1 12-01-2010 Chronic Residual codes; unclassified (9 sources) Hypersomnia; Translations: [Hypersomnia, unspecified] 01-02-2021 Chronic Spondylosis; intervertebral disc disorders; other back problems (4 sources) Degeneration of lumbar intervertebral disc 12-11-2019 Chronic Spondylosis; intervertebral disc disorders; other back problems (8 sources) Low back pain; Translations: [Spasm of back muscles] 12-11-2019 Episodic Thyroid disorders (2 sources) Hypothyroidism; Translations: [Other specified hypothyroidism] Onset: 5 01-11-2024 Chronic Unclassified (2 sources) Other persistent atrial fibrillation; Translations: [Persistent atrial fibrillation (HCC)] Onset: 2 Unclassified (1 source) Seborrheic keratosis 01-11-2024 Unclassified (1 source) Chronic atrial fibrillation, unspecified; Translations: [Chronic atrial fibrillation, unspecified] Onset: 5 Past or Other Problems Problem Classification Problem Date Documented Date Episodic/Chronic Other aftercare (20 sources) Long-term current use of drug therapy; Translations: [Other residential (current) drug therapy] Onset: 04-29-2022 Episodic Other aftercare (20 sources) Drug therapy finding; Translations: [Other plumber supervisor (current) drug therapy] Onset: 04-29-2022 Episodic Other aftercare (1 source) ragman (current) use of anticoagulants; Translations: [Anticoagulant long-term use] Onset: 06-29-2022 Episodic Other circulatory disease (5 sources) Cardiovascular stress test abnormal; Translations: [Electrocardiogram abnormal] Onset: 12-01-2010 Resolved: 10-02-2016 10-02-2016 Episodic Other lower respiratory disease (2 sources) Dyspnea, unspecified; Translations: [Other respiratory abnormalities] Onset: 11-27-2022 Episodic Other lower respiratory disease (1 source) Shortness of breath; Translations: [Exertional shortness of breath] Onset: 04-30-2022 Episodic Residual codes; unclassified (1 source) Family history of stroke; Translations: [Family history of stroke] 02-23-2014 Episodic Residual codes; unclassified (20 sources) Other specified personal risk factors, not elsewhere classified; Translations: [Other specified personal history presenting hazards to health] Onset: 04-27-2022 Episodic Residual codes; unclassified (20 sources) H/O cardiac surgery; Translations: [Other specified postprocedural states] Onset: 06-29-2022 06-29-2022 Episodic Residual codes; unclassified (8 sources) History of radiofrequency ablation operation for arrhythmia; Translations: [Other specified postprocedural states] Onset: 06-29-2022 06-30-2022 Episodic Comment on above: - Ablation of atrial fibrillation was successful.- Ablation of atrial flutter, typical was successful. Residual codes; unclassified (3 sources) Other specified postprocedural states; Translations: [Personal history of surgery to heart and great vessels, presenting hazards to health] Onset: 06-29-2022 10-09-2022 Episodic Unclassified (3 sources) FH: Hypertension; Translations: [Family history of stroke] 08-10-2014 Episodic Results Test Name Value Interpretation Reference Range Facility XR CHEST 2 VIEWSon XR CHEST 2 VIEWS ORIGINAL EXAMINATION: TWO XRAY VIEWS OF THE CHEST06/15/2025 4:45 pm COMPARISON: CT abdomen 11/02/2022 HISTORY: ORDERING SYSTEM PROVIDED HISTORY: Reason for Exam: cough, fatigue, rule out pneumonia FINDINGS: Cardiomediastinal contours are within normal limits. Low lung volumes. Hazy opacity over the lateral right lung related to overlying soft tissue. There is pleural thickening along the lateral right lung, better seen on prior CT abdomen. Patchy retrocardiac opacity. No significant pulmonary vascular congestion. No visible pneumothorax or large pleural effusion. Degenerative changes of the spine. IMPRESSION: Patchy retrocardiac opacity may relate to atelectasis or developing airspace disease. Pleural thickening along the lateral right lung, also seen on prior CT. I have personally reviewed the images and agree with the resident's findings and interpretation. Interpreted by: Blu Hancock Preliminary Report By: Lucas Jefferson Electronically signed By Blu Hancock Dictated Date: 06/15/2025 6:43:26 PM Prelim Date: 06/15/2025 6:47:07 PM Sign Date: 06/15/2025 6:49:33 PM Ordering Provider: MARIELLA POWELL Normal [facility] Basic Metabolic Profile (BMP )on 06-04-2025 BUN/CRE 15.2 RATIO Normal 10-20 [facility] Comment on above: Performed By: #### L 506.1001, L502.0250, L501.9985, L500.4050, L501.9520, L501.9940, L100.0500, L500.4100 #### [facility] [address] [place], [address] Calcium [Mass/Vol] 9.3 mg/dL Normal 7.6-11.0 [facility] Comment on above: Performed By: #### L 506.1001, L502.0250, L501.9985, L500.4050, L501.9520, L501.9940, L100.0500, L500.4100 #### [facility] [address] [place], [address] Chloride [Moles/Vol] 103 mmol/L Normal 98-108 [facility] Comment on above: Performed By: #### L 506.1001, L502.0250, L501.9985, L500.4050, L501.9520, L501.9940, L100.0500, L500.4100 #### [facility] [address] [place], [address] CO2 [Moles/Vol] 22.3 mmol/L Normal 21.0-32.0 [facility] Comment on above: Performed By: #### L 506.1001, L502.0250, L501.9985, L500.4050, L501.9520, L501.9940, L100.0500, L500.4100 #### [facility] [address] [place], [address] Creatinine [Mass/Vol] 1.05 mg/dL Normal 0.70-1.20 [facility] Comment on above: Performed By: #### L 506.1001, L502.0250, L501.9985, L500.4050, L501.9520, L501.9940, L100.0500, L500.4100 #### [facility] [address] [place], [address] GAP 13 Normal 5-15 [facility] Comment on above: Performed By: #### L 506.1001, L502.0250, L501.9985, L500.4050, L501.9520, L501.9940, L100.0500, L500.4100 #### [facility] [address] [place], [address] GFR/1.73 sq M.predicted among non-blacks MDRD (S/P/Bld) [Vol rate/Area] 72 mL/min/{1.73_m2} Normal >60 [facility] Comment on above: Result Comment: mL/m in/1.73m2 CKD-EPI Creatinine Equation (2020) Performed By: #### L 506.1001, L502.0250, L501.9985, L500.4050, L501.9520, L501.9940, L100.0500, L500.4100 #### [facility] [address] [place], [place], [phone] (852) Glucose [Mass/Vol] 170 mg/dL High 70-99 [facility] Comment on above: Performed By: #### L 506.1001, L502.0250, L501.9985, L500.4050, L501.9520, L501.9940, L100.0500, L500.4100 #### [facility] [address] [place], [place], [phone] (847) Potassium [Moles/Vol] 4.8 mmol/L Normal 3.3-5.1 [facility] Comment on above: Performed By: #### L 506.1001, L502.0250, L501.9985, L500.4050, L501.9520, L501.9940, L100.0500, L500.4100 #### [facility] [address] [place], [place], [phone] ([phone]) Sodium [Moles/Vol] 138 mmol/L Normal 133-145 [facility] Comment on above: Performed By: #### L 506.1001, L502.0250, L501.9985, L500.4050, L501.9520, L501.9940, L100.0500, L500.4100 #### [facility] [address] [place], [place], [phone] ([phone] Urea nitrogen [Mass/Vol] 16 mg/dL Normal 4-19 [facility] Comment on above: Performed By: #### L 506.1001, L502.0250, L501.9985, L500.4050, L501.9520, L501.9940, L100.0500, L500.4100 #### [facility] [address] [place], [address] CBC W/Diff, Automatedon 10-0 6-2025 Absolute Lymph 1.74 X10 3/uL Normal 0.83-4.51 [facility] Comment on above: Performed By: #### L 506.1001, L502.0250, L501.9985, L500.4050, L501.9520, L501.9940, L100.0500, L500.4100 #### [facility] [address] [place], [address] Absolute Neut 5.4 X10 3/uL Normal 2.0-7.7 [facility] Comment on above: Performed By: #### L 506.1001, L502.0250, L501.9985, L500.4050, L501.9520, L501.9940, L100.0500, L500.4100 #### [facility] [address] [place], [address] Basophils/100 WBC (Bld) 0.6 % Normal 0-1 [facility] Comment on above: Performed By: #### L 506.1001, L502.0250, L501.9985, L500.4050, L501.9520, L501.9940, L100.0500, L500.4100 #### [facility] [address] [place], [address] Eosinophils/100 WBC (Bld) 2.9 % Normal 0-5 [facility] Comment on above: Performed By: #### L 506.1001, L502.0250, L501.9985, L500.4050, L501.9520, L501.9940, L100.0500, L500.4100 #### [facility] [address] [place], [address] Erythrocyte distribution width (RBC) [Ratio] 12.8 % Normal 11.6-14.6 [facility] Comment on above: Performed By: #### L 506.1001, L502.0250, L501.9985, L500.4050, L501.9520, L501.9940, L100.0500, L500.4100 #### [facility] [address] [place], [address] Hematocrit (Bld) [Volume fraction] 46.0 % Normal 40-54 [facility] Comment on above: Performed By: #### L 506.1001, L502.0250, L501.9985, L500.4050, L501.9520, L501.9940, L100.0500, L500.4100 #### [facility] [address] [facility] [place], [address] ( Hemoglobin (Bld) [Mass/Vol] 15.7 g/dL Normal 13.0-16.5 [facility] Comment on above: Performed By: #### L 506.1001, L502.0250, L501.9985, L500.4050, L501.9520, L501.9940, L100.0500, L500.4100 #### [facility] [address] [facility] [place], [address] IG% 0.600 Normal 0.0-0.9 [facility] Comment on above: Result Comment: IG% - Immature Granulocytes (promyelocytes, myelocytes and metamyelocytes) > 1% indicates that a LEFT SHIFT is Present. Performed By: #### L 506.1001, L502.0250, L501.9985, L500.4050, L501.9520, L501.9940, L100.0500, L500.4100 #### [facility] [address] [facility] [place], [address] Lymphocytes/100 WBC (Bld) 21.1 % Normal 19-41 [facility] Comment on above: Performed By: #### L 506.1001, L502.0250, L501.9985, L500.4050, L501.9520, L501.9940, L100.0500, L500.4100 #### [facility] [address] [place], [address] MCH (RBC) [Entitic mass] 30.2 pg Normal 27.0-32.0 [facility] Comment on above: Performed By: #### L 506.1001, L502.0250, L501.9985, L500.4050, L501.9520, L501.9940, L100.0500, L500.4100 #### [facility] [address] [place], [address] MCHC (RBC) [Mass/Vol] 34.1 g/dL Normal 32-36 [facility] Comment on above: Performed By: #### L 506.1001, L502.0250, L501.9985, L500.4050, L501.9520, L501.9940, L100.0500, L500.4100 #### [facility] [address] [place], [address] MCV (RBC) [Entitic vol] 88.5 fL Normal 80-94 [facility] Comment on above: Performed By: #### L 506.1001, L502.0250, L501.9985, L500.4050, L501.9520, L501.9940, L100.0500, L500.4100 #### [facility] [address] [place], [address] Monocytes/100 WBC (Bld) 9.2 % Normal 0-10 [facility] Comment on above: Performed By: #### L 506.1001, L502.0250, L501.9985, L500.4050, L501.9520, L501.9940, L100.0500, L500.4100 #### [facility] [address] [place], [address] Neutrophils/100 WBC (Bld) 65.6 % Normal 47-70 [facility] Comment on above: Performed By: #### L 506.1001, L502.0250, L501.9985, L500.4050, L501.9520, L501.9940, L100.0500, L500.4100 #### [facility] [address] [place], [address] Nucleated RBC (Bld) [#/Vol] 0 10*3/uL Normal 0-5 [facility] Comment on above: Performed By: #### L 506.1001, L502.0250, L501.9985, L500.4050, L501.9520, L501.9940, L100.0500, L500.4100 #### [facility] [address] [place], [address] Platelet mean volume (Bld) [Entitic vol] 10.7 fL Normal 6.2-12.0 [facility] Comment on above: Performed By: #### L 506.1001, L502.0250, L501.9985, L500.4050, L501.9520, L501.9940, L100.0500, L500.4100 #### [facility] [address] [facility] [place], [address] Platelets (Bld) [#/Vol] 143 10*3/uL Low 150-450 [facility] Comment on above: Performed By: #### L 506.1001, L502.0250, L501.9985, L500.4050, L501.9520, L501.9940, L100.0500, L500.4100 #### [facility] [address] [place], [address] RBC (Bld) [#/Vol] 5.20 10*6/uL Normal 4.6-6.2 [facility] Comment on above: Performed By: #### L 506.1001, L502.0250, L501.9985, L500.4050, L501.9520, L501.9940, L100.0500, L500.4100 #### [facility] [address] [place], [place], [id number] RDW SD 41.5 fl Normal 35.1-43.9 [facility] Comment on above: Performed By: #### L 506.1001, L502.0250, L501.9985, L500.4050, L501.9520, L501.9940, L100.0500, L500.4100 #### [facility] [address] [place], [address] WBC (Bld) [#/Vol] 8.3 10*3/uL Normal 4.4-11.0 [facility] Comment on above: Performed By: #### L 506.1001, L502.0250, L501.9985, L500.4050, L501.9520, L501.9940, L100.0500, L500.4100 #### [facility] [address] [place], [address] Magnesiumon 06-04-2025 Magnesium [Mass/Vol] 2.0 mg/dL Normal 1.5-2.2 [facility] Comment on above: Performed By: #### L 506.1001, L502.0250, L501.9985, L500.4050, L501.9520, L501.9940, L100.0500, L500.4100 #### [facility] [address] [place], [address] Thyroid Stim Hormone (TSH)on 06-04-2025 TSH 5.560 uIU/mL High 0.300-4.200 [facility] Comment on above: Performed By: #### L 506.1001, L502.0250, L501.9985, L500.4050, L501.9520, L501.9940, L100.0500, L500.4100 #### [facility] [address] [place], [address] Echo Complete W/ Contraston 03-16-2025 Echo Complete W/ Contrast [facility] [address] [place] [address] Echo Complete W/ Contrast 03/16/25 1315 MR#: [id number] Acct: [id number] Name: BARTOLO ARGUETA Rep #: [id number] : 1945 79 From: Gonzalez Greenberg MD Attending Dr: Sascha Valdes OPHTHALMIC SURGICAL ASSISTANT-C Status: REG CLI Ordering Dr: Sascha Valdes OPHTHALMIC SURGICAL ASSISTANT OPHTHALMIC SURGICAL ASSISTANT-C Date: 03/16/25 Location: CVS Sex: M C Admitted: Reason For Study Reason For Study: CHF Procedure This was a 2D Doppler, Color Flow transthoracic echocardiogram. The study was technically difficult. Exam performed in department. Left Ventricle Normal left ventricle. The left ventricular ejection fraction is 45 %. Stage 1 diastolic dysfunction. There is mild to moderate global hypokinesis of the left ventricle. Right Ventricle Normal RV size. Normal systolic function. Atria Normal left atrium. Normal right atrium. Mitral Valve Normal mitral valve. Tricuspid Valve Normal tricuspid valve. Mild (1+) tricuspid valve insufficiency. Pulmonary artery systolic pressure is 25 mmHg. Aortic Valve Trisinus/trileaflet aortic valve. Mild focal aortic valve calcification. Pulmonic Valve Normal pulmonic valve. Great Vessels Normal aortic root. The pulmonary artery is normal size. Inferior vena cava collapse with respiration. Pericardium/Pleural No pericardial effusion. Medication 22 gauge I.V. with prn adaptor inserted into left arm. Diluted definity 1.5ml given slow IV push to enhance endocardial definition. MMode/2D Measurements Calculations LVIDd: 3.9 cm IVSd: 0.98 cm Ao root diam: 3.4 cm LVIDs: 2.8 cm LVPWd: 0.92 cm RVDd: 3.6 cm FS: 28.9 % LAV(MOD-bp): 51.5 ml LVAd ap4: 34.8 cm2 SV(MOD-sp4): 56.0 ml LAV(MOD-bp) Indexed: 23.9 ml/m2 LVLd ap4: 8.1 cm SI(MOD-sp4): 26.0 ml/m2 LAV(MOD-sp2): 49.2 ml EDV(MOD-sp4): 120.9 ml LAV(MOD-sp4): 52.1 ml EDV(sp4-el): 127.0 ml LVAs ap4: 23.3 cm2 LVLs ap4: 6.8 cm ESV(MOD-sp4): 65.0 ml ESV(sp4-el): 67.8 ml EF(MOD-sp4): 46.3 % EF(sp4-el): 46.6 % SV(sp4-el): 59.2 ml LA A4 area: 18.8 cm2 LA dimension(2D): 3.5 cm RA A4 area: 16.4 cm2 TAPSE: 2.1 cm Time Measurements MV dec time: 0.24 sec Doppler Measurements Calculations MV E max jamarcus: 64.7 cm/sec Lat Peak E' Jamarcus: 7.6 cm/sec Med Peak E' Jamarcus: 7.5 cm/sec MV A max jamarcus: 82.9 cm/sec E/E' lat: 8.5 E/E' med: 8.6 MV E/A: 0.78 Ao V2 max: 120.2 cm/sec LV V1 max: 90.7 cm/sec PA V2 max: 110.3 cm/sec Ao max P.8 mmHg LV V1 max P.3 mmHg TR max jamarcus: 236.2 cm/sec TR max P.3 mmHg ECHO/Echo Complete W/ Contrast Interpretation Summary The left ventricular ejection fraction is 45 %. Normal left ventricle. Stage 1 diastolic dysfunction. Pulmonary artery systolic pressure is 25 mmHg. Contrast injection was performed. ___ Ordering Physician: Sascha Valdes Referring Physician: SKIP BERMUDEZ Performed By: Linh Shirley RDCS 03/16/25 1542 Date Gonzalez Greenberg MD CC: OPHTHALMIC SURGICAL ASSISTANT-C Sascha Valdes; Dr. 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 [address] Echo Complete W/ Contrast 03/16/25 1315 MR#: [id number] Acct: [id number] Name: BARTOLO ARGUETA Rep #:[id number] : 1945 79 From: Gonzalez Vega Attending Dr: Sascha Valdes, PRANEETH Sta tus: REG CLI Ordering Dr: Sascha Valdes NP Date: 03/16/25 Location: CVS Sex: M C Admitted: Reason For Study Reason For Study: CHF Procedure This was a 2D Doppler, Color Flow transthoracic echocardiogram. The study was technically difficult. Exam performed in department. Left Ventricle Normal left ventricle. The left ventricular ejection fraction is 45 %. Stage 1 diastolic dysfunction. There is mild to moderate global hypokinesis of the left ventricle. Right Ventricle Normal RV size. Normal systolic function. Atria Normal left atrium. Normal right atrium. Mitral Valve Normal mitral valve. Tricuspid Valve Normal tricuspid valve. Mild (1+) tricuspid valve insufficiency. Pulmonary artery systolic pressure is 25 mmHg. Aortic Valve Trisinus/trileaflet aortic valve. Mild focal aortic valve calcification. Pulmonic Valve Normal pulmonic valve. Great Vessels Normal aortic root. The pulmonary artery is normal size. Inferior vena cava collapse with respiration. Pericardium/Pleural No pericardial effusion. Medication 22 gauge I.V. with prn adaptor inserted into left arm. Diluted definity 1.5ml given slow IV push to enhance endocardial definition. MMode/2D Measurements & Calculations LVIDd: 3.9 cm IVSd: 0.98 cm Ao root diam: 3.4 cm LVIDs: 2.8 cm LVPWd: 0.92 cm RVDd: 3.6 cm FS: 28.9 % LAV(MOD-bp): 51.5 ml LVAd ap4: 34.8 cm2 SV(MOD-sp4): 56.0 ml LAV(MOD-bp) Indexed: 23.9 ml/m2 LVLd ap4: 8.1 cm SI(MOD-sp4): 26.0 ml/m2 LAV(MOD-sp2): 49.2 ml EDV(MOD-sp4): 120.9 ml LAV(MOD-sp4): 52.1 ml EDV(sp4-el): 127.0 ml LVAs ap4: 23.3 cm2 LVLs ap4: 6.8 cm ESV(MOD-sp4): 65.0 ml ESV(sp4-el): 67.8 ml EF(MOD-sp4): 46.3 % EF(sp4-el): 46.6 % SV(sp4-el): 59.2 ml LA A4 area: 18.8 cm2 LA dimension(2D): 3.5 cm RA A4 area: 16.4 cm2 TAPSE: 2.1 cm Time Measurements MV dec time: 0.24 sec Doppler Measurements & Calculations MV E max jamarcus: 64.7 cm/sec Lat Peak E' Jamarcus: 7.6 cm/sec Med Peak E' Jamarcus: 7.5 cm/sec MV A max jamarcus: 82.9 cm/sec E/E' lat: 8.5 E/E' med: 8.6 MV E/A: 0.78 Ao V2 max: 120.2 cm/sec LV V1 max: 90.7 cm/sec PA V2 max: 110.3 cm/sec Ao max P.8 mmHg LV V1 max P.3 mmHg TR max jamarcus: 236.2 cm/sec TR max P.3 mmHg ECHO/Echo Complete W/ Contrast Interpretation Summary The left ventricular ejection fraction is 45 %. Normal left ventricle. Stage 1 diastolic dysfunction. Pulmonary artery systolic pressure is 25 mmHg. Contrast injection was performed. ___ Ordering Physician: Sascha Valdes Referring Physician: SKIP BERMUDEZ Performed By: Linh Shirley RDCS 03/16/25 1542 Date _ Gonzalez Greenberg MD CC: PRANEETH Valdes; Dr. 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 [place] [address] OFFICE VISIT Date of Service: 02/07/25 MR#: [id number] Acct: [id number] Name: BARTOLO ARGUETA Rep #: [id number] : 1945 Provider: PRANEETH head Age/Sex: 79/M Location: [facility] [place] Status: Signed HPI HPI History of Present Illness Details: BARTOLO ARGUETA, is a 79 M who presents to the office today for a cardiovascular follow-up visit. He has a history of atrial fibrillation, hypertension, and hyperlipidemia. He was noted to have atrial fibrillation and underwent DC cardioversion in October 2020. Unfortunately he did not hold in sinus rhythm. He had undergone a pharmacologic stress test which demonstrated no evidence of ischemia and his echocardiogram demonstrated an ejection fraction of 40% with mild to moderate hypokinesis and moderately enlarged left atrium. Patient presented to the hospital on 10/25/2020 for an acute CVA. MRI demonstrated small acute left posterior frontal lobe, precentral gyrus and cortical infarct. Neurology was consulted. They recommended discontinuation of warfarin due to failure despite therapeutic INR neurology did not recommend initiation of aspirin due to poor evidence and increased risk of bleed. Patient was started on Eliquis. He does have a decreased ejection fraction of 15 to 20%. This is slightly worsened when compared to echocardiogram from March 2020. Multiple attempts to control his rate were unsuccessful. He therefore saw the radiologist here in the office who recommended that we should attempt to control his heart rate better. Carvedilol was increased and a Holter monitor was repeated. It demonstrated an average heart rate of 77 bpm with a maximum heart rate 112 bpm and the longest R to R interval was 1.7 seconds. The second option was to consider ablation for the atrial fibrillation. The patient did not appear to be very enthused with this. The third option was to consider an AV node ablation implantation of a biventricular pacemaker defibrillator. Patient however notes that he has been breathing much better and would want to continue with the above therapy. A repeat echocardiogram had demonstrated improvement in the ejection fraction to approximately 25%. Unfortunately despite guideline directed medical therapy his ejection fraction from September 2021 remained at 25% with moderately severe global left ventricular systolic function. He was seen by Dr. Ortega and underwent a RFA on 06/29/2022. He presented to our office on 05/17/2023 and was noted to be in atrial fibrillation at that time. Repeat echocardiogram evaluation in August 2022 showed ejection fraction of 50%. He denies chest, arm, jaw, or neck discomfort. He denies palpitations. He denies bilateral lower extremity edema. He denies claudication. He states intermittent shortness of breath with activity such as yardwork and not with ADLs. He denies shortness of breath at rest, orthopnea, or PND. He denies chronic cough. He denies significant, sudden weight gain. He states intermittent lightheadedness. He denies dizziness, near-syncope, or syncope. He denies blood in urine, blood in stool, or epistaxis. He denies fever with chills. He denies myalgia. He states fatigue. His exercise level has remained stable. Intake Vital Signs 12/07/23 13:13 06/23/24 15:19 02/07/25 12:49 Height 5 ft 9 in 5 ft 9 in 5 ft 9 in Weight: 226 lb BMI 33.3 BP 128/62 H Blood Pressure Location Lt brachial Position Sitting Respiration 16 Pulse 71 Pulse Source NIBP Intake Visit Reasons: 1 Y FU/MOVED FROM [facility] Pediatric Oncology Nurse Required: No Accompanied by: Is patient in pain?: No Allergies baclofen Allergy (Intermediate, Verified 02/07/25 13:38) rash amiodarone Adverse Reaction (Severe, Verified 02/07/25 13:38) Severe h/a and agitation Medications ???Medication ???Instructions ???Recorded ???Confirmed ???Type finasteride 5 mg tablet 5 mg PO DAILY 06/30/22 02/07/25 Hi story tamsulosin 0.4 mg capsule 0.4 mg PO DAILY 06/30/22 02/07/25 History qpcxswxh-wbq-bzdzo acid 0.4 1 tab PO DAILY 10/09/22 02/07/25 H istory mg-lycopene 300 mcg-lutein 250 mcg tablet (Centrum Silver) carvedilol 25 mg tablet 12.5 mg (1/2 x 25 mg) PO BID #180 12/07/23 02/07/25 Rx tabs losartan 50 mg tablet 50 mg PO DAILY #90 TABLETS 4 02/07/25 Rx cholecalciferol (vitamin D3) 25 25 mcg PO QDAY 05/19/24 02/07/25 H istory mcg (1,000 unit) capsule apixaban 5 mg tablet (Eliquis) 5 mg PO BID #180 tabs 07/21/2407/24 Rx spironolactone 25 mg tablet 25 mg PO DAILY #90 tabs 11/08/24 0 02/07/25 Rx lbbbvzrg-lvehwrvdr-pycrld th 3.5 drp ophthalmic (eye) PRN 02/07/25 02/07/25 History mg/mL-10,000 unit/mL-0.1% eye drops Ejection fraction %: 35 Have you fallen in the pa (more content not included)... Normal [facility] Albumin DL <= 20 mg/L (U) [M ass/Vol]Ordered By: Dez Her on 12-21-2024 Urine Random Microalbumin < 12.0 mg/L NO RANGE EST. [facility] Anion gap in Serum or Plasma Ordered By: Dez Her on 12-21-2024 Anion gap [Moles/Vol] 11 mmol/L 5-15 [facility] BUN/creatinine ratioOrdered By: Dez Her on 12-21-2024 Urea nitrogen/Creatinine [Mass ratio] 14.1 mg/mg 10-20 [facility] Bilirubin, totalOrdered By: Dez Her on 12-21-2024 Bilirubin [Mass/Vol] 0.75 mg/dL 0.00-1.30 [facility] CBC-Complete Blood Cnt No Di ffon 12-21-2024 Erythrocyte distribution width (RBC) [Ratio] 12.7 % Normal 11.6-14.6 [facility] Comment on above: Performed By: #### L 506.1001, L502.0250, L501.9985, L500.4050, L501.9520, L501.9940, L100.0500, L500.4100 #### [facility] [address] [place], [address] Hematocrit (Bld) [Volume fraction] 44.6 % Normal 40-54 [facility] Comment on above: Performed By: #### L 506.1001, L502.0250, L501.9985, L500.4050, L501.9520, L501.9940, L100.0500, L500.4100 #### [facility] [address] [place], [address] Hemoglobin (Bld) [Mass/Vol] 15.2 g/dL Normal 13.0-16.5 [facility] Comment on above: Performed By: #### L 506.1001, L502.0250, L501.9985, L500.4050, L501.9520, L501.9940, L100.0500, L500.4100 #### [facility] [address] [place], [place], [address] MCH (RBC) [Entitic mass] 30.2 pg Normal 27.0-32.0 [facility] Comment on above: Performed By: #### L 506.1001, L502.0250, L501.9985, L500.4050, L501.9520, L501.9940, L100.0500, L500.4100 #### [facility] [address] [place], [address] MCHC (RBC) [Mass/Vol] 34.1 g/dL Normal 32-36 [facility] Comment on above: Performed By: #### L 506.1001, L502.0250, L501.9985, L500.4050, L501.9520, L501.9940, L100.0500, L500.4100 #### [facility] [address] [place], [address] MCV (RBC) [Entitic vol] 88.5 fL Normal 80-94 [facility] Comment on above: Performed By: #### L 506.1001, L502.0250, L501.9985, L500.4050, L501.9520, L501.9940, L100.0500, L500.4100 #### [facility] [address] [place], [address] Platelet mean volume (Bld) [Entitic vol] 11.1 fL Normal 6.2-12.0 [facility] Comment on above: Performed By: #### L 506.1001, L502.0250, L501.9985, L500.4050, L501.9520, L501.9940, L100.0500, L500.4100 #### [facility] [address] [place], [address] Platelets (Bld) [#/Vol] 128 10*3/uL Low 150-450 [facility] Comment on above: Performed By: #### L 506.1001, L502.0250, L501.9985, L500.4050, L501.9520, L501.9940, L100.0500, L500.4100 #### [facility] [address] [place], [address] RBC (Bld) [#/Vol] 5.04 10*6/uL Normal 4.6-6.2 [facility] Comment on above: Performed By: #### L 506.1001, L502.0250, L501.9985, L500.4050, L501.9520, L501.9940, L100.0500, L500.4100 #### [facility] [address] [place], [address] RDW SD 41.3 fl Normal 35.1-43.9 [facility] Comment on above: Performed By: #### L 506.1001, L502.0250, L501.9985, L500.4050, L501.9520, L501.9940, L100.0500, L500.4100 #### [facility] [address] [place], [address] WBC (Bld) [#/Vol] 7.5 10*3/uL Normal 4.4-11.0 [facility] Comment on above: Performed By: #### L 506.1001, L502.0250, L501.9985, L500.4050, L501.9520, L501.9940, L100.0500, L500.4100 #### [facility] [address] [place], [address] Calculated very low density lipoprotein (VLDL) cholesterol measurementOrdered By: Dez Her on 12-21-2024 Calculated very low density lipoprotein (VLDL) cholesterol measurement 27 mg/dL 5-40 [facility] VLDL Cholesterol 27 mg/dL -40 [facility] Carbon dioxide, total [Moles /volume] in Central venous bloodOrdered By: Dez Her on 12-21-2024 CO2 [Moles/Vol] 20.7 mmol/L Low 21.0-32.0 [facility] Chloride assayOrdered By: Patrizia Her on 12-21-2024 Chloride [Moles/Vol] 104 mmol/L 98-108 [facility] Comprehensive Metabolic Prof ilon 12-21-2024 Albumin [Mass/Vol] 3.1 g/dL Low 3.4-4.8 [facility] Comment on above: Performed By: #### L 506.1001, L502.0250, L501.9985, L500.4050, L501.9520, L501.9940, L100.0500, L500.4100 #### [facility] [address] [place], [address] Albumin/Globulin [Mass ratio] 1.0 {ratio} Normal 0.9-2.4 [facility] Comment on above: Performed By: #### L 506.1001, L502.0250, L501.9985, L500.4050, L501.9520, L501.9940, L100.0500, L500.4100 #### [facility] [address] [place], [address] ALK PHOS 68 U/L Normal 40-129 [facility] Comment on above: Performed By: #### L 506.1001, L502.0250, L501.9985, L500.4050, L501.9520, L501.9940, L100.0500, L500.4100 #### [facility] [address] [place], [address] ALT [Catalytic activity/Vol] 24 U/L Normal <=46 [facility] Comment on above: Performed By: #### L 506.1001, L502.0250, L501.9985, L500.4050, L501.9520, L501.9940, L100.0500, L500.4100 #### [facility] [address] [place], [address] AST [Catalytic activity/Vol] 22 U/L Normal <=37 [facility] Comment on above: Performed By: #### L 506.1001, L502.0250, L501.9985, L500.4050, L501.9520, L501.9940, L100.0500, L500.4100 #### [facility] [address] [place], [address] Bilirubin [Mass/Vol] 0.75 mg/dL Normal 0.00-1.30 [facility] Comment on above: Performed By: #### L 506.1001, L502.0250, L501.9985, L500.4050, L501.9520, L501.9940, L100.0500, L500.4100 #### [facility] [address] [place], [address] BUN/CRE 14.1 RATIO Normal 10-20 [facility] Comment on above: Performed By: #### L 506.1001, L502.0250, L501.9985, L500.4050, L501.9520, L501.9940, L100.0500, L500.4100 #### [facility] [address] [place], [address] Calcium [Mass/Vol] 8.8 mg/dL Normal 7.6-11.0 [facility] Comment on above: Performed By: #### L 506.1001, L502.0250, L501.9985, L500.4050, L501.9520, L501.9940, L100.0500, L500.4100 #### [facility] [address] [place], [address] Chloride [Moles/Vol] 104 mmol/L Normal 98-108 [facility] Comment on above: Performed By: #### L 506.1001, L502.0250, L501.9985, L500.4050, L501.9520, L501.9940, L100.0500, L500.4100 #### [facility] [address] [place], [address] CO2 [Moles/Vol] 20.7 mmol/L Low 21.0-32.0 [facility] Comment on above: Performed By: #### L 506.1001, L502.0250, L501.9985, L500.4050, L501.9520, L501.9940, L100.0500, L500.4100 #### [facility] [address] [place], [place], [phone] (768) Creatinine [Mass/Vol] 0.97 mg/dL Normal 0.70-1.20 [facility] Comment on above: Performed By: #### L 506.1001, L502.0250, L501.9985, L500.4050, L501.9520, L501.9940, L100.0500, L500.4100 #### [facility] [address] [place], [place], [phone] (086) GAP 11 Normal 5-15 [facility] Comment on above: Performed By: #### L 506.1001, L502.0250, L501.9985, L500.4050, L501.9520, L501.9940, L100.0500, L500.4100 #### [facility] [address] [place], [place], [phone] (920) GFR/1.73 sq M.predicted among non-blacks MDRD (S/P/Bld) [Vol rate/Area] 80 mL/min/{1.73_m2} Normal >60 [facility] Comment on above: Result Comment: mL/m in/1.73m2 CKD-EPI Creatinine Equation (2020) Performed By: #### L 506.1001, L502.0250, L501.9985, L500.4050, L501.9520, L501.9940, L100.0500, L500.4100 #### [facility] [address] [place], [place], [phone] (706) Globulin (S) [Mass/Vol] 3.2 g/dL Normal 2.2-4.2 [facility] Comment on above: Performed By: #### L 506.1001, L502.0250, L501.9985, L500.4050, L501.9520, L501.9940, L100.0500, L500.4100 #### [facility] [address] [place], [address] Glucose [Mass/Vol] 172 mg/dL High 70-99 [facility] Comment on above: Performed By: #### L 506.1001, L502.0250, L501.9985, L500.4050, L501.9520, L501.9940, L100.0500, L500.4100 #### [facility] [address] [place], [address] Potassium [Moles/Vol] 4.4 mmol/L Normal 3.3-5.1 [facility] Comment on above: Performed By: #### L 506.1001, L502.0250, L501.9985, L500.4050, L501.9520, L501.9940, L100.0500, L500.4100 #### [facility] [address] [place], [address] Sodium [Moles/Vol] 136 mmol/L Normal 133-145 [facility] Comment on above: Performed By: #### L 506.1001, L502.0250, L501.9985, L500.4050, L501.9520, L501.9940, L100.0500, L500.4100 #### [facility] [address] [place], [address] T PROT 6.3 g/dL Normal 5.9-8.4 [facility] Comment on above: Performed By: #### L 506.1001, L502.0250, L501.9985, L500.4050, L501.9520, L501.9940, L100.0500, L500.4100 #### [facility] [address] [place], [address] Urea nitrogen [Mass/Vol] 14 mg/dL Normal 4-19 [facility] Comment on above: Performed By: #### L 506.1001, L502.0250, L501.9985, L500.4050, L501.9520, L501.9940, L100.0500, L500.4100 #### [facility] [address] [place], [address] Creatinine Unsp time (U) [Ma ss/Vol]Ordered By: Dez Her on 12-21-2024 Creatinine (U) [Mass/Vol] 190.00 mg/dL 39.00-259.0 0 [facility] Diagnostic total prostate sp ecific antigen (PSA) measurementOrdered By: Dez Her on 12-21-2024 Prostate Specific Antigen Total 0.29 ng/mL 0.00-4.00 [facility] Comment on above: This test was perfor med using the [facility] tPSA method. Measured values of a patient sample can vary depending on the testing procedure used. PSA values determined on patient samples by different testing procedures cannot be used interchangeably. If there is a change in PSA assays while monitoring therapy, sequential testing should be performed to confirm baseline values. Erythrocyte distribution wid th (RBC) [Ratio]Ordered By: Dez Her on 12-21-2024 Erythrocyte distribution width (RBC) [Entitic vol] 41.3 fL 35.1-43.9 [facility] Erythrocyte distribution wid th ratioOrdered By: Dez Her on 12-21-2024 Erythrocyte distribution width (RBC) [Ratio] 12.7 % 11.6-14.6 [facility] Erythrocyte distribution wid th standard deviationOrdered By: Dez Her on 12-21-2024 Erythrocyte distribution width (RBC) [Ratio] 41.3 fl 35.1-43.9 [facility] GFR/1.73 sq M.predicted richard g non-blacks MDRD (S/P/Bld) [Vol rate/Area]Ordered By: Dez Her on 12-21-2024 Estimated GFR (MDRD) Non-Af Amer 80 >60 [facility] Comment on above: mL/min/1.73m2 CKD-EP I Creatinine Equation (2020) Glomerular filtration rate ( GFR) estimation/1.73 sq m using serum, plasma, or whole bOrdered By: Dez Her on 12-21-2024 GFR/1.73 sq M.predicted among non-blacks MDRD (S/P/Bld) [Vol rate/Area] 80 mL/min/{1.73_m2} >60 [facility] Comment on above: mL/min/1.73m2 CKD-EP I Creatinine Equation (2020) Hematocrit Auto (Bld) [Volum e fraction]Ordered By: Dez Her on 12-21-2024 Hematocrit (Bld) [Volume fraction] 44.6 % 40-54 [facility] Hemoglobin A1con 12-21-2024 HbA1c (Bld) [Mass fraction] 7.5 % High <=5.6 [facility] Comment on above: Result Comment: Norm al < 5.7 % Prediabetic 5.7 - 6.4 % Diabetic >or= 6.5 % Please note range changes. Performed By: #### L 506.1001, L502.0250, L501.9985, L500.4050, L501.9520, L501.9940, L100.0500, L500.4100 #### [facility] [place], [place], [phone] Hemoglobin A1c percentageOrd ered By: Dez Her on 12-21-2024 HbA1c (Bld) [Mass fraction] 7.5 % High <5.7 [facility] Comment on above: Normal < 5.7 % Predi abetic 5.7 - 6.4 % Diabetic >or= 6.5 % Please note range changes. Hemoglobin measurementOrdere d By: Dez Her on 12-21-2024 Hemoglobin (Bld) [Mass/Vol] 15.2 g/dL 13.0-16.5 [facility] LDL calc ser/plasOrdered By: Dez Her on 12-21-2024 Cholesterol in LDL [Mass/Vol] 62 mg/dL [facility] Comment on above: Xoxeiuvxck=264-751 m g/dL & Higher Gkto=006 mg/dL or greater LDL Cholesterol, Calculated 62 mg/dL [facility] Comment on above: Iffrkxoqel=684-081 m g/dL & Higher Rxug=408 mg/dL or greater Laboratory - Chemistry and C hemistry - challengeOrdered By: Dez Her on 12-21-2024 AST [Catalytic activity/Vol] 22 U/L <38 [facility] Lipid Profileon 12-21-2024 CHOL:HDL 3.42 Normal [facility] Comment on above: Performed By: #### L 506.1001, L502.0250, L501.9985, L500.4050, L501.9520, L501.9940, L100.0500, L500.4100 #### [facility] [address] [place], [address] Cholesterol [Mass/Vol] 126 mg/dL Normal <=200 [facility] Comment on above: Result Comment: Chol esterol level, Desirable <200 mg/dL Borderline high cholesterol 200-239 mg/dL High cholesterol >=240 mg/dL Recommendations of the NCEP Adult Treatment Panel for the following risk-cutoff thresholds for the [place] population. Performed By: #### L 506.1001, L502.0250, L501.9985, L500.4050, L501.9520, L501.9940, L100.0500, L500.4100 #### [facility] [address] [place], [place], [phone] ([phone] Cholesterol in HDL [Mass/Vol] 37 mg/dL Low [facility] Comment on above: Result Comment: Ariana onal Cholesterol Education Program (NCEP) guidelines: <40 mg/dL: Low HDL-cholesterol (major risk factor for CHD) >= 60 mg/dL: High HDL-cholesterol (negative risk factor for CHD) HDL-cholesterol is affected by a number of factors, e.g. smoking, exercise, hormones, sex and age. Performed By: #### L 506.1001, L502.0250, L501.9985, L500.4050, L501.9520, L501.9940, L100.0500, L500.4100 #### [facility] [address] [place], [address] Cholesterol in LDL [Mass/Vol] 62 mg/dL Normal [facility] Comment on above: Result Comment: Bord rapdqc=779-306 mg/dL Higher Wjvf=190 mg/dL or greater Performed By: #### L 506.1001, L502.0250, L501.9985, L500.4050, L501.9520, L501.9940, L100.0500, L500.4100 #### [facility] [address] [place], [address] Cholesterol in VLDL [Mass/Vol] 27 mg/dL Normal 5-40 [facility] Comment on above: Performed By: #### L 506.1001, L502.0250, L501.9985, L500.4050, L501.9520, L501.9940, L100.0500, L500.4100 #### [facility] [address] [place], [address] Triglyceride [Mass/Vol] 136 mg/dL Normal [facility] Comment on above: Result Comment: The drugs N-Acetylcysteine and Metamizole may falsely depress this assay. Normal range: <150 mg/dL Borderline High: 150-199 mg/dL High: 200-499 mg/dL Very High: >500 mg/dL Performed By: #### L 506.1001, L502.0250, L501.9985, L500.4050, L501.9520, L501.9940, L100.0500, L500.4100 #### [facility] [address] [place], [place], [id number] MCV (mean corpuscular volume ) determinationOrdered By: Dez Her on 12-21-2024 MCV (RBC) [Entitic vol] 88.5 fL 80-94 [facility] Mean corpuscular hemoglobin (MCH) determinationOrdered By: Dez Her on 12-21-2024 MCH (RBC) [Entitic mass] 30.2 pg 27.0-32.0 [facility] Mean corpuscular hemoglobin concentration (MCHC) determinationOrdered By: Dez Her on 12-21-2024 MCHC (RBC) [Mass/Vol] 34.1 g/dL 32-36 [facility] Mean platelet volume determi nationOrdered By: Dez Her on 12-21-2024 Platelet mean volume (Bld) [Entitic vol] 11.1 fL 6.2-12.0 [facility] Microalb:Creat Ratio,Random URon 12-21-2024 Creatinine [Mass/Vol] 190.00 mg/dL Normal 39.00- 259.0 0 [facility] Comment on above: Performed By: #### L 506.1001, L502.0250, L501.9985, L500.4050, L501.9520, L501.9940, L100.0500, L500.4100 #### [facility] [address] [place], [place], [phone] ([phone]) MALB:CREAT UNABLE TO CALCULATE Normal [facility] Comment on above: Performed By: #### L 506.1001, L502.0250, L501.9985, L500.4050, L501.9520, L501.9940, L100.0500, L500.4100 #### [facility] [address] [place], [place], [phone] ([phone] MICROALBUMIN,UR < 12.0 Normal NO RANGE EST. [facility] Comment on above: Performed By: #### L 506.1001, L502.0250, L501.9985, L500.4050, L501.9520, L501.9940, L100.0500, L500.4100 #### [facility] [address] [place], [place], [phone] ([phone] Microalbumin/creat ratio urO rdered By: Dez Her on 12-21-2024 Urine Microalbumin/Creatinin e Ratio UNABLE TO CALCULATE mg/g CRE [facility] Urine microalbumin/creatinin e ratio measurement UNABLE TO CALCULATE mg/g CRE [facility] PSA,Total- Diagnosticon 11-29 PSA, DIAGNOSTIC 0.29 ng/mL Normal 0.00-4.00 [facility] Comment on above: Result Comment: This test was performed using the [facility] tPSA method. Measured values of a patient??sample can vary depending on the testing procedure used. PSA values determined on patient samples by different testing procedures cannot be used interchangeably. If there is a change in PSA assays while monitoring therapy, sequential testing should be performed to confirm baseline values. Performed By: #### L 506.1001, L502.0250, L501.9985, L500.4050, L501.9520, L501.9940, L100.0500, L500.4100 #### [facility] [address] [place], [place], [id number] Platelet countOrdered By: Patrizia Her on 12-21-2024 Platelets (Bld) [#/Vol] 128 10*3/uL Low 150-450 [facility] Potassium (Unsp spec) [Mass/ Vol]Ordered By: Dez Her on 12-21-2024 Potassium [Moles/Vol] 4.4 mmol/L 3.3-5.1 [facility] Potassium measurement (mass/ volume)Ordered By: Dez Her on 12-21-2024 Potassium (Unsp spec) [Mass/Vol] 4.4 mmol/L 3.3-5.1 [facility] RBC Auto (Bld) [#/Vol]Ordere d By: Dez Her on 12-21-2024 RBC (Bld) [#/Vol] 5.04 10*6/uL 4.6-6.2 [facility] Random urine creatinine adryan urement (mass/volume)Ordered By: Dez Her on 12-21-2024 Creatinine Unsp time (U) [Mass/Vol] 190.00 mg/dL 39.00-259.0 0 [facility] Screening total cholesterol/ high density lipoprotein (HDL) cholesterol ratioOrdered By: Dez Her on 12-21-2024 Cholesterol.total/Chol esterol in HDL [Mass ratio] 3.42 {ratio} [facility] Serum creatinine measurement (mass/volume)Ordered By: Dez Her on 12-21-2024 Creatinine [Mass/Vol] 0.97 mg/dL 0.70-1.20 [facility] Serum globulin measurementOr dered By: Dez Her on 12-21-2024 Globulin (S) [Mass/Vol] 3.2 g/dL 2.2-4.2 [facility] Serum glucose measurement (m ass/volume)Ordered By: Dez Her on 12-21-2024 Glucose [Mass/Vol] 172 mg/dL High 70-99 [facility] Serum or plasma alanine alonso otransferase (ALT) measurementOrdered By: Dez Her on 12-21-2024 ALT [Catalytic activity/Vol] 24 U/L <47 [facility] Serum or plasma albumin adryan urement (mass/volume)Ordered By: Dez Her on 12-21-2024 Albumin [Mass/Vol] 3.1 g/dL Low 3.4-4.8 [facility] Serum or plasma albumin/glob ulin mass ratioOrdered By: Dez Her on 12-21-2024 Albumin/Globulin [Mass ratio] 1.0 {ratio} 0.9-2.4 [facility] Serum or plasma alkaline ancelmo sphatase measurementOrdered By: Dez Her on 12-21-2024 ALP [Catalytic activity/Vol] 68 U/L 40-129 [facility] Serum or plasma calcium adryan urement (mass/volume)Ordered By: Dez Her on 12-21-2024 Calcium [Mass/Vol] 8.8 mg/dL 7.6-11.0 [facility] Serum or plasma cholesterol in HDL measurement (mass/volume)Ordered By: Dez Her on 12-21-2024 Cholesterol in HDL [Mass/Vol] 37 mg/dL Low >40 [facility] Comment on above: National Cholesterol Education Program (NCEP) guidelines:<40 mg/dL: Low HDL-cholesterol (major risk factor for CHD)>= 60 mg/dL: High HDL-cholesterol (negative risk factor for CHD)HDL-cholesterol is affected by a number of factors, e.g. smoking, exercise, hormones, sex and age. Serum or plasma cholesterol measurement (mass/volume)Ordered By: Dez Her on 12-21-2024 Cholesterol [Mass/Vol] 126 mg/dL <201 [facility] Comment on above: Cholesterol level, D esirable <200 mg/dLBorderline high cholesterol 200-239 mg/dLHigh cholesterol >=240 mg/dLRecommendations of the NCEP Adult Treatment Panel for the following risk-cutoff thresholds for the [place] population. Serum or plasma urea nitroge n measurement (mass/volume)Ordered By: Dez Her on 12-21-2024 Urea nitrogen [Mass/Vol] 14 mg/dL 4-19 [facility] Sodium levelOrdered By: Gregor Her on 12-21-2024 Sodium [Moles/Vol] 136 mmol/L 133-145 [facility] TSH DL <= 0.005 mIU/L QnOrde red By: Dez Her on 12-21-2024 Thyroid Stimulating Hormone (TSH) 4.200 uIU/mL 0.300-4.200 [facility] TSH Qn 4.200 uIU/mL 0.300-4.200 [facility] Thyroid Stim Hormone (TSH)on 12-21-2024 TSH 4.200 uIU/mL Normal 0.300-4.200 [facility] Comment on above: Performed By: #### L 506.1001, L502.0250, L501.9985, L500.4050, L501.9520, L501.9940, L100.0500, L500.4100 #### [facility] Laboratory [address] [place], [place], [phone] Total proteinOrdered By: Juve Her on 12-21-2024 Protein [Mass/Vol] 6.3 g/dL 5.9-8.4 [facility] Triglycerides measurementOrd ered By: Dez Her on 12-21-2024 Triglyceride [Mass/Vol] 136 mg/dL <199 [facility] Comment on above: The drugs N-Acetylcy steine and Metamizole may falsely depress this assay. Normal range: <150 mg/dLBorderline High: 150-199 mg/dLHigh: 200-499 mg/dLVery High: >500 mg/dL Urine albumin measurement wi detection limit of 20 mg/L or less (mass/volume)Ordered By: Dez Her on 12-21-2024 Albumin DL <= 20 mg/L (U) [Mass/Vol] < 12.0 mg/L NO RANGE EST. [facility] Vitamin D, 25-hydroxyOrdered By: Dez Her on 12-21-2024 Vitamin D 25-Hydroxy 34.2 ng/mL 30-100 [facility] Comment on above: Vitamin D StatusDefi ciency: <20 ng/mL (50nmol/L)Insufficiency: 20-30 ng/mL (50-75 nmol/L)Sufficiency: 30-100 ng/mL (75-250 nmol/L)Toxicity: >100 ng/mL (>250 nmol/L) Vitamin D,25 Hydroxyon 12-21 Vitamin D 25-OH 34.2 ng/mL Normal 30-100 [facility] Comment on above: Result Comment: Cynthia min D Status Deficiency: <20 ng/mL (50nmol/L) Insufficiency: 20-30 ng/mL (50-75 nmol/L) Sufficiency: 30-100 ng/mL (75-250 nmol/L) Toxicity: >100 ng/mL (>250 nmol/L) Performed By: #### L 506.1001, L502.0250, L501.9985, L500.4050, L501.9520, L501.9940, L100.0500, L500.4100 #### [facility] Laboratory [facility] [place], [address] White blood cell (WBC) count Ordered By: Dez Her on 12-21-2024 WBC (Bld) [#/Vol] 7.5 10*3/uL 4.4-11.0 [facility] No Panel InformationOrdered By: Dez Her on 12-31-2023 Free Triiodothyronine (T3) pg/dL 2.5 pg/mL 2.18-3.98 [facility] Thyroglobulin Antibody < 1.0 IU/mL 0.0-0.9 [facility] Comment on above: Thyroglobulin Antibo dy measured by Kelly CoulterMethodologyIt should be noted that the presence of thyroglobulinantibodies may not be pathogenic nor diagnostic, especiallyat very low levels. The assay parent trainer has found thatfour percent of individuals without evidence of thyroiddisease or autoimmunity will have positive TgAb levels upto 4 IU/mL.Performed at: [facility] [id number] Director: Aiden Gandhi PhD, Phone: [phone] Serum or plasma thyroid stim ulating hormone (TSH) measurement (units/volume)Ordered By: Dez Her on 12-31-2023 TSH Qn 5.32 uIU/mL 0.358-3.74 [facility] Serum or plasma thyroperoxid ase antibody assay (units/volume)Ordered By: Dez Her on 12-31-2023 TPO Ab Qn [IU]/mL 0-34 [facility] Thin prep Papanicolaou smear with manual screeningOrdered By: Dez Her on 12-31-2023 Thin prep Papanicolaou smear with manual screening 1.17 ng/dL 0.76-1.46 [facility] Absolute lymphocyte countOrd ered By: Sascha Valdes on 11-05-2023 Lymphocytes Auto (Unsp spec) [#/Vol] 2.30 10*3/uL 0.83-4.51 [facility] Automated lymphocyte count a s percentage of total leukocytesOrdered By: Sascha Valdes on 11-05-2023 Lymphocytes/100 WBC Auto (Unsp spec) 23.0 % 19-41 [facility] Basophil percentageOrdered B y: Sascha Valdes on 11-05-2023 Basophils/100 WBC (Bld) 0.6 % 0-1 [facility] Bilirubin [Mass/Vol] 0.50 mg/dL 0.20-1.00 [facility] Comment on above: For patients on eltr ombopag therapy, use of Dimension [place] TBIL is not recommended. Chloride [Moles/Vol] 107 mmol/L 98-107 [facility] Eosinophils/100 WBC (Bld) 1.9 % 0-5 [facility] Glucose [Mass/Vol] 105 mg/dL 74-106 [facility] Comment on above: Fasting Glucose resu lt from 100 to 125 mg/dL suggests IMPAIRED HOMEOSTASIS per A.D.A. criteria. Hemoglobin (Bld) [Mass/Vol] 15.9 g/dL 13.0-16.5 [facility] Monocytes/100 WBC (Bld) 11.5 % 0-10 [facility] Neutrophils (Bld) [#/Vol] 6.3 10*3/uL 2.0-7.7 [facility] Neutrophils/100 WBC (Bld) 62.4 % 47-70 [facility] Potassium [Moles/Vol] 4.7 mmol/L 3.5-5.1 [facility] Comment on above: Slight Hemolysis, Re sult may be falsely increased. Protein [Mass/Vol] 7.5 g/dL 6.4-8.2 [facility] Sodium [Moles/Vol] 139 mmol/L 136-145 [facility] WBC (Bld) [#/Vol] 10.0 10*3/uL 4.4-11.0 [facility] Determination of erythrocyte mean corpuscular volume (MCV)Ordered By: Sascha Valdes on 11-05-2023 MCV (RBC) [Entitic vol] 91.3 fL 80-94 [facility] Erythrocyte distribution wid th ratioOrdered By: Ssacha Valdes on 11-05-2023 Erythrocyte distribution width (RBC) [Ratio] 12.5 % 11.6-14.6 [facility] Erythrocyte distribution wid th standard deviationOrdered By: Sascha Valdes on 11-05-2023 Erythrocyte distribution width (RBC) [Entitic vol] 41.7 fL 35.1-43.9 [facility] Hematocrit Auto (Bld) [Volum e fraction]Ordered By: Sascha Valdes on 11-05-2023 Hematocrit (Bld) [Volume fraction] 46.4 % 40-54 [facility] Immature granulocytes/100 WB C Auto (Bld)Ordered By: Sascha Valdes on 11-05-2023 Immature granulocytes/100 WBC (Bld) 0.600 % 0.0-0.9 [facility] Comment on above: IG% - Immature Granu locytes (promyelocytes, myelocytes and metamyelocytes) > 1% indicates that a LEFT SHIFT is Present. Laboratory - Chemistry and C hemistry - challengeOrdered By: Sascha Valdes on 11-05-2023 Albumin/Globulin [Mass ratio] 0.9 {ratio} 0.9-2.4 [facility] ALP [Catalytic activity/Vol] 95 U/L 45-117 [facility] ALT [Catalytic activity/Vol] 32 U/L 16-61 [facility] CO2 [Moles/Vol] 28.0 mmol/L 21.0-32.0 [facility] Globulin (S) [Mass/Vol] 3.9 g/dL 2.2-4.2 [facility] Magnesium [Mass/Vol] 2.0 mg/dL 1.6-2.6 [facility] Comment on above: Slight Hemolysis, Re sult may be falsely increased. Natriuretic peptide B (Bld) [Mass/Vol] 42.7 pg/mL 0-100 [facility] Urea nitrogen/Creatinine [Mass ratio] 13.3 mg/mg 10-20 [facility] Laboratory - Hematology and Cell countsOrdered By: Sascha Valdes on 11-05-2023 MCH (RBC) [Entitic mass] 31.3 pg 27.0-32.0 [facility] MCHC (RBC) [Mass/Vol] 34.3 g/dL 32-36 [facility] Nucleated RBC/100 WBC (Bld) [Ratio] 0 % 0-5 [facility] Platelet mean volume (Bld) [Entitic vol] 9.9 fL 6.2-12.0 [facility] Platelets (Bld) [#/Vol] 162 10*3/uL 150-450 [facility] No Panel InformationOrdered By: Sascha Valdes on 11-05-2023 Estimated GFR (MDRD) Amer 70 mL/min >60 [facility] Comment on above: GFR Calc Estimated GFR (MDRD) Non-Af Amer 58 mL/min >60 [facility] Comment on above: Non- GFR Calc RBC Auto (Bld) [#/Vol]Ordere d By: Sascha Valdes on 11-05-2023 RBC (Bld) [#/Vol] 5.08 10*6/uL 4.6-6.2 [facility] Serum or plasma calcium adryan urement (mass/volume)Ordered By: Sascha Valdes on 11-05-2023 Calcium [Mass/Vol] 9.1 mg/dL 8.5-10.1 [facility] Serum or plasma creatinine m easurement (mass/volume)Ordered By: Sascha Valdes on 11-05-2023 Creatinine [Mass/Vol] 1.28 mg/dL 0.70-1.30 [facility] Comment on above: The validity of the calculated GFR & GFRAA in patients over 70 years has not been determined. Clinical correlation is essential. Serum or plasma thyroid stim ulating hormone (TSH) measurement (units/volume)Ordered By: Ssacha Valdes on 11-05-2023 TSH Qn 4.69 uIU/mL 0.358-3.74 [facility] Serum or plasma urea nitroge n measurement (mass/volume)Ordered By: Sascha Valdes on 11-05-2023 Urea nitrogen [Mass/Vol] 17 mg/dL 7-18 [facility] Thin prep Papanicolaou smear with manual screeningOrdered By: Sascha Valdes on 11-05-2023 Thin prep Papanicolaou smear with manual screening 3.6 g/dL 3.2-5.0 [facility] Thin prep Papanicolaou smear with manual screening 24 U/L 15-37 [facility] Comment on above: Slight Hemolysis, Re sult may be falsely increased. Thin prep Papanicolaou smear with manual screening 4 5-15 [facility] Thin prep Papanicolaou smear with manual screening 0.99 ng/dL 0.76-1.46 [facility] CNOVon 07-07-2023 CNOV Office Visit (ELLEN OLIVEIRA) ----- BARTOLO ARGUETA ([id number]) 1945 M Date Time Provider Department 07/07/23 11:20 AM DEZ ORTEGA During your visit today, we recorded the following information about you: Pulse Respiration Blood pressure Weight 61/minute 16/minute 122/78 99.8 kg Height 1.753 m Benjamin Monge LPN 07/07/2023 11:22 AM Signed No cardiac complaints today. Pt has been experiencing increased fatigue. ISAI Carrillo Robert A, MD 07/07/2023 12:11 PM Signed PRIMARY CARE PHYSICIAN: Dez Her [address] [place] [address] Patient Care Team: Dez Her DO as PCP - General (Family Medicine) Gonzalez Greenberg MD as Specialty Timber Hand (Cardiology) Huber Campos MD as Specialty Timber Hand (Urology) Dez Ortega MD as Specialty Timber Hand (Cardiology) CHIEF COMPLAINT: Follow-up for arrhythmia, atrial fibrillation HISTORY OF PRESENT ILLNESS: Mr. Argueta is a 77 year old male who presents today for a cardiovascular medicine follow-up visit. History copied from previous notes, edited as needed: Dr. Ortega office note 04/29/2022: Mr. Argueta is a 76 year old male who [...] had been evaluated by Dr. Martins at [facility] 03/31/2022. Dr. Martins was concerned about the possibility that the atrial fibrillation, particularly rapid ventricular response rates, might have contributed to the cardiomyopathy. So he did recommend an aggressive approach to episcopal and maintenance of sinus rhythm, including antiarrhythmic drug therapy and catheter ablation for the atrial fibrillation and also atrial flutter. He recommended amiodarone, Mr. Argueta states he took 400 mg for about a week 04/06/2022 - 04/15/2022 when he reduced the dose to 200 mg daily due to headaches. Dr. Martins's office contacted Mr. Argueta to schedule the catheter ablation procedure, but Mr. Argueta wanted to get my opinion before proceeding. He experiences exertional shortness of breath and "extreme fatigue" --- his states that he cannot walk very far without becoming very short of breath and tired. He does not experience palpitations. 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 He otherwise feels in his usual state of health. He is currently getting an echo at the bedside. He is accompanied by his spouse and daughter today. He was unsure if he was supposed to stop the Eliquis, states "I do not want my blood too thin," he believes he missed his dose last night, and did not take the Eliquis this morning, will order stat dose to be given prior to procedure, he denies any bleeding issues. We will also inform the EP lab and Dr. Ortega. Amiodarone has been on hold, as instructed by Dr. Ortega, patient's last dose was 06/23/2022. He denies chest discomfort, palpitations, lightheadedness, dizziness, near-syncope or syncope. He denies any issues with anesthesia or sedation medications. He is nervous, but is ready to proceed today with scheduled radiofrequency catheter ablation of atrial fibrillation and atrial flutter with Dr. Ortega. All questions answered to their apparent satisfaction. 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 Ortega 06/29/2022, he was discharged the next day, amiodarone was not restarted. Weekly transtelephonic monitoring performed 07/07/2022 - 09/15/2022 appears to be sinus bradycardia with rates in the 50s. Echocardiogram performed 09/14/2022 at [facility] (more content not included)... Normal [facility] CNPNon 06-12-2023 CNPN Telephone (AKPRAD) ----- BARTOLO ARGUETA ([id number]) 1945 M Date Time Provider Department 06/12/23 DEZ ORTEGA During your visit today, we recorded the following information about you: Dez Ortega MD 06/12/2023 10:26 PM [facility] Dr. Greenberg attempted electrical cardioversion 06/07/2023 but this was unsuccessful. He restarted amiodarone and sent me a note that he wants me to evaluate Mr. Argueta soon to discuss options. Please offer Mr. Argueta a follow up appointment sometimes soon. Dez Ortega MD June 12, 2023 10:26 PM Allergies As of Date: 06/12/2023 Noted Allergy Reaction BACLOFEN 04/22/2022 2 - Rash Date Reviewed: 03/29/2023 Reviewed by: Dez Ortega MD - Fully Assessed Reason for Visit: Appointment [186] Prescriptions as of 06/12/2023 - apixaban (ELIQUIS) 5 mg tab(s) Take 5 mg by mouth twice daily. - carvedilol (COREG) 12.5 mg tablet - cholecalciferol (VITAMIN D) 1,000 unit tab tablet Take 1,000 Units by mouth once daily. - finasteride (PROSCAR) 5 mg tablet Take 5 mg by mouth once daily. - furosemide (LASIX) 40 mg tablet Take 40 mg by mouth as directed. Takes 40 mg PO four (4) days a week - losartan (COZAAR) 50 mg tablet Take 50 mg by mouth once daily. - multivit-min/FA/lycopen/l utein (CENTRUM SILVER MEN ORAL) Take 1 tablet by mouth once daily. - potassium chloride ER (K-DUR, KLOR-CON) 20 mEq tablet Take 20 mEq by mouth once daily. - simvastatin (ZOCOR) 20 mg tablet Take 10 mg by mouth daily at bedtime. - spironolactone (ALDACTONE) 25 mg tablet Take 25 mg by mouth once daily. - tamsulosin (FLOMAX) 0.4 mg Take 0.4 mg by mouth daily at bedtime. Problem List As Of Date 06/12/2023 Noted Resolved Persistent atrial fibrillation (HCC) [I48.19] 04/27/2022 At risk for stroke [Z91.89] 04/27/2022 Anticoagulant long-term use [Z79.01] 04/27/2022 Dilated cardiomyopathy (HCC) [I42.0] 04/27/2022 Chronic combined systolic and diastolic CHF (co* Left bundle-branch block, unspecified [I44.7] Typical atrial flutter (HCC) [I48.3] 12/01/2010 History of cerebrovascular accident [Z86.73] 02/22/2021 Hyperlipidemia [E78.5] 12/01/2010 ragman current use of antiarrhythmic drug [Z*04/29/2022 03/26/2023 ragman current use of amiodarone [Z79.899] 04/29/2022 03/26/2023 Fatigue [R53.83] 04/29/2022 Exertional shortness of breath [R06.02] 04/29/2022 Obesity, Class I, BMI 30-34.9 [E66.9] 04/29/2022 Status post catheter ablation of atrial fibrill*06/29/2022 Status post catheter ablation of atrial flutter*06/29/2022 Encounter Status:Closed by DEZ ORTEGA on 06/12/23 [facility] Jeremias 05-20-2023 JHONNYN Telephone (AGCARDPOB ) ----- BARTOLO ARGUETA ([id number]) 1945 M Date Time Provider Department 05/20/23 DEZ ORTEGA During your visit today, we recorded the following information about you: Eugenia العلي RN 05/20/2023 11:41 AM Signed Pt calls to report Dr Greenberg's office was to send recent EKG and labs. He reports he is back in afib with HRs 110s bpm. He reports Dr Greenberg increased his coreg from 12.5 mg BID to 25 mg BID. He reports his HR remains 110s bpm. CAROLANN Seo Susan M, RN 05/21/2023 10:05 AM Signed Received a call from Jadyn VUONG at Dr. Greenberg who wanted to inform Dr. Ortega that patient arrived to office for EKG since he wasn't feeling well. EKG indicated atrial fibrillation with heart rate in the 100's. Remains on Eliquis, Dr. Greenberg increased carvedilol. Jadyn will be faxing over the EKG for Dr. Ortega to review. Dr. Greenberg willing to perform cardioversion if ok with Dr. Ortega. CAROLANN Hernandez Kimberly, APRN.JHONNY 05/21/2023 2:06 PM Signed EKG has not yet been received, if Dr. Greenberg is willing to do cardioversion, would probably be the best option, as Dr. Ortega is unavailable for procedures for at least the next 1.5 weeks, though cardioversion could be performed by one of Dr. Ortega's partners if needed. Samia Allen APRN.Eugenia Black RN 05/21/2023 2:13 PM Signed Spoke with pt. Notified of Deb's message. He reports he will reach out to Dr greenberg who was willing to do DCC. CAROLANN Seo Susan M, RN 05/21/2023 3:53 PM Signed Spoke with CAROLANN Salamanca at [facility] she will give Dr. Greenberg's the message to schedule the cardioversion if he is still available. Will give us a call back if there is a problem scheduling. Bruno Fair RN Allergies As of Date: 05/20/2023 Noted Allergy Reaction BACLOFEN 04/22/2022 2 - Rash Date Reviewed: 03/29/2023 Reviewed by: Dez Ortega MD - Fully Assessed Reason for Visit: Patient Update [1234] Prescriptions as of 05/21/2023 - carvedilol (COREG) 12.5 mg tablet - multivit-min/FA/lycopen/l utein (CENTRUM SILVER MEN ORAL) Take 1 tablet by mouth once daily. - cholecalciferol (VITAMIN D) 1,000 unit tab tablet Take 1,000 Units by mouth once daily. - finasteride (PROSCAR) 5 mg tablet Take 5 mg by mouth once daily. - potassium chloride ER (K-DUR, KLOR-CON) 20 mEq tablet Take 20 mEq by mouth once daily. - simvastatin (ZOCOR) 20 mg tablet Take 10 mg by mouth daily at bedtime. - tamsulosin (FLOMAX) 0.4 mg Take 0.4 mg by mouth daily at bedtime. - losartan (COZAAR) 50 mg tablet Take 50 mg by mouth once daily. - furosemide (LASIX) 40 mg tablet Take 40 mg by mouth as directed. Takes 40 mg PO four (4) days a week - spironolactone (ALDACTONE) 25 mg tablet Take 25 mg by mouth once daily. - apixaban (ELIQUIS) 5 mg tab(s) Take 5 mg by mouth twice daily. Problem List As Of Date 05/20/2023 Noted Resolved Persistent atrial fibrillation (HCC) [I48.19] 04/27/2022 At risk for stroke [Z91.89] 04/27/2022 Anticoagulant long-term use [Z79.01] 04/27/2022 Dilated cardiomyopathy (HCC) [I42.0] 04/27/2022 Chronic combined systolic and diastolic CHF (co* Left bundle-branch block, unspecified [I44.7] Typical atrial flutter (HCC) [I48.3] 12/01/2010 History of cerebrovascular accident [Z86.73] 02/22/2021 Hyperlipidemia [E78.5] 12/01/2010 senior care current use of antiarrhythmic drug [Z*04/29/2022 03/26/2023 senior care current use of amiodarone [Z79.899] 04/29/2022 03/26/2023 Fatigue [R53.83] 04/29/2022 Exertional shortness of breath [R06.02] 04/29/2022 Obesity, Class I, BMI 30-34.9 [E66.9] 04/29/2022 Status post catheter ablation of atrial fibrill*06/29/2022 Status post catheter ablation of atrial flutter*06/29/2022 Encounter Status:Closed by BRUNO FAIR on 05/21/23 Normal [facility] Basophil percentageOrdered B y: Gonzalez Greenberg on 05-17-2023 Chloride [Moles/Vol] 105 mmol/L 98-107 [facility] Glucose [Mass/Vol] 167 mg/dL 74-106 [facility] Comment on above: Fasting Glucose resu lt greater than or equal to 126 mg/dL suggests DIABETES MELLITUS per A.D.A. criteria. Potassium [Moles/Vol] 4.8 mmol/L 3.5-5.1 [facility] Comment on above: Slight Hemolysis, Re sult may be falsely increased. Sodium [Moles/Vol] 137 mmol/L 136-145 [facility] WBC (Bld) [#/Vol] 9.3 10*3/uL 4.4-11.0 [facility] Blood erythrocytes count (nu mber/volume)Ordered By: Gonzalez Greenberg on 05-17-2023 RBC (Bld) [#/Vol] 5.45 10*6/uL 4.6-6.2 [facility] Blood hemoglobin measurement (mass/volume)Ordered By: Gonzalez Greenberg on 05-17-2023 Hemoglobin (Bld) [Mass/Vol] 16.8 g/dL 13.0-16.5 [facility] Blood platelet mean volumeOr dered By: Gonzalez Greenberg on 05-17-2023 Platelet mean volume (Bld) [Entitic vol] 10.3 fL 6.2-12.0 [facility] Determination of erythrocyte mean corpuscular volume (MCV)Ordered By: Gonzaelz Greenberg on 05-17-2023 MCV (RBC) [Entitic vol] 92.7 fL 80-94 [facility] Hematocrit Auto (Bld) [Volum e fraction]Ordered By: Gonzalez Greenberg on 05-17-2023 Hematocrit (Bld) [Volume fraction] 50.5 % 40-54 [facility] Laboratory - Chemistry and C hemistry - challengeOrdered By: Gonzalez Greenberg on 05-17-2023 CO2 [Moles/Vol] 27.0 mmol/L 21.0-32.0 [facility] Urea nitrogen/Creatinine [Mass ratio] 14.6 mg/mg 10-20 [facility] Laboratory - Hematology and Cell countsOrdered By: Gonzalez Greenberg on 05-17-2023 Erythrocyte distribution width (RBC) [Entitic vol] 44.6 fL 35.1-43.9 [facility] Erythrocyte distribution width (RBC) [Ratio] 13.2 % 11.6-14.6 [facility] MCH (RBC) [Entitic mass] 30.8 pg 27.0-32.0 [facility] MCHC Auto (RBC) [Mass/Vol]Or dered By: Gonzalez Greenberg on 05-17-2023 MCHC (RBC) [Mass/Vol] 33.3 g/dL 32-36 [facility] No Panel InformationOrdered By: Gonzalez Greenberg on 05-17-2023 Estimated GFR (MDRD) Amer 69 mL/min >60 [facility] Comment on above: GFR Calc Estimated GFR (MDRD) Non-Af Amer 57 mL/min >60 [facility] Comment on above: Non- GFR Calc Platelets bldOrdered By: Rohan Greenberg on 05-17-2023 Platelets (Bld) [#/Vol] 177 10*3/uL 150-450 [facility] Serum or plasma calcium adryan urement (mass/volume)Ordered By: Gonzalez Greenberg on 05-17-2023 Calcium [Mass/Vol] 9.2 mg/dL 8.5-10.1 [facility] Serum or plasma creatinine m easurement (mass/volume)Ordered By: Gonzalez Greenberg on 05-17-2023 Creatinine [Mass/Vol] 1.30 mg/dL 0.70-1.30 [facility] Comment on above: The validity of the calculated GFR & GFRAA in patients over 70 years has not been determined. Clinical correlation is essential. Serum or plasma urea nitroge n measurement (mass/volume)Ordered By: Gonzalez Greenberg on 05-17-2023 Urea nitrogen [Mass/Vol] 19 mg/dL 03-16 [facility] Thin prep Papanicolaou smear with manual screeningOrdered By: Gonzalez Greenberg on 05-17-2023 Thin prep Papanicolaou smear with manual screening 5 5-15 [facility] CNOVon 03-29-2023 CNOV Office Visit (AGCARD POB) ----- CHRISTABARTOLO ([id number]) 1945 M Date Time Provider Department 03/29/23 1:40 PM DEZ ORTEGAARDPOB During your visit today, we recorded the following information about you: Pulse Respiration Blood pressure Weight 61/minute 18/minute 137/83 101.2 kg Height 1.753 m Dez Ortega MD 03/29/2023 7:34 PM Signed PRIMARY CARE PHYSICIAN: Dez Her [address] [place] [address] Patient Care Team: Dez Her DO as PCP - General (Family Medicine) Gonzalez Greenberg as Specialty Timber Hand (Cardiology) Huber Campos MD as Specialty Timber Hand (Urology) CHIEF COMPLAINT: Follow-up for arrhythmia HISTORY OF PRESENT ILLNESS: Mr. Argueta is a 77 year old male who presents today for a cardiovascular medicine follow-up visit. History copied from previous notes, edited as needed: Dr. Ortega office note 04/29/2022: Mr. Argueta is a 76 year old male who [...] had been evaluated by Dr. Martins at [facility] 03/31/2022. Dr. Martins was concerned about the possibility that the atrial fibrillation, particularly rapid ventricular response rates, might have contributed to the cardiomyopathy. So he did recommend an aggressive approach to episcopal and maintenance of sinus rhythm, including antiarrhythmic drug therapy and catheter ablation for the atrial fibrillation and also atrial flutter. He recommended amiodarone, Mr. Argueta states he took 400 mg for about a week 04/06/2022 - 04/15/2022 when he reduced the dose to 200 mg daily due to headaches. Dr. Martins's office contacted Mr. Argueta to schedule the catheter ablation procedure, but Mr. Argueta wanted to get my opinion before proceeding. He experiences exertional shortness of breath and "extreme fatigue" --- his states that he cannot walk very far without becoming very short of breath and tired. He does not experience palpitations. H/P update Deb Allen CNP 06/29/2022: The patient continues to experience exertional dyspnea and fatigue which he attributes to the atrial arrhythmia. He otherwise feels in his usual state of health. He is currently getting an echo at the bedside. He is accompanied by his spouse and daughter today. He was unsure if he was supposed to stop the Eliquis, states "I do not want my blood too thin," he believes he missed his dose last night, and did not take the Eliquis this morning, will order stat dose to be given prior to procedure, he denies any bleeding issues. We will also inform the EP lab and Dr. Ortega. Amiodarone has been on hold, as instructed by Dr. Ortega, patient's last dose was 06/23/2022. He denies chest discomfort, palpitations, lightheadedness, dizziness, near-syncope or syncope. He denies any issues with anesthesia or sedation medications. He is nervous, but is ready to proceed today with scheduled radiofrequency catheter ablation of atrial fibrillation and atrial flutter with Dr. Ortega. All questions answered to their apparent satisfaction. 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 Ortega 06/29/2022, he was discharged the next day, amiodarone was not restarted. Weekly transtelephonic monitoring performed 07/07/2022 - 09/15/2022 appears to be sinus bradycardia with rates in the 50s. Echocardiogram performed 09/14/2022 at [facility] indicates LVEF 50%. He underwent 3-month post ablation testing prior to today's appointment which includes a CT of the chest, echocardiogram and 24-hour Holter monitor was applied. Mr. Argueta reports he has been well since the abla (more content not included)... Normal [facility] CNPNon 12-17-2022 [facility] (AKPRAD[facility] ----- BARTOLO ARGUETA ([id number]) 1945 M Date Time Provider Department 12/17/22 DEZ ORTEGA During your visit today, we recorded the following information about you: Dez Ortega MD 12/17/2022 8:48 PM Signed Please let Mr. Argueta know that the heart monitoring testing showed no significant atrial fibrillation. Looked good overall. Dez Ortega MD December 17, 2022 8:47 PM Radha Vazquez LPN 12/18/2022 8:07 AM Signed I spoke to Ilya and informed her of 's response to monitor results. She voiced understanding and will relay message to patient when he wakes up. Radha Vazquez LPN Allergies As of Date: 12/17/2022 Noted Allergy Reaction BACLOFEN 04/22/2022 2 - Rash Date Reviewed: 11/27/2022 Reviewed by: Samia Allen APRN.BULLET CASTING OPERATOR - Fully Assessed Reason for Visit: Results [95] Prescriptions as of 12/18/2022 - multivit-min/FA/lycopen/l utein (CENTRUM SILVER MEN ORAL) Take 1 tablet by mouth once daily. - cholecalciferol (VITAMIN D) 1,000 unit tab tablet Take 1,000 Units by mouth once daily. - finasteride (PROSCAR) 5 mg tablet Take 5 mg by mouth once daily. - potassium chloride ER (K-DUR, KLOR-CON) 20 mEq tablet Take 20 mEq by mouth once daily. - simvastatin (ZOCOR) 20 mg tablet Take 20 mg by mouth daily at bedtime. - tamsulosin (FLOMAX) 0.4 mg Take 0.4 mg by mouth daily at bedtime. - losartan (COZAAR) 50 mg tablet Take 50 mg by mouth once daily. - furosemide (LASIX) 40 mg tablet Take 40 mg by mouth once daily. - spironolactone (ALDACTONE) 25 mg tablet Take 25 mg by mouth once daily. - apixaban (ELIQUIS) 5 mg tab(s) Take 5 mg by mouth twice daily. - carvedilol (COREG) 25 mg tablet Take 12.5 mg by mouth twice daily with meals. Facility-Administered Medications as of 12/18/2022 - sodium chloride 0.9 % (flush) 10 mL (BD POSIFLUSH) Problem List As Of Date 12/17/2022 Noted Resolved Persistent atrial fibrillation (HCC) [I48.19] 04/27/2022 At risk for stroke [Z91.89] 04/27/2022 Anticoagulant long-term use [Z79.01] 04/27/2022 Dilated cardiomyopathy (HCC) [I42.0] 04/27/2022 Chronic combined systolic and diastolic CHF (co* Left bundle-branch block, unspecified [I44.7] Typical atrial flutter (HCC) [I48.3] 12/01/2010 History of cerebrovascular accident [Z86.73] 02/22/2021 Hyperlipidemia [E78.5] 12/01/2010 ragman current use of antiarrhythmic drug [Z*04/29/2022 ragman current use of amiodarone [Z79.899] 04/29/2022 Fatigue [R53.83] 04/29/2022 Exertional shortness of breath [R06.02] 04/29/2022 Obesity, Class I, BMI 30-34.9 [E66.9] 04/29/2022 Status post catheter ablation of atrial fibrill*06/29/2022 Status post catheter ablation of atrial flutter*06/29/2022 Encounter Status:Closed by DEZ ORTEGA on 12/17/22 [facility] 12-07-2022 CNPN Telephone (AGCARD) ----- CHRISTABARTOLO Marcy ([id number]) 1945 M Date Time Provider Department 12/07/22 DEZ ORTEGA During your visit today, we recorded the following information about you: Radha Vazquez LPN 12/07/2022 10:15 AM Signed called in and wanted to be aware he completed Chest CTA on 11/27/2022. Results are in Epic for review. ISAI Galdamez MD 12/09/2022 2:[address] scan was ok from heart standpoint. However, there were incidental findings involving the pancreas that the radiologist recommended follow up evaluation. So the CT scan report needs to be sent to Mr. Argueta's PCP and also call that office to alert them that there are actionable findings that the PCP needs to address. Also, let Mr. Argueta know about these findings and he should also contact PCP to follow up. Please emphasize that these findings involving the pancreas might not be anything concerning, but need the additional follow up to more definitively determine that. Dez Ortega MD December 09, 2022 2:23 PM Radha Vazquez LPN 12/10/2022 8:52 AM Signed I spoke to and informed him of 's response to CT of chest results and recommendations. Patient voiced understanding and states his PCP is already aware of pancreas issue and is having him retested in 6 months to keep an eye on it. Radha Vazquez LPN Allergies As of Date: 12/07/2022 Noted Allergy Reaction BACLOFEN 04/22/2022 2 - Rash Date Reviewed: 11/27/2022 Reviewed by: Samia Allen APRN.BULLET CASTING OPERATOR - Fully Assessed Reason for Visit: Results [95] Prescriptions as of 12/10/2022 - multivit-min/FA/lycopen/l utein (CENTRUM SILVER MEN ORAL) Take 1 tablet by mouth once daily. - cholecalciferol (VITAMIN D) 1,000 unit tab tablet Take 1,000 Units by mouth once daily. - finasteride (PROSCAR) 5 mg tablet Take 5 mg by mouth once daily. - potassium chloride ER (K-DUR, KLOR-CON) 20 mEq tablet Take 20 mEq by mouth once daily. - simvastatin (ZOCOR) 20 mg tablet Take 20 mg by mouth daily at bedtime. - tamsulosin (FLOMAX) 0.4 mg Take 0.4 mg by mouth daily at bedtime. - losartan (COZAAR) 50 mg tablet Take 50 mg by mouth once daily. - furosemide (LASIX) 40 mg tablet Take 40 mg by mouth once daily. - spironolactone (ALDACTONE) 25 mg tablet Take 25 mg by mouth once daily. - apixaban (ELIQUIS) 5 mg tab(s) Take 5 mg by mouth twice daily. - carvedilol (COREG) 25 mg tablet Take 12.5 mg by mouth twice daily with meals. Facility-Administered Medications as of 12/10/2022 - sodium chloride 0.9 % (flush) 10 mL (BD POSIFLUSH) Problem List As Of Date 12/07/2022 Noted Resolved Persistent atrial fibrillation (HCC) [I48.19] 04/27/2022 At risk for stroke [Z91.89] 04/27/2022 Anticoagulant long-term use [Z79.01] 04/27/2022 Dilated cardiomyopathy (HCC) [I42.0] 04/27/2022 Chronic combined systolic and diastolic CHF (co* Left bundle-branch block, unspecified [I44.7] Typical atrial flutter (HCC) [I48.3] 12/01/2010 History of cerebrovascular accident [Z86.73] 02/22/2021 Hyperlipidemia [E78.5] 12/01/2010 [facility] care current use of antiarrhythmic drug [Z*04/29/2022 ragman current use of amiodarone [Z79.899] 04/29/2022 Fatigue [R53.83] 04/29/2022 Exertional shortness of breath [R06.02] 04/29/2022 Obesity, Class I, BMI 30-34.9 [E66.9] 04/29/2022 Status post catheter ablation of atrial fibrill*06/29/2022 Status post catheter ablation of atrial flutter*06/29/2022 Encounter Status:Closed by RADHA VAZQUEZ on 12/08/22 Normal [facility] CNCOon 12-01-2022 CNCO Letter Text Normal [facility] CNOVon 11-27-2022 CNOV Office Visit (ELLEN SESAYB) ----- BARTOLO ARGUETA ([id number]) 1945 Steve Date Time Provider Department 11/27/22 1:30 PM SAMIA ALLEN During your visit today, we recorded the following information about you: Pulse Blood pressure Weight Height 66/minute 129/66 102.5 kg 1.753 m Samia Allen APRN.BULLET CASTING OPERATOR 11/27/2022 2:12 PM Signed [facility] General Cardiology Electrophysiology PRIMARY CARE PHYSICIAN: Dez Her [address] [place] [address] CHIEF COMPLAINT: Cardiovascular medicine follow-up for arrhythmia. HISTORY OF PRESENT ILLNESS: Mr. Argueta is a 76 year old male who presents today for follow-up regarding arrhythmia. History copied from previous notes, edited as needed: Dr. Ortega office note 04/29/2022: Mr. Argueta is a 76 year old male who [...] had been evaluated by Dr. Martins at [facility] 03/31/2022. Dr. Martins was concerned about the possibility that the atrial fibrillation, particularly rapid ventricular response rates, might have contributed to the cardiomyopathy. So he did recommend an aggressive approach to episcopal and maintenance of sinus rhythm, including antiarrhythmic drug therapy and catheter ablation for the atrial fibrillation and also atrial flutter. He recommended amiodarone, Mr. Argueta states he took 400 mg for about a week 04/06/2022 - 04/15/2022 when he reduced the dose to 200 mg daily due to headaches. Dr. Martins's office contacted Mr. Argueta to schedule the catheter ablation procedure, but Mr. Argueta wanted to get my opinion before proceeding. He experiences exertional shortness of breath and "extreme fatigue" --- his states that he cannot walk [...] was supposed to stop the Eliquis, states "I do not want my blood too thin," he believes he missed his dose last night, and did not take the Eliquis this morning, will order stat dose to be given prior to procedure, he denies any bleeding issues. We will also inform the EP lab and Dr. Ortega. Amiodarone has been on hold, as instructed by Dr. Ortega, patient's last dose was 06/23/2022. He denies chest discomfort, palpitations, lightheadedness, dizziness, near-syncope or syncope. He denies any issues with anesthesia or sedation medications. He is nervous, but is ready to proceed today with scheduled radiofrequency catheter ablation of atrial fibrillation and atrial flutter with Dr. Ortega. All questions answered to their apparent satisfaction. Interval History: The patient underwent radiofrequency catheter ablation for atrial fibrillation with Dr. Ortega 06/29/2022, he was discharged the next day, amiodarone was not restarted. Weekly transtelephonic monitoring performed 07/07/2022 - 09/15/2022 appears to be sinus bradycardia with rates in the 50s. Echocardiogram performed 09/14/2022 at [facility] indicates LVEF 50%. He underwent 3-month post ablation testing prior to today's appointment which includes a CT of the chest, echocardiogram and 24-hour Holter monitor was applied. Mr. Argueta reports he has been well since the ablation procedure, has not had symptomatic or documented recurrence. He is very pleased with his results, he reports increased energy and decreased exertional dyspnea. He (more content not included)... Normal [facility] CTA CHEST (NONGATED) W IVCON on 11-27-2022 CTA CHEST (NONGATED) W IVCON * * *Final Report* * * DATE OF EXAM: Nov 27 2022 11:28AM [facility] 0123 - CTA CHEST (NONGATED) W IVCON / PROCEDURE REASON: multiple diagnoses * * * * Physician Interpretation * * * * EXAM TITLE: CT PULMONARY VENOGRAM DATE: November 27, 2022 11:25 AM COMPARISON: None. CLINICAL INDICATION/HISTORY: The patient is a 76-year-old male with previous ablation for treatment of atrial fibrillation. CT Radiation dose: Integrated dose-length product (DLP) for this visit = 573 mGy*cm. CT Dose Reduction Employed: Automated exposure control (AEC) was used. CONTRAST: IV: 100 ml of Omnipaque 350 TECHNIQUE: Helical thin axial slices were obtained through the lungs during the bolus intravenous administration of contrast and reconstruction CT pulmonary venogram was performed and images reviewed on soft tissue and lung windows settings. Bolus images were sent to a separate workstation and 3-D multiplanar reconstruction CT angiogram with MIP and shaded surface display imaging was obtained. FINDINGS: There are 2 pulmonary veins bilaterally. The pulmonary veins are patent and show no stenosis. There are some scattered coronary artery calcifications. The mediastinum shows no mass or lymphadenopathy. The lungs are clear. There is no pleural effusion. There is some fatty infiltration in deposition in the right pleural space. Cuts through the lower chest include the upper abdomen and reveal a hiatus hernia with what appears to be a focal diverticulum in the distal esophagus. At the junction of the body and tail of the pancreas there are cystic structures that measure 13 and 23 mm. No other abnormalities of the visualized visceral structures are identified. IMPRESSION: No evidence of pulmonary vein stenosis. There are coronary artery calcifications. There is fatty infiltration of the pleural space. No other active disease is identified in the chest. There is a hiatus hernia as well as a diverticulum of the distal esophagus. There are cystic structures of the pancreas. It is difficult to determine whether there is definite pancreatic ductal communication but it is at least suspicious. Recommend repeat imaging with MRI or pancreas protocol CT every 6 months for 2 years then every year for 2 years followed by every other year for 6 years is recommended. ACTIONABLE RESULT: FOLLOW-UP Acuity: Actionable Findings: Pancreas/Biliary Routing Code: PB_1 Recommendation: Unlisted Recommendation (see report) Time Frame: 6-12 months COMMUNICATION: Results will be communicated with the ordering provider via [employer] staff message or phone message by Imaging Support Services within 2 business days of report finalization. Algorithms for management of incidental imaging findings can be found on the [facility] Intranet Sharepoint site at: [email or web address] [email or web address] No other nonvascular abnormalities are identified in the chest and upper abdomen. 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 Ordering physician: DEZ ORTEGA Indication: Sustained atrial fibrillation Technologist: Mahsa Matta and Ame Calvo [facility] Interpreting physician: Kalyani Tiwari MD PATIENT: Name: MR. BARTOLO ARGUETA : 1945 Age: 76 years Gender: M History of cardiomyopathy, arrhythmia and heart failure with hospitalization. Primary rhythm: sinus. Height: 175.30 cm BSA: 2.21 m Weight: 100.70 kg BMI: 32.8 kg/m Heart rate 58 bpm Blood pressure 150/74 mmHg Color Doppler was utilized to interrogate the cardiac valves assessed and spectral Doppler was utilized to determine the flow velocities and pressure gradients reported in this exam. MEASUREMENTS: Value Indexed Normal Max aortic dimension 3.5 cm Ao < 3.8 Left atrial volume 66 ml (biplane A-L) 30 ml/m Bishop <= 34 LV ID (diastole) 4.8 cm (2D) 2.17 cm/m LV ID (systole) 3.7 cm (2D) 1.68 cm/m IVS, leaflet tips 0.9 cm (2D) Posterior wall thickness 1.1 cm (2D) Left ventricular mass 167 g (2D) 75 g/m LV end diastolic volume 140 ml (2D biplane) 63.2 ml/m 34<=EDVi<75 Ejection Fraction 35 % (visual est.) EF > 52 FINDINGS: LEFT VENTRICLE The left ventricle is normal in size. Left ventricular systolic function is moderately decreased regionally. Grade I left ventricular diastolic dysfunction. Mitral annular lateral E/e': 8.8. Mitral annular septal E/e': 13.2. Definity contrast used for endocardial border detection. Wall Motion: The entire septum, entire apex, and entire inferior wall are severely hypokinetic. The anterolateral wall and posterior wall are mildly hypokinetic. All remaining scored segments are normal. RIGHT VENTRICLE The right ventricle is normal in size. Right ventricular systolic function is normal. RV systolic tissue Doppler velocity is 13.0 cm/s. Tricuspid annular displacement is 1.8 cm. Estimated right ventricular systolic pressure is not reported due to an insufficient tricuspid regurgitation signal. Estimated right atrial pressure is 3 mmHg based on IVC assessment. LEFT ATRIUM The left atrial cavity is normal in size. Pulmonary Veins: The pulmonary venous pattern showed normal systolic flow. RIGHT ATRIUM The right atrial cavity is normal in size. Inferior Vena Cava: The inferior vena cava appears normal measuring 0.9 cm. The vessel decreases greater than 50 percent with inspiration. MITRAL VALVE There is trace mitral valve regurgitation. There is mild thickening. The pressure half time is 68 msec. The peak mitral E/A ratio is 0.72. The average mitral E/e' ratio is 11.0. The mitral flow deceleration time is 234 msec. TRICUSPID VALVE The tricuspid valve leaflets are structurally normal. There is trace tricuspid valve regurgitation. The hepatic venous pattern showed normal systolic flow. AORTIC VALVE There is mild (1+) aortic valve regurgitation. Tricuspid aortic valve. There is mild thickening. There is mild calcification. The LVOT diameter is 2.2 cm. PULMONIC VALVE There is trace (trace - 1+) pulmonic valve regurgitation. There is no thickening. AORTA The visualized aorta is normal in size. Measurements - Sinus: 3.5 cm. Mid ascending aorta 3.2 cm. INTERVENTRICULAR SEPTUM The interventricular septum is normal. There is no flow through the interventricular septum as detected by Doppler. PERICARDIUM There is no pericardial effusion. There is an epicardial fat pad. CONCLUSIONS: - Exam indication: Sustained atrial fibrillation - The left ventricle is normal in size. Left ventricular systolic function is moderately decreased. EF = 35 5% (visual est.) Definity contrast used for endocardial border detection. Grade I left ventricular diastolic dysfunction. Wall motion abnormalities are described above. - The right ventricle is normal in size. Right ventricular systolic function is normal. - There is mild (1+) aortic valve regurgitation. - Exam was compared with the prior echocardiographic exam performed on 06/29/2022. LV function has improved. * * * Final * * * CC [employer] Medical Image : [id number] Normal [facility] Basophil percentageOrdered B y: Dr. Her on 11-11-2022 Bilirubin [Mass/Vol] 0.60 mg/dL 0.20-1.00 [facility] Comment on above: For patients on eltr ombopag therapy, use of Dimension [place] TBIL is not recommended. Chloride [Moles/Vol] 106 mmol/L 98-107 [facility] Glucose [Mass/Vol] 141 mg/dL 74-106 [facility] Comment on above: Fasting Glucose resu lt greater than or equal to 126 mg/dL suggests DIABETES MELLITUS per A.D.A. criteria. Potassium [Moles/Vol] 4.8 mmol/L 3.5-5.1 [facility] Protein [Mass/Vol] 7.0 g/dL 6.4-8.2 [facility] Sodium [Moles/Vol] 138 mmol/L 136-145 [facility] WBC (Bld) [#/Vol] 7.1 10*3/uL 4.4-11.0 [facility] Blood erythrocytes count (nu mber/volume)Ordered By: Dr. Her on 11-11-2022 RBC (Bld) [#/Vol] 5.03 10*6/uL 4.6-6.2 [facility] Blood hemoglobin measurement (mass/volume)Ordered By: Dr. Her on 11-11-2022 Hemoglobin (Bld) [Mass/Vol] 15.3 g/dL 13.0-16.5 [facility] Blood platelet mean volumeOr dered By: Dr. Her on 11-11-2022 Platelet mean volume (Bld) [Entitic vol] 10.4 fL 6.2-12.0 [facility] Determination of erythrocyte mean corpuscular volume (MCV)Ordered By: Dr. Her on 11-11-2022 MCV (RBC) [Entitic vol] 93.0 fL 80-94 [facility] Hematocrit Auto (Bld) [Volum e fraction]Ordered By: Dr. Her on 11-11-2022 Hematocrit (Bld) [Volume fraction] 46.8 % 40-54 [facility] Laboratory - Chemistry and C hemistry - challengeOrdered By: Dr. Her on 11-11-2022 ALP [Catalytic activity/Vol] 80 U/L 45-117 [facility] ALT [Catalytic activity/Vol] 31 U/L 16-61 [facility] CO2 [Moles/Vol] 25.0 mmol/L 21.0-32.0 [facility] Cobalamin (Vitamin B12) [Mass/Vol] 516 pg/mL 211-911 [facility] Globulin (S) [Mass/Vol] 3.7 g/dL 2.2-4.2 [facility] Urea nitrogen/Creatinine [Mass ratio] 14.5 mg/mg 10-20 [facility] Laboratory - Hematology and Cell countsOrdered By: Dr. Her on 11-11-2022 Erythrocyte distribution width (RBC) [Entitic vol] 43.6 fL 35.1-43.9 [facility] Erythrocyte distribution width (RBC) [Ratio] 12.8 % 11.6-14.6 [facility] MCH (RBC) [Entitic mass] 30.4 pg 27.0-32.0 [facility] MCHC Auto (RBC) [Mass/Vol]Or dered By: Dr. Her on 11-11-2022 MCHC (RBC) [Mass/Vol] 32.7 g/dL 32-36 [facility] No Panel InformationOrdered By: Dr. Her on 11-11-2022 Estimated GFR (MDRD) Amer 78 mL/min >60 [facility] Comment on above: GFR Calc Estimated GFR (MDRD) Non-Af Amer 64 mL/min >60 [facility] Comment on above: Non- GFR Calc Thyroid Stimulating Hormone (TSH) 8.78 uIU/mL 0.358-3.74 [facility] Vitamin D 25-Hydroxy 29.9 ng/mL [facility] Comment on above: Vitamin D 25(OH) Sta tus Range Deficiency <20 ng/mL (50nmol/L) Insufficiency 20 - 30 ng/mL (50 - 75 nmol/L) Sufficiency 30 - 100 ng/mL (75 - 250 nmol/L) Toxicity >100 ng/mL (>250 nmol/L) Platelets bldOrdered By: Dr. Her on 11-11-2022 Platelets (Bld) [#/Vol] 150 10*3/uL 150-450 [facility] Serum or plasma albumin adryan urement (mass/volume)Ordered By: Dr. Her on 11-11-2022 Albumin [Mass/Vol] 3.3 g/dL 3.2-5.0 [facility] Serum or plasma albumin/glob ulin mass ratioOrdered By: Dr. Her on 11-11-2022 Albumin/Globulin [Mass ratio] 0.9 {ratio} 0.9-2.4 [facility] Serum or plasma calcium adryan urement (mass/volume)Ordered By: Dr. Her on 11-11-2022 Calcium [Mass/Vol] 8.8 mg/dL 8.5-10.1 [facility] Serum or plasma creatinine m easurement (mass/volume)Ordered By: Dr. Her on 11-11-2022 Creatinine [Mass/Vol] 1.17 mg/dL 0.70-1.30 [facility] Comment on above: The validity of the calculated GFR & GFRAA in patients over 70 years has not been determined. Clinical correlation is essential. Serum or plasma urea nitroge n measurement (mass/volume)Ordered By: Dr. Her on 11-11-2022 Urea nitrogen [Mass/Vol] 17 mg/dL 7-18 [facility] Thin prep Papanicolaou smear with manual screeningOrdered By: Dr. Her on 11-11-2022 Thin prep Papanicolaou smear with manual screening 18 U/L 15-37 [facility] Thin prep Papanicolaou smear with manual screening 7 5-15 [facility] LABORATORYOrdered By: SYSTEM SYSTEM on 11-02-2022 Creatinine [Mass/Vol] 1.31 mg/dL Invalid Interpretation Code 0.70 - 1.30 mg/dL AO ADM SS GFR 64 ml/min/1.73sqm Invalid Interpretation Code AO Chemistry S GFR Non- 53 ml/min/1.73sqm Invalid Interpretation Code AO Chemistry S ARRHYTHMIA TRANS TELE MEASUR Rylan 09-22-2022 ARRHYTH-MEASURE QRS INTERVAL MIN [address] [facility] ARRHYTH-MEASURE QT INTERVAL MIN [address] [facility] Arrhyth-Measure RR Interval Min [address] [facility] ARRHYTH-MEASUREPRINTER VALMIN [address] [facility] Symptoms none [facility] CNOVon 09-22-2022 CNOV Office Visit (AKEPD) ----- BARTOLO ARGUETA ([id number]) 1945 M Date Time Provider Department 09/22/22 8:15 AM TTM PHONE CHECK AKEPD During your visit today, we recorded the following information about you: Allergies As of Date: 09/22/2022 Noted Allergy Reaction BACLOFEN 04/22/2022 2 - Rash Date Reviewed: 06/29/2022 Reviewed by: Astrid Munoz, CAROLANN - Fully Assessed Reason for Visit: Remote Pacemaker Follow Up [1925] Primary Visit Diagnosis:Atrial fibrillation, unspecified type (HCC) [I48.91] Prescriptions as of 09/22/2022 - finasteride (PROSCAR) 5 mg tablet Take 5 mg by mouth once daily. - potassium chloride ER (K-DUR, KLOR-CON) 20 mEq tablet Take 20 mEq by mouth once daily. - simvastatin (ZOCOR) 20 mg tablet Take 20 mg by mouth daily at bedtime. - tamsulosin (FLOMAX) 0.4 mg Take 0.4 mg by mouth daily at bedtime. - losartan (COZAAR) 50 mg tablet Take 50 mg by mouth once daily. - furosemide (LASIX) 40 mg tablet Take 40 mg by mouth twice daily. - spironolactone (ALDACTONE) 25 mg tablet Take 25 mg by mouth once daily. - apixaban (ELIQUIS) 5 mg tab(s) Take by mouth twice daily. - carvedilol (COREG) 25 mg tablet Take 25 mg by mouth twice daily with meals. Facility-Administered Medications as of 09/22/2022 - perflutren lipid microspheres 1.3 mL in NaCl (PF) 0.9% 10 mL injection (DEFINITY) - sodium chloride 0.9 % (flush) 10 mL (BD POSIFLUSH) Problem List As Of Date 09/22/2022 Noted Resolved Persistent atrial fibrillation (HCC) [I48.19] 04/27/2022 At risk for stroke [Z91.89] 04/27/2022 Anticoagulant long-term use [Z79.01] 04/27/2022 Dilated cardiomyopathy (HCC) [I42.0] 04/27/2022 Chronic combined systolic and diastolic CHF (co* Left bundle-branch block, unspecified [I44.7] Typical atrial flutter (HCC) [I48.3] 12/01/2010 History of cerebrovascular accident [Z86.73] 02/22/2021 Hyperlipidemia [E78.5] 12/01/2010 senior care current use of antiarrhythmic drug [Z*04/29/2022 ragman current use of amiodarone [Z79.899] 04/29/2022 Fatigue [R53.83] 04/29/2022 Exertional shortness of breath [R06.02] 04/29/2022 Obesity, Class I, BMI 30-34.9 [E66.9] 04/29/2022 Status post catheter ablation of atrial fibrill*06/29/2022 Status post catheter ablation of atrial flutter*06/29/2022 Encounter Status:Closed by JADYN CASTANEDA on 09/22/22 Normal [facility] ARRHYTHMIA TRANS TELE MEASUR Rylan 09-15-2022 ARRHYTH-MEASURE QRS INTERVAL MIN [address] [facility] ARRHYTH-MEASURE QT INTERVAL MIN [address] [facility] Arrhyth-Measure RR Interval Min 59.[address] [facility] ARRHYTH-MEASUREPRINTER VALMIN [address] [facility] Symptoms none [facility] CNOVon 09-15-2022 CNOV Office Visit (AKEPD) ----- CHRISTABARTOLO Marcy ([id number]) 1945 M Date Time Provider Department 09/15/22 8:30 AM TTM PHONE CHECK AKEPD During your visit today, we recorded the following information about you: Allergies As of Date: 09/15/2022 Noted Allergy Reaction BACLOFEN 04/22/2022 2 - Rash Date Reviewed: 06/29/2022 Reviewed by: Astrid Munoz RN - Fully Assessed Reason for Visit: Remote Pacemaker Follow Up [1925] Primary Visit Diagnosis:Atrial fibrillation, unspecified type (HCC) [I48.91] Prescriptions as of 09/15/2022 - finasteride (PROSCAR) 5 mg tablet Take 5 mg by mouth once daily. - potassium chloride ER (K-DUR, KLOR-CON) 20 mEq tablet Take 20 mEq by mouth once daily. - simvastatin (ZOCOR) 20 mg tablet Take 20 mg by mouth daily at bedtime. - tamsulosin (FLOMAX) 0.4 mg Take 0.4 mg by mouth daily at bedtime. - losartan (COZAAR) 50 mg tablet Take 50 mg by mouth once daily. - furosemide (LASIX) 40 mg tablet Take 40 mg by mouth twice daily. - spironolactone (ALDACTONE) 25 mg tablet Take 25 mg by mouth once daily. - apixaban (ELIQUIS) 5 mg tab(s) Take by mouth twice daily. - carvedilol (COREG) 25 mg tablet Take 25 mg by mouth twice daily with meals. Problem List As Of Date 09/15/2022 Noted Resolved Persistent atrial fibrillation (HCC) [I48.19] 04/27/2022 At risk for stroke [Z91.89] 04/27/2022 Anticoagulant long-term use [Z79.01] 04/27/2022 Dilated cardiomyopathy (HCC) [I42.0] 04/27/2022 Chronic combined systolic and diastolic CHF (co* Left bundle-branch block, unspecified [I44.7] Typical atrial flutter (HCC) [I48.3] 12/01/2010 History of cerebrovascular accident [Z86.73] 02/22/2021 Hyperlipidemia [E78.5] 12/01/2010 [facility]man current use of antiarrhythmic drug [Z*04/29/2022 senior care current use of amiodarone [Z79.899] 04/29/2022 Fatigue [R53.83] 04/29/2022 Exertional shortness of breath [R06.02] 04/29/2022 Obesity, Class I, BMI 30-34.9 [E66.9] 04/29/2022 Status post catheter ablation of atrial fibrill*06/29/2022 Status post catheter ablation of atrial flutter*06/29/2022 Encounter Status:Closed by JADYN CASTANEDA on 09/15/22 [facility] Jeremias 09-15-2022 CNPN Telephone (AGCCHICOPOB ) ----- BARTOLO ARGUETA ([id number]) 1945 M Date Time Provider Department 09/15/22 DEZ ORTEGA During your visit today, we recorded the following information about you: Rosa Wharton RN 09/15/2022 11:32 AM Signed Post PVAI orders pended for signature - office will call to schedule Allergies As of Date: 09/15/2022 Noted Allergy Reaction BACLOFEN 04/22/2022 2 - Rash Date Reviewed: 06/29/2022 Reviewed by: Astrid Munoz RN - Fully Assessed Reason for Visit: Orders [681] Primary Visit Diagnosis:Dyspnea, unspecified type [R06.00] Other Visit Diagnosis:Atrial fibrillation, persistent (HCC) [I48.19] Order(s):ECHO [255239] Order #: [id number]: 1 FUTURE perflutren lipid microspheres 1.3 mL in NaCl (PF) 0.9% 10 mL injection (DEFINITY)Disp: Rfl: sodium chloride 0.9 % (flush) 10 mL (BD POSIFLUSH)Disp: Rfl: HOLTER MONITOR 24 HOUR [1815074] Order #: [id number] FUTURE CTA CHEST (NONGATED) W IVCON [1015650] Order #: [id number] FUTURE iv contrast (will be provided with radiology test)CTA CHEST - No IV access, insert saline lock prior to the sedation, infusion, injection for imaging exam. Discontinue saline lock post exam. If Pt. has a central line or IVAD, may access for administration according to line specific nursing protocol. Once exam is complete flush line and de-access according to line specific nursing protocol in the CT contrast administration guidelines link.Disp: 1 EachRfl: 0 CREATININE BLD [SQCRET] Order #: [id number] FUTURE Prescriptions as of 09/15/2022 - iv contrast (will be provided with radiology test) CTA CHEST - No IV access, insert saline lock prior to the sedation, infusion, injection for imaging exam. Discontinue saline lock post exam. If Pt. has a central line or IVAD, may access for administration according to line specific nursing protocol. Once exam is complete flush line and de-access according to line specific nursing protocol in the CT contrast administration guidelines link. - finasteride (PROSCAR) 5 mg tablet Take 5 mg by mouth once daily. - potassium chloride ER (K-DUR, KLOR-CON) 20 mEq tablet Take 20 mEq by mouth once daily. - simvastatin (ZOCOR) 20 mg tablet Take 20 mg by mouth daily at bedtime. - tamsulosin (FLOMAX) 0.4 mg Take 0.4 mg by mouth daily at bedtime. - losartan (COZAAR) 50 mg tablet Take 50 mg by mouth once daily. - furosemide (LASIX) 40 mg tablet Take 40 mg by mouth twice daily. - spironolactone (ALDACTONE) 25 mg tablet Take 25 mg by mouth once daily. - apixaban (ELIQUIS) 5 mg tab(s) Take by mouth twice daily. - carvedilol (COREG) 25 mg tablet Take 25 mg by mouth twice daily with meals. Facility-Administered Medications as of 09/15/2022 - perflutren lipid microspheres 1.3 mL in NaCl (PF) 0.9% 10 mL injection (DEFINITY) - sodium chloride 0.9 % (flush) 10 mL (BD POSIFLUSH) Problem List As Of Date 09/15/2022 Noted Resolved Persistent atrial fibrillation (HCC) [I48.19] 04/27/2022 At risk for stroke [Z91.89] 04/27/2022 Anticoagulant long-term use [Z79.01] 04/27/2022 Dilated cardiomyopathy (HCC) [I42.0] 04/27/2022 Chronic combined systolic and diastolic CHF (co* Left bundle-branch block, unspecified [I44.7] Typical atrial flutter (HCC) [I48.3] 12/01/2010 History of cerebrovascular accident [Z86.73] 02/22/2021 Hyperlipidemia [E78.5] 12/01/2010 senior care current use of antiarrhythmic drug [Z*04/29/2022 ragman current use of amiodarone [Z79.899] 04/29/2022 Fatigue [R53.83] 04/29/2022 Exertional shortness of breath [R06.02] 04/29/2022 Obesity, Class I, BMI 30-34.9 [E66.9] 04/29/2022 Status post catheter ablation of atrial fibrill*06/29/2022 Status post catheter ablation of atrial flutter*06/29/2022 Prescriptions ordered this encounter Disp Refills Start End PERFLUTREN LIPID MICROSPHERES 1.1 MG* 09/15/2022 12/16/2023 Route: INTRAVENOUS SODIUM CHLORIDE 0.9 % (FLUSH) INJECT* 09/15/2022 12/16/2023 Route: INTRAVENOUS IV CONTRAST (RADIOLOGY PROCEDURE) 1 Ea* 0 09/15/2022 09/16/2022 Class: In Office Sig: CTA CHEST - No IV access, insert saline lock prior to the sedation, infusion, injection for imaging exam. Discontinue saline lock post exam. If Pt. has a central line or IVAD, may access for administration according to line specific nursing protocol. Once exam is complete flush line and de-access according to line specific nursing protocol in the CT contrast administration guidelines link. Encounter Status:Closed by DEZ ORTEGA on 09/15/22 [facility] CNOVon 09-08-2022 CNOV Office Visit (AKEPD) ----- BARTOLO ARGUETA ([id number]) 1945 M Date Time Provider Department 09/08/22 8:00 AM TTM PHONE CHECK AKEPD During your visit today, we recorded the following information about you: Allergies As of Date: 09/08/2022 Noted Allergy Reaction BACLOFEN 04/22/2022 2 - Rash Date Reviewed: 06/29/2022 Reviewed by: Astrid Munoz, CAROLANN - Fully Assessed Reason for Visit: Remote Pacemaker Follow Up [1925] Primary Visit Diagnosis:Atrial fibrillation, unspecified type (HCC) [I48.91] Prescriptions as of 09/08/2022 - finasteride (PROSCAR) 5 mg tablet Take 5 mg by mouth once daily. - potassium chloride ER (K-DUR, KLOR-CON) 20 mEq tablet Take 20 mEq by mouth once daily. - simvastatin (ZOCOR) 20 mg tablet Take 20 mg by mouth daily at bedtime. - tamsulosin (FLOMAX) 0.4 mg Take 0.4 mg by mouth daily at bedtime. - losartan (COZAAR) 50 mg tablet Take 50 mg by mouth once daily. - furosemide (LASIX) 40 mg tablet Take 40 mg by mouth twice daily. - spironolactone (ALDACTONE) 25 mg tablet Take 25 mg by mouth once daily. - apixaban (ELIQUIS) 5 mg tab(s) Take by mouth twice daily. - carvedilol (COREG) 25 mg tablet Take 25 mg by mouth twice daily with meals. Problem List As Of Date 09/08/2022 Noted Resolved Persistent atrial fibrillation (HCC) [I48.19] 04/27/2022 At risk for stroke [Z91.89] 04/27/2022 Anticoagulant long-term use [Z79.01] 04/27/2022 Dilated cardiomyopathy (HCC) [I42.0] 04/27/2022 Chronic combined systolic and diastolic CHF (co* Left bundle-branch block, unspecified [I44.7] Typical atrial flutter (HCC) [I48.3] 12/01/2010 History of cerebrovascular accident [Z86.73] 02/22/2021 Hyperlipidemia [E78.5] 12/01/2010 senior care current use of antiarrhythmic drug [Z*04/29/2022 senior care current use of amiodarone [Z79.899] 04/29/2022 Fatigue [R53.83] 04/29/2022 Exertional shortness of breath [R06.02] 04/29/2022 Obesity, Class I, BMI 30-34.9 [E66.9] 04/29/2022 Status post catheter ablation of atrial fibrill*06/29/2022 Status post catheter ablation of atrial flutter*06/29/2022 Encounter Status:Closed by JADYN CASTANEDA on 09/08/22 Normal [facility] ARRHYTHMIA TRANS TELE MEASUR Rylan 09-01-2022 ARRHYTH-MEASURE QRS INTERVAL MIN [address] [facility] ARRHYTH-MEASURE QT INTERVAL MIN [address] [facility] Arrhyth-Measure RR Interval Min 59.[address] [facility] ARRHYTH-MEASUREPRINTER VALMIN [address] [facility] Symptoms none [facility] CNOVon 09-01-2022 CNOV Office Visit (AKEPD) ----- BARTOLO ARGUETA ([id number]) 1945 M Date Time Provider Department 09/01/22 8:00 AM TTM PHONE CHECK AKEPD During your visit today, we recorded the following information about you: Allergies As of Date: 09/01/2022 Noted Allergy Reaction BACLOFEN 04/22/2022 2 - Rash Date Reviewed: 06/29/2022 Reviewed by: Astrid Munoz RN - Fully Assessed Reason for Visit: Arrhythmia [511] Primary Visit Diagnosis:Atrial fibrillation, unspecified type (HCC) [I48.91] Prescriptions as of 09/01/2022 - finasteride (PROSCAR) 5 mg tablet Take 5 mg by mouth once daily. - potassium chloride ER (K-DUR, KLOR-CON) 20 mEq tablet Take 20 mEq by mouth once daily. - simvastatin (ZOCOR) 20 mg tablet Take 20 mg by mouth daily at bedtime. - tamsulosin (FLOMAX) 0.4 mg Take 0.4 mg by mouth daily at bedtime. - losartan (COZAAR) 50 mg tablet Take 50 mg by mouth once daily. - furosemide (LASIX) 40 mg tablet Take 40 mg by mouth twice daily. - spironolactone (ALDACTONE) 25 mg tablet Take 25 mg by mouth once daily. - apixaban (ELIQUIS) 5 mg tab(s) Take by mouth twice daily. - carvedilol (COREG) 25 mg tablet Take 25 mg by mouth twice daily with meals. Problem List As Of Date 09/01/2022 Noted Resolved Persistent atrial fibrillation (HCC) [I48.19] 04/27/2022 At risk for stroke [Z91.89] 04/27/2022 Anticoagulant long-term use [Z79.01] 04/27/2022 Dilated cardiomyopathy (HCC) [I42.0] 04/27/2022 Chronic combined systolic and diastolic CHF (co* Left bundle-branch block, unspecified [I44.7] Typical atrial flutter (HCC) [I48.3] 12/01/2010 History of cerebrovascular accident [Z86.73] 02/22/2021 Hyperlipidemia [E78.5] 12/01/2010 ragman current use of antiarrhythmic drug [Z*04/29/2022 senior care current use of amiodarone [Z79.899] 04/29/2022 Fatigue [R53.83] 04/29/2022 Exertional shortness of breath [R06.02] 04/29/2022 Obesity, Class I, BMI 30-34.9 [E66.9] 04/29/2022 Status post catheter ablation of atrial fibrill*06/29/2022 Status post catheter ablation of atrial flutter*06/29/2022 Encounter Status:Closed by BRUNO JOYCE on 09/01/22 Normal [facility] ARRHYTHMIA TRANS TELE MEASUR Rylan 08-25-2022 ARRHYTH-MEASURE QRS INTERVAL MIN [address] [facility] ARRHYTH-MEASURE QT INTERVAL MIN [address] [facility] Arrhyth-Measure RR Interval Min [address] [facility] ARRHYTH-MEASUREPRINTER VALMIN [address] [facility] Symptoms none [facility] CNOVon 08-25-2022 CNOV Office Visit (AKEPD) ----- BARTOLO ARGUETA ([id number]) 1945 M Date Time Provider Department 08/25/22 8:45 AM TTM PHONE CHECK AKEPD During your visit today, we recorded the following information about you: Allergies As of Date: 08/25/2022 Noted Allergy Reaction BACLOFEN 04/22/2022 2 - Rash Date Reviewed: 06/29/2022 Reviewed by: Astrid Munoz, CAROLANN - Fully Assessed Reason for Visit: Remote Pacemaker Follow Up [1925] Primary Visit Diagnosis:Atrial fibrillation, unspecified type (HCC) [I48.91] Prescriptions as of 08/25/2022 - finasteride (PROSCAR) 5 mg tablet Take 5 mg by mouth once daily. - potassium chloride ER (K-DUR, KLOR-CON) 20 mEq tablet Take 20 mEq by mouth once daily. - simvastatin (ZOCOR) 20 mg tablet Take 20 mg by mouth daily at bedtime. - tamsulosin (FLOMAX) 0.4 mg Take 0.4 mg by mouth daily at bedtime. - losartan (COZAAR) 50 mg tablet Take 50 mg by mouth once daily. - furosemide (LASIX) 40 mg tablet Take 40 mg by mouth twice daily. - spironolactone (ALDACTONE) 25 mg tablet Take 25 mg by mouth once daily. - apixaban (ELIQUIS) 5 mg tab(s) Take by mouth twice daily. - carvedilol (COREG) 25 mg tablet Take 25 mg by mouth twice daily with meals. Problem List As Of Date 08/25/2022 Noted Resolved Persistent atrial fibrillation (HCC) [I48.19] 04/27/2022 At risk for stroke [Z91.89] 04/27/2022 Anticoagulant long-term use [Z79.01] 04/27/2022 Dilated cardiomyopathy (HCC) [I42.0] 04/27/2022 Chronic combined systolic and diastolic CHF (co* Left bundle-branch block, unspecified [I44.7] Typical atrial flutter (HCC) [I48.3] 12/01/2010 History of cerebrovascular accident [Z86.73] 02/22/2021 Hyperlipidemia [E78.5] 12/01/2010 [facility]man current use of antiarrhythmic drug [Z*04/29/2022 ragman current use of amiodarone [Z79.899] 04/29/2022 Fatigue [R53.83] 04/29/2022 Exertional shortness of breath [R06.02] 04/29/2022 Obesity, Class I, BMI 30-34.9 [E66.9] 04/29/2022 Status post catheter ablation of atrial fibrill*06/29/2022 Status post catheter ablation of atrial flutter*06/29/2022 Encounter Status:Closed by JADYN CASTANEDA on 08/25/22 Normal [facility] ARRHYTHMIA TRANS TELE MEASUR Rylan 08-18-2022 ARRHYTH-MEASURE QRS INTERVAL MIN [address] [facility] ARRHYTH-MEASURE QT INTERVAL MIN [address] [facility] Arrhyth-Measure RR Interval Min 56.[address] [facility] ARRHYTH-MEASUREPRINTER VALMIN [address] [facility] Symptoms none [facility] CNOVon 08-18-2022 CNOV Office Visit (AKEPD) ----- BARTOLO ARGUETA ([id number]) 1945 M Date Time Provider Department 08/18/22 9:00 AM TTM PHONE CHECK AKEPD During your visit today, we recorded the following information about you: Allergies As of Date: 08/18/2022 Noted Allergy Reaction BACLOFEN 04/22/2022 2 - Rash Date Reviewed: 06/29/2022 Reviewed by: Astrid Munoz RN - Fully Assessed Reason for Visit: Remote Pacemaker Follow Up [1925] Primary Visit Diagnosis:Atrial fibrillation, unspecified type (HCC) [I48.91] Prescriptions as of 08/18/2022 - finasteride (PROSCAR) 5 mg tablet Take 5 mg by mouth once daily. - potassium chloride ER (K-DUR, KLOR-CON) 20 mEq tablet Take 20 mEq by mouth once daily. - simvastatin (ZOCOR) 20 mg tablet Take 20 mg by mouth daily at bedtime. - tamsulosin (FLOMAX) 0.4 mg Take 0.4 mg by mouth daily at bedtime. - losartan (COZAAR) 50 mg tablet Take 50 mg by mouth once daily. - furosemide (LASIX) 40 mg tablet Take 40 mg by mouth twice daily. - spironolactone (ALDACTONE) 25 mg tablet Take 25 mg by mouth once daily. - apixaban (ELIQUIS) 5 mg tab(s) Take by mouth twice daily. - carvedilol (COREG) 25 mg tablet Take 25 mg by mouth twice daily with meals. Problem List As Of Date 08/18/2022 Noted Resolved Persistent atrial fibrillation (HCC) [I48.19] 04/27/2022 At risk for stroke [Z91.89] 04/27/2022 Anticoagulant long-term use [Z79.01] 04/27/2022 Dilated cardiomyopathy (HCC) [I42.0] 04/27/2022 Chronic combined systolic and diastolic CHF (co* Left bundle-branch block, unspecified [I44.7] Typical atrial flutter (HCC) [I48.3] 12/01/2010 History of cerebrovascular accident [Z86.73] 02/22/2021 Hyperlipidemia [E78.5] 12/01/2010 senior care current use of antiarrhythmic drug [Z*04/29/2022 senior care current use of amiodarone [Z79.899] 04/29/2022 Fatigue [R53.83] 04/29/2022 Exertional shortness of breath [R06.02] 04/29/2022 Obesity, Class I, BMI 30-34.9 [E66.9] 04/29/2022 Status post catheter ablation of atrial fibrill*06/29/2022 Status post catheter ablation of atrial flutter*06/29/2022 Encounter Status:Closed by JADYN CASTANEDA on 08/18/22 [facility] ARRHYTHMIA TRANS TELE MEASUR Rylan 08-12-2022 ARRHYTH-MEASURE QRS INTERVAL MIN [address] [facility] ARRHYTH-MEASURE QT INTERVAL MIN [address] [facility] Arrhyth-Measure RR Interval Min 52.[address] [facility] ARRHYTH-MEASUREPRINTER VALMIN [address] [facility] Symptoms none [facility] ARRHYTHMIA TRANS TELE MEASUR Rylan 08-04-2022 ARRHYTH-MEASURE QRS INTERVAL MIN [address] [facility] ARRHYTH-MEASURE QT INTERVAL MIN [address] [facility] Arrhyth-Measure RR Interval Min 56.[address] [facility] ARRHYTH-MEASUREPRINTER VALMIN [address] [facility] Symptoms none [facility] CNOVon 08-04-2022 CNOV Office Visit (AKEPD) ----- BARTOLO ARGUETA ([id number]) 1945 M Date Time Provider Department 08/04/22 8:15 AM TTM PHONE CHECK AKEPD During your visit today, we recorded the following information about you: Allergies As of Date: 08/04/2022 Noted Allergy Reaction BACLOFEN 04/22/2022 2 - Rash Date Reviewed: 06/29/2022 Reviewed by: Astrid Munoz RN - Fully Assessed Reason for Visit: Remote Pacemaker Follow Up [1925] Primary Visit Diagnosis:Atrial fibrillation, unspecified type (HCC) [I48.91] Prescriptions as of 08/04/2022 - finasteride (PROSCAR) 5 mg tablet Take 5 mg by mouth once daily. - potassium chloride ER (K-DUR, KLOR-CON) 20 mEq tablet Take 20 mEq by mouth once daily. - simvastatin (ZOCOR) 20 mg tablet Take 20 mg by mouth daily at bedtime. - tamsulosin (FLOMAX) 0.4 mg Take 0.4 mg by mouth daily at bedtime. - losartan (COZAAR) 50 mg tablet Take 50 mg by mouth once daily. - furosemide (LASIX) 40 mg tablet Take 40 mg by mouth twice daily. - spironolactone (ALDACTONE) 25 mg tablet Take 25 mg by mouth once daily. - apixaban (ELIQUIS) 5 mg tab(s) Take by mouth twice daily. - carvedilol (COREG) 25 mg tablet Take 25 mg by mouth twice daily with meals. Problem List As Of Date 08/04/2022 Noted Resolved Persistent atrial fibrillation (HCC) [I48.19] 04/27/2022 At risk for stroke [Z91.89] 04/27/2022 Anticoagulant long-term use [Z79.01] 04/27/2022 Dilated cardiomyopathy (HCC) [I42.0] 04/27/2022 Chronic combined systolic and diastolic CHF (co* Left bundle-branch block, unspecified [I44.7] Typical atrial flutter (HCC) [I48.3] 12/01/2010 History of cerebrovascular accident [Z86.73] 02/22/2021 Hyperlipidemia [E78.5] 12/01/2010 [facility] current use of antiarrhythmic drug [Z*04/29/2022 senior care current use of amiodarone [Z79.899] 04/29/2022 Fatigue [R53.83] 04/29/2022 Exertional shortness of breath [R06.02] 04/29/2022 Obesity, Class I, BMI 30-34.9 [E66.9] 04/29/2022 Status post catheter ablation of atrial fibrill*06/29/2022 Status post catheter ablation of atrial flutter*06/29/2022 Encounter Status:Closed by JADYN CASTANEDA on 08/04/22 [facility] ARRHYTHMIA TRANS TELE MEASUR Rylan 07-28-2022 ARRHYTH-MEASURE QRS INTERVAL MIN [address] [facility] ARRHYTH-MEASURE QT INTERVAL MIN [address] [facility] Arrhyth-Measure RR Interval Min 55.[address] [facility] ARRHYTH-MEASUREPRINTER VALMIN [address] [facility] Symptoms none [facility] CNOVon 07-28-2022 CNOV Office Visit (AKEPD) ----- BARTOLO ARGUETA ([id number]) 1945 M Date Time Provider Department 07/28/22 8:00 AM TTM PHONE CHECK AKEPD During your visit today, we recorded the following information about you: Allergies As of Date: 07/28/2022 Noted Allergy Reaction BACLOFEN 04/22/2022 2 - Rash Date Reviewed: 06/29/2022 Reviewed by: Astrid Munoz, CAROLANN - Fully Assessed Reason for Visit: Remote Pacemaker Follow Up [1925] Primary Visit Diagnosis:Atrial fibrillation, unspecified type (HCC) [I48.91] Prescriptions as of 07/28/2022 - finasteride (PROSCAR) 5 mg tablet Take 5 mg by mouth once daily. - potassium chloride ER (K-DUR, KLOR-CON) 20 mEq tablet Take 20 mEq by mouth once daily. - simvastatin (ZOCOR) 20 mg tablet Take 20 mg by mouth daily at bedtime. - tamsulosin (FLOMAX) 0.4 mg Take 0.4 mg by mouth daily at bedtime. - losartan (COZAAR) 50 mg tablet Take 50 mg by mouth once daily. - furosemide (LASIX) 40 mg tablet Take 40 mg by mouth twice daily. - spironolactone (ALDACTONE) 25 mg tablet Take 25 mg by mouth once daily. - apixaban (ELIQUIS) 5 mg tab(s) Take by mouth twice daily. - carvedilol (COREG) 25 mg tablet Take 25 mg by mouth twice daily with meals. Problem List As Of Date 07/28/2022 Noted Resolved Persistent atrial fibrillation (HCC) [I48.19] 04/27/2022 At risk for stroke [Z91.89] 04/27/2022 Anticoagulant long-term use [Z79.01] 04/27/2022 Dilated cardiomyopathy (HCC) [I42.0] 04/27/2022 Chronic combined systolic and diastolic CHF (co* Left bundle-branch block, unspecified [I44.7] Typical atrial flutter (HCC) [I48.3] 12/01/2010 History of cerebrovascular accident [Z86.73] 02/22/2021 Hyperlipidemia [E78.5] 12/01/2010 [facility] current use of antiarrhythmic drug [Z*04/29/2022 senior care current use of amiodarone [Z79.899] 04/29/2022 Fatigue [R53.83] 04/29/2022 Exertional shortness of breath [R06.02] 04/29/2022 Obesity, Class I, BMI 30-34.9 [E66.9] 04/29/2022 Status post catheter ablation of atrial fibrill*06/29/2022 Status post catheter ablation of atrial flutter*06/29/2022 Encounter Status:Closed by JADYN CASTANEDA on 07/28/22 Normal [facility] ARRHYTHMIA TRANS TELE MEASUR Rylan 07-21-2022 ARRHYTH-MEASURE QRS INTERVAL MIN [address] [facility] ARRHYTH-MEASURE QT INTERVAL MIN [address] [facility] Arrhyth-Measure RR Interval Min 53.[address] [facility] ARRHYTH-MEASUREPRINTER VALMIN [address] [facility] Symptoms none [facility] CNOVon 07-21-2022 CNOV Office Visit (AKEPD) ----- BARTOLO ARGUETA ([id number]) 1945 M Date Time Provider Department 07/21/22 8:00 AM TTM PHONE CHECK AKEPD During your visit today, we recorded the following information about you: Allergies As of Date: 07/21/2022 Noted Allergy Reaction BACLOFEN 04/22/2022 2 - Rash Date Reviewed: 06/29/2022 Reviewed by: Astrid Munoz RN - Fully Assessed Reason for Visit: Remote Pacemaker Follow Up [1925] Primary Visit Diagnosis:Atrial fibrillation, unspecified type (HCC) [I48.91] Prescriptions as of 07/21/2022 - finasteride (PROSCAR) 5 mg tablet Take 5 mg by mouth once daily. - potassium chloride ER (K-DUR, KLOR-CON) 20 mEq tablet Take 20 mEq by mouth once daily. - simvastatin (ZOCOR) 20 mg tablet Take 20 mg by mouth daily at bedtime. - tamsulosin (FLOMAX) 0.4 mg Take 0.4 mg by mouth daily at bedtime. - losartan (COZAAR) 50 mg tablet Take 50 mg by mouth once daily. - furosemide (LASIX) 40 mg tablet Take 40 mg by mouth twice daily. - spironolactone (ALDACTONE) 25 mg tablet Take 25 mg by mouth once daily. - apixaban (ELIQUIS) 5 mg tab(s) Take by mouth twice daily. - carvedilol (COREG) 25 mg tablet Take 25 mg by mouth twice daily with meals. Problem List As Of Date 07/21/2022 Noted Resolved Persistent atrial fibrillation (HCC) [I48.19] 04/27/2022 At risk for stroke [Z91.89] 04/27/2022 Anticoagulant long-term use [Z79.01] 04/27/2022 Dilated cardiomyopathy (HCC) [I42.0] 04/27/2022 Chronic combined systolic and diastolic CHF (co* Left bundle-branch block, unspecified [I44.7] Typical atrial flutter (HCC) [I48.3] 12/01/2010 History of cerebrovascular accident [Z86.73] 02/22/2021 Hyperlipidemia [E78.5] 12/01/2010 senior care current use of antiarrhythmic drug [Z*04/29/2022 senior care current use of amiodarone [Z79.899] 04/29/2022 Fatigue [R53.83] 04/29/2022 Exertional shortness of breath [R06.02] 04/29/2022 Obesity, Class I, BMI 30-34.9 [E66.9] 04/29/2022 Status post catheter ablation of atrial fibrill*06/29/2022 Status post catheter ablation of atrial flutter*06/29/2022 Encounter Status:Closed by JADYN CASTANEDA on 07/21/22 Normal [facility] ARRHYTHMIA TRANS TELE MEASUR Rylan 07-14-2022 ARRHYTH-MEASURE QRS INTERVAL MIN [address] [facility] ARRHYTH-MEASURE QT INTERVAL MIN [address] [facility] Arrhyth-Measure RR Interval Min 55.[address] [facility] ARRHYTH-MEASUREPRINTER VALMIN [address] [facility] Symptoms none [facility] CNOVon 07-14-2022 CNOV Office Visit (AKEPD) ----- BARTOLO ARGUETA ([id number]) 1945 M Date Time Provider Department 07/14/22 9:00 AM TTM PHONE CHECK AKEPD During your visit today, we recorded the following information about you: Allergies As of Date: 07/14/2022 Noted Allergy Reaction BACLOFEN 04/22/2022 2 - Rash Date Reviewed: 06/29/2022 Reviewed by: Astrid Munoz RN - Fully Assessed Reason for Visit: Remote Pacemaker Follow Up [1925] Primary Visit Diagnosis:Atrial fibrillation, unspecified type (HCC) [I48.91] Prescriptions as of 07/14/2022 - finasteride (PROSCAR) 5 mg tablet Take 5 mg by mouth once daily. - potassium chloride ER (K-DUR, KLOR-CON) 20 mEq tablet Take 20 mEq by mouth once daily. - simvastatin (ZOCOR) 20 mg tablet Take 20 mg by mouth daily at bedtime. - tamsulosin (FLOMAX) 0.4 mg Take 0.4 mg by mouth daily at bedtime. - losartan (COZAAR) 50 mg tablet Take 50 mg by mouth once daily. - furosemide (LASIX) 40 mg tablet Take 40 mg by mouth twice daily. - spironolactone (ALDACTONE) 25 mg tablet Take 25 mg by mouth once daily. - apixaban (ELIQUIS) 5 mg tab(s) Take by mouth twice daily. - carvedilol (COREG) 25 mg tablet Take 25 mg by mouth twice daily with meals. Problem List As Of Date 07/14/2022 Noted Resolved Persistent atrial fibrillation (HCC) [I48.19] 04/27/2022 At risk for stroke [Z91.89] 04/27/2022 Anticoagulant long-term use [Z79.01] 04/27/2022 Dilated cardiomyopathy (HCC) [I42.0] 04/27/2022 Chronic combined systolic and diastolic CHF (co* Left bundle-branch block, unspecified [I44.7] Typical atrial flutter (HCC) [I48.3] 12/01/2010 History of cerebrovascular accident [Z86.73] 02/22/2021 Hyperlipidemia [E78.5] 12/01/2010 senior care current use of antiarrhythmic drug [Z*04/29/2022 senior care current use of amiodarone [Z79.899] 04/29/2022 Fatigue [R53.83] 04/29/2022 Exertional shortness of breath [R06.02] 04/29/2022 Obesity, Class I, BMI 30-34.9 [E66.9] 04/29/2022 Status post catheter ablation of atrial fibrill*06/29/2022 Status post catheter ablation of atrial flutter*06/29/2022 Encounter Status:Closed by JADYN CASTANEDA on 07/14/22 Normal [facility] HEPATIC FUNCTION PANELon Albumin [Mass/Vol] 4.4 g/dL Normal 3.5-5.0 [facility] Comment on above: Performed By: #### H FP #### [facility] (DEFAULT) [address] [address] ALP [Catalytic activity/Vol] 67 U/L Normal 32-126 [facility] Comment on above: Performed By: #### H FP #### [facility] (DEFAULT) [address] [place] [address] ALT [Catalytic activity/Vol] 13 U/L Normal 10-52 [facility] Comment on above: Performed By: #### H FP #### [facility] (DEFAULT) [address] [place] [address] AST [Catalytic activity/Vol] 15 U/L Normal 10-39 [facility] Comment on above: Performed By: #### H FP #### [facility] (DEFAULT) [address] [place] [address] Bilirubin [Mass/Vol] 1.1 mg/dL Normal <1.5 [facility] Comment on above: Performed By: #### H FP #### [facility] (DEFAULT) [address] [place] [address] Bilirubin.indirect [Mass/Vol] 0.2 mg/dL Normal <0.3 [facility] Comment on above: Performed By: #### H FP #### [facility] (DEFAULT) [address] [place] [address] Protein [Mass/Vol] 7.7 g/dL Normal 6.4-8.3 [facility] Comment on above: Performed By: #### H FP #### [facility] (DEFAULT) [address] [place] [address] Albumin [Mass/Vol] 4.4 g/dL 3.5 - 5.0 g/dL [facility] ALP [Catalytic activity/Vol] 67 U/L 32 - 126 U/L [facility] ALT [Catalytic activity/Vol] 13 U/L 10 - 52 U/L [facility] AST [Catalytic activity/Vol] 15 U/L 10 - 39 U/L [facility] Bilirubin [Mass/Vol] 1.1 mg/dL <1.5 [facility] Bilirubin.direct [Mass/Vol] 0.2 mg/dL <0.3 [facility] Interpretation and review of laboratory results Normal [facility] Protein [Mass/Vol] 7.7 g/dL 6.4 - 8.3 g/dL [facility] T4 FREEon 03-31-2022 Free T4 [Mass/Vol] 1.20 ng/dL Normal 0.89-1.76 [facility] Comment on above: Performed By: #### F T4 #### [facility] (DEFAULT) [address] [place] [address] Free T4 [Mass/Vol] 1.20 ng/dL 0.89 - 1. 76 ng/dL [facility] Interpretation and review of laboratory results Normal [facility] TSHon 03-31-2022 TSH 6.446 uIU/mL High 0.550-4.780 [facility] Comment on above: Performed By: #### T SH #### [facility] (DEFAULT) [address] [address] Interpretation and review of laboratory results Abnormal [facility] TSH Qn 6.446 m[IU]/L High [facility] Absolute lymphocyte counton 03-06-2022 Lymphocytes Auto (Unsp spec) [#/Vol] 1.72 10*3/uL 0.83-4.51 [facility] Work Phone: Basophil percentageon 2021 Basophils/100 WBC (Bld) 0.7 % 0-1 [facility] Work Phone: Chloride [Moles/Vol] 101 mmol/L 98-107 [facility] Work Phone: Eosinophils/100 WBC (Bld) 2.9 % 0-5 [facility] Work Phone: Glucose [Mass/Vol] 106 mg/dL 74-106 [facility] Work Phone: Comment on above: Fasting Glucose resu lt from 100 to 125 mg/dL suggests IMPAIRED HOMEOSTASIS per A.D.A. criteria. Neutrophils (Bld) [#/Vol] 5.4 10*3/uL 2.0-7.7 [facility] Work Phone: Neutrophils/100 WBC (Bld) 64.1 % 47-70 [facility] Work Phone: Potassium [Moles/Vol] 5.0 mmol/L 3.5-5.1 [facility] Work Phone: Sodium [Moles/Vol] 136 mmol/L 136-145 [facility] Work Phone: WBC (Bld) [#/Vol] 8.5 10*3/uL 4.4-11.0 [facility] Work Phone: Blood erythrocytes count (nu mber/volume)on 03-06-2022 RBC (Bld) [#/Vol] 5.21 10*6/uL 4.6-6.2 [facility] Work Phone: Blood hemoglobin measurement (mass/volume)on 03-06-2022 Hemoglobin (Bld) [Mass/Vol] 16.5 g/dL 13.0-16.5 [facility] Work Phone: Blood lymphocytes/100 leukoc yteson 03-06-2022 Lymphocytes/100 WBC (Bld) 20.3 % 19-41 [facility] Work Phone: Blood monocytes/100 leukocyt eson 03-06-2022 Monocytes/100 WBC (Bld) 11.2 % 0-10 [facility] Work Phone: Blood platelet mean volumeon 03-06-2022 Platelet mean volume (Bld) [Entitic vol] 11.4 fL 6.2-12.0 [facility] Work Phone: Determination of erythrocyte mean corpuscular volume (MCV)on 03-06-2022 MCV (RBC) [Entitic vol] 94.0 fL 80-94 [facility] Work Phone: [phone] Hematocrit Auto (Bld) [Volum e fraction]on 03-06-2022 Hematocrit (Bld) [Volume fraction] 49.0 % 40-54 [facility] Work Phone: Laboratory - Chemistry and C hemistry - challengeon 03-06-2022 CO2 [Moles/Vol] 28.0 mmol/L 21.0-32.0 [facility] Work Phone: Natriuretic peptide B (Bld) [Mass/Vol] 87.6 pg/mL 0-100 [facility] Work Phone: Urea nitrogen/Creatinine [Mass ratio] 17.2 mg/mg 10-20 [facility] Work Phone: Laboratory - Hematology and Cell countson 03-06-2022 Erythrocyte distribution width (RBC) [Entitic vol] 42.9 fL 35.1-43.9 [facility] Work Phone: Erythrocyte distribution width (RBC) [Ratio] 12.4 % 11.6-14.6 [facility] Work Phone: Immature granulocytes/100 WBC (Bld) 0.800 % 0.0-0.9 [facility] Work Phone: Comment on above: IG% - Immature Granu locytes (promyelocytes, myelocytes and metamyelocytes) > 1% indicates that a LEFT SHIFT is Present. MCH (RBC) [Entitic mass] 31.7 pg 27.0-32.0 [facility] Work Phone: Nucleated RBC/100 WBC (Bld) [Ratio] 0 % 0-5 [facility] Work Phone: MCHC Auto (RBC) [Mass/Vol]on 03-06-2022 MCHC (RBC) [Mass/Vol] 33.7 g/dL 32-36 [facility] Work Phone: No Panel Informationon 03-06 Estimated GFR (MDRD) Amer 47 mL/min >60 [facility] Work Phone: Comment on above: GFR Calc Estimated GFR (MDRD) Non-Af Amer 39 mL/min >60 [facility] Work Phone: Comment on above: Non- GFR Calc Platelets bldon 03-06-2022 Platelets (Bld) [#/Vol] 149 10*3/uL 150-450 [facility] Work Phone: Serum or plasma calcium adryan urement (mass/volume)on 03-06-2022 Calcium [Mass/Vol] 9.2 mg/dL 8.5-10.1 [facility] Work Phone: Serum or plasma creatinine m easurement (mass/volume)on 03-06-2022 Creatinine [Mass/Vol] 1.80 mg/dL 0.70-1.30 [facility] Work Phone: Comment on above: The validity of the calculated GFR & GFRAA in patients over 70 years has not been determined. Clinical correlation is essential. Serum or plasma urea nitroge n measurement (mass/volume)on 03-06-2022 Urea nitrogen [Mass/Vol] 31 mg/dL 7-18 [facility] Work Phone: Thin prep Papanicolaou smear with manual screeningon 03-06-2022 Thin prep Papanicolaou smear with manual screening 7 5-15 [facility] Work Phone: LABORATORYOrdered By: Kathie Lopez on 06-06-2021 ADMITTED TO INTENSIVE CARE UNIT FOR CONDITION OF INTEREST:FIND:PT:^STEPHANI ENT:ORD: No (06/06/21 2:17 PM) Invalid Interpretation Code AO Auto Urine SS EMPLOYED IN A HEALTHCARE SETTING:FIND:PT:^STEPHANIE NT:ORD: No (06/06/21 2:17 PM) Invalid Interpretation Code AO Auto Urine SS FIRST TEST FOR CONDITION OF INTEREST:FIND:PT:^STEPHANI ENT:ORD: Yes (06/06/21 2:17 PM) Invalid Interpretation Code AO Auto Urine SS HAS SYMPTOMS RELATED TO CONDITION OF INTEREST:FIND:PT:^STEPHANI ENT:ORD: Yes (06/06/21 2:17 PM) Invalid Interpretation Code AO Auto Urine SS Illness or injury onset date and time [id number] Invalid Interpretation Code AO Auto Urine SS Patient was hospitalized because of this condition No (06/06/21 2:17 PM) Invalid Interpretation Code AO Auto Urine SS status Not (06/06/21 2:17 PM) Invalid Interpretation Code AO Auto Urine SS RESIDES IN A CONGREGATE CARE SETTING:FIND:PT:^PATIE NT:ORD: No (06/06/21 2:17 PM) Invalid Interpretation Code AO Auto Urine SS SARS-CoV-2 (COVID-19) RNA KATARINA+probe Ql (Resp) Positive *ABN* (06/06/21 2:17 PM) Invalid Interpretation Code Negative AO Auto Urine SS SARS-CoV-2 (COVID-19) RNA KATARINA+probe Ql (Unsp spec) Positive results are indicative of the presence of SARS-CoV-2 RNA; clinical correlation with patient history and other diagnostic information is necessary to determine patient infection status. Positive results do not rule out bacterial infection or co-infection with other viruses. The agent detected may not be the definite cause of disease. Laboratories within the [place] and its territories are required to report all positive results to the appropriate public health authorities.Detection of analyte target(s) does not imply that the corresponding virus(es) are infectious or are the causative agents for clinical symptoms.There is a risk of false positive values resulting from cross-contamination by target organisms, their nucleic acids or amplified product, or from non-specific signals in the assay.Neuro[employer] SARS-CoV-2 Assay is a Real-Time reverse-transcriptase polymerase chain reaction (RT-PCR) based qualitative in vitro diagnostic test intended for the qualitative detection of nucleic acid from the SARS-CoV-2 in nasopharyngeal swab specimens collected from individuals suspected of COVID-19 by their healthcare provider. Testing is limited to laboratories certified under the Clinical Laboratory Improvement Amendments of 1988 (CLIA), 42 U.S.C. 263a, to perform moderate and high complexity tests. 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 Left ventricular Ejection fraction 50 % Invalid Interpretation Code [facility] Work Phone: Chart Maintenanceon 06-08-20 16 Anion gap 11 mmol/L Invalid Interpretation Code [facility] Work Phone: [phone] Anion gap 4 molar conc 11 Invalid Interpretation Code [facility] Work Phone: [phone] BUN/Creatinine Ratio 11.6 mg/mg Invalid Interpretation Code [facility] Work Phone: [phone] Calcium 8.6 mg/dL Invalid Interpretation Code [facility] Work Phone: [phone] Chloride 100 mmol/L Invalid Interpretation Code [facility] Work Phone: [phone] Cholesterol 125 mg/dL Invalid Interpretation Code [facility] Work Phone: [phone] CO2 26 mmol/L Invalid Interpretation Code [facility] Work Phone: [phone] CO2 ppres (BldV) 26 mmol/L Invalid Interpretation Code [facility] Work Phone: [phone] Creatinine 1.12 mg/dL Invalid Interpretation Code [facility] Work Phone: [phone] Glucose 113 mg/dL High [facility] Work Phone: [phone] Glucose mass conc 113 mg/dL High [facility] Work Phone: [phone] HDL Cholesterol 39 mg/dL Invalid Interpretation Code [facility] Work Phone: [phone] LDL Cholesterol 51 mg/dL Invalid Interpretation Code [facility] Work Phone: [phone] Potassium 3.1 mmol/L Low [facility] Work Phone: [phone] Sodium 137 mmol/L Invalid Interpretation Code [facility] Work Phone: [phone] Triglyceride 175 mg/dL Invalid Interpretation Code [facility] Work Phone: [phone] Urea nitrogen 13 mg/dL Invalid Interpretation Code [facility] Work Phone: [phone] Lab Report: Basic Metabolic Profile (BMP)on 10-17-2015 Creatinine 65.77 mL/min Invalid Interpretation Code [facility] Work Phone: [phone] eGFR (non-black) 89 mL/min/{1.73_m2} Invalid Interpretation Code >60 [facility] Work Phone: [phone] eGFR (non-black) 74 mL/min/{1.73_m2} Invalid Interpretation Code >60 [facility] Work Phone: [phone] EST GFR - AA 89 mL/min Invalid Interpretation Code >60 [facility] Work Phone: [phone] Lab Report: Prothrombin Time w/INRon 10-17-2015 Coagulation tissue factor induced in platelet poor plasma 14 s Invalid Interpretation Code 11.7-14.9 [facility] Work Phone: [phone] INR Coag RelTime (PPP) 1.1 {INR} Invalid Interpretation Code [facility] Work Phone: [phone] INR in blood by coagulation 1.1 {INR} Invalid Interpretation Code [facility] Work Phone: [phone] Replaced Document: Natali Clintonon 10-07-2015 EKG QRS axis -38 deg Invalid Interpretation Code [facility] Work Phone: [phone] electrocardiogram interpretation Undetermined Rhythm -Anteroseptal infarct -age undetermined -Intraventricular conduction defect -left axis may be secondary to infarct or anterior fascicular block. ABNORMAL Invalid Interpretation Code [employer] Phone: [phone] GE use only - for [employer] import when terms are not otherwise specified 462 ms Invalid Interpretation Code [employer] Phone: [phone] Interpretation Undetermined Rhythm -Anteroseptal infarct -age undetermined -Intraventricular conduction defect -left axis may be secondary to infarct or anterior fascicular block. ABNORMAL Invalid Interpretation Code [employer] Phone: [phone] P Freedom 57 deg Invalid Interpretation Code [facility] Work Phone: [phone] P wave axis, electrocardiogram 57 deg Invalid Interpretation Code [facility] Work Phone: [phone] ID Interval 156 ms Invalid Interpretation Code [facility] Work Phone: [phone] ID interval, electrocardiogram 156 ms Invalid Interpretation Code [facility] Work Phone: [phone] Pulse (Heart Rate) 84 /min Invalid Interpretation Code [facility] Work Phone: [phone] QRS axis, electrocardiogram -38 deg Invalid Interpretation Code [employer] Work Phone: [phone] QRS Duration 144 ms Invalid Interpretation Code [employer] Work Phone: [phone] QRS duration, electrocardiogram 144 ms Invalid Interpretation Code [employer] Work Phone: [phone] QT Interval new path ms Invalid Interpretation Code [employer] Work Phone: [phone] QT interval, electrocardiogram new path ms Invalid Interpretation Code [employer] Work Phone: [phone] QTc Neal 462 ms Invalid Interpretation Code [employer] Work Phone: [phone] T Freedom 90 deg Invalid Interpretation Code [employer] Work Phone: [phone] T wave axis, electrocardiogram 90 deg Invalid Interpretation Code [facility] Work Phone: [phone] Lab Report: CBC W/Diff, Auto matedon 09-25-2015 Basophils/100 leukocytes 0.4 % Invalid Interpretation Code 0-1 [facility] Work Phone: [phone] Eosinophils/100 leukocytes 2.1 % Invalid Interpretation Code 0-5 [facility] Work Phone: [phone] Erythrocyte distribution width Auto Ratio (RBC) 41.4 fL Invalid Interpretation Code 35.1-43.9 [facility] Work Phone: [phone] Erythrocytes (RBC) 5.61 10*6/uL Invalid Interpretation Code 4.6-6.2 [employer] Phone: [phone] Hematocrit (HCT) 48.5 % Invalid Interpretation Code 40-54 [facility] Work Phone: [phone] Hemoglobin (HGB) 16.8 g/dL High 13.0-16.5 [employer] Phone: [phone] Immature granulocytes #/vol (Bld) 0.300 % Invalid Interpretation Code 0.0-0.9 [facility] Work Phone: [phone] immature granulocytes, percentage of total cells, blood 0.300 % Invalid Interpretation Code 0.0-0.9 [facility] Work Phone: [phone] Lymphocytes 2.18 X10 3/UL Invalid Interpretation Code 0.83-4.51 [employer] Phone: [phone] Lymphocytes/100 leukocytes 28.0 % Invalid Interpretation Code 19-41 [facility] Work Phone: [phone] MCH 29.9 pg Invalid Interpretation Code 27.0-32.0 [facility] Work Phone: [phone] MCHC 34.6 G/GL Invalid Interpretation Code 32-36 [facility] Work Phone: [phone] MCV 86.5 fL Invalid Interpretation Code 80-94 [facility] Work Phone: [phone] Monocytes/100 leukocytes 9.2 % Invalid Interpretation Code 0-10 [employer] Work Phone: [phone] neutrophil count, blood 4.7 X10 3/UL Invalid Interpretation Code 2.0-7.7 [employer] Work Phone: [phone] Neutrophils Auto #/vol (Bld) 4.7 X10 3/UL Invalid Interpretation Code 2.0-7.7 [facility] Work Phone: [phone] Neutrophils/100 leukocytes 60.0 % Invalid Interpretation Code 47-70 [facility] Work Phone: [phone] Platelets 151 10*3/mm3 Invalid Interpretation Code 150-450 [employer] Work Phone: [phone] PMV by Aide 10.0 fL Invalid Interpretation Code 6.2-12.0 [facility] Work Phone: [phone] RDW-CA 13.0 % Invalid Interpretation Code 11.6-14.6 [facility] Work Phone: [phone] red blood cell distribution width, size density 41.4 fL Invalid Interpretation Code 35.1-43.9 [employer] Phone: [phone] WBC (Leukocytes) 7.8 10*3/uL Invalid Interpretation Code 4.4-11.0 [facility] Work Phone: [phone] Lab Report: Lipid Profileon 09-25-2015 very low density lipoproteins 38 mg/dL Invalid Interpretation Code 5-40 [facility] Work Phone: [phone] Lab Report: Liver Profileon 09-25-2015 Alanine aminotransferase (ALT) 71 U/L Invalid Interpretation Code 12-78 [facility] Work Phone: [phone] Albumin 3.7 g/dL Invalid Interpretation Code 3.4-5.0 [facility] Work Phone: [phone] Alkaline phosphatase (ALP) 80 U/L Invalid Interpretation Code 50-136 [employer] Work Phone: [phone] ALP enzyme act/vol (Bld) 80 U/L Invalid Interpretation Code 50-136 [facility] Work Phone: [phone] Aspartate aminotransferase (AST) 45 U/L High 15-37 [facility] Work Phone: [phone] Bilirubin (direct) 0.19 mg/dL Invalid Interpretation Code 0.00-0.30 [facility] Work Phone: [phone] Bilirubin (total) 0.90 mg/dL Invalid Interpretation Code 0.20-1.00 [facility] Work Phone: [phone] Globulin 4.0 g/dL High 2.3-3.5 [facility] Work Phone: [phone] Protein 7.7 g/dL Invalid Interpretation Code 6.4-8.2 [facility] Work Phone: [phone]) Lab Report: Thyroid Stim Hor veronica (TSH)on 09-25-2015 Thyroid stimulating hormone (TSH) 4.50 u[iU]/mL High 0.358-3.74 [facility] Work Phone: [phone] Office Visiton 09-24-2015 General cardiovascular disease 10Y risk [#] Santos 14 % Invalid Interpretation Code [facility] Work Phone: [phone] Tobacco smoking status NHIS Never smoker Invalid Interpretation Code [facility] Work Phone: [phone] Tobacco use CPHS Never smoker Invalid Interpretation Code [facility] Work Phone: [phone] Office Visiton 08-10-2014 cardiac risk group B Invalid Interpretation Code [facility] Work Phone: [phone] Lab Report: Ordered by Dr. Marcy moreno 06-19-2013 Albumin/Globulin Ratio 1.9 {ratio} Invalid Interpretation Code [facility] Work Phone: [phone] Globulin 2.3 g/dL Invalid Interpretation Code [facility] Work Phone: [phone] Cholesterol to HDL Ratio 4.1 {ratio} Invalid Interpretation Code [facility] Work Phone: [phone] Replaced Document: [employer] E CG Observationson 11-24-2011 Pulse (Heart Rate) 467 ms Invalid Interpretation Code [facility] Work Phone: No Panel Information [facility] Vital Signs Date Time Vital Sign Value Performing Clinician Facility 02-07-2025 12:49-0400 Body height 175.[address] Dez Her DO Work Phone: [facility] 02-07-2025 12:49-0400 Body mass index (BMI) [Ratio] 33.3 kg/m2 Dr. Dez Her DO Work Phone: [facility] 02-07-2025 12:49-0400 Body weight 102.[address] Dez Her DO Work Phone: [facility] 02-07-2025 12:49-0400 Diastolic blood pressure 62 mm[Hg] Dr. Dez Her DO Work Phone: [facility] 02-07-2025 12:49-0400 Heart rate 71 /min Dr. Dez Her DO Work Phone: [facility] 02-07-2025 12:49-0400 Respiratory rate 16 /min Dr. Dez Her DO Work Phone: [facility] 02-07-2025 12:49-0400 Systolic blood pressure 128 mm[Hg] Dr. Dez Her DO Work Phone: [facility] 12-07-2023 13:13-0400 Body height 175.[address] Dez Her Work Phone: [facility] 12-07-2023 13:13-0400 Body mass index (BMI) [Ratio] 33 kg/m2 Dr. Dez Her Work Phone: [facility] 12-07-2023 13:13-0400 Body weight 101.[address] Dez Her Work Phone: [facility] 12-07-2023 13:13-0400 Diastolic blood pressure 85 mm[Hg] Dr. Dez Her Work Phone: [facility] 12-07-2023 13:13-0400 Heart rate 52 /min Dr. Dez Her Work Phone: [facility] 12-07-2023 13:13-0400 Respiratory rate 18 /min Dr. Dez Her Work Phone: [facility] 12-07-2023 13:13-0400 SaO2% (BldA) [Mass fraction] 98 % Dr. Dez Her Work Phone: [facility] 12-07-2023 13:13-0400 Systolic blood pressure 139 mm[Hg] Dr. Dez Her Work Phone: [facility] 11-05-2023 14:45-0500 Body height 175.[address] eDz Her Work Phone: [facility] 11-05-2023 14:45-0500 Body mass index (BMI) [Ratio] 33 kg/m2 Dr. Dez Her Work Phone: [facility] 11-05-2023 14:45-0500 Body weight 101.[address] Dez Her Work Phone: [facility] 11-05-2023 14:45-0500 Diastolic blood pressure 62 mm[Hg] Dr. Dez Her Work Phone: [facility] 11-05-2023 14:45-0500 Heart rate 66 /min Dr. Dez Her Work Phone: [facility] 11-05-2023 14:45-0500 Respiratory rate 16 /min Dr. Dez Her Work Phone: [facility] 11-05-2023 14:45-0500 Systolic blood pressure 125 mm[Hg] Dr. Dez Her Work Phone: [facility] 05-17-2023 09:40-0400 Body height 175.[address] Dez Her Work Phone: [facility] 11-27-2022 13:32-0400 Body height 175.3 cm Samia Allen COOK'S ASSISTANT.BULLET CASTING OPERATOR Work Phone: [facility] 11-27-2022 13:32-0400 Body weight 102.51 kg Samia Allen COOK'S ASSISTANT.BULLET CASTING OPERATOR Work Phone: [facility] 11-27-2022 13:32-0400 Diastolic blood pressure 66 mm[Hg] Samia Allen COOK'S ASSISTANT.BULLET CASTING OPERATOR Work Phone: [facility] 11-27-2022 13:32-0400 Heart rate 66 /min Samia Allen COOK'S ASSISTANT.BULLET CASTING OPERATOR Work Phone: [facility] 11-27-2022 13:32-0400 SaO2% (BldA) [Mass fraction] 96 % Samia Allen COOK'S ASSISTANT.BULLET CASTING OPERATOR Work Phone: [facility] 11-27-2022 13:32-0400 Systolic blood pressure 129 mm[Hg] Samia Allen COOK'S ASSISTANT.BULLET CASTING OPERATOR Work Phone: [facility] 10-09-2022 11:17-0500 Body height 175.[address] Dez Her Work Phone: [facility] 10-09-2022 11:17-0500 Body mass index (BMI) [Ratio] 32.6 kg/m2 Dr. Dez Her Work Phone: [facility] 10-09-2022 11:17-0500 Body weight 100.[address] Dez Her Work Phone: [facility] 10-09-2022 11:17-0500 Diastolic blood pressure 76 mm[Hg] Dr. Dez Her Work Phone: [facility] 10-09-2022 11:17-0500 Heart rate 62 /min Dr. Dez Her Work Phone: [facility] 10-09-2022 11:17-0500 Respiratory rate 20 /min Dr. Dez Her Work Phone: [facility] 10-09-2022 11:17-0500 SaO2% (BldA) [Mass fraction] 99 % Dr. Dez Her Work Phone: [facility] 10-09-2022 11:17-0500 Systolic blood pressure 143 mm[Hg] Dr. Dez Her Work Phone: [facility] 07-14-2022 13:27-0500 Body height 175.[address] Dez Her Work Phone: [facility] 07-14-2022 13:27-0500 Body mass index (BMI) [Ratio] 32.5 kg/m2 Dr. Dez Her Work Phone: [facility] 07-14-2022 13:27-0500 Body weight 99.[address] Dez Her Work Phone: [facility] 07-14-2022 13:27-0500 Diastolic blood pressure 82 mm[Hg] Dr. Dez Her Work Phone: [facility] 07-14-2022 13:27-0500 Heart rate 55 /min Dr. Dez Her Work Phone: [facility] 07-14-2022 13:27-0500 Respiratory rate 18 /min Dr. Dez Her Work Phone: [facility] 07-14-2022 13:27-0500 SaO2% (BldA) [Mass fraction] 97 % Dr. Dez Her Work Phone: [facility] 07-14-2022 13:27-0500 Systolic blood pressure 132 mm[Hg] Dr. Dez Her Work Phone: [facility] 04-29-2022 14:30-0400 Body height 175.3 cm Dez Ortega MD Work Phone: [facility] 04-29-2022 14:30-0400 Body weight 100.7 kg Dez Ortega MD Work Phone: [facility] 04-29-2022 14:30-0400 Diastolic blood pressure 63 mm[Hg] Dez Ortega MD Work Phone: [facility] 04-29-2022 14:30-0400 Heart rate 59 /min Dez Ortega MD Work Phone: [facility] 04-29-2022 14:30-0400 Respiratory rate 18 /min Dez Ortega MD Work Phone: [facility] 04-29-2022 14:30-0400 SaO2% (BldA) [Mass fraction] 92 % Dez Ortega MD Work Phone: [facility] 04-29-2022 14:30-0400 Systolic blood pressure 108 mm[Hg] Dez Ortega MD Work Phone: [facility] 03-31-2022 09:23-0400 Body height 175.3 cm Eber Martins MD Work Phone: [facility] 03-31-2022 09:23-0400 Body mass index (BMI) [Ratio] 32.4 kg/m2 Eber Martins MD Work Phone: [facility] 03-31-2022 09:23-0400 Body weight 99.52 kg Eber Martins MD Work Phone: [facility] 03-31-2022 09:23-0400 Diastolic blood pressure 62 mm[Hg] Eber Martins MD Work Phone: [facility] 03-31-2022 09:23-0400 Respiratory rate 18 /min Eber Martins MD Work Phone: [facility] 03-31-2022 09:23-0400 SaO2% (BldA) [Mass fraction] 97 % Eber Martins MD Work Phone: [facility] 03-31-2022 09:23-0400 Systolic blood pressure 118 mm[Hg] Eber Martins MD Work Phone: [facility] 03-06-2022 13:22-0400 Body height 175.[address] Dez Her Work Phone: [facility] Work Phone: 03-06-2022 13:22-0400 Body mass index (BMI) [Ratio] 32 kg/m2 Dr. Dez Her Work Phone: [facility] Work Phone: 03-06-2022 13:22-0400 Body weight 98.[address] Dez Her Work Phone: [facility] Work Phone: 03-06-2022 13:22-0400 Diastolic blood pressure 63 mm[Hg] Dr. Dez Her Work Phone: [facility] Work Phone: 03-06-2022 13:22-0400 Heart rate 90 /min Dr. Dez Her Work Phone: [facility] Work Phone: 03-06-2022 13:22-0400 Respiratory rate 16 /min Dr. Dez Her Work Phone: [facility] Work Phone: 03-06-2022 13:22-0400 Systolic blood pressure 94 mm[Hg] Dr. Dez Her Work Phone: [facility] Work Phone: 05-18-2017 13:40-0400 BMI (Body Mass Index) 34.43 kg/m2 [facility] Work Phone: 05-18-2017 13:40-0400 BP Diastolic 60 mm[Hg] [facility] Work Phone: 05-18-2017 13:40-0400 BP Systolic 130 mm[Hg] [facility] Work Phone: 05-18-2017 13:40-[address] [facility] Work Phone: 05-18-2017 13:40-0400 Pulse (Heart Rate) 64 /min [facility] Work Phone: 05-18-2017 13:40-0400 Respiratory Rate 20 /min [facility] Work Phone: 05-18-2017 13:40-0400 Weight 105.78 kg [facility] Work Phone: 03-31-2016 13:45-0400 BSA (Body Surface Area) 2.21 m2 [facility] Work Phone: 10-17-2015 08:20-0500 Body surface area Derived from formula 65.77 mL/min [facility] Work Phone: 10-07-2015 10:39-0500 Heart rate 84 /min [facility] Work Phone: 11-24-2011 10:03-0400 Heart rate 467 ms [facility] Work Phone: Encounters Encounter Date Encounter Type Care Provider Facility Start: 07-09-2025 ambulatory Donna Sarmiento NP Facility:[facility] Start: 06-15-2025 End: 06-15-2025 ambulatory MARIELLA POWELL APRN-BULLET CASTING OPERATOR Facility:[facility] Start: 06-15-2025 End: 06-15-2025 Patient encounter procedure MARIELLA POWELL APRN-[facility] Start: 06-04-2025 End: 06-04-2025 ambulatory Sascha Valdes NP Facility:[facility] Start: 03-16-2025 Non-patient / Non-visit Dr. Roth Of mary DAMIAN [facility] Start: 03-16-2025 End: 03-16-[address] Dez Her DO Work Phone: -Cardiovascular Services Start: 03-16-2025 End: 03-16-2025 Patient encounter procedure Sascha Valdes OPHTHALMIC SURGICAL ASSISTANT-C -Cardiovascular Services Work Phone: Start: 03-16-2025 End: 03-16-2025 ambulatory Sascha Valdes OPHTHALMIC SURGICAL ASSISTANT Facility:[facility] Start: 02-07-2025 End: 02-07-2025 Patient encounter procedure Sascha Rodas Keisha OPHTHALMIC SURGICAL ASSISTANT-C -[facility] Work Phone: Start: 02-07-2025 End: 02-07-[address] Dez Her DO Work Phone: [facility] Work Phone: Start: 12-21-2024 End: 12-21-[address] Dez Her DO Work Phone: [facility] Work Phone: Start: 12-21-2024 End: 12-21-[address] Dez Her DO -[facility] Work Phone: Start: 12-21-2024 End: 12-21-2024 ambulatory Dez Her Facility:[facility] Start: 12-31-2023 End: 12-31-[address] Dez Her Work Phone: [facility] Work Phone: Start: 12-31-2023 End: 12-31-[address] Dez Her Work Phone: [facility] Work Phone: Start: 12-23-2023 ambulatory EDZ HER Facility :B Start: 12-07-2023 End: 12-07-[address] Dez Her Work Phone: [facility] Work Phone: Start: 11-05-2023 End: 11-05-[address] Dez Her Work Phone: [facility] Work Phone: Start: 11-05-2023 End: 11-05-[address] Dez Her Work Phone: [facility]-Laboratory Work Phone: Start: 11-05-2023 End: 11-05-[address] [facility] Work Phone: Start: 07-07-2023 End: 07-07-2023 ambulatory GONZALEZ S GARLAND Facility:[facility] Start: 05-20-2023 Telephone encounter Dez espinoza MD Work Phone: [facility] [place] Comment on above: Patient Update Start: 05-17-2023 End: 05-17-[address] Dez Her Work Phone: [facility] Work Phone: Start: 05-17-2023 End: 05-17-[address] Dez Her Work Phone: [facility] Work Phone: Start: 03-30-2023 Patient encounter procedure [facility] Provider [facility] Department Start: 03-29-2023 End: 03-29-2023 ambulatory GONZALEZ S GARLAND Facility:[facility] Start: 12-17-2022 Telephone encounter Dez espinoza MD Work Phone: [facility] Comment on above: Results Start: 12-07-2022 Telephone encounter Dez espinoza MD Work Phone: [facility] Comment on above: Results Start: 11-27-2022 End: 11-27-2022 ambulatory SAMIA ALLEN Facility:[facility] Start: 11-27-2022 End: 11-27-2022 Patient encounter procedure Samia Allen APRN.CNP Work Phone: [facility] [place] Comment on above: Persistent atrial fi brillation (HCC) (Primary Dx); Typical atrial flutter (HCC); Status post catheter ablation of atrial fibrillation; Status post catheter ablation of atrial flutter; Dilated cardiomyopathy (HCC); Chronic combined systolic and diastolic CHF (congestive heart failure) (HCC); Anticoagulant long-term use; At risk for stroke Start: 11-27-2022 ambulatory DEZ Nguyeni ty:[facility] Start: 11-27-2022 ambulatory DEZ Cevallos ility:[facility] Start: 11-27-2022 End: 11-27-2022 Subsequent hospital visit by physician [facility] (I-Stat) RADIO CT [facility] Comment on above: Dyspnea, unspecified type [R06.00] Start: 11-27-2022 End: 11-27-2022 Subsequent hospital visit by physician Holter/Event Monitor [facility] Comment on above: Dyspnea, unspecified type [R06.00] Start: 11-11-2022 End: 11-11-[address] Dez Her Work Phone: [facility] Work Phone: Start: 11-11-2022 End: 11-11-[address] Dez Her Work Phone: [facility] Start: 11-02-2022 End: 11-02-2022 Patient encounter procedure DEZ HER DO [facility] Start: 10-09-2022 End: 10-09-[address] Dez Her Work Phone: [facility] Start: 09-22-2022 Arrhythmia TTM Dez nolen MD Work Phone: [facility] Start: 09-22-2022 Recurring Plan Dez nolen MD Work Phone: [facility] Start: 09-22-2022 End: 09-23-2022 ambulatory DEZ HER Facility:[facility] Start: 09-22-2022 End: 09-22-2022 Patient encounter procedure Ttm Phone Check [facility] Comment on above: Atrial fibrillation, unspecified type (HCC) (Primary Dx) Start: 09-15-2022 Arrhythmia TTM Dez nolen MD Work Phone: [facility] Start: 09-15-2022 Recurring Plan Dez nolen MD Work Phone: [facility] Start: 09-15-2022 Telephone encounter Dez espinoza MD Work Phone: [facility] [place] Comment on above: Orders Start: 09-15-2022 End: 09-16-2022 ambulatory [facility] Facility:[facility] Start: 09-15-2022 End: 09-15-2022 Patient encounter procedure Ttm Phone Check [facility] Comment on above: Atrial fibrillation, unspecified type (HCC) (Primary Dx) Start: 09-14-2022 Non-patient / Non-visit Dr. Patrizia Her Work Phone: [facility] Start: 09-14-2022 End: 09-14-[address] Dez Her Work Phone: [facility] Work Phone: Start: 09-14-2022 End: 09-14-[address] Dez Her Work Phone: [facility]-Cardiovascul [facility] Services Start: 09-08-2022 End: 09-09-2022 [facility] Start: 09-08-2022 End: 09-08-2022 Patient encounter procedure Ttm Phone Check [facility] Comment on above: Atrial fibrillation, unspecified type (HCC) (Primary Dx) Start: 09-01-2022 Arrhythmia TTM Dez nolen MD Work Phone: [facility] Start: 09-01-2022 Recurring Plan Dez nolen MD Work Phone: [facility] Start: 09-01-2022 End: 09-02-2022 ambulatory [facility] Facility:[facility] Start: 09-01-2022 End: 09-01-2022 Patient encounter procedure Ttm Phone Check [facility] Comment on above: Atrial fibrillation, unspecified type (HCC) (Primary Dx) Start: 08-25-2022 Arrhythmia TTM Dez nolen MD Work Phone: [facility] Start: 08-25-2022 Recurring Plan Dez nolen MD Work Phone: [facility] Start: 08-25-2022 End: 08-26-2022 ambulatory [facility] Facility:[facility] Start: 08-25-2022 End: 08-25-2022 Patient encounter procedure Ttm Phone Check [facility] Comment on above: Atrial fibrillation, unspecified type (HCC) (Primary Dx) Start: 08-18-2022 Arrhythmia TTM Dez nolen MD Work Phone: [facility] Start: 08-18-2022 Recurring Plan Dez nolen MD Work Phone: [facility] Start: 08-18-2022 End: 08-19-2022 ambulatory [facility] Facility:[facility] Start: 08-18-2022 End: 08-18-2022 Patient encounter procedure Ttm Phone Check [facility] Comment on above: Atrial fibrillation, unspecified type (HCC) (Primary Dx) Start: 08-12-2022 Arrhythmia TTM Dez nolen MD Work Phone: [facility] Start: 08-12-2022 Recurring Plan Dez nolen MD Work Phone: [facility] Start: 08-04-2022 End: 08-05-2022 ambulatory [facility] Facility:[facility] Start: 08-04-2022 Arrhythmia TTM Dez nolen MD Work Phone: [facility] Start: 08-04-2022 Recurring Plan Dez nolen MD Work Phone: [facility] Start: 07-28-2022 End: 07-29-2022 ambulatory [facility] Facility:[facility] Start: 07-28-2022 Arrhythmia TTM Dez nolen MD Work Phone: [facility] Start: 07-28-2022 Recurring Plan Dez nolen MD Work Phone: [facility] Start: 07-28-2022 End: 07-28-2022 Patient encounter procedure Ttm Phone Check [facility] Comment on above: Atrial fibrillation, unspecified type (HCC) (Primary Dx) Start: 07-21-2022 Arrhythmia TTM Dez nolen MD Work Phone: [facility] Start: 07-21-2022 Recurring Plan Dez nolen MD Work Phone: [facility] Start: 07-21-2022 End: 07-22-2022 ambulatory [facility] Facility:[facility] Start: 07-21-2022 End: 07-21-2022 Patient encounter procedure Ttm Phone Check [facility] Comment on above: Atrial fibrillation, unspecified type (HCC) (Primary Dx) Start: 07-14-2022 Arrhythmia TTM Dez nolen MD Work Phone: [facility] Start: 07-14-2022 Recurring Plan Dez nolen MD Work Phone: [facility] Start: 07-14-2022 End: 07-15-2022 ambulatory [facility] Facility:[facility] Start: 07-14-2022 End: 07-14-2022 Patient encounter procedure Ttm Phone Check [facility] Comment on above: Atrial fibrillation, unspecified type (HCC) (Primary Dx) Start: 07-04-2022 Telephone encounter Jose J Romano MD Work Phone: [facility] Comment on above: Returning Patient's Call Start: 06-30-2022 Non-patient / Non-visit Dr. Patrizia Her Work Phone: [facility] Start: 06-23-2022 Telephone encounter Dez espinoza MD Work Phone: [facility] [place] Comment on above: [facility]ed[facility] Start: 04-29-2022 End: 04-29-2022 Patient encounter procedure Dez Ortega MD Work Phone: [facility] [place] Comment on above: Persistent atrial fi brillation (HCC) (Primary Dx); Typical atrial flutter (HCC); senior care current use of antiarrhythmic drug; ragman current use of amiodarone; Dilated cardiomyopathy (HCC); Chronic combined systolic and diastolic CHF (congestive heart failure) (HCC); Left bundle-branch block, unspecified; At risk for stroke; Anticoagulant long-term use; Obesity, Class I, BMI 30-34.9; Exertional shortness of breath; Fatigue, unspecified type Start: 03-31-2022 ambulatory [facility] Facility: [facility] Start: 03-31-2022 ambulatory [facility] Facility: [facility] Start: 03-31-2022 End: 03-31-2022 Office outpatient new 45 minutes Eber Martins MD Work Phone: [facility] Comment on above: Palpitations (Primar y Dx); Atrial fibrillation, unspecified type; High risk medication use Start: 03-06-2022 End: 03-06-[address] Dez Her Work Phone: [facility] Start: 11-10-2021 ambulatory DEZ HER Facility :[facility] Start: 06-06-2021 End: 06-10-2021 Outreach Lab [facility] COOK'S ASSISTANT-BULLET CASTING OPERATOR [facility] Procedures Date Procedure Procedure Detail Performing Clinician Start: 12-21-2024 Assay of prostate sp ecific antigen total Dr. Dez Her DO Work Phone: Comment on above: This test was perfor med using the [employer] tPSA method. Measured values of a patient sample can vary depending on the testing procedure used. PSA values determined on patient samples by different testing procedures cannot be used interchangeably. If there is a change in PSA assays while monitoring therapy, sequential testing should be performed to confirm baseline values. Start: 12-21-2024 Vitamin D, 25-hydrox y measurement Dr. Dez Her DO Work Phone: Comment on above: Vitamin D StatusDefi ciency: <20 ng/mL (50nmol/L)Insufficiency: 20-30 ng/mL (50-75 nmol/L)Sufficiency: 30-100 ng/mL (75-250 nmol/L)Toxicity: >100 ng/mL (>250 nmol/L) Start: 05-17-2023 Plain chest X-ray Dr. Juliet Her Work Phone: Start: 11-27-2022 Ecg routine ecg w/le ast 12 lds w/i&r Samia Allen COOK'S ASSISTANT.BULLET CASTING OPERATOR Work Phone: Start: 11-27-2022 Echo tthrc r-t 2d w/ wom-mode compl spec&colr d Dez Ortega MD Work Phone: Start: 09-22-2022 ARRHYTHMIA TRANS TEL E MEASURE Dez Ortega MD Work Phone: Start: 09-15-2022 ARRHYTHMIA TRANS TEL E MEASURE Dez Ortega MD Work Phone: Start: 09-01-2022 ARRHYTHMIA TRANS TEL E MEASURE Dez Ortega MD Work Phone: Start: 08-25-2022 ARRHYTHMIA TRANS TEL E MEASURE Dez Ortega MD Work Phone: Start: 08-18-2022 ARRHYTHMIA TRANS TEL E MEASURE Dez Ortega MD Work Phone: Start: 08-12-2022 ARRHYTHMIA TRANS TEL E MEASURE Dez Ortega MD Work Phone: Start: 08-04-2022 ARRHYTHMIA TRANS TEL E MEASURE Dez Ortega MD Work Phone: Start: 07-28-2022 ARRHYTHMIA TRANS TEL E MEASURE Dez Ortega MD Work Phone: Start: 07-21-2022 ARRHYTHMIA TRANS TEL E MEASURE Dez Ortega MD Work Phone: Start: 07-14-2022 ARRHYTHMIA TRANS TEL E MEASURE Dez Ortega MD Work Phone: Start: 06-29-2022 Cardiac radiofrequen cy ablation using ultrasound guidance DEZ ARDEN Start: 04-29-2022 Ecg routine ecg w/le ast 12 lds w/i&r Dez Ortega MD Work Phone: Start: 03-31-2022 Assay of [...] Dietary management education, guidance, and counseling Andrés Padilla Start: 11-13-2016 End: 11-13-2016 GEORGE Greenberg MD Start: 11-13-2016 End: 11-13-2016 Follow Up Appt 6 months Steve French Start: 03-31-2016 End: 03-31-2016 Follow Up Appt 6 months Steve French Start: 03-31-2016 End: 03-31-2016 MELIA Greenberg MD Start: 03-31-2016 End: 03-31-2016 Follow Up Appt 6 months Steve French Start: 03-31-2016 End: 03-31-2016 MMSteve Greenberg MD Start: 10-07-2015 End: 10-07-2015 Chest [...] Panel Steve French Start: 09-24-2015 End: 09-24-2015 GEORGE Greenberg MD Start: 09-24-2015 End: 10-07-2015 Echocardiography Gonzalez Greenberg MD Start: 09-24-2015 End: 09-24-2015 Follow Up Appt 6 months Steve French Start: 09-24-2015 End: 09-25-2015 Lipid 1996 panel - Serum or Plasma Gonzalez Greenberg MD Start: 09-24-2015 End: 10-07-2015 Nuclear stress test -exercise Gonzalez Greenberg MD Start: 09-24-2015 End: 09-25-2015 Thyrotropin [Units/volume] in Serum or Plasma Gonzalez Greenberg MD Start: 09-24-2015 End: 09-25-2015 *BMP Gonzalez Greenberg MD Start: 09-24-2015 End: 09-25-2015 *CBC with Differential Gonzalez Greenberg MD Start: 09-24-2015 End: 09-25-2015 *Hepatic Function Panel Steve French Start: 09-24-2015 End: 09-24-2015 GEORGE Greenberg MD Start: 09-24-2015 End: 10-07-2015 Echocardiography Gonzalez Greenberg MD Start: 09-24-2015 End: 09-24-2015 Follow Up Appt 6 months Steve French Start: 09-24-2015 End: 09-25-2015 Lipid panel [AGGREGATE] Steve French Start: 09-24-2015 End: 10-07-2015 Nuclear stress test -exercise Gonzalez Greenberg MD Start: 09-24-2015 End: 09-25-2015 Thyroid stimulating [...] months Steve French Start: 02-23-2014 End: 02-23-2014 Follow Up Appt [...] months Steve French Start: 03-17-2013 End: 03-17-2013 GEROGE Greenberg MD Start: 03-17-2013 End: 03-17-2013 Follow Up Appt 3 months Steve French Start: 08-10-2012 End: 08-10-2012 Follow Up Appt 6 months Steve French Start: 08-10-2012 End: 08-10-2012 Follow Up Appt 6 months Steve Frenhc Start: 11-24-2011 End: 11-24-2011 Ecg routine ecg [...] Author Start: 06-30-2025 DIABETES SCREEN DIABETES SCREEN [facility] Start: 06-30-2025 Diabetes Screening Diabetes Screenin g [facility] Start: 04-30-2023 Influenza vaccination [facility] Start: 09-29-2022 End: 10-15-2023 Ct angiography chest w/contrast/noncontrast CTA CHEST (NONGATED) W IVCON Radiology Routine Dyspnea, unspecified type Atrial fibrillation, persistent (HCC) Expected: 09/29/2022, Expires: 10/15/2023 [facility] Work Phone: Comment on above: Expected: 09/29/2022 , Expires: 10/15/2023 Start: 09-29-2022 End: 09-15-2023 Echocardiography ECHO Cardiology Routine Dyspnea, unspecified type Atrial fibrillation, persistent (HCC) Expected: 09/29/2022, Expires: 09/15/2023 [facility] Work Phone: Comment on above: Expected: 09/29/2022 , Expires: 09/15/2023 Start: 09-29-2022 End: 09-15-2023 HOLTER MONITOR 24 HOUR HOLTER MONITOR 24 HOUR ECG Routine Dyspnea, unspecified type Atrial fibrillation, persistent (HCC) Expected: 09/29/2022, Expires: 09/15/2023 [facility] Work Phone: Comment on above: Expected: 09/29/2022 , Expires: 09/15/2023 Start: 09-15-2022 End: 11-15-2022 CREATININE BLD CREATININE BLD Lab Routine Dyspnea, unspecified type Atrial fibrillation, persistent (HCC) Expected: 09/15/2022, Expires: 11/15/2022 [facility] Work Phone: Comment on above: Expected: 09/15/2022 , Expires: 11/15/2022 Start: 08-30-2022 ADVANCE DIRECTIVE DISCUSSION ADVANCE DIRECTIVE DISCUSSION [facility] Start: 08-30-2022 DEPRESSION ASSESSMENT DEPRESSION ASS ESSMENT [facility] Start: 05-05-2022 COVID-19 VACCINE (5 - Booster for Hamilton series) COVID-19 VACCINE (5 - Booster for Hamilton series) [facility] Start: 04-30-2022 Influenza vaccination [facility] Start: 03-31-2022 End: 03-31-[address] CARDIAC PULMONARY VENOGRAM Imaging Routine Atrial fibrillation, unspecified type Expected: 03/31/2022, Expires: 03/31/2023 [facility] Comment on above: Expected: 03/31/2022 , Expires: 03/31/2023 Start: 08-30-2021 ADVANCE DIRECTIVE DISCUSSION ADVANCE DIRECTIVE DISCUSSION [facility] Start: 08-30-2021 DEPRESSION ASSESSMENT DEPRESSION ASS ESSMENT [facility] Start: 01-02-2021 COVID-19 VACCINE (2 - Booster for Hamilton series) COVID-19 VACCINE (2 - Booster for Hamilton series) [facility] Start: 11-15-2017 End: 11-15-2017 Appointment Appointment [facility] Work Phone: Start: 05-18-2017 End: 05-18-2017 Follow Up Appt 6 months Follow Up Appt 6 months [facility] Work Phone: Start: 05-18-2017 End: 05-18-2017 MMM MMM [facility] Work Phone: Start: 05-18-2017 End: 05-18-2017 Follow Up Appt 6 months Follow Up Appt 6 months [facility] Work Phone: Start: 05-18-2017 End: 05-18-2017 MMM MMM [facility] Work Phone: Start: 11-13-2016 End: 11-13-2016 MEDIA LAW FACULTY MEMBER MEDIA LAW FACULTY MEMBER [facility] Work Phone: Start: 11-13-2016 End: 11-13-2016 Follow Up Appt 6 months Follow Up Appt 6 months [facility] Work Phone: Start: 11-13-2016 End: 11-13-2016 MEDIA LAW FACULTY MEMBER MEDIA LAW FACULTY MEMBER [facility] Work Phone: Start: 11-13-2016 End: 11-13-2016 Follow Up Appt 6 months Follow Up Appt 6 months [facility] Work Phone: Start: 03-31-2016 End: 03-31-2016 Follow Up Appt 6 months Follow Up Appt 6 months [facility] Work Phone: Start: 03-31-2016 End: 03-31-2016 MMM MMM [facility] Work Phone: Start: 03-31-2016 End: 03-31-2016 Follow Up Appt 6 months Follow Up Appt 6 months [facility] Work Phone: Start: 03-31-2016 End: 03-31-2016 MMM MMM [facility] Work Phone: Start: 10-07-2015 End: 10-07-2015 Chest x-ray X-Ray, Chest, PA & Lateral [facility] Work Phone: Start: 10-07-2015 End: 10-07-2015 Ecg routine ecg w/least 12 lds w/i&r EKG (In office) [facility] Work Phone: Start: 10-07-2015 End: 10-07-2015 Left Heart Cath Left Heart Cath [facility] Work Phone: Start: 10-07-2015 End: 10-07-2015 Chest x-ray X-Ray, Chest, PA & Lateral [facility] Work Phone: Start: 10-07-2015 End: 10-07-2015 Electrocardiogram, complete EKG (In office) [facility] Work Phone: Start: 10-07-2015 End: 10-07-2015 Left Heart Cath Left Heart Cath [facility] Work Phone: Start: 09-24-2015 End: 09-25-2015 *BMP *BMP [facility] Work Phone: Start: 09-24-2015 End: 09-25-2015 *CBC with Differential *CBC with Differential [facility] Work Phone: Start: 09-24-2015 End: 09-25-2015 *Hepatic Function Panel *Hepatic Function Panel [facility] Work Phone: Start: 09-24-2015 End: 09-24-2015 MEDIA LAW FACULTY MEMBER MEDIA LAW FACULTY MEMBER [facility] Work Phone: Start: 09-24-2015 End: 09-24-2015 Echocardiography Echocardiogram (complete) [facility] Work Phone: Start: 09-24-2015 End: 09-24-2015 Follow Up Appt 6 months Follow Up Appt 6 months [facility] Work Phone: Start: 09-24-2015 End: 09-25-2015 Lipid 1996 panel *Lipid Profile CC PCP [facility] Work Phone: Start: 09-24-2015 End: 09-24-2015 Nuclear stress test -exercise Nuclear stress test -exercise [facility] Work Phone: Start: 09-24-2015 End: 09-24-2015 Sleep Study, complete Sleep Study, complete [id number] [place], [address] [facility] Work Phone: Start: 09-24-2015 End: 09-25-2015 Thyrotropin Qn *TSH [facility] Work Phone: Start: 09-24-2015 End: 09-25-2015 *BMP *BMP [facility] Work Phone: Start: 09-24-2015 End: 09-25-2015 *CBC with Differential *CBC with Differential [facility] Work Phone: Start: 09-24-2015 End: 09-25-2015 *Hepatic Function Panel *Hepatic Function Panel [facility] Work Phone: Start: 09-24-2015 End: 09-24-2015 MEDIA LAW FACULTY MEMBER MEDIA LAW FACULTY MEMBER [facility] Work Phone: Start: 09-24-2015 End: 09-24-2015 Echocardiography Echocardiogram (complete) [facility] Work Phone: Start: 09-24-2015 End: 09-24-2015 Follow Up Appt 6 months Follow Up Appt 6 months [facility] Work Phone: Start: 09-24-2015 End: 09-25-2015 Lipid panel [AGGREGATE] *Lipid Profile CC PCP [facility] Work Phone: Start: 09-24-2015 End: 09-24-2015 Nuclear stress test -exercise Nuclear stress test -exercise [facility] Work Phone: Start: 09-24-2015 End: 09-24-2015 Sleep Study, complete Sleep Study, complete [address] [place], [address] [facility] Work Phone: Start: 09-24-2015 End: 09-25-2015 Thyroid stimulating hormone (TSH) *TSH [facility] Work Phone: Start: 03-19-2015 End: 03-19-2015 MEDIA LAW FACULTY MEMBER MEDIA LAW FACULTY MEMBER [facility] Work Phone: Start: 03-19-2015 End: 03-19-2015 Follow Up Appt 6 months Follow Up Appt 6 months [facility] Work Phone: Start: 03-19-2015 End: 03-19-2015 MEDIA LAW FACULTY MEMBER MEDIA LAW FACULTY MEMBER [facility] Work Phone: Start: 03-19-2015 End: 03-19-2015 Follow Up Appt 6 months Follow Up Appt 6 months [facility] Work Phone: Start: 08-10-2014 End: 08-10-2014 MEDIA LAW FACULTY MEMBER MEDIA LAW FACULTY MEMBER [facility] Work Phone: Start: 08-10-2014 End: 08-10-2014 Follow Up Appt 6 months Follow Up Appt 6 months [facility] Work Phone: Start: 08-10-2014 End: 08-10-2014 MEDIA LAW FACULTY MEMBER MEDIA LAW FACULTY MEMBER [facility] Work Phone: Start: 08-10-2014 End: 08-10-2014 Follow Up Appt 6 months Follow Up Appt 6 months [facility] Work Phone: Start: 02-23-2014 End: 02-23-2014 Follow Up Appt 6 months Follow Up Appt 6 months [facility] Work Phone: Start: 02-23-2014 End: 02-23-2014 MMM MMM [facility] Work Phone: Start: 02-23-2014 End: 02-23-2014 Follow Up Appt 6 months Follow Up Appt 6 months [facility] Work Phone: Start: 02-23-2014 End: 02-23-2014 MMM MMM [facility] Work Phone: Start: 06-23-2013 End: 06-23-2013 MEDIA LAW FACULTY MEMBER MEDIA LAW FACULTY MEMBER [facility] Work Phone: Start: 06-23-2013 End: 06-23-2013 Follow Up Appt 6 months Follow Up Appt 6 months [facility] Work Phone: Start: 06-23-2013 End: 06-23-2013 MEDIA LAW FACULTY MEMBER MEDIA LAW FACULTY MEMBER [facility] Work Phone: Start: 06-23-2013 End: 06-23-2013 Follow Up Appt 6 months Follow Up Appt 6 months [facility] Work Phone: Start: 03-17-2013 End: 03-17-2013 MEDIA LAW FACULTY MEMBER MEDIA LAW FACULTY MEMBER [facility] Work Phone: Start: 03-17-2013 End: 03-17-2013 Follow Up Appt 3 months Follow Up Appt 3 months [facility] Work Phone: Start: 03-17-2013 End: 03-17-2013 MEDIA LAW FACULTY MEMBER MEDIA LAW FACULTY MEMBER [facility] Work Phone: Start: 03-17-2013 End: 03-17-2013 Follow Up Appt 3 months Follow Up Appt 3 months [facility] Work Phone: Start: 08-10-2012 End: 08-10-2012 Follow Up Appt 6 months Follow Up Appt 6 months [facility] Work Phone: Start: 08-10-2012 End: 08-10-2012 Follow Up Appt 6 months Follow Up Appt 6 months [facility] Work Phone: Start: 11-24-2011 End: 11-24-2011 Ecg routine ecg w/least 12 lds w/i&r EKG (In office) [facility] Work Phone: Start: 11-24-2011 End: 11-24-2011 Echocardiography Echocardiogram (complete) [facility] Work Phone: Start: 11-24-2011 End: 11-24-2011 Follow Up Appt 6 months Follow Up Appt 6 months [facility] Work Phone: Start: 11-24-2011 End: 11-24-2011 Echocardiography Echocardiogram (complete) [facility] Work Phone: Start: 11-24-2011 End: 11-24-2011 Electrocardiogram, complete EKG (In office) [facility] Work Phone: Start: 11-24-2011 End: 11-24-2011 Follow Up Appt 6 months Follow Up Appt 6 months [facility] Work Phone: Start: 12-30-1995 SHINGRIX VACCINE (1 of 2) MORALES GRIX VACCINE (1 of 2) [facility] Start: 12-30-1995 Zoster vaccine hzv l cony for subcutaneous use ZOSTER (SHINGLES) VACCINE (1 of 2) [facility] Start: 1990 Colonoscopy COLORECTAL CAN CER SCREENING DISCUSSION [facility] Start: 1990 DIABETES SCREEN DIABETES SCREEN [facility] Start: 1964 Third diphtheria, te tanus and acellular pertussis (DTaP) vaccination TDAP (ADULT) [facility] Start: 1964 Urine microalbumin profile [facility] Start: 12-30-1963 ANNUAL PCP TEAM DIRECTOR HR COMMUNICATIONS LASHAWN DISEASE VISIT ANNUAL PCP TEAM CHRONIC DISEASE VISIT [facility] Start: 12-30-1963 HEPATITIS C SCREENING HEPATITIS C SC REENING [facility] Start: 12-30-1963 Tetanus vaccination TETANUS [facility] Start: 1957 Adult depression scr eening assessment DEPRESSION SCREENING [facility] Start: 12-30-1951 Pneumococcal vaccination PNEUM OCOCCAL VACCINE SERIES (1 - PCV) [facility] Start: 12-30-1951 Pneumococcal Vaccine : 65+ (1 - PCV) Pneumococcal Vaccine: 65+ (1 - PCV) [facility] Start: 12-30-1951 PNEUMOCOCCAL: 65+ (1 - PCV) PNEUMOCOCCAL: 65+ (1 - PCV) [facility] Start: 1945 Hepatitis C antibody , confirmatory test HEPATITIS C VIRUS SCREENING [facility] Start: 1945 Potassium [Moles/vol ume] in Serum or Plasma POTASSIUM [facility] End: 11-27-2022 Ct angiography chest w/contrast/noncontrast [facility] Work Phone: Comment on above: 1 Occurrences starti ng 11/27/2022 until 11/27/2022 Ephys evl trnsptl tx atrial fib isolat pulm vein ABLATION SCHED INTERCARDIAC A-FIB TRANSEPTAL BY PULM VEIN ISOLATION W/EP EVAL (73255) Atrial fibrillation, unspecified type [facility] End: 11-27-2022 HOLTER MONITOR 24 HOUR HOLTER MONITOR 24 HOUR ECG Routine Dyspnea, unspecified type Atrial fibrillation, persistent (HCC) 1 Occurrences starting 11/27/2022 until 11/27/2022 [facility] Work Phone: Comment on above: 1 Occurrences starti ng 11/27/2022 until 11/27/2022 Standard ECG ECG ECG Routine Palpitations 03/31/2022 9:26 AM EDT [facility] Immunizations Immunization Date Immunization Notes Care Provider [facility] 05-23-2024 SARS-CoV-2 (COVID-19 ) mRNAMUL.ORD![id number] [employer] COOK'S ASSISTANT[employer] [facility] 05-10-2024 influenza virus vaccine, unspecified formulation Safe N [employer] [facility] 06-18-2022 SARS-CoV-2 (CV19)mRNA-1273 bivalent vac 1 [id number] [facility] Comment on above: Result Comment: 2021: [id number] 06-18-2022 SARSCoV2 (CV19)mRNA-1273(6y+ bival elizabeth 1 DEZ HER DO [facility] Comment on above: Result Comment: 2021: [id number] 03-10-2022 COVID-19 vaccine, fu ll dose (MODERNA) Dez Ortega MD Work Phone: [facility] Work Phone: 07-17-2021 SARS-CoV-2 (COVID-19 ) mRNA-1273 vaccine DEZ HER DO [facility] 07-08-2021 influenza nasal, unspecified formulation Ccf Provider [facility] Work Phone: 07-08-2021 influenza, high-dose , quadrivalent vaccine (FLUZONE HIGH DOSE QUADRIVALENT) Dez Ortega MD Work Phone: [facility] Work Phone: 07-08-2021 influenza virus vaccine, unspecified formulation Eber Martins MD Work Phone: [facility] 11-09-2020 Covid (Tone & Tone) Dr. Dez Her Work Phone: [facility] Work Phone: 11-07-2020 SARS-CoV-2 (COVID-19 ) Ad26 vaccine, recombinant [facility] COOK'S ASSISTANT-BULLET CASTING OPERATOR [facility] Comment on above: Result Comment: 2020: [id number] Payers Date Payer Category Payer Self-pay [id number] 2023 Medicare [id number] 2021 Private Health Insurance [id number] 2020 Unknown AARP AARP [id number] 2020-Present [address] [place] [address] [id number] 2016 Unknown [id number] 2010 Medicare [id number] 2010 Medicare [id number] 1945 Unknown [id number] 27 1945 Unknown [id number] 27 1945 Unknown [id number] 94 1945 Unknown [id number] 94 1945 Unknown [id number] 94 Unknown [id number] 62 Unknown [id number] 62 Unknown [id number] 62 Unknown [id number] 62 Unknown [id number] 62 Unknown [id number] 62 Social History Date Type Detail Facility Start: 12-11-2019 End: 09-25-2024 Never smoked tobacco (finding) [facility] Start: 1945 Sex Assigned At Male A [facility] Start: 03-06-2022 End: 12-07-2023 Tobacco smoking status NHIS Unknown if ever smoked [facility] Start: 12-30-2020 Non-smoker [facility] Start: 1945 Sex Assigned At Not on file [facility] Start: 04-22-2022 Tobacco use and exposure Smoke less tobacco non-user [facility] Start: 04-29-2022 End: 03-29-2023 Alcohol intake Current drinker of alcohol (finding) [facility] Start: 04-22-2022 History SDOH Alcohol Comment [facility]CC[facility]ION[facility] Start: 04-19-2022 End: 06-29-2022 Exposure to SARS-CoV-2 (event) Not sure [facility] Start: 03-29-2023 History of Social function [facility] Start: 03-29-2023 Tobacco use panel [facility] National Score (1-10 0), lower number is lower risk [address] [facility] Start: 02-22-2019 End: 12-26-2024 Sex Male (finding) [facility] Sexual Orientation [facility] leigh ann [facility] Clinical Notes 03-31-2022 to 06-15-2025 Note Date & Type Note Facility 06-15-2025 Note Exam Date Time Procedure Performing Provider Status 06/15/25 4:44 PM XR Chest 2 Views BLU HANCOCK DO; Auth (Verified) [id number] ORIGINAL EXAMINATION: TWO XRAY VIEWS OF THE CHEST06/15/2025 4:45 pm COMPARISON: CT abdomen 11/02/2022 HISTORY: ORDERING SYSTEM PROVIDED HISTORY: Reason for Exam: cough, fatigue, rule out pneumonia FINDINGS: Cardiomediastinal contours are within normal limits. Low lung volumes. Hazy opacity over the lateral right lung related to overlying soft tissue. There is pleural thickening along the lateral right lung, better seen on prior CT abdomen. Patchy retrocardiac opacity. No significant pulmonary vascular congestion. No visible pneumothorax or large pleural effusion. Degenerative changes of the spine. IMPRESSION: Patchy retrocardiac opacity may relate to atelectasis or developing airspace disease. Pleural thickening along the lateral right lung, also seen on prior CT. I have personally reviewed the images and agree with the resident's findings and interpretation. Interpreted by: Blu Hancock Preliminary Report By: Lucas Jefferson Electronically signed By Blu Hancock Dictated Date: 06/15/2025 6:43:26 PM Prelim Date: 06/15/2025 6:47:07 PM Sign Date: 06/15/2025 6:49:33 PM Ordering Provider: MARIELLA POWELL RP [facility]06-11-2025 Evaluation note* Diagnosis Onset Date Resolution Status Admit Date Chronic atrial fibrillation chronic February 07, 2025 1:32pm Essential (primary) hypertension chr onic February 07, 2025 1:32pm Hyperlipidemia chronic February 07, 2025 1:32pm Non-ischemic cardiomyopathy chronic February 07, 2025 1:32pm [facility] Work Phone: 1(166) 460-183811-08-2023 NoteHNO ID: [id number] Author: Dez Ortega MD Service: ? Author Type: Physician Type: Progress Notes Filed: 07/07/2023 12:11 PM Note Text: PRIMARY CARE PHYSICIAN: Dez Her [address] [place] [address] Patient Care Team: Dez Her DO as PCP - General (Family Medicine) Gonzalez Greenberg MD as Specialty [facility] (Cardiology) Huber Campos MD as Specialty [facility] (Urology) Dez Ortega MD as Specialty [facility] (Cardiology) CHIEF COMPLAINT: Follow-up for arrhythmia, atrial fibrillation HISTORY OF PRESENT ILLNESS: Mr. Argueta is a 77 year old male who presents today for a cardiovascular medicine follow-up visit. History copied from previous notes, edited as needed: Dr. Ortega office note 04/29/2022: Mr. Argueta is a 76 year old male who [...] had been evaluated by Dr. Martins at [facility] 03/31/2022. Dr. Martins was concerned about the possibility that the atrial fibrillation, particularly rapid ventricular response rates, might have contributed to the cardiomyopathy. So he did recommend an aggressive approach to episcopal and maintenance of sinus rhythm, including antiarrhythmic drug therapy and catheter ablation for the atrial fibrillation and also atrial flutter. He recommended amiodarone, Mr. Argueta states he took 400 mg for about a week 04/06/2022 - 04/15/2022 when he reduced the dose to 200 mg daily due to headaches. Dr. Martins's office contacted Mr. Argueta to schedule the catheter ablation procedure, but Mr. Argueta wanted to get my opinion before proceeding. He experiences exertional shortness of breath and "extreme fatigue" --- his states that he cannot walk [...] was supposed to stop the Eliquis, states "I do not want my blood too thin," he believes he missed his dose last night, and did not take the Eliquis this morning, will order stat dose to be given prior to procedure, he denies any bleeding issues. We will also inform the EP lab and Dr. Ortega. Amiodarone has been on hold, as instructed by Dr. Ortega, patient's last dose was 06/23/2022. He denies chest discomfort, palpitations, lightheadedness, dizziness, near-syncope or syncope. He denies any issues with anesthesia or sedation medications. He is nervous, but is ready to proceed today with scheduled radiofrequency catheter ablation of atrial fibrillation and atrial flutter with Dr. Ortega. All questions answered to their apparent satisfaction. Interval History Deb Allen CNP 11/27/2022: The patient underwent radiofrequency catheter ablation for atrial fibrillation with Dr. Ortega 06/29/2022, he was discharged the next day, amiodarone was not restarted. Weekly transtelephonic monitoring performed 07/07/2022 - 09/15/2022 appears to be sinus bradycardia with rates in the 50s. Echocardiogram performed 09/14/2022 at [facility] indicates LVEF 50%. He underwent 3-month post ablation testing prior to today's appointment which includes a CT of the chest, echocardiogram and 24-hour Holter monitor was applied. Mr. Argueta reports he has been well since the ablation procedure, has not had symptomatic or documented recurrence. He is very pleased with his results, he reports increased energy and decreased exertional dyspnea. He remains anticoagulated with Eliquis, (more content not included)...[facility]09-22-2023 Miscellaneous Notes* Telephone Encounter - Bruno Fair RN - 05/21/2023 3:51 PM EDT Spoke with CAROLANN Salamanca at [facility] she will give Dr. Greenberg's the message to schedule the cardioversion if he is still available. Will give us a call back if there is a problem scheduling. Bruno Fair RN * Telephone Encounter - Eugenia العلي RN - 05/21/2023 2:13 PM EDT Spoke with pt. Notified of Deb's message. He reports he will reach out to Dr greenberg who was willing to do DCC. Eugenia العلي RN * Telephone Encounter - Samia Allen APRN.CNP - 05/21/2023 2:03 PM EDT EKG has not yet been received, if Dr. Greenberg is willing to do cardioversion, would probably be the best option, as Dr. Ortega is unavailable for procedures for at least the next 1.5 weeks, though cardioversion could be performed by one of Dr. Ortega's partners if needed. Samia Allen APRN.BULLET CASTING OPERATOR * Telephone Encounter - Bruno Fair RN - 05/21/2023 9:58 AM EDT Received a call from Jadyn VUONG at Dr. Greenberg who wanted to inform Dr. Ortega that patient arrived to office for EKG since he wasn't feeling well. EKG indicated atrial fibrillation with heart rate inthe 100's. Remains on Eliquis, Dr. Greenberg increased carvedilol. Jadyn will be faxing over the EKG forDr. Ortega to review. Dr. Greenberg willing to perform cardioversion if ok with Dr. Ortega. Bruno Fair RN * Telephone Encounter - Eugenia العلي RN - 05/20/2023 11:37 AM EDT Pt calls to report Dr Greenberg's office was to send recent EKG and labs. He reports he is back in afibwith HRs 110s bpm. He reports Dr Greenberg increased his coreg from 12.5 mg BID to 25 mg BID. He reports his HR remains 110s bpm. Eugenia العلي RN documented [facility] NoteHNO ID: [id number] Author: Dez Ortega MD Service: ? Author Type: Physician Type: Progress Notes Filed: 03/29/2023 7:34 PM Note Text: PRIMARY CARE PHYSICIAN: Dez Her [address] [place] [address] Patient Care Team: Dez Her DO as PCP - General (Family Medicine) Gonzalez Greenberg as Specialty Timber Hand (Cardiology) Huber Campos MD as Specialty Tim[facility] Hand (Urology) CHIEF COMPLAINT: Follow-up for arrhythmia HISTORY OF PRESENT ILLNESS: Mr. Argueta is a 77 year old male who presents today for a cardiovascular medicine follow-up visit. History copied from previous notes, edited as needed: Dr. Ortega office note 04/29/2022: Mr. Argueta is a 76 year old male who [...] had been evaluated by Dr. Martins at [facility] 03/31/2022. Dr. Martins was concerned about the possibility that the atrial fibrillation, particularly rapid ventricular response rates, might have contributed to the cardiomyopathy. So he did recommend an aggressive approach to episcopal and maintenance of sinus rhythm, including antiarrhythmic drug therapy and catheter ablation for the atrial fibrillation and also atrial flutter. He recommended amiodarone, Mr. Argueta states he took 400 mg for about a week 04/06/2022 - 04/15/2022 when he reduced the dose to 200 mg daily due to headaches. Dr. Martins's office contacted Mr. Argueta to schedule the catheter ablation procedure, but Mr. Argueta wanted to get my opinion before proceeding. He experiences exertional shortness of breath and "extreme fatigue" --- his states that he cannot walk very far without becoming very short of breath and tired. He does not experience palpitations. H/P update Deb Allen CNP 06/29/2022: The patient continues to experience exertional dyspnea and fatigue which he attributes to the atrial arrhythmia. He otherwise feels in his usual state of health. He is currently getting an echo at the bedside. He is accompanied by his spouse and daughter today. He was unsure if he was supposed to stop the Eliquis, states "I do not want my blood too thin," he believes he missed his dose last night, and did not take the Eliquis this morning, will order stat dose to be given prior to procedure, he denies any bleeding issues. We will also inform the EP lab and Dr. Ortega. Amiodarone has been on hold, as instructed by Dr. Ortega, patient's last dose was 06/23/2022. He denies chest discomfort, palpitations, lightheadedness, dizziness, near-syncope or syncope. He denies any issues with anesthesia or sedation medications. He is nervous, but is ready to proceed today with scheduled radiofrequency catheter ablation of atrial fibrillation and atrial flutter with Dr. Ortega. All questions answered to their apparent satisfaction. 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 Ortega 06/29/2022, he was discharged the next day, amiodarone was not restarted. Weekly transtelephonic monitoring performed 07/07/2022 - 09/15/2022 appears to be sinus bradycardia with rates in the 50s. Echocardiogram performed 09/14/2022 at [facility] indicates LVEF 50%. He underwent 3-month post ablation testing prior to today's appointment which includes a CT of the chest, echocardiogram and 24-hour Holter monitor was applied. Mr. Argueta reports he has been well since the ablation procedure, has not had symptomatic or documented recurrence. He is very pleased with his results, he reports increased energy and decreased exertional dyspnea. He remains anticoagulated with Eliquis, denies any bleeding issues. He denies chest discomfort, palpitations, lightheadedness (more content not included)...[facility] 12-18-2022 Miscellaneous Notes* Telephone Encounter - Radha Vazquez LPN - 12/18/2022 8:06 AM EDT I spoke to Ilya and informed her of 's response to monitor results. She voiced understanding and will relay message to patient when he wakes up. Radha Vazquez LPN * Telephone Encounter - Dez Ortega MD - 12/17/2022 8:47 PM EDT Please let Mr. Argueta know that the heart monitoring testing showed no significant atrial fibrillation. Looked good overall. Dez Ortega MD December 17, 2022 8:47 PM documented in this encounterMer[facility] Miscellaneous Notes* Telephone Encounter - Radha Vazquez LPN - 12/07/2022 10:13 AM EDT called in and wanted to be aware he completed Chest CTA on 11/27/2022. Results are in Epic for review. Radha Vazquez LPN documented in this encounterMercy Health St. [facility]03-31-2023 NoteHNO ID: [id number] Author: Samia Allen APRN.BULLET CASTING OPERATOR Service: ? Author Type: Nurse Practitioner Type: Progress Notes Filed: 11/27/2022 2:12 PM Note Text: [facility] [place] General Cardiology Electrophysiology PRIMARY CARE PHYSICIAN: Dez Her [address] [place] [address] CHIEF COMPLAINT: Cardiovascular medicine follow-up for arrhythmia. HISTORY OF PRESENT ILLNESS: Mr. Argueta is a 76 year old male who presents today for follow-up regarding arrhythmia. History copied from previous notes, edited as needed: Dr. Ortega office note 04/29/2022: Mr. Argueta is a 76 year old male who [...] had been evaluated by Dr. Martins at [facility] 03/31/2022. Dr. Martins was concerned about the possibility that the atrial fibrillation, particularly rapid ventricular response rates, might have contributed to the cardiomyopathy. So he did recommend an aggressive approach to episcopal and maintenance of sinus rhythm, including antiarrhythmic drug therapy and catheter ablation for the atrial fibrillation and also atrial flutter. He recommended amiodarone, Mr. Argueta states he took 400 mg for about a week 04/06/2022 - 04/15/2022 when he reduced the dose to 200 mg daily due to headaches. Dr. Martins's office contacted Mr. Argueta to schedule the catheter ablation procedure, but Mr. Argueta wanted to get my opinion before proceeding. He experiences exertional shortness of breath and "extreme fatigue" --- his states that he cannot walk very far without becoming very short of breath and tired. He does not experience palpitations. H/P update Deb Allen CNP 06/29/2022: The patient continues to experience exertional dyspnea and fatigue which he attributes to the atrial arrhythmia. He otherwise feels in his usual state of health. He is currently getting an echo at the bedside. He is accompanied by his spouse and daughter today. He was unsure if he was supposed to stop the Eliquis, states "I do not want my blood too thin," he believes he missed his dose last night, and did not take the Eliquis this morning, will order stat dose to be given prior to procedure, he denies any bleeding issues. We will also inform the EP lab and Dr. Ortega. Amiodarone has been on hold, as instructed by Dr. Ortega, patient's last dose was 06/23/2022. He denies chest discomfort, palpitations, lightheadedness, dizziness, near-syncope or syncope. He denies any issues with anesthesia or sedation medications. He is nervous, but is ready to proceed today with scheduled radiofrequency catheter ablation of atrial fibrillation and atrial flutter with Dr. Ortega. All questions answered to their apparent satisfaction. Interval History: The patient underwent radiofrequency catheter ablation for atrial fibrillation with Dr. Ortega 06/29/2022, he was discharged the next day, amiodarone was not restarted. Weekly transtelephonic monitoring performed 07/07/2022 - 09/15/2022 appears to be sinus bradycardia with rates in the 50s. Echocardiogram performed 09/14/2022 at [facility] indicates LVEF 50%. He underwent 3-month post ablation testing prior to today's appointment which includes a CT of the chest, echocardiogram and 24-hour Holter monitor was applied. Mr. Argueta reports he has been well since the ablation procedure, has not had symptomatic or documented recurrence. He is very pleased with his results, he reports increased energy and decreased exertional dyspnea. He remains anticoagulated with Eliquis, denies any bleeding issues. He denies chest discomfort, palpitations, lightheadedness, dizziness, near-syncope or syncope. PAST MEDICAL HISTORY Diagnosis Date Acute CVA (cerebrovascular accident) (HCC) (more content not included)...[facility]03-31-[facility] Instructions* Patient Instructions* Samia Allen APRN.BULLET CASTING OPERATOR - 11/27/2022 2:02 PM EDT Atrial Fibrillation [...] pathways to the upper left atrium and tothe lower chambers of the heart (the ventricles). [...] heart has 4 valves that open and closewith each heartbeat to help blood flow in [...] may help keep you from having so manyspells. If a health problem like a leaky [...] called a catheter to deliver energy to theinside of the heart. The energy (usually radio [...] healthcare provider's instructions for treatment. Copyright 2014 [employer] and/or one of its subsidiaries. All rights reserved. documented in this encounterMercy Health St. [facility]03-31-2023 History of Present illness Narrative* Samia Allen APRN.JHONNY - 11/27/2022 1:30 PM EDT Images from the original note were not included. [facility] General Cardiology Electrophysiology PRIMARY CARE PHYSICIAN: Dez Her [address] [place] [id number] CHIEF COMPLAINT: Cardiovascular medicine follow-up for arrhythmia. HISTORY OF PRESENT ILLNESS: Mr. Argueta is a 76 year old male who presents today for follow-up regarding arrhythmia. History copied from previous notes, edited as needed: Dr. Ortega office note 04/29/2022: Mr. Argueta is a 76 year old male who [...] had been evaluated by Dr. Martins at [facility] 03/31/2022. Dr. Martins was concerned about the possibility that the atrial fibrillation, particularly rapid ventricular response rates, might have contributed to the cardiomyopathy. So he did recommend an aggressive approach to episcopal and maintenance of sinus rhythm, including antiarrhythmic drug therapy and catheter ablation for the atrial fibrillation and also atrial flutter. He recommended amiodarone, Mr. Argueta states he took 400 mg for about a week 04/06/2022 - 04/15/2022 when he reduced the dose to 200 mg daily due to headaches. Dr. Martins's office contacted Mr. Argueta to schedule the catheter ablation procedure, but Mr. Argueta wanted to get my opinion before proceeding. He experiences exertional shortness of breath and "extreme fatigue" --- his states that he cannot walk very far without becoming very short of breath and tired. He does not experience palpitations. 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 He otherwise feels in his usual state of health. He is currently getting an echo at the bedside. He is accompanied by his spouse and daughter today. He was unsure if he was supposed to stop the Eliquis, states "I do not want my blood too thin," he believes he missed his dose last night, and did not take the Eliquis this morning, will order stat dose to be given prior to procedure, he denies any bleeding issues. We will also inform the EP lab andDr. Ortega. Amiodarone has been on hold, as instructed by Dr. Ortega, patient's last dose was 06/23/2022. He denies chest discomfort, palpitations, lightheadedness, dizziness, near-syncope or syncope. He denies any issues with anesthesia or sedation medications. He is nervous, but is ready to proceed today with scheduled radiofrequency catheter ablation of atrial fibrillation andatrial flutter with Dr. Ortega. All questions answered to their apparent satisfaction. Interval History: The patient underwent radiofrequency catheter ablation for atrial fibrillation with Dr. Ortega 06/29/2022, he was discharged the next day, amiodarone was not restarted. Weekly transtelephonic monitoring performed 07/07/2022 - 09/15/2022 appears to be sinus bradycardia with ratesin the 50s. Echocardiogram performed 09/14/2022 at [facility] indicates LVEF 50%. Heunderwent 3-month post ablation testing prior to today's appointment which includes a CT of the chest, echocardiogram and 24-hour Holter monitor was applied. Mr. Argueta reports he has been well since the ablation procedure, has not had symptomatic or documented recurrence. He is very pleased with his results, he reports increased energy and decreased exertional dyspnea. He remains anticoagulatedwith Eliquis, denies any bleeding issues. He denies chest discomfort, palpitations, lightheadedness, dizziness, near-syncope or syncope. PAST MEDICAL HISTORY Diagnosis Date Acute CVA (cerebrovascular accident) (HCC) 10/25/2020 MRI demonstrated small acute left posterior frontal lobe, precentral gyrus and cortical infarct Anticoagulant long-term use indication: stroke prevention atrial fibrillation/flutter At risk for stroke [id number] = 6 (CHF, HTN, age2, TIA/stroke) CHF (congestive heart failure) (HCC) Chronic combined systolic and diastolic CHF (congestive heart failure) (HCC) Dilated cardiomyopathy (HCC) Essential hypertension Exertional shortness of breath Fatigue Left bundle-branch block, unspecified senior care current use of amiodarone ragman current use of antiarrhythmic drug Mixed hyperlipidemia Paroxysmal atrial flutter (HCC) Persistent atrial fibrillation (HCC) symptomatic; refractory to medical therapy including antiarrhythmic [...] RF catheter ablation/PVAI; ST/SF, [place]; [facility] Dr. Ortega APPENDECTOMY BACK SURGERY HX 1981 CARDIOVERSION 12/30/2020 ECHOCARDIOGRAM 09/14/2022 [facility]; see scanned documents EPS: SVT ABLATION Right 06/29/2022 typical right atrial flutter (cavotricuspid isthmus) RF catheter ablation; ROSSElio Ortega KNEE SURGERY HX 1984 LEFT HEART CATH,PERCUTANEOUS 10/17/2015 REPAIR UMBILICAL HERNIA [...] EXAMINATION: BP 129/66 Pulse 66 Ht 5' 9" (1.75m) Wt 226 lb (102.5kg) SpO2 96% [...] severely decreased. Regional wall motion abnormalities as perabove with EF = 25 5% (2D biplane). [...] with rates in the 50s. Echocardiogram: 09/14/2022 ([facility]) - Hypermobile atrial septum. - [...] rhythm with sinus arrhythmia, LBBB, 64 bpm, ID 172 ms, QRS 140 ms, QT/QTc 456/470 [...] cardioversions and antiarrhythmic drug therapy with amiodarone, subsequentlyunderwent radiofrequency catheter ablation of atrial fibrillation and typical atrial flutter (CTI line) with Dr. Ortega 06/29/2022. Amiodarone was discontinued prior to procedure. He was discharged the next day. Weekly transtelephonic monitoring demonstrated likely sinus bradycardia with rates in the 50s. He underwent 3-month postprocedure testing prior to today's appointment which includes aCT of the chest, echocardiogram and 24-hour Holter monitor was applied. He seems to be doing well from a heart rhythm perspective, he will continue Eliquis 5 mg twice daily and carvedilol 12.5 mg twice daily. He will follow-up in [address] Ortega or COOK'S ASSISTANT, or call sooner should any issues arise, patient verbalizes understanding. 5. Dilated cardiomyopathy (HCC) - ICD9: 425.4, ICD10: I42.0 6. Chronic combined systolic and diastolic CHF (congestive heart failure) (HCC) - ICD9: 428.42, 428.0, ICD10: I50.42 -possibly tachycardia mediated, presently compensated on exam, on medical therapy,echo obtained 09/14/2022 indicates LVEF 50%, improved from 25%. He currently follows with local barrel turner, Dr. Greenberg in [place]. 7. Anticoagulant long-term use - ICD9: V58.61, [...] about 3 months (around 02/26/2023) for Dr. Ortega or TON. Samia Allen APRN.CNP Medical Decision Making: Problems: Moderate: 2+ stable [...] to correct any errors. documented in this encounterMercy Health St. [facility]03-31-2023 NoteHNO ID: [id number] Author: Jeanne Holloway Prekindergarten Teacher Service: ? Author Type: Prekindergarten Teacher Type: Nursing Progress Note Filed: 11/27/2022 11:51 AM Note Text: Holter monitor applied. Pt verbalized understanding of monitor use / diary.[facility]03-31-2023 Nurse Note* Jeanne Holloway Prekindergarten Teacher - 11/27/2022 11:00 AM EDT Holter monitor applied. Pt verbalized understanding of monitor use / diary. documented in this encounterMercy Health St. [facility]01-17-2023 Miscellaneous Notes* Telephone Encounter - Rosa Wharton RN - 09/15/2022 11:28 AM EST Post PVAI orders pended for signature - office will call to schedule documented in this encounterMercy Health St. [facility]11-05-2022 Miscellaneous Notes* Telephone Encounter - Jose J Romano MD - 07/04/2022 12:12 PM EDT S/p pvai 06/29/22 Patient called to say [...] Jose J Romano MD documented in this encounterMercy Health St. [facility]10-31-2022 Evaluation note* Diagnosis Onset Date Resolution Status History of radiofrequency ab lation procedure for cardiac arrhythmia June 29, 2022 acute Essential (primary) hypertension chronic Hyperlipidemia chronic Non-ischemic cardiomyopathy [facility] Work Phone: 1(742) 343-979510-25-2022 Miscellaneous Notes* Telephone Encounter - Rosa Wharton RN - 06/23/2022 11:51 AM EDT Pt is lion for ablation on 06/29. Previous office note says that you want an echo prior to ablation.Do you still want this echo done before, we could do it the morning of the procedure? Also pt is stopping amio as of today. Rosa Wharton RN * Telephone Encounter - Bruno Fair RN - 06/23/2022 11:28 AM EDT Pt's name has been added to boss procedure board. Bruno Fair RN * Telephone Encounter - Rosa Wharton RN - 06/23/2022 10:57 AM EDT Patient is scheduled for EPS/Ablation on 06/29/[address] Ortega. The hospital will call theday before between 2-5pm with your arrival time. Patient should not eat or drink after midnight theday before the procedure. Patient will need a electric screw driver operator when released from the hospital. You will stayovernight for observation. Patient should continue to take medications as prescribed the morning ofthe procedure with just a sip of water unless otherwise instructed. Pt verbalized understanding. Pt will stop taking amiodarone as instructed. Rosa Wharton RN documented in this encounterMercy Health St. [facility]08-31-2022 Nurse Note* Anabell Zacarias MA - 04/29/2022 2:28 PM EDT Patient denies any cardiac issues or symptoms, but does c/o sob, and fatigue and mild chest discomfort at times. documented in this encounterMercy Health St. [facility]08-31-2022 History of Present illness Narrative* Dez Ortega MD - 04/29/2022 2:20 PM EDT PRIMARY CARE PHYSICIAN: Dez Her, [address] [address] REFERRING PHYSICIAN: Gonzalez Greenberg MD ([facility]) [address] [address] Patient Care Team: Dez Her as PCP - General (Family Practice) Gonzalez Greenberg as Specialty Timber Hand (Cardiology) Huber Campos as Specialty Timber Hand (Urology) CHIEF COMPLAINT: Evaluation of arrhythmia HISTORY OF PRESENT ILLNESS: Mr. Argueta is a 76 year old male who [...] about 1 week. He did undergo another elec trical cardioversion shortly thereafter, but the atrial fibrillation again recurred fairly quickly.He does not recall anything done differently between the two cardioversions, such as antiarrhythmicdrug therapy. He has been noted in 2020 to have dilated cardiomyopathy, LVEF 15 to 20%, and most recently in September 2021 a repeat echocardiogram revealed LVEF 25%. He has been treated with heart failure medication regimen. He was treated with amiodarone recently, had been evaluated by Dr. Martins at [facility] 03/31/2022. Dr. Martins was concerned about the possibility that the atrial fibrillation, particularly rapid ventricular response rates, might have contributed to the cardiomyopathy. So he did recommend an aggressive approach to episcopal and maintenance of sinus rhythm, including antiarrhythmic drug therapy and catheter ablation for the atrial fibrillation and also atrial flutter. He recommended amiodarone, Mr. Argueta states he took 400 mg for about a week 04/06/2022 - 04/15/2022 when he reduced the dose to 200 mg daily due to headaches. Dr. Martins's office contacted Mr. Argueta to schedule the catheter ablation procedure, but Mr. Argueta wanted to get my opinion before proceeding. He experiences exertional shortness of breath and "extreme fatigue" --- his states that he cannot walk [...] of breath Fatigue Left bundle-branch block, unspecified ragman current use of amiodarone senior care current use of antiarrhythmic drug Mixed hyperlipidemia [...] Review of Systems Constitutional: Positive for malaise/fatigue ("extreme fatigue"). Negative for chills, fever and weight loss. [...] 108/63 Pulse 59 Resp 18 Ht 5' 9" (1.75m) Wt 222 lb (100.7kg) SpO2 92[room [...] treatment options to restore/maintain sinus rhythm are indicated--- options being antiarrhythmic drug therapy vs catheter ablation (atrial fibrillation and flutter). Another option would be AV node catheter ablation with SLAB OFF MILL TENDER-D (or SLAB OFF MILL TENDER-P) implant --- not as desirable an option right now. Favor catheter ablation for residential treatment but here short term it would [...] that catheter ablation might be the best plumber supervisor treatment strategy and it would allow for him to potentially come off the amiodarone at some point - ECG B/O W INTERP (MED OFFICE) 2. Typical atrial flutter (HCC) - ICD9: 427.32, ICD10: I48.3 See above, probably typical right atrial flutter 3. ragman current use of antiarrhythmic drug - ICD9: V58.69, ICD10: Z79.899 4. senior care current use of amiodarone - ICD9: V58.69, [...] are typically reserved for patients with relevant symptoms.A yearly complete eye exam is also recommended. 5. Dilated cardiomyopathy (HCC) - ICD9: 425.4, ICD10: I42.0 6. Chronic combined systolic and diastolic CHF (congestive heart failure) (HCC) - ICD9: 428.42, 428.0, ICD10: I50.42 Potentially contribution to this issue from atrial fibrillation/flutter particularly if rapid response rates; will need to reassess after sinus rhythm restored and maintained; if persistent LVEF <36% despite arrhythmia control and appropriate optimal heart failure medication regimen, might needto consider ICD for primary prevention --- probably SLAB OFF MILL TENDER-D system given ventricular dyssynchrony from IVCD or LBBB 7. Left bundle-branch block, unspecified - ICD9: 426.3, ICD10: I44.7 8. At risk for stroke - ICD9: V15.89, ICD10: Z91.89 9. Anticoagulant long-term use - ICD9: V58.61, ICD10: Z79.01 [id number] = 6 (CHF, HTN, age2, TIA/stroke); he [...] potentially attributable to atrial fibrillation/flutter IMPRESSION: Mr. rAgueta has symptomatic persistent atrial arrhythmia, including atrial fibrillation and what appears to be typical atrial flutter. See my commentary above in the problem list. I think the recommendations from [facility] are sound, I agree that an aggressive approach to episcopal and maintenance of sinus rhythm would be potentially beneficial from both a symptom standpoint and also possibly to improve the cardiomyopathy and heart failure. He has been treated with amiodarone withthe goal of short-term use prior to catheter ablation. I think this is very reasonable, although atthis point after several weeks of amiodarone we should consider electrical cardioversion to restoresinus rhythm. But I do think that overall long-term the results from catheter ablation would be more definitive and also allow for him to potentially come off of the amiodarone. I would like to see the results of a repeat echocardiogram prior to proceeding with catheter ablation, as it would be impo rtant to see where the left ventricular systolic function has become, and what are the left atrial dimensions and such. I had a detailed discussion with Mr. Argueta and his regarding my evaluation and recommendations. After our discussion, Mr. Argueta and his expressed understanding and I answered all questions to their apparent satisfaction. He agreed to proceed as outlined. They came to me here at [facility] for second opinion, but most likely will want to have any ablation procedures performed here due to being closer to where they live. PLAN AND RECOMMENDATIONS: Continue with current plan of care from EP standpoint. See my recommendations above. Dez Ortega MD 04/29/2022 Medical Decision Making: Problems: Moderate: 1+ chronic illnesses with change Data: Unique source(s) for external note(s) reviewed: 3+ Unique test result(s) reviewed: 3+ Unique test(s) ordered: 1 Risk: Moderate: Moderate risk from testing/treatment, Drug management and Decision on minor surgery w/ risk factors Medical Decision Making Level: 4 - Moderate documented in this [facility] History of Past illness Narrative* Problem Noted Date Diagnosed Date Resolved Date ragman current use of antiarrhythmic drug 2 03/26/2023 ragman current use of amiodarone 04/29/2022 03/26/2023 documented as of this encounter (statuses as of 03/31/2023) [facility] History of Past illness Narrative* Problem Noted Date Diagnosed Date Resolved Date ragman current use of antiarrhythmic drug 2 03/26/2023 senior care current use of amiodarone 04/29/2022 03/26/2023 documented as of this encounter (statuses as of 05/22/2023) [facility]08-02-2022 Instructions* Patient Instructions* Cris Page RN - 03/31/2022 11:31 AM EDT Begin amiodarone 400 mg daily. (Take 2 tabs daily) CT and afib ablation to be arranged. Rich will call you. Hold eliquis night before and am of procedure Call Cris for amiodarone refill when needed. [phone] opt 6 opt 3 Follow-up appointment may be scheduled/determined after procedure Thank you for choosing [facility] for your Heart Care. [employer] is an available tool to securely access your online medical information. Please ask to enroll during any [facility] appointment. Once enrolled, your MD reviewed test results will be available for you to review at your convenience. [employer] messaging is reserved for non urgent messages and responses may take a few days. Call the [facility] at [phone] for urgent questions/concerns M-F 8 to 4:00 Call Scheduling for any appointment/procedure verification or changes [phone] If we are sending you an Event monitor and you have not received it when expected, please call the office. For any questions/problems with your monitor please call Marilynn at [phone]. [facility] testing and procedure patient Instructions may be obtained at: [email or web address] Concerns: [email or web address] Amiodarone (Cordarone, Pacerone) 100 mg, 200 mg, 400 mg What is Amiodarone used for? Amiodarone is used to treat adults with abnormal heart rhythms. Follow-up Testing: Patents on amiodarone have to follow a regular schedule of follow-up testing. All follow-up testing will be completed during antiarrhythmic medications clinic visits at the [facility]. Follow-up testing for amiodarone will include the [...] sudden change in your vision, contact an dairy farm supervisor right away. Muscle problems: You may have numbness or pins and needles in your arms or legs, muscle weakness, reduced coordination, or difficulty with balance. Thyroid problems: Tell your health child care associate teacher if you have weight loss or gain, [...] the stomach absorbs amiodarone. documented in this [facility]08-02-2022 History of Present illness Narrative* Lee Miguel MD - 03/31/2022 9:30 AM EDT Bartolo Argueta is a 76 y.o. male who presented to our cardiac electrophysiology clinic as a referral from Dr. Greenberg in order to establish care regarding atrial fibrillation/flutter. As you know, Bartolo Argueta is a 76 y.o. male with a past medical history of HFrEF LVEF 25-30%, HTN, HLD, AF. He presents today for consultations regarding atrial fibrillation. First diagnosed with AF in 2003,on coumadin and rate control. Admitted in October 2020 when he presented with AF RVR and decompensated HF. Underwent DCCV with [facility]. Unfortunately, had recurrence of AF [...] moderately dilated LA Assessment and Plan: Bartolo Argueta is a 76 y.o. male who presented [...] suspicious that he will ultimately require with SLAB OFF MILL TENDER implantation. This plan was discussed with Dr. [...] and personally examined this patient with the Fellow/OPHTHALMIC SURGICAL ASSISTANT/Resident. I have discussed the findings and therapeutic plan with the Fellow/OPHTHALMIC SURGICAL ASSISTANT/Resident. I agree with the history, physical examination and medical decisions as outlined. Further comments are added below Subjective & Physical BP 118/62 (BP Location: Left arm, BP Position: Sitting) Resp 18 Ht 1.753 m (5' 9") Wt 99.5 kg(219 lb 6.4 oz) SpO2 97% BMI 32.40 kg/m Assessment & Plan There is no problem list on file for this patient. &^ Garland HF reduced EF = EF now AF - 04 rate control Stroke /TIA Sep 2020 - subtherapeutic coumadin; swithced to eliquis AF RVR with HF - CV'ed occurring afterwards Repeat ECHO during AF EF 25% - not AAD ; rate control; EF 20% HTN Nonischemic CM Flutter and past Dx of fib EF 40% chronic L eft bundle without AF in the past Alert & Oriented Eber Martins MD 03/31/2022 11:05 AM [employer] Truck Driver, [facility] Cardiac Electrophysiology [facility] Future Appointments Appointment Date:09/26/2021 02:00:00 PM Scheduled Provider:DEZ HER DO Location:[facility] Appointment Type:PC OV Future Scheduled Tests Laboratory* Potassium Level 01/31/21 [facility] evaluation + Plan note Future Appointments Appointment Date:01/19/2023 02:00:00 PM Scheduled Provider:DEZ HER DO Location:[place] Appointment Type:PC OV Future Scheduled Tests Laboratory* Thyroid Stimulating Hormone 10/20/22 * Vitamin B12 Level 10/20/22 * Complete Blood Count 10/20/22 * Vitamin D Level 10/20/22 * Complete Metabolic Panel 10/20/22 [facility] Evaluation + Plan note Future Appointments Appointment Date:07/17/2025 02:40:00 PM Scheduled Provider:DONNA SARMIENTO APRN - BULLET CASTING OPERATOR Location:[facility] Appointment Type:PC Wellness Medicare Appointment Date:09/04/2025 02:00:00 PM Scheduled Provider:DONNA SARMIENTO APRN - BULLET CASTING OPERATOR Location:[facility] Appointment Type: OV Future Scheduled Tests Laboratory* Thyroid Antibodies 09/05/25 * Thyroid Stimulating Hormone 09/05/25 * Thyroid Stimulating Hormone 03/15/25 * Free T4 09/05/25 * A1C Hemoglobin 03/15/25 * Complete Blood Count 03/15/25 * Free T3 09/05/25 * Lipid Profile 03/15/25 * Albumin/Creatinine Ratio, Random Urine 03/15/25 * Vitamin D Level 03/15/25 * Complete Metabolic Panel 03/15/25 * anti-Thyroid Peroxidase 09/05/25 [facility] evaluation note* Diagnosis Onset Date Resolution Status Dyspnea acute Fatigue acute Chronic atrial fibrillation chronic Chronic combined systolic an d diastolic CHF (congestive heart failure) chronic Essential (primary) hypertension chronic Non-ischemic cardiomyopathy [facility] Work Phone: Evaluhwkmx note* Diagnosis Palpitations- Primary Atrial fibrillation, unspecified type High risk medication use Encounter for long-term (current) use of other medications documented in this encounter [facility]* Diagnosis Persistent atrial fibrillation (HCC)- Primary Atrial fibrillation Typical atrial flutter (HCC) Atrial flutter ragman current use of antiarrhythmic drug senior care current use of amiodarone Dilated cardiomyopathy (HCC) [...] Fatigue, unspecified type documented in this encounter [facility] note* Diagnosis Atrial fibrillation, unspecified type (HCC)- Primary documented in this encounter [facility] note* Diagnosis Atrial fibrillation, unspecified type (HCC)- Primary documented in this encounter [facility] note* Diagnosis Atrial fibrillation, unspecified type (HCC)- Primary documented in this encounter [facility] note* Diagnosis Dyspnea, unspecified type- Primary Atrial fibrillation, persistent (HCC) Atrial fibrillation documented in this encounter [facility] note* Diagnosis Atrial fibrillation, unspecified type (HCC)- Primary documented in this encounter [facility] note* Diagnosis Onset Date Resolution Status Lightheadedness acute Chronic atrial fibrillation chronic Chronic combined systolic an d diastolic CHF (congestive heart failure) chronic Essential (primary) hypertension chronic Non-ischemic cardiomyopathy [facility] Work Phone: Evaluation note* Diagnosis Persistent atrial fibrillation (HCC)- Primary [...] hazards to health documented in this encounter [facility] note* Diagnosis Dyspnea, unspecified type Atrial fibrillation, persistent (HCC) Atrial fibrillation documented in this encounter [facility] note* Diagnosis Abnormal EKG [R94.31 (ICD-10-CM)]- Primary Nonspecific abnormal electrocardiogram (ECG) (EKG) Dyspnea, unspecified type Atrial fibrillation, persistent (HCC) Atrial fibrillation documented in this encounter [facility] note* Diagnosis Dyspnea, unspecified type Atrial fibrillation, persistent (HCC) Atrial fibrillation documented in this encounter [facility] noteNo assessment information availableWMarietta [facility] Work Phone: Evaluation note* Diagnosis Onset Date Resolution Status Fatigue acute Chronic atrial fibrillation chronic Essential (primary) hypertension chronic Hyperlipidemia chronic Non-ischemic cardiomyopathy [facility] Work Phone: Evaluation note* Diagnosis Onset Date Resolution Status Fatigue acute Chronic atrial fibrillation chronic Essential (primary) hypertension chronic Hyperlipidemia chronic Non-ischemic cardiomyopathy chronic Fatigue acute Chronic atrial fibrillation chronic Essential (primary) hypertension chronic Hyperlipidemia chronic Non-ischemic cardiomyopathy [facility] Work Phone: Evaluation note* Diagnosis Onset Date Resolution Status Admit Date Chronic atrial fibrillation chronic February 07, 2025 1:32pm Essential (primary) hypertension chr onic February 07, 2025 1:32pm Hyperlipidemia chronic February 07, 2025 1:32pm Non-ischemic cardiomyopathy chronic February 07, 2025 1:32pm [facility] Work Phone: Hospital course Narrative No data available for this section [facility] Hospital Discharge instructions No data available for this section [facility] Progress note No data available for this section [facility] Reason for referral (narrative)* Outpatient Procedure (Routine) - Closed Specialty Diagnoses / Procedures Referred By Contac t Referred To [facility] Diagnoses Dyspnea, unspecified type Atrial fibrillation, persistent (HCC) Procedures ECHO ECHO TTHRC R-T 2D W/WOM-MODE COMPL SPEC&COLR D Dez Ortega MD [address] [address] [facility] [address] [place] [address] Referral ID Status Reason Start Date Expiration Date V isits Requested Visits Authorized [id number] Closed Auto-Generate d Referral 09/29/2022 09/15/2023 1 1 [facility] for referral (narrative)No reason for referral information [facility] Work Phone: Reason for visit Narrative* Outpatient Procedure (Routine) - Closed Specialty Diagnoses / Procedures Referred By Contraul t Referred To [facility] Diagnoses Dyspnea, unspecified type Atrial fibrillation, persistent (HCC) Procedures ECHO ECHO TTHRC R-T 2D W/WOM-MODE COMPL SPEC&COLR D Dez Ortega MD [address] [place] [address] [facility] [address] [place] [address] Referral ID Status Reason Start Date Expiration Date V isits Requested Visits Authorized [id number] Closed Auto-Generate d Referral 09/29/2022 09/15/2023 [address] [facility] Chief Complaint and Reason for Visit Chief Complaint 4 M [facility] Reason for Visit Dyspnea Fatigue Chronic atrial fibrillation Chronic combined systolic and diastolic CHF (congestive heart failure) Essential (primary) hypertension Non-ischemic cardiomyopathy Chief Complaint Amb Documentation 4 M FU NON-ISCHEMIC CARDIOMYOPATHY Reason for Visit Lightheadedness Chronic atrial fibrillation Chronic combined systolic and diastolic CHF (congestive heart failure) Essential (primary) hypertension Non-ischemic cardiomyopathy Chief Complaint NON-ISCHEMIC CARDIOM YOPATHY 3 M FU Reason for Visit History of radiofreq uency ablation procedure for cardiac arrhythmia Essential (primary) hypertension Hyperlipidemia Non-ischemic cardiomyopathy Chief Complaint "back in a-fib" post ablation 06/19 Shay CRAVEN Chief Complaint New onset fatigue Javi PASCAL Reason for Visit Fatigue Chronic atrial fibrillation Essential (primary) hypertension Hyperlipidemia Non-ischemic cardiomyopathy Chief Complaint New onset fatigue Javi PASCAL 1 M FU Reason for Visit Fatigue Chronic atrial fibrillation Essential (primary) hypertension Hyperlipidemia Non-ischemic cardiomyopathy Fatigue Chronic atrial fibrillation Essential (primary) hypertension Hyperlipidemia Non-ischemic cardiomyopathy Chief Complaint Admit Date FASTING December 21, 2024 9:0 9am Chief Complaint Admit Date FASTING December 21, 2024 9:0 9am 1 Y FU/MOVED FROM [facility] February 07, 2025 1: 32pm Reason for Visit Admit Date Chronic atrial fibrillation February 07 025 1:32pm Essential (primary) hypertension February 072024 1:32pm Hyperlipidemia February 07, 2025 1:32 pm Non-ischemic cardiomyopathy February 07 025 1:32pm Chief Complaint Admit Date FASTING December 21, 2024 9:0 9am 1 Y FU/MOVED FROM [facility] February 07, 2025 1: 32pm CHRONIC COMBINED SYSTOLIC AND DIASTOLIC CHF March 16, 2025 12:51pm Family History No Family History Records Found Relationship Condition Age at Onset Recorded Date/T benoit mother Cerebrovascular accident (CVA) Unknown father Malignant neoplasm Unknown sister Malignant neoplasm Unknown Advance Directives No Advanced Directives Records Found Advance Directive Response Recorded Date/ Time Advance Directives Yes December 30, 2020 11:10am Living Will Yes February 22, 2021 1:28am Power of Treater Yes February 22 1:28am Advance Directive Response Recorded Date/ Time Advance Directives Yes December 30, 2020 10:10am Living Will Yes February 22, 2021 12:28am Power of Treater Yes February 22 12:28am Advance Directive Response Recorded Date/ Time Advance Directives Yes April 9:40am Living Will Yes May 17, 2023 9:40am Power of Treater Yes April 9:40am Advance Directive Response Recorded Date/ Time Advance Directives Yes June 07, 2023 10:56am Living Will Yes June 07 10:56am Power of Treater Yes June 07 10:56am Advance Directive Response Recorded Date/ Time Advance Directives Yes June 07, 2023 10:56am Advance Directive Response Recorded Date/ Time Living Will Yes June 07 10:56am Do you have a Healthcare Power of Treater? Yes June 07, 2023 10:56am Advance Directives Yes June 07, 2023 10:56am Reason for Referral Specialty Diagnoses / Procedures Referred By Contac t Referred To Contact CT IMAGING Diagnoses Dyspnea, unspecified type Atrial fibrillation, persistent (HCC) Procedures CTA CHEST (NONGATED) W IVCON CT ANGIOGRAPHY CHEST W/CONTRAST/NONCONTRAST Dez Ortega MD [address] [facility] [address] [place] [address] Ct Imaging Referral ID Status Reason Start Date Expiration Date Visits Requested Visits Authorized [id number] Pending Review Auto-Generat ed Referral 09/29/2022 10/15/2023 1 1 Specialty Diagnoses / Procedures Referred By Contac t Referred To [facility] Diagnoses Dyspnea, unspecified type Atrial fibrillation, persistent (HCC) Procedures ECHO ECHO TTHRC R-T 2D W/WOM-MODE COMPL SPEC&COLR D Dez Ortega MD [address] [place] [address] [facility] [address] [place] [address] Referral ID Status Reason Start Date Expiration Date Visits Requested Visits Authorized [id number] Pending Review Auto-Generat ed Referral 09/29/2022 09/15/2023 1 1 Specialty Diagnoses / Procedures Referred By Contac t Referred To Contact Diagnoses Atrial fibrillation, unspecified type Procedures CT CARDIAC PULMONARY VENOGRAM ID CHG CT HEART CONTRAST EVAL CARDIAC STRUCT/MORPH Eber Martins MD [address] [place] [phone] Referral ID Status Reason Start Date Expiration Date V isits Requested Visits Authorized [id number] New Request 03/31/2022 04/25/2023 1 1 Specialty Diagnoses / Procedures Referred By Contac t Referred To Contact Diagnoses Atrial fibrillation, unspecified type Procedures CASE REQUEST - EP PROC (EPS, ABLATION, DEVICE) Eber Martins MD [address] [place] [phone] Referral ID Status Reason Start Date Expiration Date V isits Requested Visits Authorized [id number] New Request 03/31/2022 04/25/2023 1 1 Specialty Diagnoses / Procedures Referred By Contac t Referred To Contact Diagnoses Palpitations Procedures ECG Eber Martins MD [address] [place] [phone] Referral ID Status Reason Start Date Expiration Date V isits Requested Visits Authorized [id number] New Request 03/30/2022 04/24/2023 1 1 Summary Purpose Medications Administered Section Inactive Administered Medications - [...] 1.3 mL Arm, Left Additional Source Comments Goals (unrecognized section and content) Goals may be documented in a n alternate section Reason for Visit (unrecogniz ed section and content) Reason Comments New Patient Specialty Diagnoses / Procedures Referred By Cheri campa Referred To Contact Electrophysiology Diagnoses Chronic atrial fibrillation Chronic combined systolic and diastolic CHF (congestive heart failure) Left bundle branch block Other cardiomyopathies Personal history of transient ischemic attack (TIA), and cerebral infarction without residual deficits Essential hypertension Pure hypercholesterolemia ragman current use of anticoagulant therapy Hypersomnia Dyspnea, unspecified type Orthopnea Other fatigue Gonzalez Greenberg MD [address] [place] [address] Eber Martins MD [address] [phone] Referral ID Status Reason Start Date Expiration Date V isits Requested Visits Authorized [id number] New Request 11/10/2021 12/05/2022 1 1 Reason Comments CARD New Patient Consult OPHTHALMIC SURGICAL ASSISTANT REF FOR A-FI B Reason Comments Preparations [...] W IVCON CT ANGIOGRAPHY CHEST W/CONTRAST/NONCONTRAST Dez Ortega MD [address] [facility] [address] [place] [address] Ct Imaging Referral ID Status Reason Start Date Expiration Date V isits Requested Visits Authorized [id number] Closed Auto-Generate d Referral 09/29/2022 10/15/2023 1 1 Reason Comments Results Reason Onset Date Comments Results 12/17/2022 Reason Comments Patient Update Care Teams (unrecognized sec tion and content) Inner Tube Inserter Relationship Specialty Start Date End Date Dez Her DO [address] [place], [place] [id number] PCP - General Family Medicine 02/21/21 Gonzalez Greenberg MD [address] [place] [phone] Cardiovascular Disease 03/27/22 Inner Tube Inserter Relationship Specialty Start Date End Date Dez Her [address] [place], [place] [phone] PCP - General Family Practice 04/27/22 Gonzalez Greenberg [address] [phone] Specialty Timber Hand Cardiology 04/27/22 Huber Campos [address] [place] [address] [address] [place] [phone] Specialty Timber Hand Urology 04/29/22 Inner Tube Inserter Relationship Specialty Start Date End Date Dez Her [address] [place] [address] PCP - General Family Medicine 04/27/22 Gonzalez Greenberg [address] [facility] [address] [place], [place] [phone] Specialty Timber Hand Cardiology 04/27/22 Huber Campos [address] [phone] Specialty Timber Hand Urology 04/29/22 Inner Tube Inserter Relationship Specialty Start Date End Date Dez Her [address] [place] [phone] PCP - General Family Medicine 04/27/22 Garland, Jupiter S [address] [place] [address] Specialty Timber Hand Cardiology 04/27/22 Huber Campos [address] [place] [address] Specialty Timber Hand Urology 04/29/22 Inner Tube Inserter Relationship Specialty Start Date End Date Dez Her [address] [address] PCP - General Family Medicine 04/27/22 Garland, Gonzalez S [address] [place] [address] Specialty Timber Hand Cardiology 04/27/22 Huber Campos [address] [place] [phone] Specialty Timber Hand Urology 04/29/22 Inner Tube Inserter Relationship Specialty Start Date End Date Dez Her [address] [address] PCP - General Family Medicine 04/27/22 Garland, Jupiter S [address] [place] [address] Specialty Timber Hand Cardiology 04/27/22 Huber Campos [address] [place] [address] Specialty Timber Hand Urology 04/29/22 Inner Tube Inserter Relationship Specialty Start Date End Date Dez Her, [address] [place] [address] PCP - General Family Medicine 04/27/22 Garland, Jupiter S [address] [place] [address] Specialty Timber Hand Cardiology 04/27/22 Huber Campos [address] [phone] Specialty Timber Hand Urology 04/29/22 Inner Tube Inserter Relationship Specialty Start Date End Date Dez Her, [address] [place] [address] PCP - General Family Medicine 04/27/22 Garland, Gonzalez S [address] [place] [address] Specialty Timber Hand Cardiology 04/27/22 Huber Campos [address] [phone] Specialty Timber Hand Urology 04/29/22 Inner Tube Inserter Relationship Specialty Start Date End Date Dez Her [address] [place] [address] PCP - General Family Medicine 04/27/22 Garland, Jupiter S [address] [place] [address] Specialty Timber Hand Cardiology 04/27/22 Huber Campos MD [address] [address] Specialty Timber Hand Urology 04/29/22 Inner Tube Inserter Relationship Specialty Start Date End Date Dez Her, [address] [place] [address] PCP - General Family Medicine 04/27/22 Garland, Jupiter S [address] [place] [address] Specialty Timber Hand Cardiology 04/27/22 Huber Campos MD [address] [address] Specialty Timber Hand Urology 04/29/22 Inner Tube Inserter Relationship Specialty Start Date End Date Dez Her, [address] [place] [address] PCP - General Family Medicine 04/27/22 Garland, Jupiter S [address] [place] [address] Specialty Timber Hand Cardiology 04/27/22 Huber Campos MD [address] [address] Specialty Timber Hand Urology 04/29/22 Inner Tube Inserter Relationship Specialty Start Date End Date Dez Her, [address] [place] [address] PCP - General Family Medicine 04/27/22 Garland, Gonzalez S [address] [place] [address] Specialty Timber Hand Cardiology 04/27/22 Huber Campos MD [address] [address] Specialty Timber Hand Urology 04/29/22 Inner Tube Inserter Relationship Specialty Start Date End Date Dez Her, [address] [place] [address] (Work) PCP - General Family Medicine 04/27/22 Garland, Jupiter S [address] [place] [address] Specialty Timber Hand Cardiology 04/27/22 Huber Campos MD [address] [address] Specialty Timber Hand Urology 04/29/22 Inner Tube Inserter Relationship Specialty Start Date End Date Dez Her, [address] [place] [address] PCP - General Family Medicine 04/27/22 Garland, Jupiter S [address] [place] [address] Specialty Timber Hand Cardiology 04/27/22 Huber Campos MD [address] [address] Specialty Timber Hand Urology 04/29/22 Inner Tube Inserter Relationship Specialty Start Date End Date Dez Her, [address] [place] [address] PCP - General Family Medicine 04/27/22 Garland, Gonzalez S [address] [place] [address] Specialty Timber Hand Cardiology 04/27/22 Huber Campos MD [address] [address] Specialty Timber Hand Urology 04/29/22 Inner Tube Inserter Relationship Specialty Start Date End Date Dez Her, [address] [place] [address] PCP - General Family Medicine 04/27/22 Garland, Jupiter S [address] [place] [address] Specialty Timber Hand Cardiology 04/27/22 Huber Campos MD [address] [address] Specialty [facility] 04/29/22 Team Status: Active Member Role Status Dates Dr. Dez Her DO Family Provider Active Dr. Dez Her , DO Primary Care Provider Active Team Status: Inactive Member Role Status Dates Dr. Dez Her , DO Primary Care Provider, Referri ng Provider Active Amber Loja OPHTHALMIC SURGICAL ASSISTANT, OPHTHALMIC SURGICAL ASSISTANT-C Attending Provider Active Team Status: Active Member Role Status Dates Dr. Dez Her DO Primary Care Provider Active Courtney Wright Attending Provider Active Team Status: Active Member Role Status Dates Dr. Dez Her DO Primary Care Provider Active Dr. Gonzalez Greenberg MD Attending Provider Active Team Status: Inactive Member Role Status Dates Dr. Dez Her DO Primary Care Provider Active Amber Loja OPHTHALMIC SURGICAL ASSISTANT, OPHTHALMIC SURGICAL ASSISTANT-C Attending Provider, Referring P gabider Active Team Status: Inactive Member Role Status Dates Dr. Dez Her DO Primary Care Provider, Referri ng Provider Active Dr. Gonzalez Greenberg MD Attending Provider Active Team Status: Inactive Member Role Status Dates Dr. Dez Her DO Primary Care Pro vider, Attending Provider, Referring Provider Active Inner Tube Inserter Relationship Specialty Start Date End Date Dez Her DO [address] [place] [address] PCP - General Family Medicine 04/27/22 Gonzalez Greenberg [address] [address] Specialty [facility] 04/27/22 Huber Campos MD [address] [address] Specialty [facility] 04/29/22 Inner Tube Inserter Relationship Specialty Start Date End Date Dez Her DO [address] [place] [address] PCP - General Family Medicine 04/27/22 Garland, Jupiter S [address] [place] [address] Specialty [facility] 04/27/22 Huber Campos MD [address] [address] Specialty [facility] 04/29/22 Inner Tube Inserter Relationship Specialty Start Date End Date Dez Her, [address] [address] (Work) PCP - General Family Medicine 04/27/22 Garland, Jupiter S [address] [place] [address] Specialty [facility] 04/27/22 Huber Campos MD [address] [address] Specialty [facility] 04/29/22 Inner Tube Inserter Relationship Specialty Start Date End Date Dez Her, [address] [address] (Work) PCP - General Family Medicine 04/27/22 Garland, Gonzalez S [address] [place] [address] Specialty [facility] 04/27/22 Huber Campos MD [address] [address] Specialty [facility] 04/29/22 Inner Tube Inserter Relationship Specialty Start Date End Date Dez Her, [address] [address] (Work) PCP - General Family Medicine 04/27/22 Garland, Jupiter S [address] [place] [address] Specialty [facility] 04/27/22 Huber Campos MD [address] [address] Specialty [facility] 04/29/22 Inner Tube Inserter Relationship Specialty Start Date End Date Dez Her DO [address] [place] [address] PCP - General Family Medicine 04/27/22 Gonzalez Greenberg [address] [address] Specialty [facility] 04/27/22 Huber Campos MD [address] [place] [address] Specialty [facility] 04/29/22 Team Status: Inactive Member Role Status Dates Dr. Dez Her DO Primary Care Provider Active Dr. Gonzalez Greenberg MD Attending Provider, Referring Pro vider Active Inner Tube Inserter Relationship Specialty Start Date End Date Dez Her DO [address] [place] [address] PCP - General Family Medicine 04/27/22 Gonzalez Greenberg MD [address] [address] Specialty [facility] 04/27/22 Huber Campos MD [address] [address] Specialty [facility] 04/29/22 Team Status: Inactive Member Role Status Dates Dr. Dez Her DO Primary Care Provider, Referri ng Provider Active Sascha Valdes OPHTHALMIC SURGICAL ASSISTANT, OPHTHALMIC SURGICAL ASSISTANT-C Attending Provider Active Team Status: Inactive Member Role Status Dates Dr. Dez Her DO Primary Care Provider Active Sascha Valdes OPHTHALMIC SURGICAL ASSISTANT, OPHTHALMIC SURGICAL ASSISTANT-C Attending Provider, Referring Pro vider Active Team Status: Active Member Role Status Dates Dr. Dez Her DO Primary Care Provider Active Team Status: Inactive Member Role Status Dates Dr. Dez Her DO Primary Care Provider Active Start: December 21, 2024 End: December 21, 2024 Dr. Dez Her DO Attending Provider Active Start: December 21, 2024 End: December 21, 2024 Dr. Dez Her DO Referring Provider Active Start: December 21, 2024 End: December 21, 2024 Team Status: Active Member Role Status Dates Dr. Skip Bermudez DO Primary Care Provider Active Team Status: Inactive Member Role Status Dates Dr. Dez Her DO Referring Provider Active Start: February 07, 2025 End: February 07, 2025 Sascha Valdes OPHTHALMIC SURGICAL ASSISTANT, OPHTHALMIC SURGICAL ASSISTANT-C Attending Provider Active S tart: February 07, 2025 End: February 07, 2025 Dr. Skip Bermudez DO Primary Care Provider Active Start: February 07, 2025 End: February 07, 2025 Team Status: Active Member Role/Relationship Status Dates Dr. Skip Bermudez DO Primary Care Provider Active Team Status: Inactive Member Role/Relationship Status Dates Dr. Dez Her DO Primary Care Provider Active Start: December 21, 2024 End: December 21, 2024 Dr. Dez Her DO Attending Provider Active Start: December 21, 2024 End: December 21, 2024 Dr. Dez Her DO Referring Provider Active Start: December 21, 2024 End: December 21, 2024 Team Status: Inactive Member Role/Relationship Status Dates Dr. Dez Her DO Referring Provider Active Start: February 07, 2025 End: February 07, 2025 Sascha Valdes OPHTHALMIC SURGICAL ASSISTANT, OPHTHALMIC SURGICAL ASSISTANT-C Attending Provider Active S tart: February 07, 2025 End: February 07, 2025 Dr. Skip Bermudez DO Primary Care Provider Active Start: February 07, 2025 End: February 07, 2025 Team Status: Inactive Member Role/Relationship Status Dates Dr. Skip Bermudez , DO Primary Care Provider Active Start: March 16, 2025 End: March 16, 2025 Sascha Valdes OPHTHALMIC SURGICAL ASSISTANT, OPHTHALMIC SURGICAL ASSISTANT-C Attending Provider Active S tart: March 16, 2025 End: March 16, 2025 Sascha Valdes OPHTHALMIC SURGICAL ASSISTANT, OPHTHALMIC SURGICAL ASSISTANT-C Referring Provider Active S tart: March 16, 2025 End: March 16, 2025 Team Status: Active Member Role/Relationship Status Dates Dr. Skip Bermudez , Primary Care Provider Active Start: March 16, 2025 Dr. Gonzalez Greenberg MD Attending Provider Active S tart: March 16, 2025 (unrecognized sect ion and content) No Status Records FoundNo Status Records FoundNo Status Records FoundNo Status Records FoundNo Status Records FoundNo Status Records Found INFORMATION SOURCE (unrecogn ized section and content) DATE CREATED AUTHOR 04/04/2022 [facility] DATE CREATED AUTHOR AUTHOR'S ORGANIZ ATION 12/04/2022 [facility] DATE CREATED AUTHOR AUTHOR'S ORGANIZ ATION 07/08/2023 [facility] DATE CREATED AUTHOR AUTHOR'S ORGANIZ ATION 12/24/2023 [facility] DATE CREATED AUTHOR AUTHOR'S ORGANIZ ATION 06/17/[address] [facility] DATE CREATED AUTHOR AUTHOR'S ORGANIZ ATION 07/08/2025 [facility] Source Comments (unrecognize d section and content) In the event this informatio n is protected by the Federal Confidentiality of Alcohol and Drug Abuse Patient Records regulations: The Federal rules restrict any use of the information to criminally investigate or prosecute any alcohol or drug abuse patient.[facility] the event this information is protected by the Federal Confidentiality of Alcohol and Drug Abuse Patient Records regulations: The Federal rules restrict any use of the information to criminally investigate or prosecute any alcohol or drug abuse patient.[facility] the event this information is protected by the Federal Confidentiality of Alcohol and Drug Abuse Patient Records regulations: The Federal rules restrict any use of the information to criminally investigate or prosecute any alcohol or drug abuse patient.[facility] the event this information is protected by the Federal Confidentiality of Alcohol and Drug Abuse Patient Records regulations: The Federal rules restrict any use of the information to criminally investigate or prosecute any alcohol or drug abuse patient.[facility] the event this information is protected by the Federal Confidentiality of Alcohol and Drug Abuse Patient Records regulations: The Federal rules restrict any use of the information to criminally investigate or prosecute any alcohol or drug abuse patient.[facility] the event this information is protected by the Federal Confidentiality of Alcohol and Drug Abuse Patient Records regulations: The Federal rules restrict any use of the information to criminally investigate or prosecute any alcohol or drug abuse patient.[facility] the event this information is protected by the Federal Confidentiality of Alcohol and Drug Abuse Patient Records regulations: The Federal rules restrict any use of the information to criminally investigate or prosecute any alcohol or drug abuse patient.[facility] the event this information is protected by the Federal Confidentiality of Alcohol and Drug Abuse Patient Records regulations: The Federal rules restrict any use of the information to criminally investigate or prosecute any alcohol or drug abuse patient.[facility] the event this information is protected by the Federal Confidentiality of Alcohol and Drug Abuse Patient Records regulations: The Federal rules restrict any use of the information to criminally investigate or prosecute any alcohol or drug abuse patient.[facility]In the event this information is protected by the Federal Confidentiality of Alcohol and Drug Abuse Patient Records regulations: The Federal rules restrict any use of the information to criminally investigate or prosecute any alcohol or drug abuse patient.[facility] HospitalIn the event this information is protected by the Federal Confidentiality of Alcohol and Drug Abuse Patient Records regulations: The Federal rules restrict any use of the information to criminally investigate or prosecute any alcohol or drug abuse patient.[facility] HospitalIn the event this information is protected by the Federal Confidentiality of Alcohol and Drug Abuse Patient Records regulations: The Federal rules restrict any use of the information to criminally investigate or prosecute any alcohol or drug abuse patient.[facility] HospitalIn the event this information is protected by the Federal Confidentiality of Alcohol and Drug Abuse Patient Records regulations: The Federal rules restrict any use of the information to criminally investigate or prosecute any alcohol or drug abuse patient.[facility] HospitalIn the event this information is protected by the Federal Confidentiality of Alcohol and Drug Abuse Patient Records regulations: The Federal rules restrict any use of the information to criminally investigate or prosecute any alcohol or drug abuse patient.[facility] HospitalIn the event this information is protected by the Federal Confidentiality of Alcohol and Drug Abuse Patient Records regulations: The Federal rules restrict any use of the information to criminally investigate or prosecute any alcohol or drug abuse patient.[facility] HospitalIn the event this information is protected by the Federal Confidentiality of Alcohol and Drug Abuse Patient Records regulations: The Federal rules restrict any use of the information to criminally investigate or prosecute any alcohol or drug abuse patient.[facility] HospitalIn the event this information is protected by the Federal Confidentiality of Alcohol and Drug Abuse Patient Records regulations: The Federal rules restrict any use of the information to criminally investigate or prosecute any alcohol or drug abuse patient.[facility] HospitalIn the event this information is protected by the Federal Confidentiality of Alcohol and Drug Abuse Patient Records regulations: The Federal rules restrict any use of the information to criminally investigate or prosecute any alcohol or drug abuse patient.[facility] HospitalIn the event this information is protected by the Federal Confidentiality of Alcohol and Drug Abuse Patient Records regulations: The Federal rules restrict any use of the information to criminally investigate or prosecute any alcohol or drug abuse patient.[facility] HospitalIn the event this information is protected by the Federal Confidentiality of Alcohol and Drug Abuse Patient Records regulations: The Federal rules restrict any use of the information to criminally investigate or prosecute any alcohol or drug abuse patient.[facility] HospitalIn the event this information is protected by the Federal Confidentiality of Alcohol and Drug Abuse Patient Records regulations: The Federal rules restrict any use of the information to criminally investigate or prosecute any alcohol or drug abuse patient.[facility] HospitalIn the event this information is protected by the Federal Confidentiality of Alcohol and Drug Abuse Patient Records regulations: The Federal rules restrict any use of the information to criminally investigate or prosecute any alcohol or drug abuse patient.[facility] HospitalIn the event this information is protected by the Federal Confidentiality of Alcohol and Drug Abuse Patient Records regulations: The Federal rules restrict any use of the information to criminally investigate or prosecute any alcohol or drug abuse patient.[facility] HospitalIn the event this information is protected by the Federal Confidentiality of Alcohol and Drug Abuse Patient Records regulations: The Federal rules restrict any use of the information to criminally investigate or prosecute any alcohol or drug abuse patient.[facility] HospitalIn the event this information is protected by the Federal Confidentiality of Alcohol and Drug Abuse Patient Records regulations: The Federal rules restrict any use of the information to criminally investigate or prosecute any alcohol or drug abuse patient.[facility] HospitalIn the event this information is protected by the Federal Confidentiality of Alcohol and Drug Abuse Patient Records regulations: The Federal rules restrict any use of the information to criminally investigate or prosecute any alcohol or drug abuse patient.[facility] HospitalIn the event this information is protected by the Federal Confidentiality of Alcohol and Drug Abuse Patient Records regulations: The Federal rules restrict any use of the information to criminally investigate or prosecute any alcohol or drug abuse patient.[facility] HospitalIn the event this information is protected by the Federal Confidentiality of Alcohol and Drug Abuse Patient Records regulations: The Federal rules restrict any use of the information to criminally investigate or prosecute any alcohol or drug abuse patient.[facility] HospitalIn the event this information is protected by the Federal Confidentiality of Alcohol and Drug Abuse Patient Records regulations: The Federal rules restrict any use of the information to criminally investigate or prosecute any alcohol or drug abuse patient.[facility] HospitalIn the event this information is protected by the Federal Confidentiality of Alcohol and Drug Abuse Patient Records regulations: The Federal rules restrict any use of the information to criminally investigate or prosecute any alcohol or drug abuse patient.[facility] HospitalIn the event this information is protected by the Federal Confidentiality of Alcohol and Drug Abuse Patient Records regulations: The Federal rules restrict any use of the information to criminally investigate or prosecute any alcohol or drug abuse patient.[facility] Care Team (unrecognized sect ion and content) Care Team Personnel Name: DEZ HER DO Position: P4 Physician - Primary Care Member Role: Primary Care Physician Address: Address: [address] [place] [address]- Care Team Related Persons Name: ILYA ARGUETA Care Team Personnel Name: DEZ HER DO Position: P4 Physician - Primary Care Member Role: Primary Care Physician Address: Address: [address] [place] [address]- Care Team Related Persons Name: ILYA ARGUETA FOR RECORDS PERTAINING TO PATIENTS WHO ARE [...] BE BASED ON THE PRIMARY CLINICAL RECORDS. [facility]. provides no warranty or guarantee of the accuracy or completeness of information in this document.
[2025-07-14] MEDS: Lidocaine 5% Patch 1 PATCH TOPICAL (16:48)
--- NOTE | 2025-07-14 17:00 | RAD_ITS ---
PROCEDURE: LUMBAR SPINE 2 OR 3 VIEWS 07/14/2025 REASON FOR EXAM: LOW BACK PAIN, LIKELY MSK TECHNIQUE: Procedure Code: RADSPLL Modality: DX Procedure: LUMBAR SPINE 2 OR 3 VIEWS COMPARISON: None available. FINDINGS: Vertebrae: No acute vertebral body fracture or compression deformity. Discs: Advanced multilevel disc space narrowing with endplate osteophytes. Alignment: Grossly preserved with no traumatic subluxation. Other: Extensive facet joint arthropathy. Atherosclerotic vascular calcifications. 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 No acute fractures. Reading Location[facility]
[2025-07-14 18:02] VITALS: BP 122/84; PULSE 84; RESP 16; O2SAT 98
[2025-07-14 19:37] VITALS: BP 154/91; PULSE 102; RESP 16; O2SAT 97
[2025-07-14 21:50] VITALS: BP 125/77; PULSE 77; RESP 16; TEMP 36.7; O2SAT 98
== END 2025-07-14 21:59 | disposition home or self-care (01) ==
PROVIDERS: Emergency Provider Student in an Organized Health Care Education/Training Program; PCP Nurse Practitioner Family; Visit Provider Student in an Organized Health Care Education/Training Program
DX: M54.50 Low back pain, unspecified (principal); I48.20 Chronic atrial fibrillation, unspecified; I10 Essential (primary) hypertension; Z79.01 Long term (current) use of anticoagulants; Z79.899 Other long term (current) drug therapy
CPT/HCPCS: 72100; 99285